=== PATIENT | female | born 1940 | race Caucasian/White ===

== ENCOUNTER → 2016-05-06 | Outpatient (CLI) | payer MEDICARE, OTHER ==
[2016-05-06 15:33] LABS: PROTHROMBIN TIME 34.8 SEC (11.4-15.4)
== END ==
LOC: OD 14:06
PROVIDERS: ATTEND Internal Medicine
DX: I48.0 Paroxysmal atrial fibrillation (principal)
CPT/HCPCS: 36415; 85610

== ENCOUNTER → 2016-05-26 | Outpatient (CLI) | payer MEDICARE, OTHER ==
[2016-05-26 15:33] LABS: PROTHROMBIN TIME 28.9 SEC (11.4-15.4)
== END ==
LOC: OD 15:02
PROVIDERS: ATTEND Internal Medicine
DX: I48.0 Paroxysmal atrial fibrillation (principal)
CPT/HCPCS: 36415; 85610

== ENCOUNTER → 2016-06-19 | Outpatient (CLI) | payer MEDICARE, OTHER ==
[2016-06-19 14:06] LABS: ABSOLUTE BASOPHILS # (AUTO) 0.2 10^3/uL (0.0-0.2); ABSOLUTE EOSINOPHILS # (AUTO) 0.1 10^3/uL (0.0-0.6); ABSOLUTE LYMPHOCYTES (AUTO) 1.5 10^3/uL (0.5-4.7); ABSOLUTE MONOCYTES (AUTO) 1.3 10^3/uL (0.1-1.4); ABSOLUTE NEUT (AUTO) 10.8 10^3/uL (1.7-8.2); BASOPHILS % (AUTO) 1.1 % (0-2); HEMATOCRIT 28.9 % (36.0-47.0); HEMOGLOBIN 9.3 g/dL (12.0-15.5); LYMPHOCYTES % (AUTO) 10.9 % (13-45); MEAN CORPUSCULAR HEMOGLOBIN 24.9 pg (27.0-33.4); MEAN CORPUSCULAR HGB CONC 32.1 g/dL (32.0-36.0); MEAN CORPUSCULAR VOLUME 78 fl (80-97); MONOCYTES % (AUTO) 9.3 % (3-13); RED BLOOD COUNT 3.72 10^6/uL (3.72-5.28); RED CELL DISTRIBUTION WIDTH 16.5 % (11.5-14.0); SEGMENTED NEUTROPHILS % (AUTO) 77.7 % (42-78); WHITE BLOOD COUNT 13.9 10^3/uL (4.0-10.5)
[2016-06-19 14:07] LABS: PROTHROMBIN TIME 19.7 SEC (11.4-15.4)
[2016-06-19 14:23] LABS: ALANINE AMINOTRANSFERASE 20 U/L (9-52); ALBUMIN 2.9 g/dL (3.5-5.0); ALKALINE PHOSPHATASE 104 U/L (38-126); ANION GAP 9 (5-19); ASPARTATE AMINO TRANSFERASE 13 U/L (14-36); BILIRUBIN,TOTAL 0.2 mg/dL (0.2-1.3); BLOOD UREA NITROGEN 35 mg/dL (7-20); CALCIUM 8.7 mg/dL (8.4-10.2); CARBON DIOXIDE 26 mmol/L (22-30); CHLORIDE 103 mmol/L (98-107); CHOLESTEROL 225.93 mg/dL (0-200); Direct HDL 49 mg/dL (>40); GLUCOSE 118 mg/dL (75-110); MAGNESIUM 1.9 mg/dL (1.6-2.3); POTASSIUM 5.1 mmol/L (3.6-5.0); SODIUM 137.7 mmol/L (137-145); TOTAL PROTEIN 6.2 g/dL (6.3-8.2); TRIGLYCERIDES 138 mg/dL (<150)
[2016-06-19 14:36] LABS: DIRECT LDL 152 mg/dL (<100)
== END ==
LOC: OD 13:12
PROVIDERS: ATTEND Internal Medicine
DX: E11.9 Type 2 diabetes mellitus without complications (principal); I48.91 Unspecified atrial fibrillation; I10 Essential (primary) hypertension; R53.83 Other fatigue
CPT/HCPCS: 36415; 80053; 80061; 83036; 83735; 84443; 85025; 85610

== ENCOUNTER 2016-07-26 06:46 | Inpatient (IN) | payer MEDICARE, OTHER ==
[2016-07-26 07:03] LABS: ABSOLUTE BASOPHILS # (AUTO) 0.1 10^3/uL (0.0-0.2); ABSOLUTE LYMPHOCYTES (AUTO) 1.9 10^3/uL (0.5-4.7); ABSOLUTE MONOCYTES (AUTO) 1.5 10^3/uL (0.1-1.4); ABSOLUTE NEUT (AUTO) 6.9 10^3/uL (1.7-8.2); BASOPHILS % (AUTO) 1.3 % (0-2); EOSINOPHILS % (AUTO) 0.2 % (0-6); HEMATOCRIT 30.5 % (36.0-47.0); HEMOGLOBIN 9.9 g/dL (12.0-15.5); HGB HCT DIFFERENCE -0.8; LYMPHOCYTES % (AUTO) 18.2 % (13-45); MEAN CORPUSCULAR HEMOGLOBIN 25.1 pg (27.0-33.4); MEAN CORPUSCULAR HGB CONC 32.6 g/dL (32.0-36.0); MEAN CORPUSCULAR VOLUME 77 fl (80-97); MONOCYTES % (AUTO) 14.5 % (3-13); RED BLOOD COUNT 3.95 10^6/uL (3.72-5.28); SEGMENTED NEUTROPHILS % (AUTO) 65.8 % (42-78); VENOUS BLOOD BASE EXCESS 0.4 mmol/L; VENOUS BLOOD HCO3 28.7 mmol/L (20-32); VENOUS BLOOD PH 7.25 (7.30-7.42); WHITE BLOOD COUNT 10.4 10^3/uL (4.0-10.5)
[2016-07-26 07:04] LABS: VENOUS BLOOD PCO2 66.3 mmHg (35-63)
--- NOTE | 2016-07-26 07:04 | ER Document Report ---
ED Respiratory Problem <PACO CLARK - Last Filed: 07/26/16 11:07> - General Time seen by provider: 06:55 Mode of Arrival: Medic Information source: Patient TRAVEL OUTSIDE OF THE [place] IN LAST 30 DAYS: No - HPI Patient complains to provider of: COPD, Cough, Short of breath Onset: Other - see HPI note Duration: Continuous Context: Hx CHF, Hx COPD, Smoker Cough: Productive Sputum color: White EMS treatments: Solumedrol Associated symptoms: Cough Similar symptoms previously: No Recently seen / treated by doctor: No <JASMYN BUCHANAN - Last Filed: 07/26/16 12:03> - General Stated Complaint: BREATHING DIFFICULTY Notes: Patient is a 75 year old female presenting to the ED for difficulty breathing. Patient states her difficulty breathing started on Wednesday and progressed. Patient put off coming in to the ED to be seen. Patient was brought in via EMS who gave 125 mg solumedral and a breathing treatment. Patient was satting in the 80s on room air with EMS. Patient has been coughing as well with white sputum. Patient was not taking any breathing treatments at home. Patient has a history of a-fib, CHF, CAD, COPD, hypertension, hypercholesterolemia, PE, and DVT. (JASMYN BUCHANAN) - Related Data Allergies/Adverse Reactions: guaifenesin [Guaifenesin] Allergy (Severe, Verified 07/26/16 10:04) itching, hard to breathe Iodinated Contrast Media - Oral and [IV Dye, Iodine Containing] Allergy (Mild, Verified 07/26/16 10:04) rash iodine [Iodine] Allergy (Mild, Verified 07/26/16 10:04) rash Sulfa (Sulfonamide Antibiotics) Allergy (Mild, Verified 07/26/16 10:04) rash dar Allergy (Severe, Uncoded 07/26/16 10:04) Anaphylaxis Past Medical History - General Information source: Patient - Social History Smoking Status: Current Every Day Smoker Frequency of alcohol use: None Drug Abuse: None Family History: None Patient has suicidal ideation: No Patient has homicidal ideation: No - Past Medical History Cardiac Medical History: Reports: Hx Atrial Fibrillation, Hx Congestive Heart Failure, Hx Coronary Artery Disease, Hx Hypercholesterolemia - X14YR, Hx Hypertension - ON MEDS, Hx Peripheral Vascular Disease, Hx Pulmonary Embolism, Hx Heart Murmur - 42 YRS AGO DIAGNOSED Pulmonary Medical History: Reports: Hx Asthma, Hx Bronchitis, Hx COPD, Hx Pneumonia, Hx Sleep Apnea Neurological Medical History: Reports: Hx Cerebrovascular Accident Endocrine Medical History: Reports: Hx Diabetes Mellitus Type 2, Hx Hypothyroidism GI Medical History: Reports: Hx Gastroesophageal Reflux Disease, Hx Hiatal Hernia Musculoskeltal Medical History: Reports Hx Arthritis Psychiatric Medical History: Reports: Hx Depression Traumatic Medical History: Infectious Medical History: Past Surgical History: Reports: Hx Appendectomy, Hx Cardiac Catheterization - stents x 2 - no [place], Hx Coronary Artery Bypass Graft, Hx Hysterectomy, Hx Open Heart Surgery - 2 stents, Hx Tonsillectomy - Immunizations Hx Diphtheria, Pertussis, Tetanus Vaccination: Yes Hx Pneumococcal Vaccination: 02/25/09 <JASMYN BUCHANAN - Last Filed: 07/26/16 12:03> Review of Systems - Review of Systems Constitutional: No symptoms reported EENT: No symptoms reported Cardiovascular: No symptoms reported Respiratory: See HPI, Cough, Short of breath, Wheezing Gastrointestinal: No symptoms reported Genitourinary: No symptoms reported Female Genitourinary: No symptoms reported Musculoskeletal: No symptoms reported Skin: No symptoms reported Hematologic/Lymphatic: No symptoms reported Neurological/Psychological: No symptoms reported -: Yes All other systems reviewed and negative <JASMYN BUCHANAN - Last Filed: 07/26/16 12:03> Physical Exam <PACO CLARK - Last Filed: 07/26/16 11:07> - Vital signs Interpretation: Tachycardic, Tachypneic - General General appearance: Appears well, Alert In distress: Mild - HEENT Head: Normocephalic, Atraumatic Eyes: Normal Pupils: PERRL Mucous membranes: Moist - Respiratory Respiratory status: Tachypnea, Other - 100% on Bi PAP; patient is speaking in short broken sentences Chest status: Nontender Breath sounds: Wheezing - diffuse inspiratory and expiratory wheezes Chest palpation: Normal - Cardiovascular Rhythm: Irregularly irregular, Tachycardia Heart sounds: Normal auscultation Murmur: No - Abdominal Inspection: Normal Distension: No distension Bowel sounds: Normal Tenderness: Nontender Organomegaly: No organomegaly - Back Back: Normal, Nontender - Extremities General upper extremity: Normal inspection, Normal ROM, Normal strength General lower extremity: Normal inspection, Normal ROM, Normal strength. No: Edema - Neurological Neuro grossly intact: Yes Cognition: Normal Orientation: AAOx4 Lisette Coma Scale Eye Opening: Spontaneous [place] Coma Scale Verbal: Oriented [place] Coma Scale Motor: Obeys Commands Wiggins Coma Scale Total: 15 Speech: Normal Sensory: Normal - Psychological Associated symptoms: Normal affect, Normal mood - Skin Skin Temperature: Warm Skin Moisture: Dry <JASMYN BUCHANAN - Last Filed: 07/26/16 12:03> - Vital signs Vitals: Temp 98.7 F 07/26/16 06:49 Course - Laboratory Result Diagrams: 07/26/16 06:50 07/26/16 06:50 - Diagnostic Test Radiology reviewed: Image reviewed, Reports reviewed - Chest x-ray shows COPD without failure or infiltrate - EKG Interpretation by Me EKG shows normal: [place], Intervals. abnormal: QRS Complexes, ST-T Waves - Report revision abnormality from LVH Rate: Tachycardia - 145 Rhythm: A.Fib Voltage: Consistant with LVH <PACO CLARK - Last Filed: 07/26/16 11:07> - Laboratory Result Diagrams: 07/26/16 06:50 07/26/16 06:50 <JASMYN BUCHANAN - Last Filed: 07/26/16 12:03> - Re-evaluation Re-evalutation: 07/26/16 11:14 The patient's breathing improved considerably on BiPAP and with breathing treatments. She did receive steroids prior to arrival by EMS. Chest x-ray does not show infiltrate or failure. EKG shows A. fib with RVR of 145. She has been relatively hypotensive, but this did improve somewhat with fluid boluses. 2 doses of Cardizem 10 mg IV been given and she is on Cardizem drip and her rate has slowed from 145 down to about 120. Her pulse ox is now in the 96% range. She does report that her breathing feels better than it did earlier. When EMS picked her up her pulse ox was 80% on room air. (PACO CLARK) - Vital Signs Vital signs: Temp Pulse Resp BP Pulse Ox 98.7 F 22 H 102/52 L 97 07/26/16 06:49 07/26/16 10:44 07/26/16 10:44 07/26/16 10:44 - Laboratory Laboratory results interpreted by me: 07/26/16 07/26/16 07/26/16 06:50 06:50 06:50 Hgb 9.9 L Hct 30.5 L MCV 77 L MCH 25.1 L RDW 18.0 H Monocytes % 14.5 H Absolute Monocytes 1.5 H PT VBG pH VBG pCO2 BUN 24 H Creatinine 1.63 H Est GFR ( Amer) 37 L Est GFR (Non-Af Amer) 31 L Glucose 193 H NT-Pro-B Natriuret Pep 3350 H Albumin 3.1 L 07/26/16 07/26/16 06:50 06:50 Hgb Hct MCV MCH RDW Monocytes % Absolute Monocytes PT 24.4 H VBG pH 7.25 L VBG pCO2 66.3 H* BUN Creatinine Est GFR ( Amer) Est GFR (Non-Af Amer) Glucose NT-Pro-B Natriuret Pep Albumin Critical Care Note - Critical Care Note Total time excluding time spent on procedures (mins): 45 <PACO CLARK - Last Filed: 07/26/16 11:07> Discharge - Discharge Admitting Provider: Hospitalist Unit Admitted: IMCU <PACO CLARK - Last Filed: 07/26/16 11:07> <JASMYN BUCHANAN - Last Filed: 07/26/16 12:03> - Discharge Clinical Impression: Acute exacerbation of chronic obstructive pulmonary disease (COPD), Atrial fibrillation with RVR, Anticoagulated on Coumadin Hypotension Qualifiers: Hypotension type: unspecified hypotension type Qualified Code(s): I95.9 - Hypotension, unspecified Scribe Documentation - Scribe Written by Scribe:: Jasmyn Buchanan 07/26/16 8:25 acting as scribe for :: Lala <JASMYN BUCHANAN - Last Filed: 07/26/16 12:03>
[2016-07-26] MEDS ORDERED: MAGNESIUM SULFATE/D5W 100 ML IV ONE (07:14)
[2016-07-26 07:22] LABS: ALANINE AMINOTRANSFERASE 26 U/L (9-52); ALBUMIN 3.1 g/dL (3.5-5.0); ALKALINE PHOSPHATASE 119 U/L (38-126); ANION GAP 11 (5-19); ASPARTATE AMINO TRANSFERASE 19 U/L (14-36); BILIRUBIN,DIRECT 0.2 mg/dL (0.0-0.4); BILIRUBIN,TOTAL 0.3 mg/dL (0.2-1.3); BLOOD UREA NITROGEN 24 mg/dL (7-20); CALCIUM 8.4 mg/dL (8.4-10.2); CARBON DIOXIDE 27 mmol/L (22-30); CHLORIDE 103 mmol/L (98-107); CREATINE KINASE 69 U/L (30-135); CREATININE RESULT 1.63 mg/dL (0.52-1.25); GLUCOSE 193 mg/dL (75-110); POTASSIUM 4.5 mmol/L (3.6-5.0); PROTHROMBIN TIME 24.4 SEC (11.4-15.4); SODIUM 141.1 mmol/L (137-145); TOTAL PROTEIN 6.5 g/dL (6.3-8.2)
[2016-07-26 07:34] LABS: CREATINE KINASE MB 0.64 ng/mL (<4.55); TROPONIN I 0.013 ng/mL
[2016-07-26] MEDS ORDERED: ALBUTEROL SULFATE 0.083% NEB 2.5 MG/3 ML AMPUL NEB ONE (07:58)
[2016-07-26] MEDS ORDERED: IPRATROPIUM/ALBUTEROL 0.5-2.5 MG/3 ML AMPUL NEB ONE (07:58)
[2016-07-26] MEDS ORDERED: NORMAL SALINE 1000 ML 300 ML IV ONE (08:00)
[2016-07-26] MEDS ORDERED: DILTIAZEM HCL INJ 25 MG/5 ML VIAL IV ONE ×2 (08:00→09:30)
[2016-07-26] MEDS ORDERED: DILTIAZEM HCL/D5W 125 MG/125 ML RTUINJ IV ONE (09:50)
[2016-07-26] MEDS ORDERED: ACETAMINOPHEN 325 MG TABLET PO PRN (11:14)
[2016-07-26] MEDS ORDERED: LEVALBUTEROL HCL NEB 1.25 MG/3 ML AMPUL NEB PRN (11:14)
[2016-07-26] MEDS ORDERED: DEXTROSE 50%-WATER 25 GM/50 ML DISP.SYRIN IV PRN ×4 (11:24→22:44)
[2016-07-26] MEDS ORDERED: GLUCAGON,HUMAN RECOMB 1 MG INJ IM PRN ×2 (11:24→22:44)
[2016-07-26] MEDS ORDERED: DEXTROSE 40% GEL 15 GM TUBE PO PRN ×4 (11:24→22:44)
[2016-07-26] MEDS ORDERED: NORMAL SALINE 1000 ML 2,000 ML IV ONE (11:54)
[2016-07-26 11:56] LABS: ARTERIAL BLOOD BASE EXCESS -3.2 mmol/L; ARTERIAL BLOOD O2 SATURATION 97.1 % (94-98)
[2016-07-26] MEDS ORDERED: VANCOMYCIN HCL 0 MG in DEXTROSE 5%-WATER 250 ML IV NR (12:00)
[2016-07-26] MEDS: INSULIN LISPRO 100 UNIT/ML 3 ML VIAL SUBCUT PRN ×2 (12:00→22:28)
[2016-07-26] MEDS: IPRATROPIUM/ALBUTEROL 0.5-2.5 MG/3 ML AMPUL NEB SCH ×3 (12:26→20:38)
[2016-07-26] MEDS: METHYLPREDNISOLONE INJ 125 MG/2 ML SDV IV SCH ×2 (12:34→16:57)
[2016-07-26] MEDS: LEVOFLOXACIN 500 MG/D5W RTU 500 MG/100 ML RTUPB IV SCH (12:39)
[2016-07-26 13:39] LABS: THYROID STIMULATING HORMONE 1.72 uIU/mL (0.47-4.68)
--- NOTE | 2016-07-26 14:25 | PDOC H&P ---
History of Present Illness Admission Date/PCP: 07/26/16 11:14 BONY MUNOZ, History of Present Illness: JOHN PUENTES is a 75 year old female with a past medical history of a-fib, CHF, CAD, COPD, hypertension, hypercholesterolemia, PE, and DVT who presents to the emergency department with increasing shortness of breath since Wednesday. Patient reports associated cough with productive white phlegm more than normal. She reports chest congestion. She reports chills but no overt fever; however , she did not take her temperature at home. Patient was found to be satting in the low 80s by EMS. She was given Solu-Medrol and 2 nebulized treatments in route. She was given a third nebulized treatment in the emergency department. Patient is found to have atrial fibrillation with rapid ventricular response as well as COPD exacerbation. She is referred to hospital service for evaluation and treatment. Past Medical History Cardiac Medical History: Reports: Atrial Fibrillation, Congestive Heart Failure , Coronary Artery Disease, Hyperlipidema - X14YR, Hypertension - ON MEDS, Peripheral Vascular Disease, Pulmonary Embolism, Heart Murmur - 42 YRS AGO DIAGNOSED Denies: Myocardial Infarction Pulmonary Medical History: Reports: Asthma, Bronchitis, Chronic Obstructive Pulmonary Disease (COPD), Pneumonia, Sleep Apnea Denies: Respiratory Failure, Tuberculosis Neurological Medical History: Denies: Seizures Endocrine Medical History: Reports: Diabetes Mellitus Type 2, Hypothyroidism Malignancy Medical History: Denies: Lung Cancer GI Medical History: Reports: Gastroesophageal Reflux Disease, Hiatal Hernia Musculoskeltal Medical History: Reports: Arthritis Psychiatric Medical History: Reports: Depression Hematology: Reports: Anemia - HX Denies: Sickle Cell Disease Past Surgical History Past Surgical History: Reports: Appendectomy, Cardiac Catheterization - stents x 2 - no [place], Coronary Artery Bypass Graft, Hysterectomy, Tonsillectomy Denies: Amputation, Mastectomy Social History Smoking Status: Current Every Day Smoker Frequency of Alcohol Use: None Hx Recreational Drug Use: No Hx Prescription Drug Abuse: No - Advance Directive Resuscitation Status: Full Code Surrogate healthcare decision maker:: Daughter, Autumn Family History Family History: Hypertension Parental Family History Reviewed: Yes Children Family History Reviewed: Yes Sibling(s) Family History Reviewed.: Yes Medication/Allergy Allergies/Adverse Reactions: guaifenesin [Guaifenesin] Allergy (Severe, Verified 07/26/16 10:04) itching, hard to breathe Iodinated Contrast Media - Oral and [IV Dye, Iodine Containing] Allergy (Mild, Verified 07/26/16 10:04) rash iodine [Iodine] Allergy (Mild, Verified 07/26/16 10:04) rash Sulfa (Sulfonamide Antibiotics) Allergy (Mild, Verified 07/26/16 10:04) rash dar Allergy (Severe, Uncoded 07/26/16 10:04) Anaphylaxis Review of Systems Constitutional: PRESENT: chills, fatigue. ABSENT: fever(s), headache(s), weight gain, weight loss Eyes: ABSENT: visual disturbances Ears: ABSENT: hearing changes Cardiovascular: ABSENT: chest pain, dyspnea on exertion, edema, orthropnea, palpitations Respiratory: PRESENT: cough, dyspnea, sputum. ABSENT: hemoptysis Gastrointestinal: PRESENT: constipation. ABSENT: abdominal pain, diarrhea, hematemesis, hematochezia, melena, nausea, vomiting Genitourinary: ABSENT: dysuria, hematuria Musculoskeletal: ABSENT: joint swelling Integumentary: ABSENT: rash, wounds Neurological: ABSENT: abnormal gait, abnormal speech, confusion, dizziness, focal weakness, syncope Psychiatric: ABSENT: anxiety, depression, homidical ideation, suicidal ideation Endocrine: ABSENT: cold intolerance, heat intolerance, polydipsia, polyuria Hematologic/Lymphatic: ABSENT: easy bleeding, easy bruising Physical Exam Vital Signs: Temp Pulse Resp BP Pulse Ox 98.0 F 125 H 24 H 110/51 L 100 07/26/16 14:04 07/26/16 14:04 07/26/16 14:04 07/26/16 14:04 07/26/16 14:04 Intake & Output 07/25/16 07/26/16 07/27/16 06:59 06:59 06:59 Weight 73.2 kg General appearance: PRESENT: well-developed, well-nourished, other - Moderate distress Head exam: PRESENT: atraumatic, normocephalic Eye exam: PRESENT: conjunctiva pink, EOMI, PERRLA. ABSENT: conjunctival injection, scleral icterus Ear exam: PRESENT: normal external ear exam Mouth exam: PRESENT: dry mucosa, tongue midline Neck exam: ABSENT: JVD, lymphadenopathy, thyromegaly, tracheal deviation Respiratory exam: PRESENT: accessory muscle use, prolonged expiratory phas, rhonchi, symmetrical, tachypnea, wheezes. ABSENT: crackles, rales, retraction, stridor, unlabored - Labor Cardiovascular exam: PRESENT: irregular rhythm, +S1, +S2, tachycardia. ABSENT: diastolic murmur, gallop, rubs, systolic murmur Pulses: PRESENT: normal dorsalis pedis pul Vascular exam: PRESENT: normal capillary refill GI/Abdominal exam: PRESENT: normal bowel sounds, soft. ABSENT: distended, firm , guarding, mass, Robbins's sign, organolmegaly, rebound, rigid, tenderness Rectal exam: PRESENT: deferred Extremities exam: PRESENT: full ROM. ABSENT: calf tenderness, clubbing, pedal edema Neurological exam: PRESENT: alert, awake, oriented to person, oriented to place , oriented to time, oriented to situation, CN II-XII grossly intact. ABSENT: motor sensory deficit Psychiatric exam: PRESENT: appropriate affect, normal mood. ABSENT: homicidal ideation, suicidal ideation Skin exam: PRESENT: dry, intact, warm. ABSENT: cyanosis, rash Results Laboratory Results: 07/26/16 11:40 Carbonic Acid 1.26 HCO3/H2CO3 Ratio 17:1 ABG pH 7.35 ABG pCO2 41.8 ABG pO2 98.0 ABG HCO3 22.3 ABG O2 Saturation 97.1 ABG Base Excess -3.2 FiO2 35% Impressions: Chest X-Ray 07/26/16 06:55 IMPRESSION: COPD. NO ACUTE RADIOGRAPHIC FINDING IN THE CHEST. Assessment & Plan - Diagnosis (1) Acute exacerbation of chronic obstructive pulmonary disease (COPD) Is this a current diagnosis for this admission?: YesPlan: Patient currently on BiPAP. Will obtain ABG. Will initiate patient on vancomycin as she has a history of MRSA, cefepime and Levaquin for structural lung disease. Solu-Medrol 125 mg IV every 8. Scheduled nebulized treatments (2) Sepsis Qualifiers: Sepsis type: sepsis due to unspecified organism Qualified Code(s): A41.9 - Sepsis, unspecified organism Is this a current diagnosis for this admission?: YesPlan: Patient meets sepsis criteria with tachycardia, tachypnea, hypoxia, and likely infectious source of COPD exacerbation/possible early pneumonia. (3) Anticoagulated on Coumadin Is this a current diagnosis for this admission?: YesPlan: We'll continue patient's Coumadin she is currently therapeutic. (4) Atrial fibrillation with RVR Is this a current diagnosis for this admission?: YesPlan: Patient currently on Cardizem drip. Feel that her current A. fib is likely secondary to underlying sepsis. (5) Hypotension Qualifiers: Hypotension type: unspecified hypotension type Qualified Code(s): I95.9 - Hypotension, unspecified Is this a current diagnosis for this admission?: YesPlan: We'll give 2 L normal saline bolus at this time and then initiate normal saline maintenance. (6) CAD (coronary artery disease) Qualifiers: Coronary Disease-Associated Artery/Lesion type: [place] artery [place] vs. transplanted heart: [place] heart Associated angina: without angina Qualified Code(s): I25.10 - Atherosclerotic heart disease of [place] coronary artery without angina pectoris Is this a current diagnosis for this admission?: YesPlan: Will continue patient home medications once reconcile appropriately. (7) CKD (chronic kidney disease) stage 3, GFR 30-59 ml/min Is this a current diagnosis for this admission?: YesPlan: Patient's baseline creatinine appears between 1.2 and 1.5. Patient mildly dehydrated. Will monitor for appropriate return to function. (8) Insulin dependent diabetes mellitus Is this a current diagnosis for this admission?: YesPlan: Patient currently on insulin for extended period of time. With CKD stage III. We'll continue patient on sliding scale insulin in addition to her home insulin. (9) Hypothyroidism Qualifiers: Hypothyroidism type: unspecified Qualified Code(s): E03.9 - Hypothyroidism, unspecified Is this a current diagnosis for this admission?: YesPlan: Patient was recently started on Synthroid. Will recheck TSH and free T4 in light of recurrent A. fib with RVR. (10) Acute hypoxemic respiratory failure Is this a current diagnosis for this admission?: YesPlan: Continue BiPAP until ABG results. After continue oxygen. (11) Anemia Qualifiers: Anemia type: unspecified type Qualified Code(s): D64.9 - Anemia, unspecified Is this a current diagnosis for this admission?: YesPlan: Will obtain iron studies. Will transfuse patient if stress below 8 - Time Time Spent: 50 to 70 Minutes Medications reviewed and adjusted accordingly: Yes - Inpatient Certification Based on my medical assessment, after consideration of the patient's comorbidities, presenting symptoms, or acuity I expect that the services needed warrant INPATIENT care.: Yes I certify that my determination is in accordance with my understanding of Medicare's requirements for reasonable and necessary INPATIENT services [42 CFR 412.3e].: Yes Medical Necessity: Need For IV Fluids, Need For Continuous Telemetry Monitoring , Need for Nebulizer Therapy and Monitoring of Response, Need for IV Antibiotics Post Hospital Care: D/C Audio Visual Production Specialist Documentation
[2016-07-26 14:28] LABS: APPEARANCE,URINE CLOUDY; BILIRUBIN,URINE NEGATIVE (NEGATIVE); GLUCOSE, URINE 150 mg/dL (NEGATIVE); KETONES,URINE NEGATIVE (NEGATIVE); LEUKOCYTE ESTERASE,URINE MODERATE (NEGATIVE); NITRITE,URINE NEGATIVE (NEGATIVE); PROTEIN,URINE >=500 mg/dL (NEGATIVE); URINE SPECIFIC GRAVITY 1.018; UROBILINOGEN,URINE NEGATIVE mg/dL (<2.0)
[2016-07-26] MEDS: CEFEPIME HCL 2 GM in DEXTROSE 5%-WATER 50 ML IV SCH (16:55)
[2016-07-26] MEDS: LANSOPRAZOLE 30 MG TAB.RAP.DR PO SCH (16:57)
[2016-07-26] MEDS: VANCOMYCIN HCL 1,000 MG in DEXTROSE 5%-WATER 250 ML IV SCH (20:00)
--- NOTE | 2016-07-26 21:11 | EKG REPORT ---
SEVERITY:- ABNORMAL ECG - ATRIAL FIBRILLATION PROBABLE LVH WITH SECONDARY REPOL ABNRM : Confirmed by: Valencia Fernandez MD 26-Jul-2016 21:09:46
[2016-07-26] MEDS ORDERED: CEFEPIME 2 GM/D5W RTU 50 ML IV SCH (22:00)
[2016-07-26] MEDS ORDERED: WARFARIN SODIUM 5 MG TABLET PO SCH (22:00)
[2016-07-26] MEDS ORDERED: DILTIAZEM HCL 60 MG TABLET PO ONE (22:48)
[2016-07-26] MEDS ORDERED: INSULIN GLARGINE,HUM.REC.ANLOG 300 UNIT/3 ML INSULN.PEN SUBCUT ONE (23:10)
[2016-07-26] MEDS ORDERED: FLUTICASONE/SALMETEROL DISKUS 250-50 MCG/DOSE IH ONE (23:11)
[2016-07-26] MEDS ORDERED: INSULIN REG, HUMAN 100 UNIT/ML 3 ML VIAL (PYX) ONE (23:30)
[2016-07-26] MEDS: INSULIN GLARGINE,HUM.REC.ANLOG 300 UNIT/3 ML INSULN.PEN SUBCUT SCH (23:33)
[2016-07-26] MEDS: FLUTICASONE/SALMETEROL DISKUS 250-50 MCG/DOSE IH SCH (23:39)
[2016-07-27] MEDS ORDERED: DIAZEPAM INJ 10 MG/2 ML DISP.SYRIN IV ONE ×2 (00:03→02:15)
[2016-07-27] MEDS ORDERED: DIAZEPAM INJ 10 MG/2 ML DISP.SYRIN ONE (00:06)
[2016-07-27] MEDS: DILTIAZEM HCL/D5W 125 ML IV PRN ×2 (03:58→16:38)
[2016-07-27 04:59] LABS: ABSOLUTE LYMPHOCYTES (AUTO) 0.5 10^3/uL (0.5-4.7); ABSOLUTE MONOCYTES (AUTO) 0.4 10^3/uL (0.1-1.4); ABSOLUTE NEUT (AUTO) 8.2 10^3/uL (1.7-8.2); BASOPHILS % (AUTO) 0.3 % (0-2); HEMATOCRIT 25.4 % (36.0-47.0); HEMOGLOBIN 8.2 g/dL (12.0-15.5); HGB HCT DIFFERENCE -0.8; LYMPHOCYTES % (AUTO) 5.8 % (13-45); MEAN CORPUSCULAR HEMOGLOBIN 24.6 pg (27.0-33.4); MEAN CORPUSCULAR HGB CONC 32.2 g/dL (32.0-36.0); MEAN CORPUSCULAR VOLUME 76 fl (80-97); MONOCYTES % (AUTO) 4.8 % (3-13); RED BLOOD COUNT 3.33 10^6/uL (3.72-5.28); RED CELL DISTRIBUTION WIDTH 18.1 % (11.5-14.0); SEGMENTED NEUTROPHILS % (AUTO) 89.1 % (42-78); WHITE BLOOD COUNT 9.3 10^3/uL (4.0-10.5)
[2016-07-27 05:10] LABS: PROTHROMBIN TIME 35.5 SEC (11.4-15.4)
[2016-07-27 05:17] LABS: ANION GAP 12 (5-19); BLOOD UREA NITROGEN 35 mg/dL (7-20); CALCIUM 8.4 mg/dL (8.4-10.2); CARBON DIOXIDE 21 mmol/L (22-30); CHLORIDE 101 mmol/L (98-107); GLUCOSE 146 mg/dL (75-110); POTASSIUM 4.9 mmol/L (3.6-5.0)
[2016-07-27] MEDS: LANSOPRAZOLE 30 MG TAB.RAP.DR PO SCH ×2 (06:17→16:38)
[2016-07-27] MEDS: IPRATROPIUM/ALBUTEROL 0.5-2.5 MG/3 ML AMPUL NEB SCH ×4 (08:18→19:57)
[2016-07-27] MEDS: INSULIN LISPRO 100 UNIT/ML 3 ML VIAL SUBCUT PRN ×4 (08:22→22:56)
[2016-07-27] MEDS: DILTIAZEM HCL 240 MG CAPSULE.CR PO SCH (10:30)
[2016-07-27] MEDS: TIOTROPIUM BROMIDE DPI 5 CAP/KIT (18 MCG/CAP) IH SCH (10:30)
[2016-07-27] MEDS: FLUTICASONE/SALMETEROL DISKUS 250-50 MCG/DOSE IH SCH ×2 (10:30→22:01)
[2016-07-27] MEDS: CYANOCOBALAMIN (VITAMIN B-12) 1,000 MCG TABLET PO SCH (10:31)
[2016-07-27] MEDS: ASPIRIN 81 MG TABLET, CHEWABLE PO SCH (10:31)
[2016-07-27] MEDS: CHOLECALCIFEROL (D3) 1,000 UNIT TABLET PO SCH (10:31)
[2016-07-27] MEDS: NORMAL SALINE 1000 ML 1,000 ML IV PRN ×3 (11:02→20:45)
[2016-07-27] MEDS ORDERED: DIGOXIN INJ 0.5 MG/2 ML AMPULE IV ONE (11:45)
[2016-07-27] MEDS: LORAZEPAM INJ 2 MG/1 ML VIAL IV PRN (12:13)
[2016-07-27] MEDS: LEVOFLOXACIN 500 MG/D5W RTU 500 MG/100 ML RTUPB IV SCH (12:14)
[2016-07-27] MEDS: CEFEPIME HCL 2 GM in DEXTROSE 5%-WATER 50 ML IV SCH (13:21)
[2016-07-27] MEDS: METHYLPREDNISOLONE INJ 40 MG/1 ML SDV IV SCH ×2 (13:42→22:02)
[2016-07-27] MEDS ORDERED: NORMAL SALINE 1000 ML 1,000 ML IV ONE (14:20)
--- NOTE | 2016-07-27 14:25 | PDOC PROGRESS REPORT ---
Subjective Progress Note for:: 07/27/16 Subjective:: Patient reports that she doesn't feel as though she is breathing much better. Patient denies abdominal pain, nausea, vomiting, fevers, chills, diarrhea, constipation, headache, new onset weakness. Patient complains of anxiety Physical Exam Vital Signs: Temp Pulse Resp BP Pulse Ox 97.3 F 102 H 25 H 137/84 H 100 07/27/16 04:41 07/27/16 06:00 07/27/16 04:41 07/27/16 07:31 07/27/16 04:41 Pulse Oximeter Continuous Start: 07/26/16 11: 14 Freq: RTQ4 Status: Active Document 07/27/16 04:20 JSM (Rec: 07/27/16 04:38 [id number] [id number]) Pulse Oximetry Assessment Oxygen Saturation (92-100) 100 Oxygen Delivery Method Bi-pap Fraction of Inspired Oxygen (FIO2) 35 Equipment Usage Equipment in Use Continuous SpO2 Machine # 7 Intake & Output 07/26/16 07/27/16 07/28/16 06:59 06:59 06:59 Intake Total 240 300 Output Total 450 0 Balance -210 300 Weight 73.5 kg Exam: General: Awake alert and oriented x3, mild respiratory distress HEENT: AT/NC, PERRL, EOMI, oropharynx is moist, pink, no scleral icterus, no conjunctival injection Neck: No JVD, trachea midline Chest: Tachypnea, right upper lobe wheezing CV: Tachycardic, irregularly irregular Abdomen: Soft, nontender to palpation, nondistended, active bowel sounds; no rebound, rigidity, or guarding Extremities: No cyanosis, clubbing or edema Neuro: Cranial nerves II through XII are grossly intact without focal deficits; awake alert and oriented x3 Psych: Anxious Results Laboratory Results: 07/27/16 03:55 07/27/16 03:55 07/26/16 07/26/16 07/27/16 11:40 13:56 03:55 WBC 9.3 RBC 3.33 L Hgb 8.2 L Hct 25.4 L MCV 76 L MCH 24.6 L MCHC 32.2 RDW 18.1 H Plt Count 208 Seg Neutrophils % 89.1 H Lymphocytes % 5.8 L Monocytes % 4.8 Eosinophils % 0.0 Basophils % 0.3 Absolute Neutrophils 8.2 Absolute Lymphocytes 0.5 Absolute Monocytes 0.4 Absolute Eosinophils 0.0 Absolute Basophils 0.0 Carbonic Acid 1.26 HCO3/H2CO3 Ratio 17:1 ABG pH 7.35 ABG pCO2 41.8 ABG pO2 98.0 ABG HCO3 22.3 ABG O2 Saturation 97.1 ABG Base Excess -3.2 FiO2 35% Sodium Potassium Chloride Carbon Dioxide Anion Gap BUN Creatinine Est GFR ( Amer) Est GFR (Non-Af Amer) Glucose Calcium Urine Color YELLOW Urine Appearance CLOUDY Urine pH 5.0 Ur Specific [place] 1.018 Urine Protein >=500 H Urine Glucose (UA) 150 H Urine Ketones NEGATIVE Urine Blood NEGATIVE Urine Nitrite NEGATIVE Ur Leukocyte Esterase MODERATE H Urine WBC (Auto) 79 Urine RBC (Auto) 26 07/27/16 03:55 WBC RBC Hgb Hct MCV MCH MCHC RDW Plt Count Seg Neutrophils % Lymphocytes % Monocytes % Eosinophils % Basophils % Absolute Neutrophils Absolute Lymphocytes Absolute Monocytes Absolute Eosinophils Absolute Basophils Carbonic Acid HCO3/H2CO3 Ratio ABG pH ABG pCO2 ABG pO2 ABG HCO3 ABG O2 Saturation ABG Base Excess FiO2 Sodium 134.0 L Potassium 4.9 Chloride 101 Carbon Dioxide 21 L Anion Gap 12 BUN 35 H Creatinine 1.80 H Est GFR ( Amer) 33 L Est GFR (Non-Af Amer) 27 L Glucose 146 H Calcium 8.4 Urine Color Urine Appearance Urine pH Ur Specific [place] Urine Protein Urine Glucose (UA) Urine Ketones Urine Blood Urine Nitrite Ur Leukocyte Esterase Urine WBC (Auto) Urine RBC (Auto) Impressions: Chest X-Ray 07/26/16 06:55 IMPRESSION: COPD. NO ACUTE RADIOGRAPHIC FINDING IN THE CHEST. Assessment & Plan - Diagnosis (1) Acute exacerbation of chronic obstructive pulmonary disease (COPD) Is this a current diagnosis for this admission?: YesPlan: Patient currently off BiPAP. Patient's ABG was well compensated. Will initiate patient on vancomycin as she has a history of MRSA, cefepime and Levaquin for structural lung disease. Solu-Medrol 40 mg IV every 8. Scheduled nebulized treatments (2) Sepsis Qualifiers: Sepsis type: sepsis due to unspecified organism Qualified Code(s): A41.9 - Sepsis, unspecified organism Is this a current diagnosis for this admission?: YesPlan: Patient meets sepsis criteria with tachycardia, tachypnea, hypoxia, and likely infectious source of COPD exacerbation/possible early pneumonia. (3) Atrial fibrillation with RVR Is this a current diagnosis for this admission?: YesPlan: Patient currently on Cardizem drip. Will give patient IV fluids as she appears to be dehydrated. We'll also give patient IV digoxin and metoprolol. Patient' s Coumadin is supratherapeutic. (4) Hypotension Qualifiers: Hypotension type: unspecified hypotension type Qualified Code(s): I95.9 - Hypotension, unspecified Is this a current diagnosis for this admission?: Yes (5) CAD (coronary artery disease) Qualifiers: Coronary Disease-Associated Artery/Lesion type: [place] artery [place] vs. transplanted heart: [place] heart Associated angina: without angina Qualified Code(s): I25.10 - Atherosclerotic heart disease of [place] coronary artery without angina pectoris Is this a current diagnosis for this admission?: YesPlan: Will continue patient home medications once reconcile appropriately. (6) Insulin dependent diabetes mellitus Is this a current diagnosis for this admission?: YesPlan: Patient currently on insulin for extended period of time. With CKD stage III. We'll continue patient on sliding scale insulin in addition to her home insulin. (7) Hypothyroidism Qualifiers: Hypothyroidism type: unspecified Qualified Code(s): E03.9 - Hypothyroidism, unspecified Is this a current diagnosis for this admission?: YesPlan: TSH is 1.72 and free T4 is 1.3 on. Continue patient's home Synthroid dosage. (8) Acute hypoxemic respiratory failure Is this a current diagnosis for this admission?: YesPlan: Continue BiPAP as needed. After continue oxygen. (9) Anemia Qualifiers: Anemia type: iron deficiency Iron deficiency anemia type: unspecified iron deficiency Qualified Code(s): D50.9 - Iron deficiency anemia, unspecified Is this a current diagnosis for this admission?: YesPlan: We'll initiate patient on oral iron replacement in addition to Colace. (10) Coagulopathy Is this a current diagnosis for this admission?: YesPlan: Secondary to Coumadin usage. Patient is supratherapeutic at this point will hold her Coumadin tonight. Recheck PT/INR in the morning. (11) CKD (chronic kidney disease) stage 3, GFR 30-59 ml/min Is this a current diagnosis for this admission?: Yes - Time Time Spent with patient: 25-34 minutes Medications reviewed and adjusted accordingly: Yes
[2016-07-27] MEDS: FERROUS SULFATE 325 MG TABLET PO SCH (16:39)
[2016-07-27] MEDS: DOCUSATE SODIUM 100 MG CAPSULE PO SCH (16:39)
[2016-07-27] MEDS: VANCOMYCIN HCL 1,000 MG in DEXTROSE 5%-WATER 250 ML IV SCH (17:22)
[2016-07-27] MEDS ORDERED: INSULIN REG, HUMAN 100 UNIT/ML 3 ML VIAL (PYX) SUBCUT ONE (22:48)
[2016-07-27] MEDS: INSULIN GLARGINE,HUM.REC.ANLOG 300 UNIT/3 ML INSULN.PEN SUBCUT SCH (22:56)
[2016-07-28] MEDS: LORAZEPAM INJ 2 MG/1 ML VIAL IV PRN ×2 (01:17→20:45)
[2016-07-28 01:55] LABS: APPEARANCE,URINE CLOUDY; BILIRUBIN,URINE NEGATIVE (NEGATIVE); GLUCOSE, URINE >=500 mg/dL (NEGATIVE); KETONES,URINE NEGATIVE (NEGATIVE); LEUKOCYTE ESTERASE,URINE LARGE (NEGATIVE); NITRITE,URINE NEGATIVE (NEGATIVE); PROTEIN,URINE >=500 mg/dL (NEGATIVE); URINE SPECIFIC GRAVITY 1.006; UROBILINOGEN,URINE NEGATIVE mg/dL (<2.0)
[2016-07-28] MEDS: DILTIAZEM HCL/D5W 125 ML IV PRN ×2 (04:23→22:58)
[2016-07-28 05:06] LABS: HEMATOCRIT 25.5 % (36.0-47.0); HEMOGLOBIN 8.2 g/dL (12.0-15.5); HGB HCT DIFFERENCE -0.9; MEAN CORPUSCULAR HEMOGLOBIN 24.4 pg (27.0-33.4); MEAN CORPUSCULAR HGB CONC 31.9 g/dL (32.0-36.0); MEAN CORPUSCULAR VOLUME 76 fl (80-97); RED BLOOD COUNT 3.35 10^6/uL (3.72-5.28); RED CELL DISTRIBUTION WIDTH 17.7 % (11.5-14.0); WHITE BLOOD COUNT 17.5 10^3/uL (4.0-10.5)
[2016-07-28 05:11] LABS: PROTHROMBIN TIME 47.8 SEC (11.4-15.4)
[2016-07-28 05:23] LABS: ANION GAP 9 (5-19); BLOOD UREA NITROGEN 37 mg/dL (7-20); CALCIUM 8.4 mg/dL (8.4-10.2); CARBON DIOXIDE 19 mmol/L (22-30); CHLORIDE 105 mmol/L (98-107); CREATININE RESULT 1.59 mg/dL (0.52-1.25); GLUCOSE 231 mg/dL (75-110); POTASSIUM 4.4 mmol/L (3.6-5.0); SODIUM 133.2 mmol/L (137-145)
[2016-07-28] MEDS: METHYLPREDNISOLONE INJ 40 MG/1 ML SDV IV SCH (05:34)
[2016-07-28] MEDS: LANSOPRAZOLE 30 MG TAB.RAP.DR PO SCH ×2 (05:34→16:49)
[2016-07-28] MEDS: NORMAL SALINE 1000 ML 1,000 ML IV PRN ×2 (05:34→12:33)
[2016-07-28 05:37] LABS: BASOPHILS % (MANUAL) 0 % (0-2); EOSINOPHILS % (MANUAL) 0 % (0-6); LYMPHOCYTES % (MANUAL) 1 % (13-45); TOTAL CELLS COUNTED 100
[2016-07-28 05:38] LABS: ANISOCYTOSIS 1+
[2016-07-28] MEDS: IPRATROPIUM/ALBUTEROL 0.5-2.5 MG/3 ML AMPUL NEB SCH ×2 (07:48→11:46)
[2016-07-28] MEDS: INSULIN LISPRO 100 UNIT/ML 3 ML VIAL SUBCUT PRN ×3 (08:22→16:51)
[2016-07-28] MEDS: FLUTICASONE/SALMETEROL DISKUS 250-50 MCG/DOSE IH SCH ×2 (09:25→21:51)
[2016-07-28] MEDS: TIOTROPIUM BROMIDE DPI 5 CAP/KIT (18 MCG/CAP) IH SCH (09:25)
[2016-07-28] MEDS: DILTIAZEM HCL 240 MG CAPSULE.CR PO SCH (09:26)
[2016-07-28] MEDS: CYANOCOBALAMIN (VITAMIN B-12) 1,000 MCG TABLET PO SCH (09:26)
[2016-07-28] MEDS: ASPIRIN 81 MG TABLET, CHEWABLE PO SCH (09:26)
[2016-07-28] MEDS: DOCUSATE SODIUM 100 MG CAPSULE PO SCH ×2 (09:26→17:54)
[2016-07-28] MEDS: FERROUS SULFATE 325 MG TABLET PO SCH ×2 (09:27→17:54)
[2016-07-28] MEDS: CHOLECALCIFEROL (D3) 1,000 UNIT TABLET PO SCH (09:27)
[2016-07-28] MEDS: LEVOFLOXACIN 500 MG/D5W RTU 500 MG/100 ML RTUPB IV SCH (12:34)
--- NOTE | 2016-07-28 14:42 | PDOC PROGRESS REPORT ---
Subjective Progress Note for:: 07/28/16 Subjective:: Shortness of breath slightly improved, still having wheezing intermittently, no chest pain, chills or fever, diarrhea, nausea or vomiting nor diaphoresis. Physical Exam Vital Signs: Temp Pulse Resp BP Pulse Ox 97.4 F 117 H 24 H 113/70 93 07/28/16 07:32 07/28/16 12:11 07/28/16 12:11 07/28/16 12:11 07/28/16 12:11 Pulse Oximeter Continuous Start: 07/26/16 11: 14 Freq: RTQ4 Status: Complete Document 07/27/16 15:56 [facility] (Rec: 07/27/16 18:20 [facility] [email or web address]) Pulse Oximetry Assessment Equipment Usage Equipment Discontinued Continuous SpO2 Machine # 7 Intake & Output 07/27/16 07/28/16 07/29/16 06:59 06:59 06:59 Intake Total 240 2994 25 Output Total 450 1025 400 Balance -210 1968 -375 Weight 73.5 kg 76.1 kg General appearance: PRESENT: no acute distress, cooperative, other - Initial cannula oxygen Head exam: PRESENT: normocephalic Eye exam: PRESENT: EOMI Mouth exam: PRESENT: moist, neck supple Neck exam: ABSENT: JVD Respiratory exam: PRESENT: rhonchi - Occasional, wheezes - Mild expiratory Cardiovascular exam: PRESENT: irregular rhythm. ABSENT: gallop GI/Abdominal exam: PRESENT: soft. ABSENT: distended, tenderness Extremities exam: PRESENT: other - Trace lower extremity edema Neurological exam: PRESENT: alert, awake, oriented to situation Skin exam: PRESENT: dry, warm. ABSENT: cyanosis Results Laboratory Results: 07/28/16 04:25 07/28/16 04:25 07/28/16 07/28/16 07/28/16 01:30 04:25 04:25 WBC 17.5 H RBC 3.35 L Hgb 8.2 L Hct 25.5 L MCV 76 L MCH 24.4 L MCHC 31.9 L RDW 17.7 H Plt Count 223 Seg Neutrophils % Not Reportable Lymphocytes % Not Reportable Monocytes % Not Reportable Eosinophils % Not Reportable Basophils % Not Reportable Absolute Neutrophils Not Reportable Absolute Lymphocytes Not Reportable Absolute Monocytes Not Reportable Absolute Eosinophils Not Reportable Absolute Basophils Not Reportable Sodium 133.2 L Potassium 4.4 Chloride 105 Carbon Dioxide 19 L Anion Gap 9 BUN 37 H Creatinine 1.59 H Est GFR ( Amer) 38 L Est GFR (Non-Af Amer) 32 L Glucose 231 H Calcium 8.4 Urine Color YELLOW Urine Appearance CLOUDY Urine pH 6.0 Ur Specific [place] 1.006 Urine Protein >=500 H Urine Glucose (UA) >=500 H Urine Ketones NEGATIVE Urine Blood MODERATE H Urine Nitrite NEGATIVE Ur Leukocyte Esterase LARGE H Urine WBC (Auto) 27 Urine RBC (Auto) 10 Impressions: Chest X-Ray 07/26/16 06:55 IMPRESSION: COPD. NO ACUTE RADIOGRAPHIC FINDING IN THE CHEST. Assessment & Plan - Diagnosis (1) Acute hypoxemic respiratory failure Is this a current diagnosis for this admission?: Yes (2) Acute exacerbation of chronic obstructive pulmonary disease (COPD) Is this a current diagnosis for this admission?: Yes (3) Anemia Qualifiers: Anemia type: iron deficiency Iron deficiency anemia type: unspecified iron deficiency Qualified Code(s): D50.9 - Iron deficiency anemia, unspecified Is this a current diagnosis for this admission?: Yes (4) Coagulopathy Is this a current diagnosis for this admission?: Yes (5) CKD (chronic kidney disease) stage 3, GFR 30-59 ml/min Is this a current diagnosis for this admission?: Yes (6) Atrial fibrillation with RVR Is this a current diagnosis for this admission?: Yes (7) Hypothyroidism Qualifiers: Hypothyroidism type: unspecified Qualified Code(s): E03.9 - Hypothyroidism, unspecified Is this a current diagnosis for this admission?: Yes (8) Insulin dependent diabetes mellitus Is this a current diagnosis for this admission?: Yes (9) CAD (coronary artery disease) Qualifiers: Coronary Disease-Associated Artery/Lesion type: [place] artery [place] vs. transplanted heart: [place] heart Associated angina: without angina Qualified Code(s): I25.10 - Atherosclerotic heart disease of [place] coronary artery without angina pectoris Is this a current diagnosis for this admission?: Yes (11) GERD (gastroesophageal reflux disease) Qualifiers: Esophagitis presence: without esophagitis Qualified Code(s): K21.9 - Gastro-esophageal reflux disease without esophagitis Is this a current diagnosis for this admission?: Yes (12) Depression Qualifiers: Depression Type: unspecified Qualified Code(s): F32.9 - Major depressive disorder, single episode, unspecified Is this a current diagnosis for this admission?: Yes (13) Hyperlipidemia Qualifiers: Hyperlipidemia type: unspecified Qualified Code(s): E78.5 - Hyperlipidemia, unspecified Is this a current diagnosis for this admission?: Yes (14) History of pulmonary embolism Is this a current diagnosis for this admission?: Yes (15) History of DVT (deep vein thrombosis) Is this a current diagnosis for this admission?: Yes - Time Time Spent with patient: 25-34 minutes - Plan Summary Plan Summary: Cont. steroids but increse the dose and continue swhtdi-cco-apwyg bronchodilators but change albuterol to Xopenex. Transition to oral Cardizem and discontinue intravenous Cardizem. Continue as needed beta teddy intravenously. Monitor PT/INR, currently above therapeutic level. We will continue to hold warfarin, monitor WBC. Continue supportive care.
[2016-07-28] MEDS ORDERED: METHYLPREDNISOLONE INJ 40 MG/1 ML SDV IV SCH (14:46)
[2016-07-28] MEDS ORDERED: METHYLPREDNISOLONE INJ 125 MG/2 ML SDV IV ONE (15:15)
[2016-07-28] MEDS: CEFEPIME HCL 2 GM in DEXTROSE 5%-WATER 50 ML IV SCH (15:18)
[2016-07-28] MEDS: IPRATROPIUM BROMIDE 0.02% NEB 0.5 MG/2.5 ML AMPUL NEB SCH ×3 (15:59→23:46)
[2016-07-28] MEDS: LEVALBUTEROL HCL NEB 1.25 MG/3 ML AMPUL NEB SCH ×3 (15:59→23:46)
[2016-07-28] MEDS: VANCOMYCIN HCL 1,000 MG in DEXTROSE 5%-WATER 250 ML IV SCH (17:54)
[2016-07-28] MEDS: METOPROLOL TARTRATE PF/INJ 5 MG/5 ML SDV IV PRN (19:04)
[2016-07-28] MEDS: METHYLPREDNISOLONE INJ 125 MG/2 ML SDV IV SCH (20:26)
[2016-07-28] MEDS ORDERED: DILTIAZEM HCL INJ 25 MG/5 ML VIAL IV ONE ×2 (21:00→22:00)
[2016-07-28] MEDS: INSULIN GLARGINE,HUM.REC.ANLOG 300 UNIT/3 ML INSULN.PEN SUBCUT SCH (21:54)
[2016-07-28] MEDS ORDERED: DILTIAZEM HCL/D5W 125 MG/125 ML RTUINJ IV ONE (22:38)
[2016-07-29] MEDS: METOPROLOL TARTRATE PF/INJ 5 MG/5 ML SDV IV PRN (01:12)
[2016-07-29] MEDS: METHYLPREDNISOLONE INJ 125 MG/2 ML SDV IV SCH ×4 (02:12→21:54)
[2016-07-29] MEDS: LORAZEPAM INJ 2 MG/1 ML VIAL IV PRN ×2 (02:16→21:52)
[2016-07-29] MEDS: IPRATROPIUM BROMIDE 0.02% NEB 0.5 MG/2.5 ML AMPUL NEB SCH ×6 (04:03→23:42)
[2016-07-29] MEDS: LEVALBUTEROL HCL NEB 1.25 MG/3 ML AMPUL NEB SCH ×6 (04:03→23:42)
[2016-07-29 05:04] LABS: HEMATOCRIT 26.2 % (36.0-47.0); HEMOGLOBIN 8.3 g/dL (12.0-15.5); HGB HCT DIFFERENCE -1.3; MEAN CORPUSCULAR HEMOGLOBIN 24.3 pg (27.0-33.4); MEAN CORPUSCULAR HGB CONC 31.8 g/dL (32.0-36.0); MEAN CORPUSCULAR VOLUME 76 fl (80-97); RED BLOOD COUNT 3.43 10^6/uL (3.72-5.28); RED CELL DISTRIBUTION WIDTH 18.3 % (11.5-14.0); WHITE BLOOD COUNT 16.9 10^3/uL (4.0-10.5)
[2016-07-29 05:27] LABS: ANION GAP 9 (5-19); BLOOD UREA NITROGEN 36 mg/dL (7-20); CALCIUM 8.5 mg/dL (8.4-10.2); CARBON DIOXIDE 20 mmol/L (22-30); CHLORIDE 109 mmol/L (98-107); CREATININE RESULT 1.66 mg/dL (0.52-1.25); GLUCOSE 194 mg/dL (75-110); POTASSIUM 4.6 mmol/L (3.6-5.0); SODIUM 138.2 mmol/L (137-145)
[2016-07-29] MEDS: LANSOPRAZOLE 30 MG TAB.RAP.DR PO SCH ×2 (06:31→18:04)
[2016-07-29] MEDS: DILTIAZEM HCL/D5W 125 ML IV PRN ×3 (06:54→21:59)
[2016-07-29] MEDS: INSULIN LISPRO 100 UNIT/ML 3 ML VIAL SUBCUT PRN ×4 (08:11→21:53)
[2016-07-29] MEDS: FERROUS SULFATE 325 MG TABLET PO SCH ×2 (08:11→18:04)
[2016-07-29 08:45] LABS: APPEARANCE,URINE CLOUDY; BILIRUBIN,URINE NEGATIVE (NEGATIVE); GLUCOSE, URINE 150 mg/dL (NEGATIVE); KETONES,URINE NEGATIVE (NEGATIVE); LEUKOCYTE ESTERASE,URINE LARGE (NEGATIVE); NITRITE,URINE NEGATIVE (NEGATIVE); PROTEIN,URINE 100 mg/dL (NEGATIVE); URINE SPECIFIC GRAVITY 1.008; UROBILINOGEN,URINE NEGATIVE mg/dL (<2.0)
[2016-07-29] MEDS ORDERED: NORMAL SALINE 1000 ML 1,000 ML IV PRN (09:44)
--- NOTE | 2016-07-29 09:48 | PDOC PROGRESS REPORT ---
Subjective Progress Note for:: 07/29/16 Subjective:: Patient overall feels improved but slowly. Patient back to Cardizem drip due to uncontrolled heart rate. No reported temperature spikes, nausea or vomiting , diarrhea. Still with some chest congestion. Physical Exam Vital Signs: Temp Pulse Resp BP Pulse Ox 97.8 F 101 H 20 143/64 H 94 07/29/16 07:49 07/29/16 07:53 07/29/16 07:53 07/29/16 07:49 07/29/16 07:53 Pulse Oximeter Continuous Start: 07/26/16 11: 14 Freq: RTQ4 Status: Complete Document 07/27/16 15:56 [facility] (Rec: 07/27/16 18:20 [facility] [email or web address]) Pulse Oximetry Assessment Equipment Usage Equipment Discontinued Continuous SpO2 Machine # 7 Intake & Output 07/28/16 07/29/16 07/30/16 06:59 06:59 06:59 Intake Total 2994 825 Output Total 1025 1000 Balance 1969 -175 Weight 76.1 kg 77.5 kg General appearance: PRESENT: mild distress Head exam: PRESENT: normocephalic Eye exam: PRESENT: EOMI Mouth exam: PRESENT: moist, neck supple Neck exam: ABSENT: JVD Respiratory exam: PRESENT: rhonchi - Scattered bilateral, wheezes - Minimal Cardiovascular exam: PRESENT: irregular rhythm. ABSENT: gallop GI/Abdominal exam: PRESENT: hypoactive bowel sounds, soft. ABSENT: diminished bowel sounds Extremities exam: ABSENT: pedal edema Neurological exam: PRESENT: alert, awake Skin exam: PRESENT: dry, warm. ABSENT: cyanosis Results Laboratory Results: 07/29/16 04:23 07/29/16 04:23 07/29/16 07/29/16 07/29/16 04:23 04:23 06:30 WBC 16.9 H RBC 3.43 L Hgb 8.3 L Hct 26.2 L MCV 76 L MCH 24.3 L MCHC 31.8 L RDW 18.3 H Plt Count 238 Sodium 138.2 Potassium 4.6 Chloride 109 H Carbon Dioxide 20 L Anion Gap 9 BUN 36 H Creatinine 1.66 H Est GFR ( Amer) 36 L Est GFR (Non-Af Amer) 30 L Glucose 194 H Calcium 8.5 Urine Color YELLOW Urine Appearance CLOUDY Urine pH 6.0 Ur Specific [place] 1.008 Urine Protein 100 H Urine Glucose (UA) 150 H Urine Ketones NEGATIVE Urine Blood MODERATE H Urine Nitrite NEGATIVE Ur Leukocyte Esterase LARGE H Urine WBC (Auto) 6 Urine RBC (Auto) 5 Impressions: Chest X-Ray 07/26/16 06:55 IMPRESSION: COPD. NO ACUTE RADIOGRAPHIC FINDING IN THE CHEST. Assessment & Plan - Diagnosis (1) Acute hypoxemic respiratory failure Is this a current diagnosis for this admission?: Yes (2) Acute exacerbation of chronic obstructive pulmonary disease (COPD) Is this a current diagnosis for this admission?: Yes (3) Anemia Qualifiers: Anemia type: iron deficiency Iron deficiency anemia type: unspecified iron deficiency Qualified Code(s): D50.9 - Iron deficiency anemia, unspecified Is this a current diagnosis for this admission?: Yes (4) Coagulopathy Is this a current diagnosis for this admission?: Yes (5) CKD (chronic kidney disease) stage 3, GFR 30-59 ml/min Is this a current diagnosis for this admission?: Yes (6) Atrial fibrillation with RVR Is this a current diagnosis for this admission?: Yes (7) Hypothyroidism Qualifiers: Hypothyroidism type: unspecified Qualified Code(s): E03.9 - Hypothyroidism, unspecified Is this a current diagnosis for this admission?: Yes (8) Insulin dependent diabetes mellitus Is this a current diagnosis for this admission?: Yes (9) CAD (coronary artery disease) Qualifiers: Coronary Disease-Associated Artery/Lesion type: [place] artery [place] vs. transplanted heart: [place] heart Associated angina: without angina Qualified Code(s): I25.10 - Atherosclerotic heart disease of [place] coronary artery without angina pectoris Is this a current diagnosis for this admission?: Yes (11) GERD (gastroesophageal reflux disease) Qualifiers: Esophagitis presence: without esophagitis Qualified Code(s): K21.9 - Gastro-esophageal reflux disease without esophagitis Is this a current diagnosis for this admission?: Yes (12) Depression Qualifiers: Depression Type: unspecified Qualified Code(s): F32.9 - Major depressive disorder, single episode, unspecified Is this a current diagnosis for this admission?: Yes (13) Hyperlipidemia Qualifiers: Hyperlipidemia type: unspecified Qualified Code(s): E78.5 - Hyperlipidemia, unspecified Is this a current diagnosis for this admission?: Yes (14) History of pulmonary embolism Is this a current diagnosis for this admission?: Yes (15) History of DVT (deep vein thrombosis) Is this a current diagnosis for this admission?: Yes - Time Time Spent with patient: 25-34 minutes - Plan Summary Plan Summary: We will obtain a chest x-ray. We will continue Cardizem drip, increase the Cardizem oral to 360 mg daily. Continue antibiotics, nebulizers, steroids and follow culture. We will recheck PT/INR in the morning and continue to hold the warfarin.
[2016-07-29] MEDS ORDERED: DILTIAZEM HCL 90 MG TABLET PO ONE (10:30)
[2016-07-29] MEDS: DOCUSATE SODIUM 100 MG CAPSULE PO SCH ×2 (11:19→18:04)
[2016-07-29] MEDS: ASPIRIN 81 MG TABLET, CHEWABLE PO SCH (11:19)
[2016-07-29] MEDS: CHOLECALCIFEROL (D3) 1,000 UNIT TABLET PO SCH (11:19)
[2016-07-29] MEDS: FLUTICASONE/SALMETEROL DISKUS 250-50 MCG/DOSE IH SCH ×2 (11:20→21:52)
[2016-07-29] MEDS: CYANOCOBALAMIN (VITAMIN B-12) 1,000 MCG TABLET PO SCH (11:20)
[2016-07-29] MEDS: TIOTROPIUM BROMIDE DPI 5 CAP/KIT (18 MCG/CAP) IH SCH (11:21)
[2016-07-29] MEDS: LEVOFLOXACIN 500 MG/D5W RTU 500 MG/100 ML RTUPB IV SCH (12:24)
[2016-07-29] MEDS: CEFEPIME HCL 2 GM in DEXTROSE 5%-WATER 50 ML IV SCH (13:54)
[2016-07-29] MEDS: DILTIAZEM HCL 90 MG TABLET PO SCH ×2 (14:50→21:55)
[2016-07-29] MEDS: VANCOMYCIN HCL 1,000 MG in DEXTROSE 5%-WATER 250 ML IV SCH (18:05)
[2016-07-29] MEDS: INSULIN GLARGINE,HUM.REC.ANLOG 300 UNIT/3 ML INSULN.PEN SUBCUT SCH (21:57)
[2016-07-30] MEDS: METHYLPREDNISOLONE INJ 125 MG/2 ML SDV IV SCH ×4 (02:41→21:15)
[2016-07-30] MEDS: DILTIAZEM HCL 90 MG TABLET PO SCH ×4 (02:41→21:14)
[2016-07-30] MEDS: IPRATROPIUM BROMIDE 0.02% NEB 0.5 MG/2.5 ML AMPUL NEB SCH ×5 (04:25→20:17)
[2016-07-30] MEDS: LEVALBUTEROL HCL NEB 1.25 MG/3 ML AMPUL NEB SCH ×5 (04:25→20:12)
[2016-07-30 05:23] LABS: PROTHROMBIN TIME 27.2 SEC (11.4-15.4)
[2016-07-30] MEDS: DILTIAZEM HCL/D5W 125 ML IV PRN ×2 (06:48→15:37)
[2016-07-30] MEDS: LANSOPRAZOLE 30 MG TAB.RAP.DR PO SCH ×2 (06:49→18:53)
[2016-07-30] MEDS: INSULIN LISPRO 100 UNIT/ML 3 ML VIAL SUBCUT PRN ×4 (08:18→21:20)
[2016-07-30] MEDS: FERROUS SULFATE 325 MG TABLET PO SCH ×2 (08:18→18:45)
[2016-07-30] MEDS: FLUTICASONE/SALMETEROL DISKUS 250-50 MCG/DOSE IH SCH ×2 (10:24→21:14)
[2016-07-30] MEDS: CHOLECALCIFEROL (D3) 1,000 UNIT TABLET PO SCH (10:24)
[2016-07-30] MEDS: DOCUSATE SODIUM 100 MG CAPSULE PO SCH ×2 (10:24→18:44)
[2016-07-30] MEDS: CYANOCOBALAMIN (VITAMIN B-12) 1,000 MCG TABLET PO SCH (10:24)
[2016-07-30] MEDS: ASPIRIN 81 MG TABLET, CHEWABLE PO SCH (10:24)
[2016-07-30] MEDS: TIOTROPIUM BROMIDE DPI 5 CAP/KIT (18 MCG/CAP) IH SCH (11:40)
[2016-07-30] MEDS: LEVOFLOXACIN 500 MG/D5W RTU 500 MG/100 ML RTUPB IV SCH (11:40)
[2016-07-30] MEDS: CEFEPIME HCL 2 GM in DEXTROSE 5%-WATER 50 ML IV SCH (13:15)
--- NOTE | 2016-07-30 15:56 | PDOC PROGRESS REPORT ---
Subjective Progress Note for:: 07/30/16 Subjective:: Continues to improve but slowly. Patient remains on Cardizem drip due to uncontrolled heart rate. Heart rate however is now controlled. No reported temperature spikes, nausea or vomiting, diarrhea. Still with some chest congestion but better. Physical Exam Vital Signs: Temp Pulse Resp BP Pulse Ox 97.6 F 85 20 120/41 L 99 07/30/16 12:15 07/30/16 14:00 07/30/16 11:32 07/30/16 14:00 07/30/16 12:15 Pulse Oximeter Continuous Start: 07/26/16 11: 14 Freq: RTQ4 Status: Complete Document 07/27/16 15:56 [facility] (Rec: 07/27/16 18:20 [facility] [email or web address]) Pulse Oximetry Assessment Equipment Usage Equipment Discontinued Continuous SpO2 Machine # 7 Intake & Output 07/29/16 07/30/16 07/31/16 06:59 06:59 06:59 Intake Total 825 1045 237 Output Total 1000 500 400 Balance -175 545 -163 Weight 77.5 kg 80.9 kg General appearance: PRESENT: no acute distress, cooperative Head exam: PRESENT: normocephalic Eye exam: PRESENT: EOMI Mouth exam: PRESENT: moist, neck supple Neck exam: ABSENT: JVD Respiratory exam: PRESENT: rhonchi - Occasional bilateral. ABSENT: wheezes Cardiovascular exam: PRESENT: irregular rhythm. ABSENT: gallop GI/Abdominal exam: PRESENT: normal bowel sounds, soft. ABSENT: distended, tenderness Extremities exam: ABSENT: other Neurological exam: PRESENT: alert, awake, oriented to situation Skin exam: PRESENT: dry, warm. ABSENT: cyanosis Results Laboratory Results: 07/29/16 04:23 07/29/16 04:23 Impressions: Chest X-Ray 07/29/16 00:00 IMPRESSION: Pulmonary vascular prominence with Shu lines from fluid overload or congestive failure Assessment & Plan - Diagnosis (1) Acute hypoxemic respiratory failure Is this a current diagnosis for this admission?: Yes (2) Acute exacerbation of chronic obstructive pulmonary disease (COPD) Is this a current diagnosis for this admission?: Yes (3) Anemia Qualifiers: Anemia type: iron deficiency Iron deficiency anemia type: unspecified iron deficiency Qualified Code(s): D50.9 - Iron deficiency anemia, unspecified Is this a current diagnosis for this admission?: Yes (4) Coagulopathy Is this a current diagnosis for this admission?: Yes (5) CKD (chronic kidney disease) stage 3, GFR 30-59 ml/min Is this a current diagnosis for this admission?: Yes (6) Atrial fibrillation with RVR Is this a current diagnosis for this admission?: Yes (7) Hypothyroidism Qualifiers: Hypothyroidism type: unspecified Qualified Code(s): E03.9 - Hypothyroidism, unspecified Is this a current diagnosis for this admission?: Yes (8) Insulin dependent diabetes mellitus Is this a current diagnosis for this admission?: Yes (9) CAD (coronary artery disease) Qualifiers: Coronary Disease-Associated Artery/Lesion type: [place] artery [place] vs. transplanted heart: [place] heart Associated angina: without angina Qualified Code(s): I25.10 - Atherosclerotic heart disease of [place] coronary artery without angina pectoris Is this a current diagnosis for this admission?: Yes (11) GERD (gastroesophageal reflux disease) Qualifiers: Esophagitis presence: without esophagitis Qualified Code(s): K21.9 - Gastro-esophageal reflux disease without esophagitis Is this a current diagnosis for this admission?: Yes (12) Depression Qualifiers: Depression Type: unspecified Qualified Code(s): F32.9 - Major depressive disorder, single episode, unspecified Is this a current diagnosis for this admission?: Yes (13) Hyperlipidemia Qualifiers: Hyperlipidemia type: unspecified Qualified Code(s): E78.5 - Hyperlipidemia, unspecified Is this a current diagnosis for this admission?: Yes (14) History of pulmonary embolism Is this a current diagnosis for this admission?: Yes (15) History of DVT (deep vein thrombosis) Is this a current diagnosis for this admission?: Yes - Time Time Spent with patient: 25-34 minutes - Plan Summary Plan Summary: Resumed warfarin and recheck PT/INR in the morning. We will discontinue Cardizem drip, continue oral Cardizem, continue when necessary beta teddy intravenously. We will try her on digoxin orally. Continue supportive care. Monitor electrolytes.
[2016-07-30] MEDS: DIGOXIN 0.125 MG TABLET PO SCH (18:44)
[2016-07-30] MEDS: VANCOMYCIN HCL 1,000 MG in DEXTROSE 5%-WATER 250 ML IV SCH (18:45)
[2016-07-30] MEDS: INSULIN GLARGINE,HUM.REC.ANLOG 300 UNIT/3 ML INSULN.PEN SUBCUT SCH (21:16)
[2016-07-30] MEDS: LORAZEPAM INJ 2 MG/1 ML VIAL IV PRN (21:40)
[2016-07-30] MEDS ORDERED: WARFARIN SODIUM 3 MG TABLET PO SCH (22:00)
[2016-07-31] MEDS: IPRATROPIUM BROMIDE 0.02% NEB 0.5 MG/2.5 ML AMPUL NEB SCH ×6 (00:22→19:45)
[2016-07-31] MEDS: LEVALBUTEROL HCL NEB 1.25 MG/3 ML AMPUL NEB SCH ×6 (00:22→19:46)
[2016-07-31] MEDS: DILTIAZEM HCL 90 MG TABLET PO SCH ×4 (03:52→22:03)
[2016-07-31] MEDS: METHYLPREDNISOLONE INJ 125 MG/2 ML SDV IV SCH ×2 (03:52→10:21)
[2016-07-31 05:08] LABS: MEAN CORPUSCULAR HEMOGLOBIN 24.2 pg (27.0-33.4); MEAN CORPUSCULAR HGB CONC 32.2 g/dL (32.0-36.0); MEAN CORPUSCULAR VOLUME 75 fl (80-97); RED BLOOD COUNT 3.32 10^6/uL (3.72-5.28); RED CELL DISTRIBUTION WIDTH 18.1 % (11.5-14.0)
[2016-07-31 05:15] LABS: PROTHROMBIN TIME 21.6 SEC (11.4-15.4)
[2016-07-31 05:29] LABS: ANION GAP 7 (5-19); BLOOD UREA NITROGEN 41 mg/dL (7-20); CALCIUM 9.4 mg/dL (8.4-10.2); CARBON DIOXIDE 24 mmol/L (22-30); CHLORIDE 107 mmol/L (98-107); GLUCOSE 170 mg/dL (75-110); POTASSIUM 4.4 mmol/L (3.6-5.0); SODIUM 137.7 mmol/L (137-145)
[2016-07-31] MEDS: LANSOPRAZOLE 30 MG TAB.RAP.DR PO SCH ×2 (05:53→18:44)
[2016-07-31] MEDS: INSULIN LISPRO 100 UNIT/ML 3 ML VIAL SUBCUT PRN ×4 (08:33→22:08)
[2016-07-31] MEDS: DOCUSATE SODIUM 100 MG CAPSULE PO SCH ×2 (09:47→18:43)
[2016-07-31] MEDS: FERROUS SULFATE 325 MG TABLET PO SCH ×2 (09:47→18:43)
[2016-07-31] MEDS: CYANOCOBALAMIN (VITAMIN B-12) 1,000 MCG TABLET PO SCH (09:47)
[2016-07-31] MEDS: CHOLECALCIFEROL (D3) 1,000 UNIT TABLET PO SCH (09:48)
[2016-07-31] MEDS: ASPIRIN 81 MG TABLET, CHEWABLE PO SCH (09:48)
[2016-07-31] MEDS: FLUTICASONE/SALMETEROL DISKUS 250-50 MCG/DOSE IH SCH ×2 (09:49→22:06)
[2016-07-31] MEDS: TIOTROPIUM BROMIDE DPI 5 CAP/KIT (18 MCG/CAP) IH SCH (09:49)
[2016-07-31] MEDS ORDERED: WARFARIN SODIUM 3 MG TABLET PO SCH (11:11)
--- NOTE | 2016-07-31 11:34 | PDOC PROGRESS REPORT ---
Subjective Progress Note for:: 07/31/16 Subjective:: Patient states she is better. Off cardizem drip, on PO cardizem and dogoxin. HR still uncontrolled at times. No N/V/diarrhea. (+) constipation. Physical Exam Vital Signs: Temp Pulse Resp BP Pulse Ox 97.7 F 126 H 20 146/83 H 97 07/31/16 02:55 07/31/16 08:07 07/31/16 08:07 07/31/16 07:34 07/31/16 07:34 Pulse Oximeter Continuous Start: 07/26/16 11: 14 Freq: RTQ4 Status: Complete Document 07/27/16 15:56 [facility] (Rec: 07/27/16 18:20 [facility] [email or web address]) Pulse Oximetry Assessment Equipment Usage Equipment Discontinued Continuous SpO2 Machine # 7 Intake & Output 07/30/16 07/31/16 08/01/16 06:59 06:59 06:59 Intake Total 1045 387 Output Total 500 1000 Balance 545 -613 Weight 80.9 kg 82.4 kg General appearance: PRESENT: mild distress Head exam: PRESENT: normocephalic Eye exam: PRESENT: EOMI Mouth exam: PRESENT: moist, neck supple Neck exam: ABSENT: JVD Respiratory exam: PRESENT: r[place] - lower lung [place], rhonchi - few B/L, wheezes - minimal Cardiovascular exam: PRESENT: irregular rhythm. ABSENT: gallop GI/Abdominal exam: PRESENT: hypoactive bowel sounds, soft. ABSENT: distended Extremities exam: ABSENT: pedal edema Neurological exam: PRESENT: alert, awake, oriented to situation Skin exam: PRESENT: dry, warm. ABSENT: cyanosis Results Laboratory Results: 07/31/16 04:36 07/31/16 04:36 07/31/16 07/31/16 04:36 04:36 WBC 8.0 RBC 3.32 L Hgb 8.0 L Hct 25.0 L MCV 75 L MCH 24.2 L MCHC 32.2 RDW 18.1 H Plt Count 247 Sodium 137.7 Potassium 4.4 Chloride 107 Carbon Dioxide 24 Anion Gap 7 BUN 41 H Creatinine 1.70 H Est GFR ( Amer) 35 L Est GFR (Non-Af Amer) 29 L Glucose 170 H Calcium 9.4 Impressions: Chest X-Ray 07/29/16 00:00 IMPRESSION: Pulmonary vascular prominence with Shu lines from fluid overload or congestive failure Assessment & Plan - Diagnosis (1) Acute hypoxemic respiratory failure Is this a current diagnosis for this admission?: Yes (2) Acute exacerbation of chronic obstructive pulmonary disease (COPD) Is this a current diagnosis for this admission?: Yes (3) Anemia Qualifiers: Anemia type: iron deficiency Iron deficiency anemia type: unspecified iron deficiency Qualified Code(s): D50.9 - Iron deficiency anemia, unspecified Is this a current diagnosis for this admission?: Yes (4) Coagulopathy Is this a current diagnosis for this admission?: Yes (5) CKD (chronic kidney disease) stage 3, GFR 30-59 ml/min Is this a current diagnosis for this admission?: Yes (6) Atrial fibrillation with RVR Is this a current diagnosis for this admission?: Yes (7) Hypothyroidism Qualifiers: Hypothyroidism type: unspecified Qualified Code(s): E03.9 - Hypothyroidism, unspecified Is this a current diagnosis for this admission?: Yes (8) Insulin dependent diabetes mellitus Is this a current diagnosis for this admission?: Yes (9) CAD (coronary artery disease) Qualifiers: Coronary Disease-Associated Artery/Lesion type: [place] artery [place] vs. transplanted heart: [place] heart Associated angina: without angina Qualified Code(s): I25.10 - Atherosclerotic heart disease of [place] coronary artery without angina pectoris Is this a current diagnosis for this admission?: Yes (11) GERD (gastroesophageal reflux disease) Qualifiers: Esophagitis presence: without esophagitis Qualified Code(s): K21.9 - Gastro-esophageal reflux disease without esophagitis Is this a current diagnosis for this admission?: Yes (12) Depression Qualifiers: Depression Type: unspecified Qualified Code(s): F32.9 - Major depressive disorder, single episode, unspecified Is this a current diagnosis for this admission?: Yes (13) Hyperlipidemia Qualifiers: Hyperlipidemia type: unspecified Qualified Code(s): E78.5 - Hyperlipidemia, unspecified Is this a current diagnosis for this admission?: Yes (14) History of pulmonary embolism Is this a current diagnosis for this admission?: Yes (15) History of DVT (deep vein thrombosis) Is this a current diagnosis for this admission?: Yes - Time Time Spent with patient: 25-34 minutes - Plan Summary Plan Summary: Cultures negative. D/C IV antibiotics/steroids. Begin augmentin and prednisone. Cont. digoxin and oral cardizem. Begin IV lasix. Consult cardiology for uncontrolled afib. Begin PT.
[2016-07-31] MEDS: AMOXICILLIN TR/POT CLAVULANATE 500-125 MG TAB PO SCH ×2 (13:28→22:05)
[2016-07-31] MEDS: POLYETHYLENE GLYCOL 3350 POWDER 17 GM/1 PACKET PO SCH (13:28)
[2016-07-31] MEDS: PREDNISONE 20 MG TABLET PO SCH (13:28)
--- NOTE | 2016-07-31 18:30 | PDOC CONSULTATION ---
Consultation Consult Date: 07/31/16 Attending physician:: CLOVIS STREETER Consult reason:: Atrial fibrillation History of Present Illness Admission Date/PCP: 07/26/16 11:14 BONY MUNOZ, Patient complains of: Shortness of breath History of Present Illness: JOHN PUENTES is a 75 year old female with a past medical history of a-fib, CHF, CAD, COPD, hypertension, hypercholesterolemia, PE, and DVT who presents to the emergency department with increasing shortness of breath since Wednesday. Patient reports associated cough with productive white phlegm more than normal. She reports chest congestion. She reports chills but no overt fever; however , she did not take her temperature at home. Patient was found to be satting in the low 80s by EMS. She was given Solu-Medrol and 2 nebulized treatments in route. She was given a third nebulized treatment in the emergency department. Patient is found to have atrial fibrillation with rapid ventricular response as well as COPD exacerbation. Patient was subsequently admitted. I been asked to evaluate her because of atrial fibrillation with rapid ventricular response. Patient on questioning denied any chest pain. Patient's son is the surrogate decision maker. Past Medical History Cardiac Medical History: Reports: Atrial Fibrillation, Congestive Heart Failure , Coronary Artery Disease, Hyperlipidema - X14YR, Hypertension - ON MEDS, Peripheral Vascular Disease, Pulmonary Embolism, Heart Murmur - 42 YRS AGO DIAGNOSED Denies: Myocardial Infarction Pulmonary Medical History: Reports: Asthma, Bronchitis, Chronic Obstructive Pulmonary Disease (COPD), Pneumonia, Sleep Apnea Denies: Respiratory Failure, Tuberculosis Neurological Medical History: Denies: Seizures Endocrine Medical History: Reports: Diabetes Mellitus Type 2, Hypothyroidism Malignancy Medical History: Denies: Lung Cancer GI Medical History: Reports: Gastroesophageal Reflux Disease, Hiatal Hernia Musculoskeltal Medical History: Reports: Arthritis Psychiatric Medical History: Reports: Depression Hematology: Reports: Anemia - HX Denies: Sickle Cell Disease Past Surgical History Past Surgical History: Reports: Appendectomy, Cardiac Catheterization - stents x 2 - no OR, Coronary Artery Bypass Graft, Hysterectomy, Tonsillectomy Denies: Amputation, Mastectomy Social History Information Source: Patient Smoking Status: Current Every Day Smoker Cigarettes Packs Per Day: 1 Number of Years Smokin Frequency of Alcohol Use: Occasional Hx Recreational Drug Use: No Drugs: None Hx Prescription Drug Abuse: No - Advance Directive Resuscitation Status: Full Code Surrogate healthcare decision maker:: Patient's son is the surrogate decision maker Family History Family History: None, Reviewed & Not Pertinent, Hypertension Parental Family History Reviewed: Yes Children Family History Reviewed: Yes Sibling(s) Family History Reviewed.: Yes - Negative for premature coronary artery disease or sudden cardiac in the family amongst first degree relatives. Medication/Allergy Home Medications: Albuterol Sulfate [Proair HFA] 1 puff IH Q4HP PRN 07/26/16 Aspirin [Aspirin 81 mg Chewable Tablet] 81 mg PO DAILY 07/26/16 Cholecalciferol (Vitamin D3) [Vitamin D3 1000 Unit Tablet] 1,000 unit PO DAILY 07/26/16 Cyanocobalamin (Vitamin B-12) [Vitamin B-12 1000 Mcg Tablet] 1,000 mcg PO DAILY 07/26/16 Diltiazem HCl [Diltiazem 24Hr Cd] 240 mg PO DAILY 07/26/16 Fluticasone/Salmeterol [Advair 250-50 Diskus 28 dose] 1 inh IH Q12 07/26/16 Insulin Glargine,Hum.rec.anlog [Lantus Insulin Inj 300 Unit/3 ml Pen] 45 unit SUBCUT QHS 07/26/16 Levothyroxine Sodium [Synthroid 0.05 mg Tablet] 0.05 mg PO DAILY 07/26/16 Tiotropium [place] [Spiriva Handihaler 18 mcg/dose (30 Dose)] 1 cap IH DAILY 06/12 Warfarin Sodium [Coumadin 5 mg Tablet] 5 mg PO MOTUWETHFR@0 07/26/16 Warfarin Sodium [Coumadin 5 mg Tablet] 5 mg PO SUSA@0 07/26/16 Allergies/Adverse Reactions: guaifenesin [Guaifenesin] Allergy (Severe, Verified 07/26/16 10:04) itching, hard to breathe Iodinated Contrast Media - Oral and [IV Dye, Iodine Containing] Allergy (Mild, Verified 07/26/16 10:04) rash iodine [Iodine] Allergy (Mild, Verified 07/26/16 10:04) rash Sulfa (Sulfonamide Antibiotics) Allergy (Mild, Verified 07/26/16 10:04) rash dar Allergy (Severe, Uncoded 07/26/16 10:04) Anaphylaxis Review of Systems Review of Systems: Please see history of present illness and past medical history as wall. Constitutional: Low-grade fever, cough and sputum production noted. Head : No recent chronic headaches, recent head injury. Eyes: No recent eye pain, diplopia, redness, discharge, acute visual changes. Ears: No recent chronic ear pain, acute hearing loss, ear discharge. Oral cavity: No recent ulcerations, bleeding, oral cavity discomfort. Neck: No recent acute neck pain reported. Hematologic: No recent easy bruising or bleeding or hematologic malignancy reported. Lymphatic: No recent lymphatic malignancy, chronic lymphadenopathy reported yet Cardiovascular system review: See history of present illness. Respiratory system review: Recent cough any sputum production but no hemoptysis , blood clots in the lungs reported. Mild Shortness of breath on exertion Gastrointestinal system review: Negative for any recent acute or chronic abdominal pain, hematemesis, melena, recent change in bowel habits. Genitourinary system review: No recent acute or chronic hematuria, flank pain, UTI etc. reported. Skin system review: Negative for any recent abnormal bruising, no rash, no pruritus reported. Neurologic: No prior history of strokes, mini strokes, seizure disorder. Psychologic: No history of major psychosis or major depression reported. Musculoskeletal: Minor aches and pains reported. No acute joint swelling reported. Endocrine: No recent polyuria, polydipsia, recent heat or cold intolerance. Physical Exam Vital Signs: Temp Pulse Resp BP Pulse Ox 97.6 F 84 16 142/40 H 90 L 07/31/16 16:14 07/31/16 16:14 07/31/16 16:14 07/31/16 16:14 07/31/16 16:14 Pulse Oximeter Continuous Start: 07/26/16 11: 14 Freq: RTQ4 Status: Complete Document 07/27/16 15:56 [facility] (Rec: 07/27/16 18:20 [facility] [email or web address]) Pulse Oximetry Assessment Equipment Usage Equipment Discontinued Continuous SpO2 Machine # 7 Intake & Output 07/30/16 07/31/16 08/01/16 06:59 06:59 06:59 Intake Total 1045 387 927 Output Total 500 1000 Balance 545 -363 927 Weight 80.9 kg 82.4 kg Exam: GENERAL: well-nourished and in no acute distress. Alert and oriented x3 HEAD: Atraumatic, normocephalic. EYES: Pupils equal round and reactive to light, extraocular movements intact, sclera anicteric, conjunctiva are normal. ENT: TMs normal, nares patent, oropharynx clear without exudates. Moist mucous membranes. No oral ulcerations or bleeding gums noted NECK: supple without lymphadenopathy. Trachea is central. No cervical or axillary lymphadenopathy noted. Carotids are 2+, JVD WNL LUNGS: Respiration seems nonlabored, no significant accessory muscle action noted. Bilateral basal crackles and wheezing noted. No dullness noted. CHEST: Palpation of the chest wall shows no significant chest wall tenderness. No other significant abnormalities noted. HEART: [place] [employer], No PSH, 2/6 ARMANDO aortic area, 1/6 iglesias systolic murmur mitral area , no rubs, no gallops. ABDOMEN: Soft, no significant tenderness appreciated, normoactive bowel sounds. No guarding, no rebound. No rigidity noted . No masses appreciated. EXTREMITIES: Pedal pulses are 1-2+, no calf tenderness noted. No clubbing or cyanosis.trace to 1+ pedal edema noted NEUROLOGICAL: Focused neurological exam showed no significant neurologic deficit. Normal speech, no focal weakness appreciated. PSYCH: Normal mood, normal affect. Judgment and insight within normal limits. SKIN: No significant ecchymosis, rash, ulcerations or signs of pruritus noted. MUSCULOSKELETAL EXAM: No significant joint swelling noted. Results Laboratory Results: 07/31/16 04:36 07/31/16 04:36 07/31/16 07/31/16 04:36 04:36 WBC 8.0 RBC 3.32 L Hgb 8.0 L Hct 25.0 L MCV 75 L MCH 24.2 L MCHC 32.2 RDW 18.1 H Plt Count 247 Sodium 137.7 Potassium 4.4 Chloride 107 Carbon Dioxide 24 Anion Gap 7 BUN 41 H Creatinine 1.70 H Est GFR ( Amer) 35 L Est GFR (Non-Af Amer) 29 L Glucose 170 H Calcium 9.4 EKG Comments: Atrial fibrillation with rapid ventricular response, increased QRS voltage suggestive of LVH with secondary ST-T wave changes versus ischemia, probable incomplete left bundle branch block pattern. Impressions: Chest X-Ray 07/29/16 00:00 IMPRESSION: Pulmonary vascular prominence with Shu lines from fluid overload or congestive failure Assessment & Plan - Diagnosis (1) Atrial fibrillation with RVR Is this a current diagnosis for this admission?: Yes (2) Acute exacerbation of chronic obstructive pulmonary disease (COPD) Is this a current diagnosis for this admission?: Yes (3) Hypertension Qualifiers: Hypertension type: essential hypertension Qualified Code(s): I10 - Essential (primary) hypertension Is this a current diagnosis for this admission?: Yes (4) Chronic kidney disease (CKD) Qualifiers: Chronic kidney disease stage: stage 3 (moderate) Qualified Code(s): N18.3 - Chronic kidney disease, stage 3 (moderate) Is this a current diagnosis for this admission?: Yes (5) Anticoagulated on Coumadin Is this a current diagnosis for this admission?: Yes (6) Hyperlipidemia Qualifiers: Hyperlipidemia type: unspecified Qualified Code(s): E78.5 - Hyperlipidemia, unspecified Is this a current diagnosis for this admission?: Yes (7) Respiratory failure Qualifiers: Chronicity: acute on chronic Respiratory failure complication: hypoxia and hypercapnia Qualified Code(s): J96.21 - Acute and chronic respiratory failure with hypoxia Is this a current diagnosis for this admission?: Yes (8) Coronary artery disease Qualifiers: Coronary Disease-Associated Artery/Lesion type: [place] artery Associated angina: angina presence unspecified Is this a current diagnosis for this admission?: YesPlan: Patient gives history of stent placement in the past. We will optimize therapy for underlying CAD. (9) Congestive heart failure Qualifiers: Congestive heart failure type: unspecified congestive heart failure type Congestive heart failure chronicity: acute on chronic Qualified Code(s ): I50.9 - Heart failure, unspecified Is this a current diagnosis for this admission?: YesPlan: Chest x-ray chest suggests presence of CHF. Will obtain a BNP level. Agree with IV Lasix. Further management plans will follow you of echocardiogram.. - Notes Notes: Atrial fibrillation with rapid ventricular response: Last EKG from 2014 show patient was in sinus rhythm. Rapid ventricular response related to COPD exacerbation. Continue with Cardizem and chronic anticoagulation with Coumadin. Could give additional Cardizem as boluses or as IV drip as needed. COPD with exacerbation: Treat with steroids, bronchodilator, choose Xopenex. Antibiotics as needed. Hypertension: Blood pressure goal in this patient is 140/90 or less. Chronic kidney disease: Avoid nephrotoxic agents. Coumadin therapy: Monitor INR closely. INR range should be between 2.0-3.0. Dyslipidemia: Continue statin therapy. Respiratory failure: Related to COPD with exacerbation. Patient has been advised to quit smoking. CHF:Chest x-ray chest suggests presence of CHF. Will obtain a BNP level. Agree with IV Lasix. Further management plans will follow you of echocardiogram.. Coronary artery disease:Patient gives history of stent placement in the past. We will optimize therapy for underlying CAD. - Time Time Spent: 30 to 50 Minutes - CODE STATUS was discussed, patient remains full code. Surrogate decision-maker ration son. Multiple medical problems were addressed.More than 50% of the time spent coordinating care, discussing management plans with involved caregivers. Management plans discussed with involved personnels. Medical decision making was of moderate to high complexity , patient's has multiple severe comorbidities. Patient tells me that she has a follow-up appointment with me in the office but just didn't make it.
[2016-07-31] MEDS: DIGOXIN 0.125 MG TABLET PO SCH (18:43)
[2016-07-31] MEDS: FUROSEMIDE INJ/PF 40 MG/4 ML SDV IV SCH (18:43)
[2016-07-31 19:43] LABS: APPEARANCE,URINE CLEAR; BILIRUBIN,URINE NEGATIVE (NEGATIVE); GLUCOSE, URINE 50 mg/dL (NEGATIVE); KETONES,URINE NEGATIVE (NEGATIVE); LEUKOCYTE ESTERASE,URINE TRACE (NEGATIVE); NITRITE,URINE NEGATIVE (NEGATIVE); PROTEIN,URINE >=500 mg/dL (NEGATIVE); URINE SPECIFIC GRAVITY 1.009; UROBILINOGEN,URINE NEGATIVE mg/dL (<2.0)
--- NOTE | 2016-07-31 20:21 | XCELERA REPORT ---
[address] [address] Transthoracic Echocardiogram Report Name: JOHN PUENTES Age: 75 yrs Gender: Female : 1940 Patient Status: Inpatient Patient Location: [id number]\S\315\S\A Study Date: 07/31/2016 02:44 PM Height: 67 in Weight: 181 lb BSA: 1.9 m2 Procedure: A complete two-dimensional transthoracic echocardiogram was performed (2D, M-mode, spectral and color flow Doppler). The study was technically difficult with many images being suboptimal in quality. Reason For Study: atrial fibrillation Ordering Physician: ABDOULAYE MARQUES Performed By: Yelena Avalos Interpretation Summary The left ventricular ejection fraction is normal. There is mild concentric left ventricular hypertrophy. The left ventricle is grossly normal size. Wall motion cannot be accurately commented on, but no definite regional wall motion abnormalities noted. The right ventricular systolic function is normal. The right ventricle is mildly dilated. The left atrium is mildly dilated. The right atrium is mildly dilated. There is a trace to mild amount of mitral regurgitation There is no mitral valve stenosis. No aortic regurgitation is present. There is mild aortic stenosis There is a peak gradient of 15-20 mm of Hg. There is a mild amount of tricuspid regurgitation Right ventricular systolic pressure is estimated to be elevated at 50- 60mmHg. There is moderate pulmonary hypertension by echo Minimal pericardial effusion. The inferior vena cava appeared normal and decreased < 50% with respiration (RAP 10-15 mmHg) MMode/2D Measurements \T\ Calculations RVDd: 2.9 cm LVIDd: 4.5 cm FS: 51.6 % Ao root diam: 2.3 cm IVSd: 1.1 cm LVIDs: 2.2 cm EDV(Teich): 92.3 ml LVPWd: 1.1 cm ESV(Teich): 15.7 ml Ao root area: 4.1 cm2 EF(Teich): 82.9 % LA dimension: 3.9 cm Doppler Measurements \T\ Calculations MV E max chelsey: MV P1/2t max chelsey: Ao V2 max: LV V1 max P.4 cm/sec 172.8 cm/sec 192.0 cm/sec 12.5 mmHg MV A max chelsey: MV P1/2t: 69.6 msec Ao max PG: LV V1 max: 87.8 cm/sec 14.7 mmHg 176.9 cm/sec MV E/A: 2.0 MVA(P1/2t): 3.2 cm2 MV dec slope: 726.5 cm/sec2 MV dec time: 0.24 sec PA V2 max: TR max chelsey: 137.7 cm/sec 376.0 cm/sec PA max PG: TR max P.5 mmHg 7.6 mmHg Left Ventricle The left ventricle is grossly normal size. There is mild concentric left ventricular hypertrophy. The left ventricular ejection fraction is normal. LV diastolic function could not be adequately assessed due to atrial fibrilation. Wall motion cannot be accurately commented on, but no definite regional wall motion abnormalities noted. Right Ventricle The right ventricle is mildly dilated. The right ventricle appears to be hypertrophied. The right ventricular systolic function is normal. Atria The right atrium is mildly dilated. The left atrium is mildly dilated. Interarterial septum not well visualized and not well dopplered. Cannot comment on ASD/PFO presence. Mitral Valve There is mild mitral leaflet calcification. There is mild mitral annular calcification. There is no mitral valve stenosis. There is a trace to mild amount of mitral regurgitation. Aortic Valve The aortic valve is mildly calcified. There is mild aortic stenosis. There is a peak gradient of 15-20 mm of Hg. No aortic regurgitation is present. Tricuspid Valve The tricuspid valve is not well visualized, but is grossly normal. There is no tricuspid stenosis. There is a mild amount of tricuspid regurgitation. Right ventricular systolic pressure is estimated to be elevated at 50- 60mmHg. There is moderate pulmonary hypertension by echo. Pulmonic Valve The pulmonic valve is not well visualized. Great Vessels The aortic root is not well visualized but is probably normal size. The inferior vena cava appeared normal and decreased < 50% with respiration (RAP 10-15 mmHg). Effusions Minimal pericardial effusion. : ABDOULAYE MARQUES > Abdoulaye Marques
[2016-07-31] MEDS: LORAZEPAM INJ 2 MG/1 ML VIAL IV PRN (22:10)
[2016-07-31] MEDS: INSULIN GLARGINE,HUM.REC.ANLOG 300 UNIT/3 ML INSULN.PEN SUBCUT SCH (22:13)
[2016-08-01] MEDS: IPRATROPIUM BROMIDE 0.02% NEB 0.5 MG/2.5 ML AMPUL NEB SCH ×6 (01:07→21:02)
[2016-08-01] MEDS: LEVALBUTEROL HCL NEB 1.25 MG/3 ML AMPUL NEB SCH ×6 (01:08→21:02)
[2016-08-01] MEDS: DILTIAZEM HCL 90 MG TABLET PO SCH ×4 (03:47→21:57)
[2016-08-01 05:50] LABS: PROTHROMBIN TIME 19.6 SEC (11.4-15.4)
--- NOTE | 2016-08-01 06:09 | EKG REPORT ---
SEVERITY:- ABNORMAL ECG - ATRIAL FIBRILLATION CONSIDER ANTEROSEPTAL INFARCT NONSPECIFIC T ABNORMALITIES, LATERAL LEADS : Confirmed by: Abdoulaye Romero 01-Aug-2016 06:09:16
[2016-08-01] MEDS: AMOXICILLIN TR/POT CLAVULANATE 500-125 MG TAB PO SCH ×3 (06:56→21:57)
[2016-08-01] MEDS: FUROSEMIDE INJ/PF 40 MG/4 ML SDV IV SCH ×2 (06:56→17:45)
[2016-08-01] MEDS: LANSOPRAZOLE 30 MG TAB.RAP.DR PO SCH ×2 (06:56→17:46)
[2016-08-01] MEDS: CYANOCOBALAMIN (VITAMIN B-12) 1,000 MCG TABLET PO SCH (09:31)
[2016-08-01] MEDS: INSULIN LISPRO 100 UNIT/ML 3 ML VIAL SUBCUT PRN ×4 (09:31→21:58)
[2016-08-01] MEDS: CHOLECALCIFEROL (D3) 1,000 UNIT TABLET PO SCH (09:31)
[2016-08-01] MEDS: FLUTICASONE/SALMETEROL DISKUS 250-50 MCG/DOSE IH SCH ×2 (09:32→21:57)
[2016-08-01] MEDS: TIOTROPIUM BROMIDE DPI 5 CAP/KIT (18 MCG/CAP) IH SCH (09:32)
[2016-08-01] MEDS: FERROUS SULFATE 325 MG TABLET PO SCH ×2 (09:32→17:46)
[2016-08-01] MEDS: DOCUSATE SODIUM 100 MG CAPSULE PO SCH ×2 (09:32→17:46)
[2016-08-01] MEDS: ASPIRIN 81 MG TABLET, CHEWABLE PO SCH (09:32)
[2016-08-01] MEDS ORDERED: WARFARIN SODIUM 3 MG TABLET PO SCH (11:00)
--- NOTE | 2016-08-01 11:04 | PDOC PROGRESS REPORT ---
Subjective Progress Note for:: 08/01/16 Subjective:: Patient is breathing better today than yesterday. Patient stated that she is about 85% close to her baseline. Patient able to get up and go to the commode. Denies any chills or fever. Denies diarrhea or chest pain. No nausea or vomiting nor abdominal pain. Physical Exam Vital Signs: Temp Pulse Resp BP Pulse Ox 97.7 F 71 18 141/70 H 95 08/01/16 07:15 08/01/16 07:56 08/01/16 07:56 08/01/16 07:15 08/01/16 07:56 Pulse Oximeter Continuous Start: 07/26/16 11: 14 Freq: RTQ4 Status: Complete Document 07/27/16 15:56 [facility] (Rec: 07/27/16 18:20 [facility] [email or web address]) Pulse Oximetry Assessment Equipment Usage Equipment Discontinued Continuous SpO2 Machine # 7 Intake & Output 07/31/16 08/01/16 08/02/16 06:59 06:59 06:59 Intake Total 387 1177 Output Total 1000 1050 Balance -613 127 Weight 82.4 kg 76.7 kg General appearance: PRESENT: no acute distress, cooperative, other - Nasal cannula oxygen Head exam: PRESENT: normocephalic Eye exam: PRESENT: EOMI Mouth exam: PRESENT: moist, neck supple Neck exam: ABSENT: JVD Respiratory exam: PRESENT: rales - Lower lung jackman posteriorly bilateral, rhonchi - Occasional bilateral. ABSENT: wheezes Cardiovascular exam: PRESENT: irregular rhythm. ABSENT: gallop GI/Abdominal exam: PRESENT: normal bowel sounds, soft. ABSENT: distended, tenderness Extremities exam: PRESENT: other - Trace lower extremity edema Neurological exam: PRESENT: alert, awake, oriented to situation Skin exam: PRESENT: dry, warm. ABSENT: cyanosis Results Laboratory Results: 07/31/16 04:36 07/31/16 04:36 07/31/16 19:20 Urine Color STRAW Urine Appearance CLEAR Urine pH 5.0 Ur Specific [place] 1.009 Urine Protein >=500 H Urine Glucose (UA) 50 H Urine Ketones NEGATIVE Urine Blood MODERATE H Urine Nitrite NEGATIVE Ur Leukocyte Esterase TRACE H Urine WBC (Auto) 4 Urine RBC (Auto) 0 07/31/16 18:50 NT-Pro-B Natriuret Pep 8800 H Impressions: Chest X-Ray 07/29/16 00:00 IMPRESSION: Pulmonary vascular prominence with Shu lines from fluid overload or congestive failure Assessment & Plan - Diagnosis (1) Acute hypoxemic respiratory failure Is this a current diagnosis for this admission?: Yes (2) Acute exacerbation of chronic obstructive pulmonary disease (COPD) Is this a current diagnosis for this admission?: Yes (3) Anemia Qualifiers: Anemia type: iron deficiency Iron deficiency anemia type: unspecified iron deficiency Qualified Code(s): D50.9 - Iron deficiency anemia, unspecified Is this a current diagnosis for this admission?: Yes (4) Coagulopathy Is this a current diagnosis for this admission?: Yes (5) CKD (chronic kidney disease) stage 3, GFR 30-59 ml/min Is this a current diagnosis for this admission?: Yes (6) Atrial fibrillation with RVR Is this a current diagnosis for this admission?: Yes (7) Hypothyroidism Qualifiers: Hypothyroidism type: unspecified Qualified Code(s): E03.9 - Hypothyroidism, unspecified Is this a current diagnosis for this admission?: Yes (8) Insulin dependent diabetes mellitus Is this a current diagnosis for this admission?: Yes (9) CAD (coronary artery disease) Qualifiers: Coronary Disease-Associated Artery/Lesion type: [place] artery [place] vs. transplanted heart: [place] heart Associated angina: without angina Qualified Code(s): I25.10 - Atherosclerotic heart disease of [place] coronary artery without angina pectoris Is this a current diagnosis for this admission?: Yes (10) Hypertension Qualifiers: Hypertension type: essential hypertension Qualified Code(s): I10 - Essential (primary) hypertension Is this a current diagnosis for this admission?: Yes (11) GERD (gastroesophageal reflux disease) Qualifiers: Esophagitis presence: without esophagitis Qualified Code(s): K21.9 - Gastro-esophageal reflux disease without esophagitis Is this a current diagnosis for this admission?: Yes (12) Depression Qualifiers: Depression Type: unspecified Qualified Code(s): F32.9 - Major depressive disorder, single episode, unspecified Is this a current diagnosis for this admission?: Yes (13) Hyperlipidemia Qualifiers: Hyperlipidemia type: unspecified Qualified Code(s): E78.5 - Hyperlipidemia, unspecified Is this a current diagnosis for this admission?: Yes (14) History of pulmonary embolism Is this a current diagnosis for this admission?: Yes (15) History of DVT (deep vein thrombosis) Is this a current diagnosis for this admission?: Yes - Time Time Spent with patient: 25-34 minutes - Plan Summary Plan Summary: Increase warfarin and recheck PT/INR in the morning. Continue Cardizem and digoxin for now. Patient improved with intravenous Lasix, heart rate is better controlled now. Continue current medication and supportive care. Physical therapy. Refused to go to subacute rehabilitation at all.
[2016-08-01] MEDS: PREDNISONE 20 MG TABLET PO SCH (12:20)
[2016-08-01] MEDS: POLYETHYLENE GLYCOL 3350 POWDER 17 GM/1 PACKET PO SCH (12:21)
[2016-08-01] MEDS ORDERED: CEFEPIME HCL 2 GM in DEXTROSE 5%-WATER 100 ML IV SCH (13:00)
[2016-08-01] MEDS ORDERED: DIGOXIN 0.125 MG TABLET PO SCH (18:00)
--- NOTE | 2016-08-01 21:39 | PROGRESS NOTE E ---
Progress Note NAME: JOHN PUENTES : 1940 AGE: 75Y DATE: 08/01/2016 ROOM: 315 SUBJECTIVE: The patient seen at 8:15 a.m. this morning. The patient states she feels slightly improved. She is able to walk to the commode, but still walking inside the room makes her short of breath. She denies any PND or chest pain, but she complains of shortness of breath with minimal activity like walking inside the room. She still is in atrial fibrillation. She still is anemic. There are no TIA or CVA symptoms. The patient is on Coumadin. OBJECTIVE: GENERAL: On examination the patient is in no major distress. She looks chronically ill. VITAL SIGNS: She is afebrile with a temperature of 97.7 degrees Fahrenheit orally, pulse is 112 beats per minute, blood pressure is 141/70, respirations are 20 per minute, O2 saturations are 98% on 3 L nasal cannula. HEENT: Head is atraumatic, normocephalic. Eyes: Pupils are equal, round, and reactive to light and accommodation. Extraocular movements are intact. Sclerae are anicteric. Conjunctivae are slightly pale. ENT is negative. NECK: Supple without lymphadenopathy. Tracheal is central. There is no cervical or axillary lymphadenopathy. Carotids are equal bilaterally with no bruits. There is no goiter. LUNGS: No accessory muscles of respiration in use. She has bilateral crackles at the bases and also she has diminished air entry and prolonged expiration and hyperresonance on percussion. There are also some rales seen with occasional wheezing. HEART: S1 and S2 is heard. There is no S3 gallop. There is no S4 gallop. S1 is variable intensity. There is a systolic ejection murmur in the aortic area and I/ pansystolic murmur in the mitral area. There are no rubs. ABDOMEN: Soft, nontender. There is no hepatosplenomegaly. Bowel sounds are normal. There is no rebound, guarding, or rigidity. No masses appreciated. EXTREMITIES: There is trace pedal edema. Pedal pulses are 1-2+. There is no calf tenderness. There is no clubbing or cyanosis. There is trace pedal edema. NEUROLOGICAL: The patient is conscious, awake, alert and oriented x3 with no focal weakness. PSYCHIATRIC: The patient's judgment and insight are intact. Her affect is normal. DIAGNOSTIC STUDIES: The patient's EKG shows atrial fibrillation with a rate of 101 beats per minute. Cannot exclude old anteroseptal RI. Nonspecific T abnormalities in the lateral leads. There is also a baseline artifact in leads V5 and V6. Yesterday the patient's hemoglobin was 8, WBC was 8000, the patient's hematocrit was 25, the patient's platelet count is 247,000. The patient's blood sugar is 222. The patient's ProTime is 19.6, INR is 1.59. IMPRESSION: 1. ATRIAL FIBRILLATION IS STILL VENTRICULAR RESPONSE IN THE FASTER SIDE. 2. ACUTE EXACERBATION OF CHRONIC OBSTRUCTIVE PULMONARY DISEASE, MUCH IMPROVED. 3. HYPERTENSION. 4. CHRONIC KIDNEY DISEASE STAGE 3, WHICH IS MODERATE. 5. 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 6. HYPERLIPIDEMIA. 7. RESPIRATORY FAILURE. THIS IS SECONDARY TO HYPOXIC AND HYPERCAPNIC ACUTE ON CHRONIC RESPIRATORY FAILURE, GETTING BETTER. 8. CORONARY ARTERY DISEASE. THE PATIENT HAS NO ANGINA. 9. CONGESTIVE HEART FAILURE. THIS IS ACUTE ON CHRONIC *------*. THIS WAS A SYSTOLIC HEART FAILURE DUE TO VOLUME OVERLOAD. THE PATIENT'S LEFT VENTRICULAR EJECTION FRACTION IS NORMAL. NO DEFINITE WALL MOTION ABNORMALITIES SEEN. 10. ANEMIA. RECOMMENDATION: Note that the patient has renal failure, hence, would change the digoxin to 0.125 mg q.48 hours. Also would continue the patient on *------* pain medication, antibiotics. The patient is on Cardizem only 90 mg p.o. q.6 hours. Continue Coumadin. Would recommend getting the blood pressure down to 130/70. In view of his chronic kidney disease would avoid nephrotoxic agents. Continue Coumadin and monitor INR closely. The patient may require Procrit for anemia. Continue Lasix 40 mg IV q.12 hours. Would recommend a Procrit injection and a nephrology consult. TIME SPENT: Thirty minutes spent on this patient with more than 50% of the time spent on direct patient care, medications reviewed and discussed with the hospitalist. DICTATING PHYSICIAN: LAWRENCE MCCOY M.D. [id number] PHY#: [id number] ID: [id number] JOB#: [id number] ACCT: [id number] cc: >
[2016-08-01] MEDS: WARFARIN SODIUM 5 MG TABLET PO SCH (21:57)
[2016-08-01] MEDS: INSULIN GLARGINE,HUM.REC.ANLOG 300 UNIT/3 ML INSULN.PEN SUBCUT SCH (21:58)
[2016-08-02] MEDS: LEVALBUTEROL HCL NEB 1.25 MG/3 ML AMPUL NEB SCH ×6 (00:20→20:07)
[2016-08-02] MEDS: IPRATROPIUM BROMIDE 0.02% NEB 0.5 MG/2.5 ML AMPUL NEB SCH ×6 (00:20→20:07)
[2016-08-02] MEDS: DILTIAZEM HCL 90 MG TABLET PO SCH ×4 (02:41→21:31)
[2016-08-02 04:39] LABS: PROTHROMBIN TIME 19.4 SEC (11.4-15.4)
[2016-08-02 05:04] LABS: ANION GAP 7 (5-19); BLOOD UREA NITROGEN 44 mg/dL (7-20); CALCIUM 8.6 mg/dL (8.4-10.2); CARBON DIOXIDE 29 mmol/L (22-30); CHLORIDE 102 mmol/L (98-107); CREATININE RESULT 1.72 mg/dL (0.52-1.25); GLUCOSE 146 mg/dL (75-110); POTASSIUM 4.1 mmol/L (3.6-5.0); SODIUM 137.7 mmol/L (137-145)
[2016-08-02] MEDS: AMOXICILLIN TR/POT CLAVULANATE 500-125 MG TAB PO SCH ×3 (06:00→21:31)
[2016-08-02] MEDS: FUROSEMIDE INJ/PF 40 MG/4 ML SDV IV SCH (06:00)
[2016-08-02] MEDS: LANSOPRAZOLE 30 MG TAB.RAP.DR PO SCH ×2 (06:00→17:37)
--- NOTE | 2016-08-02 08:39 | EKG REPORT ---
SEVERITY:- ABNORMAL ECG - A FIB CONSIDER ANTEROSEPTAL INFARCT ABNORMAL T, CONSIDER ISCHEMIA, DIFFUSE LEADS : Confirmed by: Abdoulaye Romero 02-Aug-2016 08:37:36
[2016-08-02] MEDS: FERROUS SULFATE 325 MG TABLET PO SCH ×2 (09:02→17:37)
[2016-08-02] MEDS: ASPIRIN 81 MG TABLET, CHEWABLE PO SCH (09:02)
[2016-08-02] MEDS: CHOLECALCIFEROL (D3) 1,000 UNIT TABLET PO SCH (09:02)
[2016-08-02] MEDS: TIOTROPIUM BROMIDE DPI 5 CAP/KIT (18 MCG/CAP) IH SCH (09:03)
[2016-08-02] MEDS: CYANOCOBALAMIN (VITAMIN B-12) 1,000 MCG TABLET PO SCH (09:03)
[2016-08-02] MEDS: FLUTICASONE/SALMETEROL DISKUS 250-50 MCG/DOSE IH SCH ×2 (09:03→21:35)
[2016-08-02] MEDS: DOCUSATE SODIUM 100 MG CAPSULE PO SCH ×2 (09:03→17:37)
[2016-08-02] MEDS: FUROSEMIDE 40 MG TABLET PO SCH (09:40)
[2016-08-02 10:19] LABS: MEAN CORPUSCULAR HEMOGLOBIN 24.1 pg (27.0-33.4); MEAN CORPUSCULAR VOLUME 75 fl (80-97); RED BLOOD COUNT 3.32 10^6/uL (3.72-5.28); RED CELL DISTRIBUTION WIDTH 18.5 % (11.5-14.0); WHITE BLOOD COUNT 12.3 10^3/uL (4.0-10.5)
--- NOTE | 2016-08-02 10:19 | PDOC PROGRESS REPORT ---
Subjective Progress Note for:: 08/02/16 Subjective:: Continues to feel better, no PND or orthopnea, able to ambulate more, denies any chest pain shortness of breath nausea vomiting or fever. monitoring analyst steroid uncontrolled A. fib but better. Patient has refused subacute rehabilitation. Physical Exam Vital Signs: Temp Pulse Resp BP Pulse Ox 97.8 F 105 H 16 154/47 H 96 08/02/16 07:09 08/02/16 08:07 08/02/16 08:07 08/02/16 07:09 08/02/16 08:07 Pulse Oximeter Continuous Start: 07/26/16 11: 14 Freq: RTQ4 Status: Complete Document 07/27/16 15:56 CW (Rec: 07/27/16 18:20 CW [email or web address]) Pulse Oximetry Assessment Equipment Usage Equipment Discontinued Continuous SpO2 Machine # 7 Intake & Output 08/01/16 08/02/16 08/03/16 06:59 06:59 06:59 Intake Total 1177 1559 Output Total 1050 3200 Balance 127 -1641 Weight 76.7 kg 75.7 kg General appearance: PRESENT: no acute distress Head exam: PRESENT: normocephalic Eye exam: PRESENT: EOMI Mouth exam: PRESENT: moist, neck supple Neck exam: ABSENT: JVD Respiratory exam: PRESENT: rhonchi - few B/L Cardiovascular exam: PRESENT: irregular rhythm. ABSENT: gallop GI/Abdominal exam: PRESENT: soft. ABSENT: distended, tenderness Extremities exam: ABSENT: pedal edema Neurological exam: PRESENT: alert, awake, oriented to situation Skin exam: PRESENT: dry, warm. ABSENT: cyanosis Results Laboratory Results: 07/31/16 04:36 08/02/16 04:22 08/02/16 04:22 Sodium 137.7 Potassium 4.1 Chloride 102 Carbon Dioxide 29 Anion Gap 7 BUN 44 H Creatinine 1.72 H Est GFR ( Amer) 35 L Est GFR (Non-Af Amer) 29 L Glucose 146 H Calcium 8.6 07/31/16 18:50 NT-Pro-B Natriuret Pep 8800 H Impressions: Chest X-Ray 07/29/16 00:00 IMPRESSION: Pulmonary vascular prominence with Shu lines from fluid overload or congestive failure Assessment & Plan - Diagnosis (1) Acute hypoxemic respiratory failure Is this a current diagnosis for this admission?: Yes (2) Acute exacerbation of chronic obstructive pulmonary disease (COPD) Is this a current diagnosis for this admission?: Yes (3) Anemia Qualifiers: Anemia type: iron deficiency Iron deficiency anemia type: unspecified iron deficiency Qualified Code(s): D50.9 - Iron deficiency anemia, unspecified Is this a current diagnosis for this admission?: Yes (4) Coagulopathy Is this a current diagnosis for this admission?: Yes (5) CKD (chronic kidney disease) stage 3, GFR 30-59 ml/min Is this a current diagnosis for this admission?: Yes (6) Atrial fibrillation with RVR Is this a current diagnosis for this admission?: Yes (7) Hypothyroidism Qualifiers: Hypothyroidism type: unspecified Qualified Code(s): E03.9 - Hypothyroidism, unspecified Is this a current diagnosis for this admission?: Yes (8) Insulin dependent diabetes mellitus Is this a current diagnosis for this admission?: Yes (9) CAD (coronary artery disease) Qualifiers: Coronary Disease-Associated Artery/Lesion type: [place] artery [place] vs. transplanted heart: [place] heart Associated angina: without angina Qualified Code(s): I25.10 - Atherosclerotic heart disease of [place] coronary artery without angina pectoris Is this a current diagnosis for this admission?: Yes (10) Hypertension Qualifiers: Hypertension type: essential hypertension Qualified Code(s): I10 - Essential (primary) hypertension Is this a current diagnosis for this admission?: Yes (11) GERD (gastroesophageal reflux disease) Qualifiers: Esophagitis presence: without esophagitis Qualified Code(s): K21.9 - Gastro-esophageal reflux disease without esophagitis Is this a current diagnosis for this admission?: Yes (12) Depression Qualifiers: Depression Type: unspecified Qualified Code(s): F32.9 - Major depressive disorder, single episode, unspecified Is this a current diagnosis for this admission?: Yes (13) Hyperlipidemia Qualifiers: Hyperlipidemia type: unspecified Qualified Code(s): E78.5 - Hyperlipidemia, unspecified Is this a current diagnosis for this admission?: Yes (14) History of pulmonary embolism Is this a current diagnosis for this admission?: Yes (15) History of DVT (deep vein thrombosis) Is this a current diagnosis for this admission?: Yes - Time Time Spent with patient: 15-24 minutes - Plan Summary Plan Summary: Discontinue intravenous Lasix, switch to oral Lasix. Continue physical therapy. We will check hematocrit, may need blood transfusion. In the meantime continue digoxin, oral Cardizem for rate control. Recheck PT/INR in the morning. Continue warfarin.
[2016-08-02] MEDS: POLYETHYLENE GLYCOL 3350 POWDER 17 GM/1 PACKET PO SCH (11:45)
[2016-08-02] MEDS: PREDNISONE 20 MG TABLET PO SCH (11:45)
--- NOTE | 2016-08-02 13:28 | PROGRESS NOTE E ---
Progress Note NAME: JOHN PUENTES : 1940 AGE: 75Y DATE: 08/02/2016 ROOM: 315 SUBJECTIVE: The patient seen on 08/02/2016 at 11:05 a.m. The patient states that she feels much better. She still is coughing and bringing up white *------* sputum. There is no chest pain or PND, but she seems to have some degree of orthopnea. She states she is able to ambulate more and her shortness of breath is much improved. She still is in atrial fibrillation. She still is anemic. There are no TIA or CVA symptoms. OBJECTIVE: GENERAL: On examination, the patient is afebrile with a temperature 97.7 degrees Fahrenheit orally, pulse is 89 beats per minute, blood pressure is 151/41, respirations are 20 per minute, O2 sats are 98% on 3 L nasal cannula. HEENT: Head is atraumatic, normocephalic. Eyes: Pupils are equal, round, and reactive to light and accommodation. Extraocular movements are normal. Sclerae are without icterus. Conjunctivae are slightly pale. ENT is negative. NECK: Supple without lymphadenopathy. Trachea is central. There is no cervical or axillary lymphadenopathy. There is no goiter. Carotids are equal bilaterally with no bruits. LUNGS: No accessory muscles of respiration in use. She has diminished air entry and prolonged expiration on auscultation, and hyperresonance on percussion. There are scattered rhonchi. No rales are heard today. HEART: S1 and S2 is heard. There is no S3 gallop. There is no S4 gallop. S1 is of variable intensity. There is a systolic ejection murmur in the aortic area and 1/4 pansystolic murmur in the mitral area. There are no rubs. ABDOMEN: Soft, nontender. There is no hepatosplenomegaly. Bowel sounds are well heard and normal. There is no rebound, guarding, or rigidity. No masses appreciated. EXTREMITIES: There is no pedal edema. Pedal pulses are 1+ to 2+. Femorals are slightly diminished. There is no femoral bruit. There is no clubbing or cyanosis. There is no calf tenderness. NEUROLOGICAL: The patient is conscious, awake, alert and oriented x3 with no focal weakness. PSYCHIATRIC: The patient's judgment and insight are intact. Her affect is normal. INTAKE/OUTPUT: Note that the patient's intake is 1,559; output is 3,200 mL. DIAGNOSTIC DATA: The patient's EKG shows atrial fibrillation with a rate of 131 beats per minute, but later, the heart rate came down to, when I saw her, 89 beats per minute. There is also diffuse T abnormalities, possible ischemia. Note that the patient's pro time is 19.4, INR is 1.57. The patient's sodium is 137.7, potassium 4.1, chloride 102, CO2 of 29. The patient's BUN is 44, creatinine is 1.72, and her GFR is reduced at 29 mL. The patient's white count is 12,300; hemoglobin is 8, hematocrit is 25, platelet count is 295,000. IMPRESSION: 1. ATRIAL FIBRILLATION. VENTRICULAR RESPONSE MUCH BETTER CONTROLLED. 2. ACUTE EXACERBATION OF COPD, NOW IMPROVING. 3. HYPERTENSION. BLOOD PRESSURE SLIGHTLY ON THE HIGHER SIDE. 4. CHRONIC KIDNEY DISEASE. AT PRESENT, THE GFR IS 29 AND IN STAGE 4. 5. LONG-TERM ANTICOAGULATION ON COUMADIN. 6. RESPIRATORY FAILURE. THIS IS SECONDARY TO HYPOXIC AND HYPERCAPNIC ACUTE ON CHRONIC RESPIRATORY FAILURE, GETTING BETTER. 7. CORONARY ARTERY DISEASE. THE PATIENT HAS NO ANGINAL SYMPTOMS. 8. CONGESTIVE HEART FAILURE. THIS IS ACUTE ON CHRONIC, MOST LIKELY DIASTOLIC FAILURE ALONG WITH A COMPONENT OF SYSTOLIC HEART FAILURE DUE TO VOLUME OVERLOAD DUE TO HER KIDNEY FUNCTION. 9. ANEMIA. 10. DIABETES MELLITUS TYPE 2, INSULIN DEPENDENT, WITH CHRONIC KIDNEY DISEASE. RECOMMENDATION: 1. Continue the patient on digoxin and Cardizem. 2. Continue anti-COPD medication and antibiotics. 3. Continue Coumadin. 4. Would recommend getting blood pressure down to 130/70. 5. In view of chronic kidney disease, I would avoid any nephrotoxic agents. 6. The patient may require Procrit for anemia. 7. Note that the patient is most likely being over diuresed. I would decrease the patient's Lasix to 20 mg IV q. 12 hours. TIME SPENT: Note, 25 minutes were spent on this patient with more than 50% of the time spent on direct patient care. Also, medications reviewed, medications adjusted including Lasix, and the care plan and management was discussed with the other care-giving providers. I would recommend a Nephrology consult. Will follow with you. Thanking you. DICTATING PHYSICIAN: LAWRENCE MCCOY M.D. [id number] PHY#: [id number] ID: [id number] JOB#: [id number] ACCT: [id number] cc: >
[2016-08-02] MEDS: INSULIN LISPRO 100 UNIT/ML 3 ML VIAL SUBCUT PRN ×2 (17:37→21:30)
[2016-08-02] MEDS: WARFARIN SODIUM 5 MG TABLET PO SCH (21:31)
[2016-08-02] MEDS: INSULIN GLARGINE,HUM.REC.ANLOG 300 UNIT/3 ML INSULN.PEN SUBCUT SCH (21:31)
[2016-08-03] MEDS: IPRATROPIUM BROMIDE 0.02% NEB 0.5 MG/2.5 ML AMPUL NEB SCH ×5 (00:25→15:45)
[2016-08-03] MEDS: LEVALBUTEROL HCL NEB 1.25 MG/3 ML AMPUL NEB SCH ×5 (00:25→15:45)
[2016-08-03] MEDS: DILTIAZEM HCL 90 MG TABLET PO SCH ×3 (02:34→15:58)
[2016-08-03 05:03] LABS: PROTHROMBIN TIME 25.1 SEC (11.4-15.4)
[2016-08-03 05:07] LABS: ADD ON TESTING BLD IN LAB ACKNOWLEDGE
[2016-08-03] MEDS ORDERED: DILTIAZEM HCL INJ 25 MG/5 ML VIAL ONE (05:09)
[2016-08-03] MEDS: LANSOPRAZOLE 30 MG TAB.RAP.DR PO SCH (05:14)
[2016-08-03] MEDS: AMOXICILLIN TR/POT CLAVULANATE 500-125 MG TAB PO SCH ×2 (05:14→14:07)
[2016-08-03 05:26] LABS: MAGNESIUM 1.8 mg/dL (1.6-2.3)
[2016-08-03] MEDS ORDERED: DILTIAZEM HCL INJ 25 MG/5 ML VIAL IV ONE (05:30)
[2016-08-03] MEDS: FLUTICASONE/SALMETEROL DISKUS 250-50 MCG/DOSE IH SCH (09:47)
[2016-08-03] MEDS: TIOTROPIUM BROMIDE DPI 5 CAP/KIT (18 MCG/CAP) IH SCH (09:48)
[2016-08-03] MEDS: CYANOCOBALAMIN (VITAMIN B-12) 1,000 MCG TABLET PO SCH (09:49)
[2016-08-03] MEDS: DOCUSATE SODIUM 100 MG CAPSULE PO SCH (09:49)
[2016-08-03] MEDS: FUROSEMIDE 40 MG TABLET PO SCH (09:49)
[2016-08-03] MEDS: CHOLECALCIFEROL (D3) 1,000 UNIT TABLET PO SCH (09:50)
[2016-08-03] MEDS: FERROUS SULFATE 325 MG TABLET PO SCH (09:50)
[2016-08-03] MEDS: ASPIRIN 81 MG TABLET, CHEWABLE PO SCH (09:53)
[2016-08-03] MEDS: POLYETHYLENE GLYCOL 3350 POWDER 17 GM/1 PACKET PO SCH (11:47)
[2016-08-03] MEDS: PREDNISONE 20 MG TABLET PO SCH (11:48)
[2016-08-03] MEDS: INSULIN LISPRO 100 UNIT/ML 3 ML VIAL SUBCUT PRN (11:54)
--- NOTE | 2016-08-03 15:36 | PROGRESS NOTE E ---
Progress Note NAME: JOHN PUENTES : 1940 AGE: 75Y DATE: 08/03/2016 ROOM: 315 SUBJECTIVE: Note, 25 minutes spent on this patient from 10:25 a.m. to 10:50 a.m. The patient states she feels better but she is still wheezing. She says that she still has cough and bringing up some white mucoid sputum. There is no chest pain or PND, but she seems to have some degree of orthopnea. She states she is able to ambulate a little more and her shortness of breath is back to baseline but she still appears to be wheezing and still not fully back to baseline in my view. She is still in atrial fibrillation. She is still anemic. There are no TIA or CVA symptoms. OBJECTIVE: GENERAL: On examination, the patient is well built but appears to be chronically ill. She is afebrile with a temperature of 97.8 degrees Fahrenheit. Her pulse is 99 beats per minute, irregularly irregular, blood pressure is 148/67, respirations are 20 per minute, O2 sats on 3 L is 97% on 3 L. HEENT: Head is atraumatic, normocephalic. Eyes: Pupils are equal, round, and reactive to light and accommodation. Extraocular movements are normal. Sclerae are without icterus. Conjunctivae are slightly pale. ENT is negative. Ears - tympanic membranes are intact. External auditory canals are clear. Nose - there is no deviated nasal septum. There is no inflammation of the nasal mucous membranes. Mouth: Mucous membranes of the mouth are moist. Tongue is moist. There are no ulcers. There is no bleeding from the gums. Throat: There is no redness of the oropharynx. There are no exudates. NECK: Supple without lymphadenopathy. Trachea is central. There is no cervical or axillary lymphadenopathy. There is no goiter. Carotids are equal bilaterally with no bruits. LUNGS: No accessory muscles of respiration in use. She has diminished air entry and prolonged expiration on auscultation, and hyperresonance on percussion. There are still some scattered rhonchi and a few wheezes heard. There are no rales heard today. HEART: S1 and S2 is heard. There is no S3 gallop. There is no S4 gallop. S1 is of variable intensity. There is a systolic ejection murmur in the aortic area and 1/4 pansystolic murmur in the mitral area. There are no rubs. ABDOMEN: Soft, nontender. There is no hepatosplenomegaly. Bowel sounds are well heard and normal. There is no rebound, guarding, or rigidity. No masses appreciated. EXTREMITIES: There is no pedal edema. Pedal pulses are 1+ to 2+. Femorals are slightly diminished. There is no femoral bruit. There is no clubbing or cyanosis. There is no calf tenderness. NEUROLOGICAL: The patient is conscious, awake, alert and oriented x3 with no focal deficit. PSYCHIATRIC: The patient's judgment and insight are intact. Her affect is normal. INTAKE/OUTPUT: The patient's 24-hour intake is 1,267; output is 2,200 mL. DIAGNOSTIC DATA: The patient's blood sugar is 206. Magnesium normal at 1.8. The patient's pro time is 25.1, INR is 2.17. IMPRESSION/RECOMMENDATIONS: 1. ATRIAL FIBRILLATION. VENTRICULAR RESPONSE IN THE 90S. Continue the patient on Cardizem at the present dose of 90 mg p.o. q. 6 hours and also digoxin 0.125 mg every other day. Note that the patient is on therapeutic INR on Coumadin. 2. ACUTE EXACERBATION OF COPD, IMPROVING. The patient is vehement to go home. Would continue the patient on bronchodilator therapy and also continue the patient's antibiotics orally. 3. CHRONIC KIDNEY DISEASE. GFR YESTERDAY WAS 29 AND IN STAGE 4. 4. LONG-TERM ANTICOAGULATION ON COUMADIN. Continue this. 5. RESPIRATORY FAILURE. THIS IS SECONDARY TO HYPOXIC AND HYPERCAPNIC ACUTE ON CHRONIC RESPIRATORY FAILURE, MUCH IMPROVED. 6. CORONARY ARTERY DISEASE. THE PATIENT HAS NO ANGINAL SYMPTOMS. 7. CONGESTIVE HEART FAILURE. THIS IS ACUTE ON CHRONIC, MOST LIKELY DIASTOLIC HEART FAILURE ALONG WITH A COMPONENT OF SYSTOLIC HEART FAILURE DUE TO VOLUME OVERLOAD DUE TO HER KIDNEY FUNCTION. 8. ANEMIA. Recommend Procrit injection. 9. DIABETES MELLITUS TYPE 2, INSULIN DEPENDENT, WITH CHRONIC KIDNEY DISEASE. Avoid nephrotoxins medication. Continue insulin. Would recommend converting the patient's Lasix to p.o. 10. STILL THE BLOOD PRESSURE IS SLIGHTLY UP. Would recommend getting the blood pressure down to 130/70. As mentioned earlier, continue patient on digoxin and Cardizem. DICTATING PHYSICIAN: LAWRENCE MCCOY M.D. [id number] PHY#: [id number] ID: [id number] JOB#: [id number] ACCT: [id number] cc: >
--- NOTE | 2016-08-03 16:33 | PDOC DISCHARGE SUMMARY ---
General - Admit/Disc Date/PCP Admission Date/Primary Care Provider: 07/26/16 11:14 BONY MUNOZ, Discharge Date: 08/03/16 - Discharge Diagnosis (1) Acute hypoxemic respiratory failure Is this a current diagnosis for this admission?: Yes (2) Acute exacerbation of chronic obstructive pulmonary disease (COPD) Is this a current diagnosis for this admission?: Yes (3) Congestive heart failure Is this a current diagnosis for this admission?: Yes (4) Anemia Is this a current diagnosis for this admission?: Yes (5) Coagulopathy Is this a current diagnosis for this admission?: Yes (6) CKD (chronic kidney disease) stage 3, GFR 30-59 ml/min Is this a current diagnosis for this admission?: Yes (7) Atrial fibrillation with RVR Is this a current diagnosis for this admission?: Yes (8) Hypothyroidism Is this a current diagnosis for this admission?: Yes (9) Insulin dependent diabetes mellitus Is this a current diagnosis for this admission?: Yes (10) CAD (coronary artery disease) Is this a current diagnosis for this admission?: Yes (11) Hypertension Is this a current diagnosis for this admission?: Yes (12) GERD (gastroesophageal reflux disease) Is this a current diagnosis for this admission?: Yes (13) Depression Is this a current diagnosis for this admission?: Yes (14) Hyperlipidemia Is this a current diagnosis for this admission?: Yes (15) History of pulmonary embolism Is this a current diagnosis for this admission?: Yes (16) History of DVT (deep vein thrombosis) Is this a current diagnosis for this admission?: Yes - Additional Information Resuscitation Status: Full Code Discharge Diet: Cardiac - low-fat low-salt Discharge Activity: Activity As Tolerated, Balance Activity w/Rest, Slowly Increase Activity Home Medications: Albuterol Sulfate [Proair HFA] 1 puff IH Q4HP PRN 07/26/16 Aspirin [Aspirin 81 mg Chewable Tablet] 81 mg PO DAILY 07/26/16 Cholecalciferol (Vitamin D3) [Vitamin D3 1000 Unit Tablet] 1,000 unit PO DAILY 07/26/16 Cyanocobalamin (Vitamin B-12) [Vitamin B-12 1000 mcg Tablet] 1,000 mcg PO DAILY 07/26/16 Fluticasone/Salmeterol [Advair 250-50 Diskus 28 dose] 1 inh IH Q12 07/26/16 Insulin Glargine,Hum.rec.anlog [Lantus Insulin 100 Unit/mL] 45 unit SUBCUT QHS 07/26/16 Levothyroxine Sodium [Synthroid 0.05 mg Tablet] 0.05 mg PO DAILY 07/26/16 Tiotropium [place] [Spiriva Handihaler 18 mcg/dose (30 Dose)] 1 cap IH DAILY 06/12 Warfarin Sodium [Coumadin 5 mg Tablet] 5 mg PO MOTUWETHFR@0 07/26/16 Warfarin Sodium [Coumadin 5 mg Tablet] 5 mg PO SUSA@0 07/26/16 Amox Tr/Potassium Clavulanate [Augmentin "500" Tablet] 1 tab PO Q8 #21 tablet 08/03/16 Digoxin [Lanoxin 0.125 mg Tablet] 0.125 mg PO Q2DAYS@1800 #15 tablet 08/03/16 Diltiazem HCl [Cardizem Cd] 360 mg PO DAILY #30 cap.er.24h 08/03/16 Ferrous Sulfate [Feosol 325 mg Tablet] 325 mg PO BIDPCBS #60 tablet 08/03/16 Furosemide [Lasix] 40 mg PO DAILY #30 tablet 08/03/16 Ipratropium [place] [Atrovent 0.02% Neb 0.5 mg/2.5 ml Ampul] 0.5 mg NEB RTQ4 # 120 vial.neb 08/03/16 Levalbuterol HCl [Xopenex Neb 1.25 mg/3 ml Ampul] 1.25 mg NEB RTQ4 #120 vial.neb 08/03/16 Prednisone [Sterapred Ds] 1 pkg PO ASDIR PRN 12 Days 08/03/16 Additional Information: PT/INR check in 3 days with home health and results to be related to primary physician. Return to the emergency room if symptoms worsens, or if any bleeding occurs History of Present Illness Patient complains of: Shortness of breath History of Present Illness: JOHN PUENTES is a 75 year old female, with history of COPD, atrial fibrillation , hypertension, chronic respiratory failure on home oxygen process of the Hospital of increasing shortness of breath associated cough and chills without any definite fever. Cough is productive of whitish phlegm. No reported increasing edema. The ambulance was called, found to be hypoxic in the 80s and therefore the patient was brought to the emergency room, she was placed on BiPAP and was referred for admission. For details please refer to history and physical examination performed by the admitting physician. Hospital Course Hospital Course: The patient was admitted to the [facility]. Patient was placed on antibiotics, nebulizers, and intravenous steroids. Patient was gently hydrated, chest x-ray did not reveal any acute infiltrate. Patient was in rapid atrial fibrillation and Cardizem drip. Patient was maintained on BiPAP as patient desaturates. No significant improvement was noted, a follow-up chest x-ray revealed pulmonary vascular congestion. Cardiology was consulted, patient was placed on digoxin, intravenous diuretic was started. Intravenous fluid was discontinued. Patient significantly improved since then. BiPAP was able to be discontinued. Heart rate got better controlled. She continues to have intermittent wheezing however patient reports that that is her baseline. She reports she had wheezing since he had COPD. her blood cultures are negative. Intravenous antibiotic shifted to oral. Physical therapy was instituted. On the monitor she will have episodes of tachycardia when she moves around. The patient is back to her baseline and requested to be discharged home. She is adamant about going back home. She refused subacute rehabilitation at all. She was therefore is instructed to return to the emergency room if her symptoms worsened. She reports that she is back to her baseline and usual symptoms in terms of shortness of breath and coughing and tachycardia. She is able to ambulate around to the bathroom and on the room with physical therapy. finished goods planner was therefore consulted for aid, nurse, and personal care services as needed. Physical Exam Vital Signs: Temp Pulse Resp BP Pulse Ox 98.0 F 105 H 20 150/54 H 96 08/03/16 11:13 08/03/16 15:45 08/03/16 15:45 08/03/16 11:13 08/03/16 15:45 Pulse Oximeter Continuous Start: 07/26/16 11: 14 Freq: RTQ4 Status: Complete Document 07/27/16 15:56 [facility] (Rec: 07/27/16 18:20 [facility] [email or web address]) Pulse Oximetry Assessment Equipment Usage Equipment Discontinued Continuous SpO2 Machine # 7 Intake & Output 08/02/16 08/03/16 08/04/16 06:59 06:59 06:59 Intake Total 1559 1267 522 Output Total 3200 2200 350 Balance -1641 -933 172 Weight 75.7 kg 74.6 kg General appearance: PRESENT: no acute distress, cooperative Head exam: PRESENT: normocephalic Eye exam: PRESENT: EOMI Mouth exam: PRESENT: moist, neck supple Neck exam: ABSENT: JVD Respiratory exam: PRESENT: rhonchi - Scattered bilateral, unlabored, other - Nasal cannula oxygen. ABSENT: wheezes Cardiovascular exam: PRESENT: irregular rhythm. ABSENT: gallop GI/Abdominal exam: PRESENT: soft. ABSENT: distended, tenderness Extremities exam: PRESENT: other - Trace lower extremity edema Neurological exam: PRESENT: alert, awake Skin exam: PRESENT: dry, warm. ABSENT: cyanosis Results Laboratory Results: 08/02/16 04:22 08/02/16 04:22 08/03/16 04:35 Magnesium 1.8 07/31/16 18:50 NT-Pro-B Natriuret Pep 8800 H Impressions: Chest X-Ray 07/29/16 00:00 IMPRESSION: Pulmonary vascular prominence with Shu lines from fluid overload or congestive failure Qualifiers [facility] BEING DISCHARGED WITH ANY OF THE FOLLOWING DIAGNOSIS?: Heart Failure HF Pt being discharged on ACEI for LVEF less than 40%?: No Reason(s) for not prescribing ACEI:: Not indicated - Normal ejection fraction HF Pt being discharged on ARBS for LVEF less than 40%?: No Reason(s) for not prescribing ARBS:: Not indicated - Normal ejection fraction HF Pt with Afib discharged with Warfarin?: Yes HF Pt discharged on evidence-based Beta Cecilio:: No Plan Discharge Plan: Follow-up with primary care physician in one week. Follow-up with cardiology Dr. Romero in 1-2 weeks. Time Spent: Less than 30 Minutes
[2016-08-03 16:57] VITALS: BP 135/77
== END 2016-08-03 17:19 | disposition home health service (06) | DRG 190 ==
LOC: ER 06:46 → EH 11:14 → UNDOADMIN 11:41 → EH 11:41 → 3W 13:59
PROVIDERS: ADMIT Family Medicine; ATTEND Family Medicine
PROC: 5A09557 Assistance with Respiratory Ventilation, Greater than 96 Consecutive Hours, Continuous Positive Airway Pressure (ICD-10-PCS; principal; 2016-07-26)
DX: J44.1 Chronic obstructive pulmonary disease with (acute) exacerbation (principal); J96.22 Acute and chronic respiratory failure with hypercapnia; I50.43 Acute on chronic combined systolic (congestive) and diastolic (congestive) heart failure; J96.21 Acute and chronic respiratory failure with hypoxia; I13.0 Hypertensive heart and chronic kidney disease with heart failure and stage 1 through stage 4 chronic kidney disease, or unspecified chronic kidney disease; I95.9 Hypotension, unspecified; I48.91 Unspecified atrial fibrillation; I25.10 Atherosclerotic heart disease of native coronary artery without angina pectoris; E11.51 Type 2 diabetes mellitus with diabetic peripheral angiopathy without gangrene; E11.22 Type 2 diabetes mellitus with diabetic chronic kidney disease; N18.3 Chronic kidney disease, stage 3 (moderate); I73.9 Peripheral vascular disease, unspecified; K21.9 Gastro-esophageal reflux disease without esophagitis; E78.00 Pure hypercholesterolemia, unspecified; F32.9 Major depressive disorder, single episode, unspecified; D50.9 Iron deficiency anemia, unspecified; E78.5 Hyperlipidemia, unspecified; E03.9 Hypothyroidism, unspecified; F17.210 Nicotine dependence, cigarettes, uncomplicated; Z86.711 Personal history of pulmonary embolism; Z90.49 Acquired absence of other specified parts of digestive tract; Z86.73 Personal history of transient ischemic attack (TIA), and cerebral infarction without residual deficits; Z88.2 Allergy status to sulfonamides; Z88.8 Allergy status to other drugs, medicaments and biological substances; Z79.01 Long term (current) use of anticoagulants; Z86.718 Personal history of other venous thrombosis and embolism; Z79.82 Long term (current) use of aspirin; Z79.899 Other long term (current) drug therapy; Z79.02 Long term (current) use of antithrombotics/antiplatelets; Z79.4 Long term (current) use of insulin; Z95.5 Presence of coronary angioplasty implant and graft
CPT/HCPCS: 36415; 71010; 80048; 80053; 80202; 81001; 82550; 82553; 82607; 82728; 82746; 82803; 82962; 83540; 83550; 83735; 83880; 84439; 84443; 84466; 84484; 85025; 85027; 85045; 85610; 87040; 93005; 93010; 93306; 94640; 94660; 94762; 94799; 96365; 96366; 96367; 96376; 99291; G8978-GP; G8979-GP; J0692; J1160; J1815; J1940; J1956; J2060; J2920; J2930; J3360; J3370; J3475; J3490; J7030; J7060; J7512; J7620

== ENCOUNTER → 2016-09-02 | Outpatient (CLI) | payer MEDICARE, OTHER ==
[2016-09-02 13:23] LABS: PROTHROMBIN TIME 18.5 SEC (11.4-15.4)
[2016-09-02 13:45] LABS: DIGOXIN 0.92 ng/mL (0.8-2.0)
== END ==
LOC: OD 12:13
PROVIDERS: ATTEND Family Medicine Geriatric Medicine
DX: E11.9 Type 2 diabetes mellitus without complications (principal); D64.9 Anemia, unspecified; I10 Essential (primary) hypertension; E55.9 Vitamin D deficiency, unspecified; Z79.01 Long term (current) use of anticoagulants; Z79.899 Other long term (current) drug therapy
CPT/HCPCS: 36415; 80162; 82043; 82306; 82728; 83540; 83550; 84484; 85045; 85610

== ENCOUNTER → 2016-09-30 | Outpatient (CLI) | payer MEDICARE, OTHER ==
[2016-09-30 12:02] LABS: PROTHROMBIN TIME 15.6 SEC (11.4-15.4)
== END ==
LOC: OD 11:08
PROVIDERS: ATTEND Family Medicine Geriatric Medicine
DX: I48.0 Paroxysmal atrial fibrillation (principal); Z79.01 Long term (current) use of anticoagulants; E11.9 Type 2 diabetes mellitus without complications; E55.9 Vitamin D deficiency, unspecified; I10 Essential (primary) hypertension; Z79.899 Other long term (current) drug therapy
CPT/HCPCS: 36415; 82272; 85610

== ENCOUNTER 2016-11-18 13:34 | Emergency (ER) | payer MEDICARE, OTHER ==
[2016-11-18 14:14] LABS: ABSOLUTE BASOPHILS # (AUTO) 0.1 10^3/uL (0.0-0.2); ABSOLUTE EOSINOPHILS # (AUTO) 0.2 10^3/uL (0.0-0.6); ABSOLUTE LYMPHOCYTES (AUTO) 1.6 10^3/uL (0.5-4.7); ABSOLUTE MONOCYTES (AUTO) 0.7 10^3/uL (0.1-1.4); BASOPHILS % (AUTO) 1.1 % (0-2); EOSINOPHILS % (AUTO) 1.9 % (0-6); HEMATOCRIT 31.6 % (36.0-47.0); HEMOGLOBIN 10.3 g/dL (12.0-15.5); HGB HCT DIFFERENCE -0.7; LYMPHOCYTES % (AUTO) 16.2 % (13-45); MEAN CORPUSCULAR HEMOGLOBIN 26.7 pg (27.0-33.4); MEAN CORPUSCULAR HGB CONC 32.5 g/dL (32.0-36.0); MEAN CORPUSCULAR VOLUME 82 fl (80-97); MONOCYTES % (AUTO) 7.8 % (3-13); RED BLOOD COUNT 3.85 10^6/uL (3.72-5.28); RED CELL DISTRIBUTION WIDTH 21.9 % (11.5-14.0); WHITE BLOOD COUNT 9.6 10^3/uL (4.0-10.5)
[2016-11-18 14:22] LABS: ALANINE AMINOTRANSFERASE 25 U/L (9-52); ALKALINE PHOSPHATASE 90 U/L (38-126); ANION GAP 6 (5-19); ASPARTATE AMINO TRANSFERASE 11 U/L (14-36); BILIRUBIN,DIRECT 0.3 mg/dL (0.0-0.4); BILIRUBIN,TOTAL 0.3 mg/dL (0.2-1.3); BLOOD UREA NITROGEN 26 mg/dL (7-20); CALCIUM 8.3 mg/dL (8.4-10.2); CARBON DIOXIDE 26 mmol/L (22-30); CHLORIDE 106 mmol/L (98-107); CREATINE KINASE 34 U/L (30-135); CREATININE RESULT 1.29 mg/dL (0.52-1.25); GLUCOSE 194 mg/dL (75-110); POTASSIUM 4.8 mmol/L (3.6-5.0); SODIUM 138.2 mmol/L (137-145); TOTAL PROTEIN 6.4 g/dL (6.3-8.2)
[2016-11-18 14:33] LABS: TROPONIN I < 0.012 ng/mL
[2016-11-18 14:57] LABS: PROTHROMBIN TIME 15.3 SEC (11.4-15.4)
--- NOTE | 2016-11-18 15:09 | RADIOLOGY REPORT (SQ) ---
EXAM DESCRIPTION: CHEST SINGLE VIEW COMPLETED DATE/TIME: 11/18/2016 2:53 pm REASON FOR STUDY: chest pain COMPARISON: 07/29/2016 EXAM PARAMETERS: NUMBER OF VIEWS: One view. TECHNIQUE: Single frontal radiographic view of the chest acquired. RADIATION DOSE: NA LIMITATIONS: None. FINDINGS: LUNGS AND PLEURA: No opacities, masses or pneumothorax. No pleural effusion. MEDIASTINUM AND HILAR STRUCTURES: No masses. Contour normal. HEART AND VASCULAR STRUCTURES: Heart normal in size. Normal vasculature. BONES: No acute findings. HARDWARE: None in the chest. OTHER: No other significant finding. IMPRESSION: NO ACUTE RADIOGRAPHIC FINDING IN THE CHEST. TECHNICAL DOCUMENTATION: JOB ID: [id number]
--- NOTE | 2016-11-18 15:57 | ER Document Report ---
ED General - General Chief Complaint: Chest Pain Stated Complaint: CHEST PAIN Time Seen by Provider: 11/18/16 14:16 Information source: Patient TRAVEL OUTSIDE OF THE [place] IN LAST 30 DAYS: No - HPI Onset: Yesterday Onset/Duration: Gradual Quality of pain: No pain Associated symptoms: Nonproductive cough. denies: Headache, Hurts to breath, Nausea, Vomiting, Shortness of breath Similar symptoms previously: No - Related Data Allergies/Adverse Reactions: guaifenesin [Guaifenesin] Allergy (Severe, Verified 07/26/16 10:04) itching, hard to breathe Iodinated Contrast- Oral and IV Dye [IV Dye, Iodine Containing] Allergy (Mild, Verified 07/26/16 10:04) rash iodine [Iodine] Allergy (Mild, Verified 07/26/16 10:04) rash Sulfa (Sulfonamide Antibiotics) Allergy (Mild, Verified 07/26/16 10:04) rash dar Allergy (Severe, Uncoded 07/26/16 10:04) Anaphylaxis Past Medical History - Social History Smoking Status: Never Smoker Chew tobacco use (# tins/day): No Drug Abuse: None Family History: None, Reviewed & Not Pertinent, Hypertension - Past Medical History Cardiac Medical History: Reports: Hx Atrial Fibrillation, Hx Congestive Heart Failure, Hx Coronary Artery Disease, Hx Hypercholesterolemia - X14YR, Hx Hypertension - ON MEDS, Hx Peripheral Vascular Disease, Hx Pulmonary Embolism, Hx Heart Murmur - 42 YRS AGO DIAGNOSED Denies: Hx Heart Attack Pulmonary Medical History: Reports: Hx Asthma, Hx Bronchitis, Hx COPD, Hx Pneumonia, Hx Sleep Apnea Denies: Hx Respiratory Failure, Hx Tuberculosis Neurological Medical History: Reports: Hx Cerebrovascular Accident. Denies: Hx Seizures Endocrine Medical History: Reports: Hx Diabetes Mellitus Type 2, Hx Hypothyroidism Malignancy Medical History: Denies: Hx Lung Cancer GI Medical History: Reports: Hx Gastroesophageal Reflux Disease, Hx Hiatal Hernia Musculoskeltal Medical History: Reports Hx Arthritis Psychiatric Medical History: Reports: Hx Depression Traumatic Medical History: Infectious Medical History: Past Surgical History: Reports: Hx Appendectomy, Hx Cardiac Catheterization - stents x 2 - no NE, Hx Coronary Artery Bypass Graft, Hx Hysterectomy, Hx Open Heart Surgery - 2 stents, Hx Tonsillectomy. Denies: Hx Mastectomy - Immunizations Hx Diphtheria, Pertussis, Tetanus Vaccination: Yes Hx Pneumococcal Vaccination: 02/25/09 Review of Systems - Review of Systems Constitutional: No symptoms reported Cardiovascular: Chest pain Respiratory: No symptoms reported, Cough. denies: Hurts to breathe, Hemoptysis , Short of breath, Sputum, Stridor, Wheezing Gastrointestinal: No symptoms reported Musculoskeletal: No symptoms reported Neurological/Psychological: No symptoms reported Physical Exam - Vital signs Vitals: Pulse Ox 98 11/18/16 13:45 - General General appearance: Appears well, Alert - Respiratory Respiratory status: No respiratory distress Chest status: Nontender Breath sounds: Normal Chest palpation: Normal - Cardiovascular Rhythm: Regular Heart sounds: Normal auscultation Murmur: No - Abdominal Inspection: Normal Distension: No distension Bowel sounds: Normal Tenderness: Nontender Organomegaly: No organomegaly - Extremities General upper extremity: Normal inspection, Nontender, Normal color, Normal ROM , Normal temperature General lower extremity: Normal inspection, Nontender, Normal color, Normal ROM , Normal temperature, Normal weight bearing. No: Wolf's sign - Neurological Neuro grossly intact: Yes Cognition: Normal Orientation: AAOx4 Lisette Coma Scale Eye Opening: Spontaneous Lisette Coma Scale Verbal: Oriented Lisette Coma Scale Motor: Obeys Commands Lisette Coma Scale Total: 15 Speech: Normal Motor strength normal: LUE, RUE, LLE, RLE Sensory: Normal Course - Re-evaluation Re-evalutation: 11/18/16 15:54 Presents emergency department for chief complaint of pain under her left breast that is resolved currently. She says it started yesterday it lasted seconds to minutes and was aching in nature. Not associated with shortness of breath dyspnea on exertion diaphoresis nausea. The chart here says it radiated to her shoulder she denies any radiation to her back neck and arm. She has seen Dr. Yanes in the past. She had 2 stents placed greater than 5 years ago has not had a heart cath in 5 years and does not believe she has had a stress test either. She said when she had a stress test may have to be thallium stress test. She is in A. fib has history of A. fib and is on Coumadin. She had chest pain yesterday just lasted a few minutes and then this morning she had it again where it lasted a few minutes. Her home health care nurse came in and told her to come to the emergency department. On my examination she is chest pain-free and hemodynamically stable she is in A. fib blood pressure on the chart said 92/ 48 I checked it manually at the bedside on my examination was 133/51. Negative acute EKG labs and enzymes as well as chest x-ray BNP is elevated normal chest x -ray no shortness of breath no peripheral edema or signs of acute heart failure. She is discharged to follow-up with Dr. Mccoy in 2-3 days also primary care physician and we specifically discussed reasons for ED return sooner - Vital Signs Vital signs: Temp Pulse Resp BP Pulse Ox 97.7 F 16 141/60 H 97 11/18/16 16:01 11/18/16 16:01 11/18/16 16:01 11/18/16 16:01 - Laboratory Result Diagrams: 11/18/16 13:55 11/18/16 13:55 Laboratory results interpreted by me: 11/18/16 11/18/16 11/18/16 13:55 13:55 13:55 Hgb 10.3 L Hct 31.6 L MCH 26.7 L RDW 21.9 H BUN 26 H Creatinine 1.29 H Est GFR ( Amer) 48 L Est GFR (Non-Af Amer) 40 L Glucose 194 H Calcium 8.3 L AST 11 L NT-Pro-B Natriuret Pep 3850 H Albumin 3.0 L - EKG Interpretation by Me Additional EKG results interpreted by me: 11/18/16 15:56 ekG interpreted by myself to reveal A. fib rate control at [address] segment elevations or depression Discharge - Discharge Clinical Impression: nonspecific chest pain Condition: Stable Disposition: HOME, SELF-CARE Additional Instructions: Chest Pain The exact cause of your chest pain isn't clear. Fortunately, there is no evidence of a dangerous medical condition. Further testing may be required to find the source of the pain. Most often, we find that this pain is coming from the chest wall -- the muscles or rib joints in the chest. But chest pain can come from the lung and lung lining, the esophagus, the heart valves or heart lining, and even the stomach or gallbladder. Rest. Eat lightly until the pain is gone. We may prescribe medicine for pain and inflammation. You should call the physician immediately if the pain radiates to the shoulder, jaw or arms; if you start to run a fever or develop a cough; or if you develop shortness of breath, or other new or alarming symptoms. Referrals: JOSE MARTIN SALOMON MD [Primary Care Provider] - (1-2 to days return for increasing worsening or new sent) LAWRENCE MCCOY MD [ACTIVE STAFF] - (call for an Appointment to be seen in follow-up in 3-4 days return for increasing worsening or new symptoms)
[2016-11-18 16:18] VITALS: BP 141/60
--- NOTE | 2016-11-19 17:17 | EKG REPORT ---
SEVERITY:- ABNORMAL ECG - ATRIAL FIBRILLATION, V-RATE 69-82 LVH WITH SECONDARY REPOLARIZATION ABNORMALITY : Confirmed by: Valencia Fernandez MD 19-Nov-2016 17:17:02
== END 2016-11-18 16:22 | disposition home or self-care (01) ==
LOC: ER 13:34
DX: R07.9 Chest pain, unspecified (principal); R05 Cough; J44.9 Chronic obstructive pulmonary disease, unspecified; E11.51 Type 2 diabetes mellitus with diabetic peripheral angiopathy without gangrene; I10 Essential (primary) hypertension; I25.10 Atherosclerotic heart disease of native coronary artery without angina pectoris; I48.91 Unspecified atrial fibrillation; Z79.01 Long term (current) use of anticoagulants; Z91.041 Radiographic dye allergy status; Z88.8 Allergy status to other drugs, medicaments and biological substances; Z88.2 Allergy status to sulfonamides; Z87.892 Personal history of anaphylaxis; Z91.018 Allergy to other foods; Z86.711 Personal history of pulmonary embolism; Z87.01 Personal history of pneumonia (recurrent); Z98.61 Coronary angioplasty status; Z95.1 Presence of aortocoronary bypass graft
CPT/HCPCS: 36415; 71010; 80053; 82550; 83880; 84484; 85025; 85610; 93005; 93010; 99285

== ENCOUNTER → 2017-02-09 | Outpatient (CLI) | payer MEDICARE, OTHER ==
[2017-02-09 17:15] LABS: PROTHROMBIN TIME 21.1 SEC (11.4-15.4)
== END ==
LOC: LAB 16:53
PROVIDERS: ATTEND Family Medicine Geriatric Medicine
DX: I48.91 Unspecified atrial fibrillation (principal); Z79.01 Long term (current) use of anticoagulants
CPT/HCPCS: 36415; 85610

== ENCOUNTER → 2017-05-24 | Outpatient (CLI) | payer MEDICARE, OTHER ==
[2017-05-24 14:11] LABS: ABSOLUTE BASOPHILS # (AUTO) 0.1 10^3/uL (0.0-0.2); ABSOLUTE EOSINOPHILS # (AUTO) 0.3 10^3/uL (0.0-0.6); ABSOLUTE LYMPHOCYTES (AUTO) 1.5 10^3/uL (0.5-4.7); ABSOLUTE MONOCYTES (AUTO) 0.9 10^3/uL (0.1-1.4); BASOPHILS % (AUTO) 0.8 % (0-2); EOSINOPHILS % (AUTO) 2.3 % (0-6); HEMATOCRIT 35.8 % (36.0-47.0); HEMOGLOBIN 12.3 g/dL (12.0-15.5); LYMPHOCYTES % (AUTO) 10.8 % (13-45); MEAN CORPUSCULAR HEMOGLOBIN 30.9 pg (27.0-33.4); MEAN CORPUSCULAR HGB CONC 34.3 g/dL (32.0-36.0); MEAN CORPUSCULAR VOLUME 90 fl (80-97); MONOCYTES % (AUTO) 6.6 % (3-13); PLATELET COUNT 379 10^3/uL (150-450); RED BLOOD COUNT 3.97 10^6/uL (3.72-5.28); SEGMENTED NEUTROPHILS % (AUTO) 79.5 % (42-78); TOTAL CELLS COUNTED % (AUTO) 100 %; WHITE BLOOD COUNT 13.8 10^3/uL (4.0-10.5)
[2017-05-24 14:24] LABS: ALANINE AMINOTRANSFERASE 20 U/L (9-52); ALBUMIN 3.2 g/dL (3.5-5.0); ALKALINE PHOSPHATASE 101 U/L (38-126); ANION GAP 6 (5-19); ASPARTATE AMINO TRANSFERASE 11 U/L (14-36); BILIRUBIN,DIRECT 0.3 mg/dL (0.0-0.4); BILIRUBIN,TOTAL 0.3 mg/dL (0.2-1.3); BLOOD UREA NITROGEN 30 mg/dL (7-20); CALCIUM 9.4 mg/dL (8.4-10.2); CARBON DIOXIDE 30 mmol/L (22-30); CHLORIDE 100 mmol/L (98-107); CHOLESTEROL 234.65 mg/dL (0-200); GLUCOSE 199 mg/dL (75-110); POTASSIUM 5.3 mmol/L (3.6-5.0); SODIUM 136.1 mmol/L (137-145); TOTAL PROTEIN 6.3 g/dL (6.3-8.2); TRIGLYCERIDES 142 mg/dL (<150)
[2017-05-24 14:35] LABS: DIRECT LDL 172 mg/dL (<100)
[2017-05-25 13:38] LABS: CREATININE URINE 60.8 mg/dL (Not Estab.)
[2017-05-25 13:42] LABS: MICROALBUMIN URINE 4314.5 ug/mL (Not Estab.)
== END ==
LOC: OD 12:55
PROVIDERS: ATTEND Family Medicine Geriatric Medicine
DX: E11.9 Type 2 diabetes mellitus without complications (principal); I10 Essential (primary) hypertension; E78.5 Hyperlipidemia, unspecified; J44.9 Chronic obstructive pulmonary disease, unspecified; Z79.899 Other long term (current) drug therapy
CPT/HCPCS: 36415; 80053; 80061; 82043; 82570; 83036; 84443; 85025

== ENCOUNTER → 2017-07-19 | Outpatient (CLI) | payer MEDICARE, OTHER ==
--- NOTE | 2017-07-19 15:38 | RADIOLOGY REPORT (SQ) ---
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 TECHNIQUE: Dynamic and static grayscale images acquired of the kidneys and bladder and recorded on P ACS. Additional selected color Doppler and spectral images recorded. LIMITATIONS: None. FINDINGS: RIGHT KIDNEY: Normal size. Increased cortical echogenicity. 2.4 cm cyst. No hydrone phrosis. No calcifications. LEFT KIDNEY: Normal size. Increased cortical echogenicity. No solid or suspicious masses. No h ydronephrosis. No calcifications. BLADDER: No masses. OTHER: No other significant finding. IMPRESSION: CHRONIC MEDICAL RENAL DISEASE. NO HYDRONEPHROSIS. TECHNICAL DOCUMENTATION: JOB ID: [id number] [employer]- All Rights Reserved Reading location - IP/workstation name: [email or web address]
== END ==
LOC: RAD 13:59
PROVIDERS: ATTEND Internal Medicine Nephrology
DX: N18.4 Chronic kidney disease, stage 4 (severe) (principal); R80.9 Proteinuria, unspecified
CPT/HCPCS: 76770

== ENCOUNTER → 2017-07-27 | Outpatient (CLI) | payer MEDICARE, OTHER | LOC: OD 15:31 | PROVIDERS: ATTEND Family Medicine Geriatric Medicine | DX: E87.5 Hyperkalemia (principal); Z79.899 Other long term (current) drug therapy | CPT/HCPCS: 36415; 84132 ==

== ENCOUNTER → 2017-08-03 | Outpatient (CLI) | payer MEDICARE, OTHER ==
[2017-08-03 16:17] LABS: HEMATOCRIT 39.6 % (36.0-47.0); HEMOGLOBIN 13.4 g/dL (12.0-15.5); MEAN CORPUSCULAR HEMOGLOBIN 30.5 pg (27.0-33.4); MEAN CORPUSCULAR HGB CONC 33.8 g/dL (32.0-36.0); MEAN CORPUSCULAR VOLUME 90 fl (80-97); PLATELET COUNT 275 10^3/uL (150-450); RED BLOOD COUNT 4.39 10^6/uL (3.72-5.28); RED CELL DISTRIBUTION WIDTH 14.4 % (11.5-14.0); WHITE BLOOD COUNT 9.4 10^3/uL (4.0-10.5)
[2017-08-03 16:26] LABS: APPEARANCE,URINE SLIGHTLY-CLOUDY; BILIRUBIN,URINE NEGATIVE (NEGATIVE); COLOR,URINE YELLOW; GLUCOSE, URINE 50 mg/dL (NEGATIVE); KETONES,URINE NEGATIVE (NEGATIVE); LEUKOCYTE ESTERASE,URINE SMALL (NEGATIVE); NITRITE,URINE NEGATIVE (NEGATIVE); PROTEIN,URINE >=500 mg/dL (NEGATIVE); URINE SPECIFIC GRAVITY 1.015; UROBILINOGEN,URINE NEGATIVE mg/dL (<2.0)
[2017-08-03 16:37] LABS: ALANINE AMINOTRANSFERASE 16 U/L (9-52); ALBUMIN 3.4 g/dL (3.5-5.0); ALKALINE PHOSPHATASE 96 U/L (38-126); ANION GAP 11 (5-19); ASPARTATE AMINO TRANSFERASE 12 U/L (14-36); BILIRUBIN,DIRECT 0.2 mg/dL (0.0-0.4); BILIRUBIN,TOTAL 0.2 mg/dL (0.2-1.3); BLOOD UREA NITROGEN 36 mg/dL (7-20); CALCIUM 8.8 mg/dL (8.4-10.2); CARBON DIOXIDE 28 mmol/L (22-30); CHLORIDE 102 mmol/L (98-107); GLUCOSE 186 mg/dL (75-110); PHOSPHORUS 4.8 mg/dL (2.5-4.5); POTASSIUM 4.7 mmol/L (3.6-5.0); SODIUM 140.6 mmol/L (137-145); TOTAL PROTEIN 5.9 g/dL (6.3-8.2)
[2017-08-03 16:56] LABS: URINE CREATININE 68.2 mg/dL (15-278)
[2017-08-03 17:38] LABS: UR PRO/CREAT RATIO RESULT 14.1 mg/mg (0.0-0.2); URINE PROTEIN 960.5 mg/dL (<12)
== END ==
LOC: OD 14:49
PROVIDERS: ATTEND Internal Medicine Nephrology
DX: I12.9 Hypertensive chronic kidney disease with stage 1 through stage 4 chronic kidney disease, or unspecified chronic kidney disease (principal); N18.4 Chronic kidney disease, stage 4 (severe); R80.9 Proteinuria, unspecified; E11.9 Type 2 diabetes mellitus without complications
CPT/HCPCS: 36415; 80053; 81001; 82570; 83970; 84100; 84156; 85027

== ENCOUNTER → 2017-09-17 | Outpatient (CLI) | payer MEDICARE, OTHER ==
[2017-09-17 14:10] LABS: HEMATOCRIT 37.3 % (36.0-47.0); HEMOGLOBIN 12.7 g/dL (12.0-15.5); MEAN CORPUSCULAR HEMOGLOBIN 30.7 pg (27.0-33.4); MEAN CORPUSCULAR HGB CONC 34.1 g/dL (32.0-36.0); MEAN CORPUSCULAR VOLUME 90 fl (80-97); PLATELET COUNT 306 10^3/uL (150-450); RED BLOOD COUNT 4.14 10^6/uL (3.72-5.28); RED CELL DISTRIBUTION WIDTH 14.5 % (11.5-14.0); WHITE BLOOD COUNT 10.7 10^3/uL (4.0-10.5)
[2017-09-17 14:26] LABS: APPEARANCE,URINE SLIGHTLY-CLOUDY; BILIRUBIN,URINE NEGATIVE (NEGATIVE); COLOR,URINE YELLOW; GLUCOSE, URINE 50 mg/dL (NEGATIVE); KETONES,URINE NEGATIVE (NEGATIVE); LEUKOCYTE ESTERASE,URINE TRACE (NEGATIVE); NITRITE,URINE NEGATIVE (NEGATIVE); PROTEIN,URINE >=500 mg/dL (NEGATIVE); UROBILINOGEN,URINE NEGATIVE mg/dL (<2.0)
[2017-09-17 14:38] LABS: ANION GAP 9 (5-19); BLOOD UREA NITROGEN 31 mg/dL (7-20); CALCIUM 8.9 mg/dL (8.4-10.2); CARBON DIOXIDE 28 mmol/L (22-30); CHLORIDE 104 mmol/L (98-107); GLUCOSE 107 mg/dL (75-110); PHOSPHORUS 4.4 mg/dL (2.5-4.5); POTASSIUM 5.3 mmol/L (3.6-5.0); SODIUM 140.5 mmol/L (137-145)
[2017-09-17 14:40] LABS: URINE CREATININE 41.2 mg/dL (15-278)
[2017-09-17 15:00] LABS: UR PRO/CREAT RATIO RESULT 18.9 mg/mg (0.0-0.2); URINE PROTEIN 779.1 mg/dL (<12)
== END ==
LOC: OD 13:04
PROVIDERS: ATTEND Internal Medicine Nephrology
DX: I12.9 Hypertensive chronic kidney disease with stage 1 through stage 4 chronic kidney disease, or unspecified chronic kidney disease (principal); N18.4 Chronic kidney disease, stage 4 (severe); R80.9 Proteinuria, unspecified; E87.5 Hyperkalemia
CPT/HCPCS: 36415; 80048; 81001; 82570; 83970; 84100; 84156; 85027

== ENCOUNTER → 2017-10-11 | Outpatient (CLI) | payer MEDICARE, OTHER | LOC: OD 15:19 | PROVIDERS: ATTEND Family Medicine Geriatric Medicine | DX: N39.0 Urinary tract infection, site not specified (principal) | CPT/HCPCS: 87086; 87088 ==

== ENCOUNTER → 2018-01-24 | Outpatient (CLI) | payer MEDICARE, OTHER ==
[2018-01-24 09:03] LABS: ABSOLUTE BASOPHILS # (AUTO) 0.1 10^3/uL (0.0-0.2); ABSOLUTE EOSINOPHILS # (AUTO) 0.2 10^3/uL (0.0-0.6); ABSOLUTE LYMPHOCYTES (AUTO) 0.9 10^3/uL (0.5-4.7); BASOPHILS % (AUTO) 0.9 % (0-2); HEMATOCRIT 28.3 % (36.0-47.0); HEMOGLOBIN 9.4 g/dL (12.0-15.5); LYMPHOCYTES % (AUTO) 8.2 % (13-45); MEAN CORPUSCULAR HEMOGLOBIN 28.3 pg (27.0-33.4); MEAN CORPUSCULAR HGB CONC 33.2 g/dL (32.0-36.0); MEAN CORPUSCULAR VOLUME 85 fl (80-97); MONOCYTES % (AUTO) 8.8 % (3-13); PLATELET COUNT 397 10^3/uL (150-450); RED BLOOD COUNT 3.33 10^6/uL (3.72-5.28); RED CELL DISTRIBUTION WIDTH 14.9 % (11.5-14.0); SEGMENTED NEUTROPHILS % (AUTO) 80.1 % (42-78); TOTAL CELLS COUNTED % (AUTO) 100 %; WHITE BLOOD COUNT 11.3 10^3/uL (4.0-10.5)
[2018-01-24 09:04] LABS: PROTHROMBIN TIME 19.8 SEC (11.4-15.4)
[2018-01-24 09:25] LABS: ALANINE AMINOTRANSFERASE 21 U/L (9-52); ALBUMIN 2.7 g/dL (3.5-5.0); ALKALINE PHOSPHATASE 107 U/L (38-126); ANION GAP 10 (5-19); ASPARTATE AMINO TRANSFERASE 12 U/L (14-36); BILIRUBIN,DIRECT 0.3 mg/dL (0.0-0.4); BILIRUBIN,TOTAL 0.3 mg/dL (0.2-1.3); BLOOD UREA NITROGEN 31 mg/dL (7-20); CALCIUM 8.5 mg/dL (8.4-10.2); CARBON DIOXIDE 24 mmol/L (22-30); CHLORIDE 104 mmol/L (98-107); CHOLESTEROL 199.66 mg/dL (0-200); GLUCOSE 157 mg/dL (75-110); POTASSIUM 4.4 mmol/L (3.6-5.0); SODIUM 138.1 mmol/L (137-145); TRIGLYCERIDES 161 mg/dL (<150)
[2018-01-24 09:36] LABS: DIRECT LDL 122 mg/dL (<100)
[2018-01-24 09:39] LABS: VLDL CHOLESTEROL 32.2 mg/dL (10-31)
[2018-01-25 16:39] LABS: CREATININE URINE 71.9 mg/dL (Not Estab.)
[2018-01-26 07:15] LABS: MICROALBUMIN URINE 6040.6 ug/mL (Not Estab.)
== END ==
LOC: OD 07:52
PROVIDERS: ATTEND Family Medicine Geriatric Medicine
DX: I12.9 Hypertensive chronic kidney disease with stage 1 through stage 4 chronic kidney disease, or unspecified chronic kidney disease (principal); E11.40 Type 2 diabetes mellitus with diabetic neuropathy, unspecified; N18.3 Chronic kidney disease, stage 3 (moderate); E78.5 Hyperlipidemia, unspecified; I48.91 Unspecified atrial fibrillation
CPT/HCPCS: 36415; 80053; 80061; 82043; 82306; 82570; 83036; 85025; 85610

== ENCOUNTER → 2018-03-24 | Outpatient (CLI) | payer MEDICARE, OTHER ==
[2018-03-24 12:28] LABS: ABSOLUTE BASOPHILS # (AUTO) 0.1 10^3/uL (0.0-0.2); ABSOLUTE EOSINOPHILS # (AUTO) 0.2 10^3/uL (0.0-0.6); ABSOLUTE LYMPHOCYTES (AUTO) 0.8 10^3/uL (0.5-4.7); ABSOLUTE MONOCYTES (AUTO) 0.7 10^3/uL (0.1-1.4); ABSOLUTE NEUT (AUTO) 6.5 10^3/uL (1.7-8.2); BASOPHILS % (AUTO) 1.4 % (0-2); EOSINOPHILS % (AUTO) 2.2 % (0-6); HEMATOCRIT 30.6 % (36.0-47.0); HEMOGLOBIN 10.2 g/dL (12.0-15.5); LYMPHOCYTES % (AUTO) 9.6 % (13-45); MEAN CORPUSCULAR HEMOGLOBIN 27.7 pg (27.0-33.4); MEAN CORPUSCULAR HGB CONC 33.3 g/dL (32.0-36.0); MEAN CORPUSCULAR VOLUME 83 fl (80-97); MONOCYTES % (AUTO) 8.4 % (3-13); PLATELET COUNT 247 10^3/uL (150-450); RED BLOOD COUNT 3.68 10^6/uL (3.72-5.28); RED CELL DISTRIBUTION WIDTH 18.2 % (11.5-14.0); SEGMENTED NEUTROPHILS % (AUTO) 78.4 % (42-78); TOTAL CELLS COUNTED % (AUTO) 100 %; WHITE BLOOD COUNT 8.3 10^3/uL (4.0-10.5)
[2018-03-24 12:33] LABS: INTERNATIONAL RATION (INR) 1.37; PROTHROMBIN TIME 17.6 SEC (11.4-15.4)
[2018-03-24 12:49] LABS: ANION GAP 10 (5-19); BLOOD UREA NITROGEN 34 mg/dL (7-20); CALCIUM 8.1 mg/dL (8.4-10.2); CARBON DIOXIDE 25 mmol/L (22-30); CHLORIDE 103 mmol/L (98-107); GLUCOSE 212 mg/dL (75-110); POTASSIUM 4.2 mmol/L (3.6-5.0); SODIUM 137.8 mmol/L (137-145)
[2018-03-24 13:47] LABS: APPEARANCE,URINE CLOUDY; BILIRUBIN,URINE NEGATIVE (NEGATIVE); COLOR,URINE YELLOW; GLUCOSE, URINE >=500 mg/dL (NEGATIVE); KETONES,URINE NEGATIVE (NEGATIVE); LEUKOCYTE ESTERASE,URINE TRACE (NEGATIVE); NITRITE,URINE NEGATIVE (NEGATIVE); PROTEIN,URINE >=500 mg/dL (NEGATIVE); URINE SPECIFIC GRAVITY 1.009; UROBILINOGEN,URINE NEGATIVE mg/dL (<2.0)
== END ==
LOC: OD 11:48
PROVIDERS: ATTEND Family Medicine Geriatric Medicine
DX: I48.91 Unspecified atrial fibrillation (principal); I12.9 Hypertensive chronic kidney disease with stage 1 through stage 4 chronic kidney disease, or unspecified chronic kidney disease; N18.3 Chronic kidney disease, stage 3 (moderate); E11.22 Type 2 diabetes mellitus with diabetic chronic kidney disease
CPT/HCPCS: 36415; 80048; 81001; 85025; 85610

== ENCOUNTER → 2018-05-17 | Outpatient (CLI) | payer MEDICARE, OTHER ==
[2018-05-17 15:49] LABS: APPEARANCE,URINE SLIGHTLY-CLOUDY; BILIRUBIN,URINE NEGATIVE (NEGATIVE); COLOR,URINE YELLOW; GLUCOSE, URINE 150 mg/dL (NEGATIVE); KETONES,URINE NEGATIVE (NEGATIVE); LEUKOCYTE ESTERASE,URINE NEGATIVE (NEGATIVE); NITRITE,URINE NEGATIVE (NEGATIVE); PROTEIN,URINE >=500 mg/dL (NEGATIVE); URINE SPECIFIC GRAVITY 1.016; UROBILINOGEN,URINE NEGATIVE mg/dL (<2.0)
[2018-05-17 15:57] LABS: ABSOLUTE BASOPHILS # (AUTO) 0.1 10^3/uL (0.0-0.2); ABSOLUTE EOSINOPHILS # (AUTO) 0.2 10^3/uL (0.0-0.6); ABSOLUTE LYMPHOCYTES (AUTO) 1.1 10^3/uL (0.5-4.7); ABSOLUTE MONOCYTES (AUTO) 0.8 10^3/uL (0.1-1.4); ABSOLUTE NEUT (AUTO) 8.5 10^3/uL (1.7-8.2); BASOPHILS % (AUTO) 1.1 % (0-2); EOSINOPHILS % (AUTO) 1.8 % (0-6); HEMATOCRIT 34.3 % (36.0-47.0); HEMOGLOBIN 11.6 g/dL (12.0-15.5); LYMPHOCYTES % (AUTO) 10.1 % (13-45); MEAN CORPUSCULAR HEMOGLOBIN 28.8 pg (27.0-33.4); MEAN CORPUSCULAR HGB CONC 33.8 g/dL (32.0-36.0); MEAN CORPUSCULAR VOLUME 85 fl (80-97); MONOCYTES % (AUTO) 7.9 % (3-13); PLATELET COUNT 334 10^3/uL (150-450); RED BLOOD COUNT 4.02 10^6/uL (3.72-5.28); RED CELL DISTRIBUTION WIDTH 17.3 % (11.5-14.0); SEGMENTED NEUTROPHILS % (AUTO) 79.1 % (42-78); TOTAL CELLS COUNTED % (AUTO) 100 %; WHITE BLOOD COUNT 10.7 10^3/uL (4.0-10.5)
[2018-05-17 16:01] LABS: INTERNATIONAL RATION (INR) 0.99; PROTHROMBIN TIME 13.6 SEC (11.4-15.4)
[2018-05-17 16:25] LABS: BLOOD UREA NITROGEN 36 mg/dL (7-20); CALCIUM 8.6 mg/dL (8.4-10.2); GLUCOSE 92 mg/dL (75-110); POTASSIUM 4.6 mmol/L (3.6-5.0)
[2018-05-17 16:30] LABS: CARBON DIOXIDE 27 mmol/L (22-30); CHLORIDE 105 mmol/L (98-107)
[2018-05-17 16:35] LABS: ANION GAP 3 (5-19)
== END ==
LOC: OD 14:19
PROVIDERS: ATTEND Family Medicine Geriatric Medicine
DX: I48.91 Unspecified atrial fibrillation (principal); E11.22 Type 2 diabetes mellitus with diabetic chronic kidney disease; I12.9 Hypertensive chronic kidney disease with stage 1 through stage 4 chronic kidney disease, or unspecified chronic kidney disease; N18.3 Chronic kidney disease, stage 3 (moderate)
CPT/HCPCS: 36415; 80048; 81001; 85025; 85610

== ENCOUNTER → 2018-07-15 | Outpatient (CLI) | payer MEDICARE, OTHER ==
[2018-07-15 09:40] LABS: HEMATOCRIT 36.3 % (36.0-47.0); HEMOGLOBIN 12.2 g/dL (12.0-15.5); MEAN CORPUSCULAR HEMOGLOBIN 29.3 pg (27.0-33.4); MEAN CORPUSCULAR HGB CONC 33.7 g/dL (32.0-36.0); MEAN CORPUSCULAR VOLUME 87 fl (80-97); PLATELET COUNT 306 10^3/uL (150-450); RED BLOOD COUNT 4.17 10^6/uL (3.72-5.28); RED CELL DISTRIBUTION WIDTH 16.1 % (11.5-14.0); WHITE BLOOD COUNT 8.2 10^3/uL (4.0-10.5)
[2018-07-15 09:48] LABS: INTERNATIONAL RATION (INR) 1.33; PROTHROMBIN TIME 17.1 SEC (11.4-15.4)
[2018-07-15 10:03] LABS: ANION GAP 7 (5-19); BLOOD UREA NITROGEN 37 mg/dL (7-20); CALCIUM 8.1 mg/dL (8.4-10.2); CARBON DIOXIDE 28 mmol/L (22-30); CHLORIDE 102 mmol/L (98-107); GLUCOSE 192 mg/dL (75-110); PHOSPHORUS 6.1 mg/dL (2.5-4.5); SODIUM 137.4 mmol/L (137-145)
[2018-07-15 10:11] LABS: APPEARANCE,URINE SLIGHTLY-CLOUDY; BILIRUBIN,URINE NEGATIVE (NEGATIVE); COLOR,URINE YELLOW; GLUCOSE, URINE >=500 mg/dL (NEGATIVE); KETONES,URINE NEGATIVE (NEGATIVE); LEUKOCYTE ESTERASE,URINE TRACE (NEGATIVE); NITRITE,URINE NEGATIVE (NEGATIVE); PROTEIN,URINE >=500 mg/dL (NEGATIVE); URINE SPECIFIC GRAVITY 1.015; UROBILINOGEN,URINE NEGATIVE mg/dL (<2.0)
== END ==
LOC: OD 09:06
PROVIDERS: ATTEND Family Medicine Geriatric Medicine
DX: N18.3 Chronic kidney disease, stage 3 (moderate) (principal); R80.9 Proteinuria, unspecified; D64.9 Anemia, unspecified; E87.5 Hyperkalemia; I48.91 Unspecified atrial fibrillation
CPT/HCPCS: 36415; 80048; 81001; 83970; 84100; 85027; 85610

== ENCOUNTER → 2018-08-02 | Outpatient (CLI) | payer MEDICARE, OTHER ==
[2018-08-02 08:54] LABS: ABSOLUTE BASOPHILS # (AUTO) 0.2 10^3/uL (0.0-0.2); ABSOLUTE EOSINOPHILS # (AUTO) 0.3 10^3/uL (0.0-0.6); ABSOLUTE MONOCYTES (AUTO) 0.7 10^3/uL (0.1-1.4); ABSOLUTE NEUT (AUTO) 6.2 10^3/uL (1.7-8.2); BASOPHILS % (AUTO) 1.9 % (0-2); EOSINOPHILS % (AUTO) 3.1 % (0-6); HEMATOCRIT 35.5 % (36.0-47.0); HEMOGLOBIN 11.8 g/dL (12.0-15.5); LYMPHOCYTES % (AUTO) 12.1 % (13-45); MEAN CORPUSCULAR HEMOGLOBIN 29.2 pg (27.0-33.4); MEAN CORPUSCULAR HGB CONC 33.2 g/dL (32.0-36.0); MEAN CORPUSCULAR VOLUME 88 fl (80-97); MONOCYTES % (AUTO) 8.5 % (3-13); PLATELET COUNT 343 10^3/uL (150-450); RED BLOOD COUNT 4.03 10^6/uL (3.72-5.28); RED CELL DISTRIBUTION WIDTH 16.1 % (11.5-14.0); SEGMENTED NEUTROPHILS % (AUTO) 74.4 % (42-78); TOTAL CELLS COUNTED % (AUTO) 100 %; WHITE BLOOD COUNT 8.4 10^3/uL (4.0-10.5)
[2018-08-02 09:18] LABS: ALANINE AMINOTRANSFERASE 23 U/L (9-52); ALBUMIN 2.8 g/dL (3.5-5.0); ALKALINE PHOSPHATASE 107 U/L (38-126); AMYLASE 42 U/L (30-110); ASPARTATE AMINO TRANSFERASE 14 U/L (14-36); BILIRUBIN,DIRECT 0.3 mg/dL (0.0-0.4); BILIRUBIN,TOTAL 0.3 mg/dL (0.2-1.3); BLOOD UREA NITROGEN 26 mg/dL (7-20); CALCIUM 8.9 mg/dL (8.4-10.2); CHOLESTEROL 246.87 mg/dL (0-200); GLUCOSE 113 mg/dL (75-110); LIPASE 56.2 U/L (23-300); POTASSIUM 4.8 mmol/L (3.6-5.0); TOTAL PROTEIN 5.8 g/dL (6.3-8.2); TRIGLYCERIDES 167 mg/dL (<150)
[2018-08-02 09:22] LABS: CARBON DIOXIDE 29 mmol/L (22-30); CHLORIDE 106 mmol/L (98-107); SODIUM 137.9 mmol/L (137-145)
[2018-08-02 09:28] LABS: INTERNATIONAL RATION (INR) 2.16; PROTHROMBIN TIME 25.1 SEC (11.4-15.4)
[2018-08-02 09:29] LABS: ANION GAP 3 (5-19); DIRECT LDL 132 mg/dL (<100); VLDL CHOLESTEROL 33.4 mg/dL (10-31)
== END ==
LOC: OD 08:14
PROVIDERS: ATTEND Family Medicine Geriatric Medicine
DX: R10.11 Right upper quadrant pain (principal); D64.9 Anemia, unspecified; I48.2 Chronic atrial fibrillation; J44.9 Chronic obstructive pulmonary disease, unspecified; E11.40 Type 2 diabetes mellitus with diabetic neuropathy, unspecified; K21.9 Gastro-esophageal reflux disease without esophagitis; E78.5 Hyperlipidemia, unspecified
CPT/HCPCS: 36415; 80048; 80061; 80076; 82150; 83036; 83690; 85025; 85610

== ENCOUNTER → 2018-08-05 | Outpatient (CLI) | payer MEDICARE, OTHER ==
--- NOTE | 2018-08-05 10:03 | WOMENS IMAGING REPORT ---
EXAM DESCRIPTION: U/S ABDOMEN LIMITED COMPLETED DATE/TIME: 08/05/2018 9:03 am REASON FOR STUDY: R10.11 RIGHT UPPER QUADRANT PAIN R10.11 RIGHT UPPER QUADRANT PAIN COMPARISON: None. TECHNIQUE: Dynamic and static grayscale images acquired of the abdomen and recorded on PACS. Additio helen selected color Doppler and spectral images recorded. LIMITATIONS: None. FINDINGS: PANCREAS: No masses. Visualized pancreatic duct normal caliber. LIVER: Normal size Echo texture normal. No focal masses. LIVER VASCULATURE: Normal directional flow of the main portal vein and hepatic veins. GALLBLADDER: Numerous stones without wall thickening or pericholecystic fluid. ULTRASOUND-DETECTED SOLOMON'S SIGN: Negative. INTRAHEPATIC DUCTS AND COMMON DUCT: CBD and intrahepatic ducts normal caliber. No filling defects. INFERIOR VENA CAVA: Normal flow. AORTA: No aneurysm. RIGHT KIDNEY: Normal size. Slightly echogenic appearance, possibly medical renal disease. No carole id mass. There is a parapelvic cyst measuring just over 2 cm. No hydronephrosis. No calcificatio ns. PERITONEAL AND RIGHT PLEURAL SPACE: No ascites or effusions. OTHER: No other significant findings. IMPRESSION: 1. Cholelithiasis without ultrasound evidence of acute cholecystitis. 2. Suspect medical renal disease. TECHNICAL DOCUMENTATION: JOB ID: [id number] [employer]- All Rights Reserved Reading location - IP/workstation name: [email or web address]
== END ==
LOC: WI 08:03
PROVIDERS: ATTEND Family Medicine Geriatric Medicine
DX: K80.20 Calculus of gallbladder without cholecystitis without obstruction (principal); R10.11 Right upper quadrant pain
CPT/HCPCS: 76705

== ENCOUNTER → 2018-08-17 | Outpatient (CLI) | payer MEDICARE, OTHER ==
[2018-08-17 12:59] LABS: HEMATOCRIT 29.8 % (36.0-47.0); HEMOGLOBIN 10.2 g/dL (12.0-15.5); MEAN CORPUSCULAR HEMOGLOBIN 29.7 pg (27.0-33.4); MEAN CORPUSCULAR HGB CONC 34.2 g/dL (32.0-36.0); MEAN CORPUSCULAR VOLUME 87 fl (80-97); PLATELET COUNT 311 10^3/uL (150-450); RED BLOOD COUNT 3.43 10^6/uL (3.72-5.28); RED CELL DISTRIBUTION WIDTH 15.9 % (11.5-14.0); WHITE BLOOD COUNT 8.1 10^3/uL (4.0-10.5)
[2018-08-17 13:05] LABS: INTERNATIONAL RATION (INR) 1.65; PROTHROMBIN TIME 20.3 SEC (11.4-15.4)
[2018-08-17 13:06] LABS: APPEARANCE,URINE CLOUDY; BILIRUBIN,URINE NEGATIVE (NEGATIVE); COLOR,URINE YELLOW; GLUCOSE, URINE 150 mg/dL (NEGATIVE); KETONES,URINE NEGATIVE (NEGATIVE); LEUKOCYTE ESTERASE,URINE SMALL (NEGATIVE); NITRITE,URINE NEGATIVE (NEGATIVE); PROTEIN,URINE >=500 mg/dL (NEGATIVE); URINE SPECIFIC GRAVITY 1.016; UROBILINOGEN,URINE NEGATIVE mg/dL (<2.0)
[2018-08-17 13:20] LABS: ANION GAP 5 (5-19); BLOOD UREA NITROGEN 33 mg/dL (7-20); CALCIUM 8.6 mg/dL (8.4-10.2); CARBON DIOXIDE 25 mmol/L (22-30); CHLORIDE 105 mmol/L (98-107); GLUCOSE 133 mg/dL (75-110); PHOSPHORUS 4.2 mg/dL (2.5-4.5); SODIUM 134.9 mmol/L (137-145)
[2018-08-17 14:51] LABS: UR PRO/CREAT RATIO RESULT 1.8 mg/mg (0.0-0.2); URINE CREATININE 65.5 mg/dL (15-278); URINE PROTEIN 115.4 mg/dL (<12)
== END ==
LOC: OD 12:25
PROVIDERS: ATTEND Internal Medicine Nephrology
DX: I12.9 Hypertensive chronic kidney disease with stage 1 through stage 4 chronic kidney disease, or unspecified chronic kidney disease (principal); N18.4 Chronic kidney disease, stage 4 (severe); R80.9 Proteinuria, unspecified; E11.22 Type 2 diabetes mellitus with diabetic chronic kidney disease; E87.5 Hyperkalemia; I48.91 Unspecified atrial fibrillation
CPT/HCPCS: 36415; 80048; 81001; 82570; 83735; 83970; 84100; 84156; 85027; 85610

== ENCOUNTER 2018-09-09 11:21 | Emergency (ER) | payer MEDICARE, OTHER ==
[2018-09-09 11:52] LABS: ABSOLUTE BASOPHILS # (AUTO) 0.1 10^3/uL (0.0-0.2); ABSOLUTE EOSINOPHILS # (AUTO) 0.1 10^3/uL (0.0-0.6); ABSOLUTE MONOCYTES (AUTO) 0.8 10^3/uL (0.1-1.4); ABSOLUTE NEUT (AUTO) 6.5 10^3/uL (1.7-8.2); BASOPHILS % (AUTO) 1.5 % (0-2); EOSINOPHILS % (AUTO) 1.6 % (0-6); HEMATOCRIT 31.2 % (36.0-47.0); HEMOGLOBIN 10.1 g/dL (12.0-15.5); MEAN CORPUSCULAR HEMOGLOBIN 28.6 pg (27.0-33.4); MEAN CORPUSCULAR HGB CONC 32.4 g/dL (32.0-36.0); MEAN CORPUSCULAR VOLUME 88 fl (80-97); MONOCYTES % (AUTO) 8.9 % (3-13); PLATELET COUNT 293 10^3/uL (150-450); RED BLOOD COUNT 3.54 10^6/uL (3.72-5.28); RED CELL DISTRIBUTION WIDTH 16.1 % (11.5-14.0); TOTAL CELLS COUNTED % (AUTO) 100 %; WHITE BLOOD COUNT 8.6 10^3/uL (4.0-10.5)
--- NOTE | 2018-09-09 12:17 | RADIOLOGY REPORT (SQ) ---
EXAM DESCRIPTION: CHEST SINGLE VIEW COMPLETED DATE/TIME: 09/09/2018 11:59 am REASON FOR STUDY: cp COMPARISON: 07/29/2016 EXAM PARAMETERS: NUMBER OF VIEWS: One view. TECHNIQUE: Single frontal radiographic view of the chest acquired. RADIATION DOSE: NA LIMITATIONS: None. FINDINGS: LUNGS AND PLEURA: Subtle focal opacifications are seen at the left costophrenic angle and right lung base. Mildly increased bibasilar interstitial markings may represent chronic lung disease . No focal consolidation, large pleural effusion, or pneumothorax are demonstrated. MEDIASTINUM AND HILAR STRUCTURES: No masses. Contour normal. HEART AND VASCULAR STRUCTURES: Heart normal in size. Normal vasculature. BONES: No acute findings. HARDWARE: None in the chest. OTHER: No other significant finding. IMPRESSION: Subtle bibasilar opacities are a nonspecific finding. Given the absence of secondary fi ndings of CHF exacerbation, favor developing multifocal pneumonitis. TECHNICAL DOCUMENTATION: JOB ID: [id number] [employer]- All Rights Reserved Reading location - IP/workstation name: [email or web address]
[2018-09-09 12:19] LABS: ALANINE AMINOTRANSFERASE 18 U/L (9-52); ALBUMIN 2.6 g/dL (3.5-5.0); ALKALINE PHOSPHATASE 78 U/L (38-126); ANION GAP 6 (5-19); ASPARTATE AMINO TRANSFERASE 15 U/L (14-36); BILIRUBIN,DIRECT 0.3 mg/dL (0.0-0.4); BILIRUBIN,TOTAL 0.3 mg/dL (0.2-1.3); BLOOD UREA NITROGEN 34 mg/dL (7-20); CALCIUM 8.1 mg/dL (8.4-10.2); CARBON DIOXIDE 29 mmol/L (22-30); CHLORIDE 106 mmol/L (98-107); CREATINE KINASE 54 U/L (30-135); GLUCOSE 111 mg/dL (75-110); POTASSIUM 4.6 mmol/L (3.6-5.0); SODIUM 140.6 mmol/L (137-145); TOTAL PROTEIN 5.4 g/dL (6.3-8.2)
[2018-09-09 12:30] LABS: CREATINE KINASE MB 1.14 ng/mL (<4.55); TROPONIN I 0.019 ng/mL
--- NOTE | 2018-09-09 16:23 | EKG REPORT ---
SEVERITY:- ABNORMAL ECG - ATRIAL FIBRILLATION LVH WITH SECONDARY REPOLARIZATION ABNORMALITY ANTERIOR Q WAVES, POSSIBLY DUE TO LVH BORDERLINE PROLONGED QT INTERVAL : Confirmed by: Janes Mercado MD 09-Sep-2018 16:22:09
--- NOTE | 2018-09-09 16:35 | ER Document Report ---
ED Cardiac - General Chief Complaint: Chest Pain Stated Complaint: CHEST PAIN Time Seen by Provider: 09/09/18 11:29 Primary Care Provider: LAWRENCE MCCOY MD [ACTIVE STAFF] - Follow up as needed Mode of Arrival: Ambulatory Information source: Patient Notes: Patient is a 78-year-old female presented to the emergency department with chief complaint of chest pain. She states that the pain is located on the left side of her chest and is reproducible. She denies any nausea, vomiting, diaphoresis or shortness of breath. Patient reports that she went to Dr. Fernandez's office this morning for cardiac clearance to have a procedure done next week when she mentioned to him that she has been having chest pain over the last month. Patient currently denies any chest pain. She does state that she does have a history of CHF, COPD, hypertension, hyperlipidemia. TRAVEL OUTSIDE OF THE [place] IN LAST 30 DAYS: No - Related Data Allergies/Adverse Reactions: guaifenesin [Guaifenesin] Allergy (Severe, Verified 09/09/18 11:41) itching, hard to breathe Iodinated Contrast- Oral and IV Dye [IV Dye, Iodine Containing] Allergy (Mild, Verified 09/09/18 11:41) rash iodine [Iodine] Allergy (Mild, Verified 09/09/18 11:41) rash Sulfa (Sulfonamide Antibiotics) Allergy (Mild, Verified 09/09/18 11:41) rash dar Allergy (Severe, Uncoded 09/09/18 11:41) Anaphylaxis Past Medical History - General Information source: Patient - Social History Smoking Status: Current Some Day Smoker Frequency of alcohol use: None Drug Abuse: None Family History: None, Reviewed & Not Pertinent, Hypertension Patient has suicidal ideation: No Patient has homicidal ideation: No - Past Medical History Cardiac Medical History: Reports: Hx Atrial Fibrillation, Hx Congestive Heart Failure, Hx Coronary Artery Disease, Hx Hypercholesterolemia, Hx Hypertension, Hx Peripheral Vascular Disease, Hx Pulmonary Embolism, Hx Heart Murmur - 42 YRS AGO DIAGNOSED Denies: Hx Heart Attack Pulmonary Medical History: Reports: Hx Asthma, Hx Bronchitis, Hx COPD, Hx Pneumonia, Hx Sleep Apnea Denies: Hx Respiratory Failure, Hx Tuberculosis Neurological Medical History: Reports: Hx Cerebrovascular Accident. Denies: Hx Seizures Endocrine Medical History: Reports: Hx Diabetes Mellitus Type 2, Hx Hypothyroidism Renal/ Medical History: Denies: Hx Peritoneal Dialysis Malignancy Medical History: Denies: Hx Lung Cancer GI Medical History: Reports: Hx Gastroesophageal Reflux Disease, Hx Hiatal Hernia. Denies: Hx Pancreatitis Musculoskeletal Medical History: Reports Hx Arthritis, Denies Hx Systemic Lupus Erythematosus Psychiatric Medical History: Reports: Hx Depression Traumatic Medical History: Infectious Medical History: Past Surgical History: Reports: Hx Appendectomy, Hx Cardiac Catheterization - 3 STENTS, Hx Coronary Artery Bypass Graft, Hx Hysterectomy, Hx Open Heart Surgery - 2 stents, Hx Tonsillectomy. Denies: Hx Mastectomy - Immunizations Hx Diphtheria, Pertussis, Tetanus Vaccination: Yes Hx Pneumococcal Vaccination: 02/25/09 Review of Systems - Review of Systems Constitutional: denies: Chills, Fever EENT: No symptoms reported Cardiovascular: Chest pain Respiratory: Cough Gastrointestinal: No symptoms reported Genitourinary: No symptoms reported Female Genitourinary: No symptoms reported Musculoskeletal: No symptoms reported Skin: No symptoms reported Hematologic/Lymphatic: No symptoms reported Neurological/Psychological: No symptoms reported Physical Exam - Vital signs Vitals: Resp Pulse Ox 16 91 L 09/09/18 11:31 09/09/18 11:31 - Notes Notes: PHYSICAL EXAMINATION: GENERAL: Well-appearing, well-nourished and in no acute distress. HEAD: Atraumatic, normocephalic. EYES: Pupils equal round and reactive to light, extraocular movements intact, conjunctiva are normal. ENT: Nares patent, oropharynx clear without exudates. Moist mucous membranes. NECK: Normal range of motion, supple without lymphadenopathy LUNGS: Breath sounds clear to auscultation bilaterally and equal. No wheezes rales or rhonchi. HEART: Regular rate and rhythm without murmurs ABDOMEN: Soft, nontender, nondistended abdomen. No guarding, no rebound. No masses appreciated. Female : deferred Musculoskeletal: Normal range of motion, no pitting or edema. No cyanosis. Reproducible chest pain with palpation to the left chest wall. NEUROLOGICAL: Cranial nerves grossly intact. Normal speech, normal gait. Normal sensory, motor exams PSYCH: Normal mood, normal affect. SKIN: Warm, Dry, normal turgor, no rashes or lesions noted. Course - Re-evaluation Re-evalutation: 09/09/18 16:34 Patient's work-up so far has been negative to include a repeat troponin. Chest x-ray is unremarkable. EKG was reviewed by me and shows us rate of 109, atrial fibrillation which is chronic for patient. Patient does report that she has not been fully compliant with her medications. There is no ST segment elevations or depressions to suggest ischemia. Spoke with patient's brazing machine operator helper, Dr. Mccoy he recommends changing her Cardizem to 240 mg every 12 hours. He also recommends changing her digoxin to 0.125 mg every other day. He would like her digoxin level checked prior to discharge. He would like her to follow-up in his office next week. - Vital Signs Vital signs: Temp Pulse Resp BP Pulse Ox 98.1 F 23 H 150/98 H 95 09/09/18 17:42 09/09/18 17:42 09/09/18 17:42 09/09/18 17:42 - Laboratory Result Diagrams: 09/09/18 11:30 09/09/18 11:30 Laboratory results interpreted by me: 09/09/18 09/09/18 09/09/18 11:30 11:30 11:30 RBC 3.54 L Hgb 10.1 L Hct 31.2 L RDW 16.1 H Lymphocytes % 12.0 L BUN 34 H Creatinine 2.57 H Est GFR ( Amer) 22 L Est GFR (Non-Af Amer) 18 L Glucose 111 H Calcium 8.1 L NT-Pro-B Natriuret Pep 9290 H Total Protein 5.4 L Albumin 2.6 L Digoxin 09/09/18 11:30 RBC Hgb Hct RDW Lymphocytes % BUN Creatinine Est GFR ( Amer) Est GFR (Non-Af Amer) Glucose Calcium NT-Pro-B Natriuret Pep Total Protein Albumin Digoxin < 0.40 L Discharge - Discharge Clinical Impression: Chest pain Qualifiers: Chest pain type: unspecified Qualified Code(s): R07.9 - Chest pain, unspecified Atrial fibrillation Qualifiers: Atrial fibrillation type: chronic Qualified Code(s): I48.2 - Chronic atrial fibrillation Condition: Stable Disposition: HOME, SELF-CARE Additional Instructions: Your cardiac work-up today was negative. I called and spoke with your brazing machine operator helper, Dr. Mccoy. He recommended some medication changes. I have written you new prescriptions. Please stop taking the bottles of Cardizem and digoxin that you have been please start taking the dosages that I have pre scribed. They are as follows: Cardizem 240 mg every 12 hours Digoxin 0.125 mg every other day Please follow-up with Dr. Mccoy in his office next week, call them Wednesday morning to schedule an appointment, let them know you were seen in the emergency department and Dr. Mccoy wants to see you in his office. Return to the emergency department for any new or worsening symptoms. Prescriptions: Digoxin [Lanoxin 0.125 mg Tablet] 0.125 mg PO Q48H #15 tablet Diltiazem HCl [Cardizem Cd 240 mg Capsule.cr] 1 cap.sr PO Q12H #60 tab.sr Referrals: LAWRENCE MCCOY MD [ACTIVE STAFF] - Follow up as needed
[2018-09-09 16:51] LABS: INTERNATIONAL RATION (INR) 1.05; PROTHROMBIN TIME 14.3 SEC (11.4-15.4)
[2018-09-09 17:49] VITALS: BP 150/98
--- NOTE | 2018-09-10 08:44 | EKG REPORT ---
SEVERITY:- ABNORMAL ECG - ATRIAL FIBRILLATION CONSIDER ANTEROSEPTAL INFARCT BORDERLINE PROLONGED QT INTERVAL : Confirmed by: Janes Mercado MD 10-Sep-2018 08:42:18
== END 2018-09-09 17:54 | disposition home or self-care (01) ==
LOC: ER 11:21
DX: R07.9 Chest pain, unspecified (principal); R05 Cough; I48.2 Chronic atrial fibrillation; F17.200 Nicotine dependence, unspecified, uncomplicated; I50.9 Heart failure, unspecified; I25.10 Atherosclerotic heart disease of native coronary artery without angina pectoris; E78.00 Pure hypercholesterolemia, unspecified; I11.0 Hypertensive heart disease with heart failure; J44.9 Chronic obstructive pulmonary disease, unspecified; E11.9 Type 2 diabetes mellitus without complications; Z86.73 Personal history of transient ischemic attack (TIA), and cerebral infarction without residual deficits; Z88.2 Allergy status to sulfonamides; Z95.1 Presence of aortocoronary bypass graft; Z90.710 Acquired absence of both cervix and uterus
CPT/HCPCS: 36415; 71045; 80053; 80162; 82550; 82553; 83880; 84484; 85025; 85610; 93005; 93010; 99285

== ENCOUNTER → 2018-09-16 | Outpatient (CLI) | payer MEDICARE, OTHER ==
[2018-09-16 17:12] LABS: HEMATOCRIT 28.2 % (36.0-47.0); HEMOGLOBIN 9.4 g/dL (12.0-15.5); MEAN CORPUSCULAR HGB CONC 33.3 g/dL (32.0-36.0); MEAN CORPUSCULAR VOLUME 87 fl (80-97); PLATELET COUNT 246 10^3/uL (150-450); RED BLOOD COUNT 3.24 10^6/uL (3.72-5.28); RED CELL DISTRIBUTION WIDTH 16.1 % (11.5-14.0); WHITE BLOOD COUNT 7.3 10^3/uL (4.0-10.5)
[2018-09-16 17:35] LABS: ANION GAP 7 (5-19); BLOOD UREA NITROGEN 37 mg/dL (7-20); CALCIUM 8.4 mg/dL (8.4-10.2); CARBON DIOXIDE 26 mmol/L (22-30); CHLORIDE 104 mmol/L (98-107); GLUCOSE 170 mg/dL (75-110); IRON(TIBC) 32.2 ug/dL (37-170); PHOSPHORUS 4.2 mg/dL (2.5-4.5); POTASSIUM 4.4 mmol/L (3.6-5.0); SODIUM 137.2 mmol/L (137-145)
[2018-09-16 18:13] LABS: APPEARANCE,URINE CLOUDY; BILIRUBIN,URINE NEGATIVE (NEGATIVE); COLOR,URINE YELLOW; GLUCOSE, URINE 150 mg/dL (NEGATIVE); KETONES,URINE TRACE mg/dL (NEGATIVE); LEUKOCYTE ESTERASE,URINE MODERATE (NEGATIVE); NITRITE,URINE NEGATIVE (NEGATIVE); PROTEIN,URINE >=500 mg/dL (NEGATIVE); URINE SPECIFIC GRAVITY 1.018; UROBILINOGEN,URINE NEGATIVE mg/dL (<2.0)
[2018-09-16 19:18] LABS: UR PRO/CREAT RATIO RESULT 20.3 mg/mg (0.0-0.2); URINE CREATININE 80.5 mg/dL (15-278); URINE PROTEIN 1630.6 mg/dL (<12)
== END ==
LOC: OD 16:34
PROVIDERS: ATTEND Internal Medicine Nephrology
DX: I12.9 Hypertensive chronic kidney disease with stage 1 through stage 4 chronic kidney disease, or unspecified chronic kidney disease (principal); N18.4 Chronic kidney disease, stage 4 (severe); E11.22 Type 2 diabetes mellitus with diabetic chronic kidney disease; D63.1 Anemia in chronic kidney disease; R80.9 Proteinuria, unspecified
CPT/HCPCS: 36415; 80048; 81001; 82570; 82728; 83540; 83550; 83970; 84100; 84156; 85027

== ENCOUNTER 2018-11-01 15:44 | Emergency (ER) | payer MEDICARE, OTHER ==
[2018-11-01] MEDS ORDERED: DEXTROSE 50%-WATER 25 GM/50 ML DISP.SYRIN IV ONE (16:06)
[2018-11-01] MEDS ORDERED: ACETAMINOPHEN 325 MG TABLET PO ONE (16:38)
--- NOTE | 2018-11-01 17:09 | RADIOLOGY REPORT (SQ) ---
EXAM DESCRIPTION: SHOULDER RIGHT 2 OR MORE VIEWS COMPLETED DATE/TIME: 11/01/2018 4:54 pm REASON FOR STUDY: right shoulder pain, injury COMPARISON: None. NUMBER OF VIEWS: Three views. TECHNIQUE: Internal rotation, external rotation, and Y view images acquired of the right shoulder. LIMITATIONS: Motion on the oblique view FINDINGS: MINERALIZATION: Osteoporotic BONES: No acute fracture. No worrisome bone lesions. JOINTS: No dislocation. VISUALIZED LUNGS AND RIBS: The ribs are intact. Minimal basilar airspace disease SOFT TISSUES: No radiopaque foreign body. OTHER: No other significant finding. IMPRESSION: No acute fracture or malalignment. Right basilar airspace disease. Follow-up chest film recommended TECHNICAL DOCUMENTATION: JOB ID: [id number] [employer]- All Rights Reserved Reading location - IP/workstation name: [email or web address]
[2018-11-01] MEDS ORDERED: IPRATROPIUM BROMIDE 0.02% NEB 0.5 MG/2.5 ML AMPUL NEB ONE (17:20)
--- NOTE | 2018-11-01 17:42 | ER Document Report ---
ED General - General Chief Complaint: Low Blood Sugar Stated Complaint: BLOOD SUGAR PROBLEMS Time Seen by Provider: 11/01/18 16:05 Primary Care Provider: JOSE MARTIN SALOOMN MD [Primary Care Provider] - Follow up tomorrow Notes: Patient is a 78-year-old female with diabetes mellitus, insulin-dependent that presents to the emergency department for chief complaint of hypoglycemia. Patient is insulin-dependent diabetic, that is typically noncompliant with her insulin, and for whatever reason she gave herself 20 units of Lantus earlier this morning, she states she only ate a small muffin, and later in the afternoon she started feeling lightheaded, and ended up being found by her neighbor on the ground, she was sounds on her right shoulder. She is found to be hypoglycemic by EMS, with a blood glucose of 23 initially, she was given a bag of D10 water, came up to 143, she is feeling better at this time. Complaining of some mild right shoulder pain. She does not think that she broke it. She denies head injury, she just slumped out of her chair. She feels somewhat short of breath, she is on oxygen chronically 2 to 3 L by nasal cannula, but states that she is no more short of breath than usual. She denies having any chest pain, nausea, vomiting, abdominal pain, dysuria or hematuria. Past Medical History: Diabetes mellitus, chronic kidney disease, hypertension, CAD, atrial fibrillation Past Surgical History: Remote brain surgery Social History: Former heavy smoker, only smokes on occasion now, denies alcohol or drug use. Family History: Reviewed and noncontributory for presenting illness Allergies: Reviewed, see documented allergy list. REVIEW OF SYSTEMS: Other than noted above, the 12 point review of systems was reviewed with the patient and were negative, all pertinent findings are included in the HPI. PHYSICAL EXAMINATION: Vital signs reviewed, nursing noted reviewed. GENERAL: Elderly female, no acute distress HEAD: Atraumatic, normocephalic. EYES: Eyes appear normal, extraocular movements intact, sclera anicteric, conjunctiva are normal. ENT: nares patent, oropharynx clear without exudates. Moist mucous membranes. NECK: Normal range of motion, supple without lymphadenopathy LUNGS: Expiratory wheezing noted throughout all lung jackman, no acute respiratory distress however. HEART: Heart rate mildly tachycardic, irregular rhythm, plus 2/6 systolic murmur. ABDOMEN: Soft, nontender, normoactive bowel sounds. No rebound, guarding, or rigidity. No masses appreciated. EXTREMITIES: There is anterior tenderness to the right shoulder with palpation, the patient has good range of motion otherwise, with internal and external rotation as well as flexion and extension, there is no ecchymosis or gross deformity noted, the rest of the extremity exam is nontender, and good range of motion, 1+ pitting edema to the proximal tibias bilaterally, cap refill is less than 3 seconds in all digits. NEUROLOGICAL: No focal neurological deficits. Moves all extremities spontaneous ly Motor and sensory grossly intact on exam. PSYCH: Normal mood, normal affect. SKIN: Warm, Dry, normal turgor, there is a superficial ulcer noted to the patient's left lateral ankle, no evidence of acute infection, no surrounding erythema or lymphangitis noted. TRAVEL OUTSIDE OF THE [place] IN LAST 30 DAYS: No - Related Data Allergies/Adverse Reactions: guaifenesin [Guaifenesin] Allergy (Severe, Verified 09/09/18 11:41) itching, hard to breathe Iodinated Contrast- Oral and IV Dye [IV Dye, Iodine Containing] Allergy (Mild, Verified 09/09/18 11:41) rash iodine [Iodine] Allergy (Mild, Verified 09/09/18 11:41) rash Sulfa (Sulfonamide Antibiotics) Allergy (Mild, Verified 09/09/18 11:41) rash dar Allergy (Severe, Uncoded 09/09/18 11:41) Anaphylaxis Past Medical History - Social History Smoking Status: Former Smoker Chew tobacco use (# tins/day): No Frequency of alcohol use: None Drug Abuse: None Family History: CAD, CVA, DM, Hypertension, Malignancy Patient has suicidal ideation: No Patient has homicidal ideation: No - Past Medical History Cardiac Medical History: Reports: Hx Atrial Fibrillation, Hx Congestive Heart Failure, Hx Coronary Artery Disease, Hx Hypercholesterolemia, Hx Hypertension, Hx Peripheral Vascular Disease, Hx Pulmonary Embolism, Hx Heart Murmur - 42 YRS AGO DIAGNOSED Denies: Hx Heart Attack Pulmonary Medical History: Reports: Hx Asthma, Hx Bronchitis, Hx COPD, Hx Pneumonia, Hx Respiratory Failure, Hx Sleep Apnea Denies: Hx Tuberculosis Neurological Medical History: Reports: Hx Cerebrovascular Accident. Denies: Hx Seizures Endocrine Medical History: Reports: Hx Diabetes Mellitus Type 2, Hx Hypothyroidism. Denies: Hx Diabetes Mellitus Type 1, Hx Hyperthyroidism Renal/ Medical History: Denies: Hx Peritoneal Dialysis Malignancy Medical History: Denies: Hx Lung Cancer GI Medical History: Reports: Hx Gastroesophageal Reflux Disease, Hx Hiatal Hernia. Denies: Hx Cirrhosis, Hx Hepatitis, Hx Pancreatitis Musculoskeletal Medical History: Reports Hx Arthritis, Denies Hx Gout, Denies Hx Systemic Lupus Erythematosus Skin Medical History: Denies Hx Eczema, Denies Hx Psoriasis Psychiatric Medical History: Reports: Hx Depression Traumatic Medical History: Infectious Medical History: Denies: Hx Hepatitis Past Surgical History: Reports: Hx Appendectomy, Hx Cardiac Catheterization - 3 STENTS, Hx Coronary Artery Bypass Graft, Hx Hysterectomy, Hx Open Heart Surgery - 2 stents, Hx Tonsillectomy. Denies: Hx Mastectomy - Immunizations Hx Diphtheria, Pertussis, Tetanus Vaccination: Yes Hx Pneumococcal Vaccination: 02/25/09 Physical Exam - Vital signs Vitals: Resp BP Pulse Ox 20 101/65 96 11/01/18 15:57 11/01/18 15:57 11/01/18 15:57 Course - Re-evaluation Re-evalutation: Patient seen and examined vital signs reviewed. Laboratory data and/or imaging were ordered as appropriate for the patient's presenting symptoms and complaint, with consideration of any critical or life threatening conditions that may be associated with their obtained history and exam as noted above. Patient was treated with IV dextrose, and given food, her repeat glucose did drop to 65 even after given D10 by EMS, repeat again after given amp of D50 and eating was 100, patient was also given Atrovent, for her wheezing, and her A. fib occasionally did go up to the 130s, was ranging from 95-130, therefore she was given a 2.5 mg dose of metoprolol. Patient also an x-ray of her right shoulder, due to the tenderness, this was negative for fracture, there is a question of airspace disease, however patient has not had cough, wheezing, or any worsening shortness of breath than usual, low suspicion for pneumonia, she is at her baseline pulse ox with supplemental oxygen. The patient was re-evaluated and was stable, improved, I feel the patient can be discharged now, she is advised to continue small meals throughout this evening, and to avoid Lantus, until further discussion with her primary care. Evaluation was most consistent with hypoglycemia, insulin induced, shoulder contusion Results were discussed with the patient at this point, after careful consideration I feel that that patient can be discharged from the emergency department, the patient was educated treatments and reasons to return to the emergency department based on their presumed diagnosis as noted above, they were advised to followup with a primary care physician in 2-3 days. Patient was agreeable to plan of care. *Note is created using voice recognition software and may contain spelling, syntax or grammatical errors.\ Laboratory 11/01/18 11/01/18 15:59 17:35 POC Glucose 65 L 100 Shoulder X-Ray 11/01/18 16:38 IMPRESSION: No acute fracture or malalignment. Right basilar airspace disease. Follow-up chest film recommended - Vital Signs Vital signs: Temp Pulse Resp BP Pulse Ox 20 101/65 96 11/01/18 15:57 11/01/18 15:57 11/01/18 15:57 - Laboratory Laboratory results interpreted by me: 11/01/18 15:59 POC Glucose 65 L Discharge - Discharge Clinical Impression: Hypoglycemia Shoulder contusion Qualifiers: Encounter type: initial encounter Laterality: right Qualified Code(s): S40.011A - Contusion of right shoulder, initial encounter Condition: Stable Disposition: HOME, SELF-CARE Instructions: Hypoglycemia Diet ([facility]), Hypoglycemia ([facility]) Additional Instructions: Make sure to eat several small meals, throughout the evening, and please check your blood sugar at home this evening. If you develop any worsening symptoms, develop lightheadedness, or pass out, or develop worsening shortness of breath, do not hesitate to return to the emergency department, please follow-up with your primary care physician tomorrow. Referrals: JOSE MARTIN SALOMON MD [Primary Care Provider] - Follow up tomorrow
[2018-11-01] MEDS ORDERED: METOPROLOL TARTRATE PF/INJ 5 MG/5 ML SDV IV ONE (17:43)
[2018-11-01 18:44] VITALS: BP 100/87
== END 2018-11-01 18:44 | disposition home or self-care (01) ==
LOC: ER 15:44
DX: E11.649 Type 2 diabetes mellitus with hypoglycemia without coma (principal); S40.011A Contusion of right shoulder, initial encounter; M25.511 Pain in right shoulder; Z79.4 Long term (current) use of insulin; X58.XXXA Exposure to other specified factors, initial encounter; I25.10 Atherosclerotic heart disease of native coronary artery without angina pectoris; Z87.891 Personal history of nicotine dependence; I11.0 Hypertensive heart disease with heart failure; I50.9 Heart failure, unspecified; J44.9 Chronic obstructive pulmonary disease, unspecified; E11.9 Type 2 diabetes mellitus without complications
CPT/HCPCS: 94640; 99285; 96374; 96375; 82962; 73030; A9270; J3490 ×3

== ENCOUNTER → 2018-11-02 | Outpatient (CLI) | payer MEDICARE, OTHER ==
[2018-11-02 17:27] LABS: ABSOLUTE BASOPHILS # (AUTO) 0.1 10^3/uL (0.0-0.2); ABSOLUTE EOSINOPHILS # (AUTO) 0.1 10^3/uL (0.0-0.6); ABSOLUTE LYMPHOCYTES (AUTO) 0.6 10^3/uL (0.5-4.7); ABSOLUTE MONOCYTES (AUTO) 0.5 10^3/uL (0.1-1.4); ABSOLUTE NEUT (AUTO) 3.5 10^3/uL (1.7-8.2); BASOPHILS % (AUTO) 1.4 % (0-2); EOSINOPHILS % (AUTO) 1.4 % (0-6); HEMATOCRIT 24.6 % (36.0-47.0); LYMPHOCYTES % (AUTO) 12.2 % (13-45); MEAN CORPUSCULAR HEMOGLOBIN 28.6 pg (27.0-33.4); MEAN CORPUSCULAR HGB CONC 31.8 g/dL (32.0-36.0); MEAN CORPUSCULAR VOLUME 90 fl (80-97); MONOCYTES % (AUTO) 9.7 % (3-13); PLATELET COUNT 213 10^3/uL (150-450); RED BLOOD COUNT 2.73 10^6/uL (3.72-5.28); RED CELL DISTRIBUTION WIDTH 18.3 % (11.5-14.0); SEGMENTED NEUTROPHILS % (AUTO) 75.3 % (42-78); TOTAL CELLS COUNTED % (AUTO) 100 %; WHITE BLOOD COUNT 4.7 10^3/uL (4.0-10.5)
[2018-11-02 17:32] LABS: HEMOGLOBIN 7.8 g/dL (12.0-15.5)
[2018-11-02 17:34] LABS: HEMATOCRIT 24.6 % (36.0-47.0); HEMOGLOBIN 7.8 g/dL (12.0-15.5); MEAN CORPUSCULAR HEMOGLOBIN 28.6 pg (27.0-33.4); MEAN CORPUSCULAR VOLUME 90 fl (80-97); RED BLOOD COUNT 2.73 10^6/uL (3.72-5.28); WHITE BLOOD COUNT 4.7 10^3/uL (4.0-10.5)
[2018-11-02 17:35] LABS: ABSOLUTE BASOPHILS # (AUTO) 0.1 10^3/uL (0.0-0.2); ABSOLUTE EOSINOPHILS # (AUTO) 0.1 10^3/uL (0.0-0.6); ABSOLUTE LYMPHOCYTES (AUTO) 0.6 10^3/uL (0.5-4.7); ABSOLUTE MONOCYTES (AUTO) 0.5 10^3/uL (0.1-1.4); ABSOLUTE NEUT (AUTO) 3.5 10^3/uL (1.7-8.2); BASOPHILS % (AUTO) 1.4 % (0-2); EOSINOPHILS % (AUTO) 1.4 % (0-6); LYMPHOCYTES % (AUTO) 12.2 % (13-45); MEAN CORPUSCULAR HGB CONC 31.8 g/dL (32.0-36.0); MONOCYTES % (AUTO) 9.7 % (3-13); PLATELET COUNT 213 10^3/uL (150-450); RED CELL DISTRIBUTION WIDTH 18.3 % (11.5-14.0); SEGMENTED NEUTROPHILS % (AUTO) 75.3 % (42-78); TOTAL CELLS COUNTED % (AUTO) 100 %
[2018-11-02 17:41] LABS: ANION GAP 6 (5-19); BLOOD UREA NITROGEN 48 mg/dL (7-20); CALCIUM 7.9 mg/dL (8.4-10.2); CARBON DIOXIDE 31 mmol/L (22-30); CHLORIDE 102 mmol/L (98-107); GLUCOSE 160 mg/dL (75-110); IRON(TIBC) 39.2 ug/dL (37-170); PHOSPHORUS 5.6 mg/dL (2.5-4.5); POTASSIUM 5.4 mmol/L (3.6-5.0); SODIUM 138.8 mmol/L (137-145)
[2018-11-02 17:42] LABS: ALANINE AMINOTRANSFERASE 27 U/L (9-52); ALBUMIN 3.1 g/dL (3.5-5.0); ALKALINE PHOSPHATASE 75 U/L (38-126); AMYLASE 36 U/L (30-110); ASPARTATE AMINO TRANSFERASE 24 U/L (14-36); BILIRUBIN,DIRECT 0.3 mg/dL (0.0-0.4); BILIRUBIN,TOTAL 0.3 mg/dL (0.2-1.3); LIPASE 50.1 U/L (23-300); TOTAL PROTEIN 5.5 g/dL (6.3-8.2)
[2018-11-02 18:19] LABS: ANION GAP 6 (5-19); BLOOD UREA NITROGEN 48 mg/dL (7-20); CALCIUM 7.9 mg/dL (8.4-10.2); CARBON DIOXIDE 31 mmol/L (22-30); CHLORIDE 102 mmol/L (98-107); GLUCOSE 160 mg/dL (75-110); POTASSIUM 5.4 mmol/L (3.6-5.0); SODIUM 138.8 mmol/L (137-145)
[2018-11-04 12:36] LABS: CREATININE URINE 68.2 mg/dL (Not Estab.)
[2018-11-04 13:49] LABS: MICROALBUMIN URINE 2417.1 ug/mL (Not Estab.)
== END ==
LOC: OD 16:43
PROVIDERS: ATTEND Internal Medicine Nephrology
DX: I12.9 Hypertensive chronic kidney disease with stage 1 through stage 4 chronic kidney disease, or unspecified chronic kidney disease (principal); N18.4 Chronic kidney disease, stage 4 (severe); E11.40 Type 2 diabetes mellitus with diabetic neuropathy, unspecified; D64.9 Anemia, unspecified; R10.11 Right upper quadrant pain; I48.2 Chronic atrial fibrillation; J44.9 Chronic obstructive pulmonary disease, unspecified; K21.9 Gastro-esophageal reflux disease without esophagitis; E78.5 Hyperlipidemia, unspecified
CPT/HCPCS: 36415; 80048; 80076; 82043; 82150; 82570; 82728; 83036; 83540; 83550; 83690; 83970; 84100; 85025

== ENCOUNTER 2018-11-07 11:48 | Inpatient (IN) | payer MEDICARE ==
[2018-11-07 12:37] LABS: ABSOLUTE BASOPHILS # (AUTO) 0.1 10^3/uL (0.0-0.2); ABSOLUTE LYMPHOCYTES (AUTO) 0.6 10^3/uL (0.5-4.7); ABSOLUTE MONOCYTES (AUTO) 0.4 10^3/uL (0.1-1.4); ABSOLUTE NEUT (AUTO) 6.2 10^3/uL (1.7-8.2); ARTERIAL BLOOD BASE EXCESS -4.8 mmol/L; ARTERIAL BLOOD H2CO3 2.84 mmol/L (1.05-1.35); ARTERIAL BLOOD HCO3 27.1 mmol/L (20-24); ARTERIAL BLOOD O2 SATURATION 74.3 % (94-98); ARTERIAL BLOOD PO2 55.6 mmHg (80-100); BASOPHILS % (AUTO) 0.9 % (0-2); EOSINOPHILS % (AUTO) 0.3 % (0-6); HEMATOCRIT 26.6 % (36.0-47.0); HEMOGLOBIN 8.2 g/dL (12.0-15.5); LYMPHOCYTES % (AUTO) 7.6 % (13-45); MEAN CORPUSCULAR HEMOGLOBIN 28.8 pg (27.0-33.4); MEAN CORPUSCULAR VOLUME 93 fl (80-97); MONOCYTES % (AUTO) 6.1 % (3-13); PLATELET COUNT 224 10^3/uL (150-450); RED BLOOD COUNT 2.86 10^6/uL (3.72-5.28); RED CELL DISTRIBUTION WIDTH 19.6 % (11.5-14.0); SEGMENTED NEUTROPHILS % (AUTO) 85.1 % (42-78); TOTAL CELLS COUNTED % (AUTO) 100 %; WHITE BLOOD COUNT 7.3 10^3/uL (4.0-10.5)
[2018-11-07] MEDS ORDERED: FUROSEMIDE INJ/PF 40 MG/4 ML SDV IV ONE (12:37)
[2018-11-07] MEDS ORDERED: NITROGLYCERIN/D5W 50 MG/250 ML RTUINJ IV PRN (12:37)
--- NOTE | 2018-11-07 12:38 | ER Document Report ---
ED General - General Stated Complaint: WEAKNESS Time Seen by Provider: 11/07/18 12:36 Primary Care Provider: JOSE MARTIN SALOMON MD [Primary Care Provider] - Follow up as needed Notes: Patient is a 78-year-old female with multiple medical conditions including chronic kidney disease, CAD, atrial fibrillation and COPD that presents to the emergency department by EMS in respiratory distress. According to the patient and the patient's neighbor who is been helping take care of her, she is been on the decline over the past week, had generalized weakness, and today she could not even stand up off the toilet, and had severe increased work of breathing so EMS was called. According to EMS the patient was found to be hypoxic, and having difficulty breathing, they did give her a breathing treatment, but her work of breathing increased and got worse by the time she came to the emergency department, she was started on BiPAP and has been improving, she is able to answer questions at this time. She denies having any chest pain, she is had some nausea but no vomiting. No recent fevers, chills or night sweats. She has had increased retention of fluid, her legs have been more swelling according to her neighbor. Past Medical History: Diabetes mellitus, chronic kidney disease, hypertension, CAD, atrial fibrillation Past Surgical History: Remote brain surgery Social History: Former heavy smoker, only smokes on occasion now, denies alcohol or drug use. Family History: Reviewed and noncontributory for presenting illness Allergies: Reviewed, see documented allergy list. REVIEW OF SYSTEMS: Other than noted above, the 12 point review of systems was reviewed with the patient and were negative, all pertinent findings are included in the HPI. PHYSICAL EXAMINATION: Vital signs reviewed, nursing noted reviewed. GENERAL: Elderly female, in acute respiratory distress HEAD: Atraumatic, normocephalic. EYES: Eyes appear normal, extraocular movements intact, sclera anicteric, conjunctiva are normal. ENT: nares patent, oropharynx clear without exudates. Moist mucous membranes. NECK: Normal range of motion, supple without lymphadenopathy LUNGS: Expiratory wheezing noted throughout all lung jackman, diminished lung sounds particularly at the bases bilaterally, increased work of breathing, on BiPAP HEART: Heart rate tachycardic, irregular rhythm, plus 2/6 systolic murmur. ABDOMEN: Soft, nontender, normoactive bowel sounds. No rebound, guarding, or rigidity. No masses appreciated. EXTREMITIES: 3+ pitting edema to the proximal tibias bilaterally, sluggish cap refill in the toes bilaterally, there is ecchymosis noted to the toes more prominent on the right compared to the left. No tenderness to palpation appreciated. Good range of motion of the extremities otherwise. NEUROLOGICAL: No focal neurological deficits. Moves all extremities spontaneously Motor and sensory grossly intact on exam. PSYCH: Somewhat somnolent, but answering questions appropriately. SKIN: Warm, Dry, normal turgor, there is a superficial ulcer noted to the patient's left lateral ankle, no evidence of acute infection, no surrounding erythema or lymphangitis noted. TRAVEL OUTSIDE OF THE [place] IN LAST 30 DAYS: No - Related Data Allergies/Adverse Reactions: guaifenesin [Guaifenesin] Allergy (Severe, Verified 09/09/18 11:41) itching, hard to breathe Iodinated Contrast- Oral and IV Dye [IV Dye, Iodine Containing] Allergy (Mild, Verified 09/09/18 11:41) rash iodine [Iodine] Allergy (Mild, Verified 09/09/18 11:41) rash Sulfa (Sulfonamide Antibiotics) Allergy (Mild, Verified 09/09/18 11:41) rash dar Allergy (Severe, Uncoded 09/09/18 11:41) Anaphylaxis Past Medical History - Social History Smoking Status: Former Smoker Family History: CAD, CVA, DM, Hypertension, Malignancy - Past Medical History Cardiac Medical History: Reports: Hx Atrial Fibrillation, Hx Congestive Heart Failure, Hx Coronary Artery Disease, Hx Hypercholesterolemia, Hx Hypertension, Hx Peripheral Vascular Disease, Hx Pulmonary Embolism, Hx Heart Murmur - 42 YRS AGO DIAGNOSED Denies: Hx Heart Attack Pulmonary Medical History: Reports: Hx Asthma, Hx Bronchitis, Hx COPD, Hx Pneumonia, Hx Respiratory Failure, Hx Sleep Apnea Denies: Hx Tuberculosis Neurological Medical History: Reports: Hx Cerebrovascular Accident. Denies: Hx Seizures Endocrine Medical History: Reports: Hx Diabetes Mellitus Type 2, Hx Hypothyroidism. Denies: Hx Diabetes Mellitus Type 1, Hx Hyperthyroidism Renal/ Medical History: Denies: Hx Peritoneal Dialysis Malignancy Medical History: Denies: Hx Lung Cancer GI Medical History: Reports: Hx Gastroesophageal Reflux Disease, Hx Hiatal Hernia. Denies: Hx Cirrhosis, Hx Hepatitis, Hx Pancreatitis Musculoskeletal Medical History: Reports Hx Arthritis, Denies Hx Gout, Denies Hx Systemic Lupus Erythematosus Skin Medical History: Denies Hx Eczema, Denies Hx Psoriasis Psychiatric Medical History: Reports: Hx Depression Traumatic Medical History: Infectious Medical History: Denies: Hx Hepatitis Past Surgical History: Reports: Hx Appendectomy, Hx Cardiac Catheterization - 3 STENTS, Hx Coronary Artery Bypass Graft, Hx Hysterectomy, Hx Open Heart Surgery - 2 stents, Hx Tonsillectomy. Denies: Hx Mastectomy - Immunizations Hx Diphtheria, Pertussis, Tetanus Vaccination: Yes Hx Pneumococcal Vaccination: 02/25/09 Physical Exam - Vital signs Vitals: Pulse Resp BP Pulse Ox 150 H 34 H 113/65 80 L 11/07/18 11:58 11/07/18 11:58 11/07/18 11:58 11/07/18 11:58 Course - Re-evaluation Re-evalutation: Patient seen and examined vital signs reviewed. Laboratory data and imaging were ordered as appropriate for the patient's presenting symptoms and complaint, with consideration of any critical or life threatening conditions that may be associated with their obtained history and exam as noted above. Patient was treated with IV nitroglycerin, and Lasix, and DuoNeb breathing treatments, and started on BiPAP therapy. Results were reviewed when available and demonstrated severe respiratory acidosis, was noted on ABG, initially obtained from nonrebreather, before being placed on BiPAP. Blood work demonstrated stable anemia from prior labs, renal function was near her baseline, but she was hyperkalemic with a potassium of 6.1, she was given hyperkalemia cocktail of sodium bicarbonate, calcium gluconate, Lasix, IV insulin and dextrose The patient was re-evaluated and was stable on BiPAP, seemingly improving, her heart rate was improving, and we are able to come down on the FiO2 on the BiPAP. Evaluation was most consistent with acute on chronic respiratory failure, acute respiratory acidosis, hyperkalemia, NSTEMI, suspect type II from supply demand mismatch, ASA 162mg ordered, I did discuss with the patient her CODE STATUS, she did NOT want to be intubated, and declined wanting any chest compressions or CPR if she went into cardiac arrest, I therefore filled out DNR paperwork for the patient and she was agreeable to this. Results were discussed with the patient at this point after careful consideration I feel that that patient should be admitted to the hospital. This was discussed with the patient that it is in the best interest for their care to be admitted for further evaluation and management. Patient agreed with this plan of care. A call was placed to the admitting physician, Dr. Sesay who graciously accepted the patient onto their service. *Note is created using voice recognition software and may contain spelling, syntax or grammatical errors. Laboratory 11/07/18 11/07/18 11/07/18 12:15 12:15 12:15 WBC 7.3 RBC 2.86 L Hgb 8.2 L Hct 26.6 L MCV 93 MCH 28.8 MCHC 31.0 L RDW 19.6 H Plt Count 224 Seg Neutrophils % 85.1 H Lymphocytes % 7.6 L Monocytes % 6.1 Eosinophils % 0.3 Basophils % 0.9 Absolute Neutrophils 6.2 Absolute Lymphocytes 0.6 Absolute Monocytes 0.4 Absolute Eosinophils 0.0 Absolute Basophils 0.1 Carbonic Acid HCO3/H2CO3 Ratio ABG pH ABG pCO2 ABG pO2 ABG HCO3 ABG Total CO2 ABG O2 Saturation ABG Base Excess FiO2 Sodium 138.6 Potassium 6.1 H* Chloride 102 Carbon Dioxide 28 Anion Gap 9 BUN 55 H Creatinine 3.51 H Est GFR ( Amer) 15 L Est GFR (Non-Af Amer) 13 L Glucose 225 H Lactic Acid Calcium 8.4 Total Bilirubin 0.3 Direct Bilirubin 0.3 Neonat Total Bilirubin Not Reportable Neonat Direct Bilirubin Not Reportable Neonat Indirect Bili Not Reportable AST 22 ALT 26 Alkaline Phosphatase 89 Troponin I 0.154 Total Protein 6.2 L Albumin 3.5 Urine Color Urine Appearance Urine pH Ur Specific [place] Urine Protein Urine Glucose (UA) Urine Ketones Urine Blood Urine Nitrite Urine Bilirubin Urine Urobilinogen Ur Leukocyte Esterase Urine WBC (Auto) Urine RBC (Auto) Squamous Epi Cells Auto Urine Mucus (Auto) Urine Ascorbic Acid 11/07/18 11/07/18 11/07/18 12:15 12:15 12:15 WBC RBC Hgb Hct MCV MCH MCHC RDW Plt Count Seg Neutrophils % Lymphocytes % Monocytes % Eosinophils % Basophils % Absolute Neutrophils Absolute Lymphocytes Absolute Monocytes Absolute Eosinophils Absolute Basophils Carbonic Acid 2.84 H HCO3/H2CO3 Ratio 9:1 ABG pH 7.08 L* ABG pCO2 94.2 H* ABG pO2 55.6 L ABG HCO3 27.1 H ABG Total CO2 30.0 H ABG O2 Saturation 74.3 L ABG Base Excess -4.8 FiO2 100% Sodium Potassium Chloride Carbon Dioxide Anion Gap BUN Creatinine Est GFR ( Amer) Est GFR (Non-Af Amer) Glucose Lactic Acid 1.5 Calcium Total Bilirubin Direct Bilirubin Neonat Total Bilirubin Neonat Direct Bilirubin Neonat Indirect Bili AST ALT Alkaline Phosphatase Troponin I Total Protein Albumin Urine Color YELLOW Urine Appearance SLIGHTLY-CLOUDY Urine pH 5.0 Ur Specific [place] 1.016 Urine Protein >=500 H Urine Glucose (UA) 50 H Urine Ketones NEGATIVE Urine Blood SMALL H Urine Nitrite NEGATIVE Urine Bilirubin NEGATIVE Urine Urobilinogen NEGATIVE Ur Leukocyte Esterase NEGATIVE Urine WBC (Auto) 4 Urine RBC (Auto) 10 Squamous Epi Cells Auto <1 Urine Mucus (Auto) RARE Urine Ascorbic Acid NEGATIVE Chest X-Ray 11/07/18 11:58 IMPRESSION: Increased bilateral pleural effusions, moderately large in size. Increased basilar atelectasis. - Vital Signs Vital signs: Temp Pulse Resp BP Pulse Ox 150 H 21 H 141/78 H 97 11/07/18 11:58 11/07/18 13:03 11/07/18 13:03 11/07/18 13:03 - Laboratory Result Diagrams: 11/07/18 12:15 11/07/18 12:15 Laboratory results interpreted by me: 11/07/18 11/07/18 11/07/18 12:15 12:15 12:15 RBC 2.86 L Hgb 8.2 L Hct 26.6 L MCHC 31.0 L RDW 19.6 H Seg Neutrophils % 85.1 H Lymphocytes % 7.6 L Carbonic Acid ABG pH ABG pCO2 ABG pO2 ABG HCO3 ABG Total CO2 ABG O2 Saturation Potassium 6.1 H* BUN 55 H Creatinine 3.51 H Est GFR ( Amer) 15 L Est GFR (Non-Af Amer) 13 L Glucose 225 H Total Protein 6.2 L Urine Protein >=500 H Urine Glucose (UA) 50 H Urine Blood SMALL H 11/07/18 12:15 RBC Hgb Hct MCHC RDW Seg Neutrophils % Lymphocytes % Carbonic Acid 2.84 H ABG pH 7.08 L* ABG pCO2 94.2 H* ABG pO2 55.6 L ABG HCO3 27.1 H ABG Total CO2 30.0 H ABG O2 Saturation 74.3 L Potassium BUN Creatinine Est GFR ( Amer) Est GFR (Non-Af Amer) Glucose Total Protein Urine Protein Urine Glucose (UA) Urine Blood - EKG Interpretation by Me Additional EKG results interpreted by me: EKG demonstrates atrial fibrillation with a ventricular rate of 103 bpm, normal axis, T wave inversions noted in leads I, aVL, II, V5 and V6, this is compared with the prior EKG from 09/27/2018, without significant change. Critical Care Note - Critical Care Note Total time excluding time spent on procedures (mins): 45 Comments: Critical care time 45 minutes exclusive from separate billable procedures for a patient requiring complex medical decision making, and high potential for clinical deterioration. In a patient with acute on chronic respiratory failure, acute CHF exacerbation, requiring IV nitroglycerin, BiPAP therapy, and admission to the ICU. Time spent obtaining history from patient or surrogate, discussions with consultants, development of treatment plan with patient or surrogate, evaluation of patient's response to treatment, examination of patient, ordering and performing treatments and interventions, ordering and review of laboratory studies, re-evaluation of patient's condition, ordering and review of radiographic studies and review of old charts Discharge - Discharge Clinical Impression: Acute on chronic respiratory acidosis, Hyperkalemia, NSTEMI (non-ST elevated myocardial infarction) Acute and chronic respiratory failure Qualifiers: Respiratory failure complication: hypoxia and hypercapnia Qualified Code(s): J96.21 - Acute and chronic respiratory failure with hypoxia; J96.22 - Acute and chronic respiratory failure with hypercapnia Chronic kidney disease (CKD) Qualifiers: Chronic kidney disease stage: stage 4 (severe) Qualified Code(s): N18.4 - Chronic kidney disease, stage 4 (severe) Condition: Serious Disposition: ADMITTED INPATIENT Admitting Provider: Shama (Hospitalist) Unit Admitted: ICU Referrals: JOSE MARTIN SALOMON MD [Primary Care Provider] - Follow up as needed
[2018-11-07 12:42] LABS: APPEARANCE,URINE SLIGHTLY-CLOUDY; BILIRUBIN,URINE NEGATIVE (NEGATIVE); COLOR,URINE YELLOW; GLUCOSE, URINE 50 mg/dL (NEGATIVE); KETONES,URINE NEGATIVE (NEGATIVE); LEUKOCYTE ESTERASE,URINE NEGATIVE (NEGATIVE); NITRITE,URINE NEGATIVE (NEGATIVE); PROTEIN,URINE >=500 mg/dL (NEGATIVE); URINE SPECIFIC GRAVITY 1.016; UROBILINOGEN,URINE NEGATIVE mg/dL (<2.0)
[2018-11-07 12:50] LABS: ARTERIAL BLOOD FIO2 100%
[2018-11-07 12:57] LABS: ARTERIAL BLOOD PCO2 94.2 mmHg (35-45)
[2018-11-07 12:58] LABS: ARTERIAL BLOOD PH 7.08 (7.35-7.45)
[2018-11-07 13:03] LABS: ALANINE AMINOTRANSFERASE 26 U/L (9-52); ALBUMIN 3.5 g/dL (3.5-5.0); ALKALINE PHOSPHATASE 89 U/L (38-126); ANION GAP 9 (5-19); ASPARTATE AMINO TRANSFERASE 22 U/L (14-36); BILIRUBIN,DIRECT 0.3 mg/dL (0.0-0.4); BILIRUBIN,TOTAL 0.3 mg/dL (0.2-1.3); BLOOD UREA NITROGEN 55 mg/dL (7-20); CALCIUM 8.4 mg/dL (8.4-10.2); CARBON DIOXIDE 28 mmol/L (22-30); CHLORIDE 102 mmol/L (98-107); GLUCOSE 225 mg/dL (75-110); TOTAL PROTEIN 6.2 g/dL (6.3-8.2)
[2018-11-07 13:04] LABS: POTASSIUM 6.1 mmol/L (3.6-5.0)
--- NOTE | 2018-11-07 13:07 | RADIOLOGY REPORT (SQ) ---
EXAM DESCRIPTION: CHEST SINGLE VIEW COMPLETED DATE/TIME: 11/07/2018 12:40 pm REASON FOR STUDY: difficulty breathing COMPARISON: 09/22/2018 TECHNIQUE: Single frontal radiographic view of the chest acquired. NUMBER OF VIEWS: One view. LIMITATIONS: None. FINDINGS: LUNGS AND PLEURA: No pneumothorax. Increased bilateral pleural effusions, moderately larg e in size. Increased basilar atelectasis. MEDIASTINUM AND HILAR STRUCTURES: Stable. HEART AND VASCULAR STRUCTURES: Stable. BONES: No acute findings. HARDWARE: None in the chest. OTHER: No other significant finding. IMPRESSION: Increased bilateral pleural effusions, moderately large in size. Increased basilar atele ctasis. TECHNICAL DOCUMENTATION: JOB ID: [id number] [place]-72 2010 [employer]- All Rights Reserved Reading location - IP/workstation name: [email or web address]
[2018-11-07] MEDS ORDERED: SODIUM BICARBONATE 8.4% INJ 50 MEQ/50 ML DISP.SYRIN IV ONE (13:08)
[2018-11-07] MEDS ORDERED: IPRATROPIUM/ALBUTEROL 0.5-2.5 MG/3 ML AMPUL NEB ONE (13:08)
[2018-11-07] MEDS ORDERED: CALCIUM GLUCONATE 1000 MG/10 ML INJ IV ONE (13:08)
[2018-11-07] MEDS ORDERED: DEXTROSE 50%-WATER 25 GM/50 ML DISP.SYRIN IV ONE (13:18)
[2018-11-07] MEDS ORDERED: INSULIN REG, HUMAN 100 UNIT/ML 3 ML VIAL (PYX) IV ONE (13:18)
[2018-11-07] MEDS ORDERED: ASPIRIN 81 MG TABLET, CHEWABLE PO ONE (13:19)
[2018-11-07 13:42] LABS: ARTERIAL BLOOD BASE EXCESS 0.2 mmol/L; ARTERIAL BLOOD H2CO3 2.47 mmol/L (1.05-1.35); ARTERIAL BLOOD HCO3 29.8 mmol/L (20-24); ARTERIAL BLOOD O2 SATURATION 93.5 % (94-98); ARTERIAL BLOOD PO2 86.7 mmHg (80-100); ARTERIAL BLOOD TOTAL CO2 32.3 mmol/L (21-25)
[2018-11-07 13:45] LABS: ARTERIAL BLOOD FIO2 60%
[2018-11-07 13:46] LABS: ARTERIAL BLOOD PCO2 82.2 mmHg (35-45); ARTERIAL BLOOD PH 7.18 (7.35-7.45)
--- NOTE | 2018-11-07 13:54 | PDOC H&P ---
History of Present Illness Admission Date/PCP: JOSE MARTIN SALOMON MD History of Present Illness: JOHN PUENTES is a 78 year old female patient with past medical history of atrial fibrillation, congestive heart failure, coronary 30s, hyperlipidemia, hypertension, peripheral arterial disease, history of PE, COPD, stage IV CKD, hypothyroidism, diabetes mellitus and tobacco dependence by EMS for weakness and shortness of breath. Since patient is on full mask BiPAP and somewhat sarah ilitated she is not source of history. Brief history is obtained from ER attending note and her neighbor. According to patient's neighbor who has been helping take care of her, she has been on decline over the past week, she had generalized weakness, and today she could not even stand up off the toilet and she has heavy labored breathing. According to EMS the patient was found to be hypoxic and having difficulty of breathing they did give her a breathing treatment but her work of breathing increasing" worse by the time she came to the emergency department. Her blood work shows hemoglobin of 8, BUN of 55, creatinine of 3.51, GFR of 13 and potassium of 6.1. Her chest x-ray shows bilateral pleural effusion. For hyperkalemia patient was given calcium gluconate, bicarb, dextrose and insulin. For her acute on chronic respiratory failure patient was put on BiPAP and relatively doing better. The hospitalist service consulted for admission. Further detailed history and review of systems unobtainable. Past Medical History Cardiac Medical History: Reports: Atrial Fibrillation, Congestive Heart Failure, Coronary Artery Disease, Hyperlipidema, Hypertension, Peripheral Vascular Disease, Pulmonary Embolism, Heart Murmur - 42 YRS AGO DIAGNOSED Denies: Myocardial Infarction Pulmonary Medical History: Reports: Asthma, Bronchitis, Chronic Obstructive Pulmonary Disease (COPD), Pneumonia, Respiratory Failure, Sleep Apnea Denies: Tuberculosis Neurological Medical History: Denies: Seizures Endocrine Medical History: Reports: Diabetes Mellitus Type 2, Hypothyroidism Denies: Diabetes Mellitus Type 1, Hyperthyroidism Malignancy Medical History: Denies: Lung Cancer GI Medical History: Reports: Gastroesophageal Reflux Disease, Hiatal Hernia Denies: Cirrhosis, Hepatitis Musculoskeltal Medical History: Reports: Arthritis Denies: Gout Skin Medical History: Denies: Eczema, Psoriasis Psychiatric Medical History: Reports: Depression Hematology: Reports: Anemia Denies: Sickle Cell Disease, Bleeding Tendencies Past Surgical History Past Surgical History: Reports: Appendectomy, Cardiac Catheterization - 3 STENTS, Coronary Artery Bypass Graft, Hysterectomy, Tonsillectomy Denies: Amputation, Mastectomy Social History Smoking Status: Current Every Day Smoker Frequency of Alcohol Use: None Hx Recreational Drug Use: No Drugs: None Hx Prescription Drug Abuse: No - Advance Directive Resuscitation Status: Do Not Resuscitate Family History Family History: CAD, CVA, DM, Hypertension, Malignancy Parental Family History Reviewed: Yes Children Family History Reviewed: Yes Sibling(s) Family History Reviewed.: Yes Medication/Allergy Home Medications: Calcitriol [Rocaltrol] 0.25 mcg PO DAILY 09/23/18 Calcium Acetate [Phoslo 667 mg Capsule] 667 mg PO MEALS 09/23/18 Diltiazem HCl [Cardizem Cd 180 mg Capsule] 180 mg PO DAILY 09/23/18 Ergocalciferol (Vitamin D2) [Drisdol 50,000 unit (1.25MG) Capsule] 50,000 unit PO LAMAS 09/23/18 Insulin Glargine,Hum.rec.anlog [Lantus Insulin 100 Unit/1 ml 10 ml] 20 units SQ QPM 09/23/18 Levothyroxine Sodium 50 mcg PO Q6AM 09/23/18 Warfarin Sodium [Coumadin 7.5 mg Tablet] 7.5 mg PO DAILY 09/23/18 Diltiazem HCl [Cardizem Cd 240 mg Capsule.cr] 1 cap.sr PO DAILY #30 tab.sr 09/28/18 Prednisone [Deltasone 20 mg Tablet] 40 mg PO DAILY 5 Days #10 tablet 09/28/18 Tiotropium [place] [Spiriva Handihaler 5 Cap/Kit (18 Mcg/Cap)] 1 cap IH DAILY #10 capsule 09/28/18 Allergies/Adverse Reactions: guaifenesin [Guaifenesin] Allergy (Severe, Verified 09/09/18 11:41) itching, hard to breathe Iodinated Contrast- Oral and IV Dye [IV Dye, Iodine Containing] Allergy (Mild, Verified 09/09/18 11:41) rash iodine [Iodine] Allergy (Mild, Verified 09/09/18 11:41) rash Sulfa (Sulfonamide Antibiotics) Allergy (Mild, Verified 09/09/18 11:41) rash dar Allergy (Severe, Uncoded 09/09/18 11:41) Anaphylaxis Review of Systems ROS unobtainable: Due to mental status Physical Exam Vital Signs: Temp Pulse Resp BP Pulse Ox 150 H 21 H 141/78 H 97 11/07/18 11:58 11/07/18 13:03 11/07/18 13:03 11/07/18 13:03 General appearance: PRESENT: severe distress Head exam: PRESENT: atraumatic Eye exam: PRESENT: conjunctival injection Neck exam: ABSENT: carotid bruit, JVD, lymphadenopathy, thyromegaly Respiratory exam: PRESENT: decreased breath sounds, rhonchi Cardiovascular exam: PRESENT: irregular rhythm, systolic murmur. ABSENT: diastolic murmur, rubs GI/Abdominal exam: PRESENT: normal bowel sounds, soft. ABSENT: distended, guarding, mass, organolmegaly, rebound, tenderness Neurological exam: PRESENT: alert, awake Results Laboratory Results: 11/07/18 12:15 11/07/18 12:15 11/07/18 11/07/18 11/07/18 12:15 12:15 12:15 WBC 7.3 RBC 2.86 L Hgb 8.2 L Hct 26.6 L MCV 93 MCH 28.8 MCHC 31.0 L RDW 19.6 H Plt Count 224 Seg Neutrophils % 85.1 H Lymphocytes % 7.6 L Monocytes % 6.1 Eosinophils % 0.3 Basophils % 0.9 Absolute Neutrophils 6.2 Absolute Lymphocytes 0.6 Absolute Monocytes 0.4 Absolute Eosinophils 0.0 Absolute Basophils 0.1 Carbonic Acid HCO3/H2CO3 Ratio ABG pH ABG pCO2 ABG pO2 ABG HCO3 ABG O2 Saturation ABG Base Excess FiO2 Sodium 138.6 Potassium 6.1 H* Chloride 102 Carbon Dioxide 28 Anion Gap 9 BUN 55 H Creatinine 3.51 H Est GFR ( Amer) 15 L Est GFR (Non-Af Amer) 13 L Glucose 225 H Lactic Acid 1.5 Calcium 8.4 Total Bilirubin 0.3 AST 22 ALT 26 Alkaline Phosphatase 89 Total Protein 6.2 L Albumin 3.5 Urine Color Urine Appearance Urine pH Ur Specific [place] Urine Protein Urine Glucose (UA) Urine Ketones Urine Blood Urine Nitrite Ur Leukocyte Esterase Urine WBC (Auto) Urine RBC (Auto) 11/07/18 11/07/18 12:15 12:15 WBC RBC Hgb Hct MCV MCH MCHC RDW Plt Count Seg Neutrophils % Lymphocytes % Monocytes % Eosinophils % Basophils % Absolute Neutrophils Absolute Lymphocytes Absolute Monocytes Absolute Eosinophils Absolute Basophils Carbonic Acid 2.84 H HCO3/H2CO3 Ratio 9:1 ABG pH 7.08 L* ABG pCO2 94.2 H* ABG pO2 55.6 L ABG HCO3 27.1 H ABG O2 Saturation 74.3 L ABG Base Excess -4.8 FiO2 100% Sodium Potassium Chloride Carbon Dioxide Anion Gap BUN Creatinine Est GFR ( Amer) Est GFR (Non-Af Amer) Glucose Lactic Acid Calcium Total Bilirubin AST ALT Alkaline Phosphatase Total Protein Albumin Urine Color YELLOW Urine Appearance SLIGHTLY-CLOUDY Urine pH 5.0 Ur Specific [place] 1.016 Urine Protein >=500 H Urine Glucose (UA) 50 H Urine Ketones NEGATIVE Urine Blood SMALL H Urine Nitrite NEGATIVE Ur Leukocyte Esterase NEGATIVE Urine WBC (Auto) 4 Urine RBC (Auto) 10 11/07/18 12:15 Troponin I 0.154 Impressions: Chest X-Ray 11/07/18 11:58 IMPRESSION: Increased bilateral pleural effusions, moderately large in size. Increased basilar atelectasis. Assessment and Plan - Diagnosis (1) Acute and chronic respiratory failure with hypercapnia Is this a current diagnosis for this admission?: Yes Plan: Patient has been started on BiPAP. I will start her on Zithromax, Solu-Medrol and bronchodilators. (2) COPD exacerbation Is this a current diagnosis for this admission?: Yes Plan: Plan as #1 (3) Hyperkalemia Is this a current diagnosis for this admission?: Yes Plan: Patient was given Kayexalate, dextrose, insulin, bicarb and calcium gluconate. We will check her BMP in 4 hours. We will repeat the same cocktail if still she is hyperkalemic. (4) Hypothermia Qualifiers: Encounter type: initial encounter Qualified Code(s): T68.XXXA - Hypothermia, initial encounter Is this a current diagnosis for this admission?: Yes Plan: When patient brought by EMS in ER her temperature was 93 and after she is started on bear hugger temperature is improving. (5) Atrial fibrillation Qualifiers: Atrial fibrillation type: chronic Qualified Code(s): I48.2 - Chronic atrial fibrillation Is this a current diagnosis for this admission?: Yes Plan: Rate controlled (6) Chronic kidney disease, stage IV (severe) Is this a current diagnosis for this admission?: Yes Plan: Her GFR and creatinine is at her baseline. We will hydrate her gently (7) Hypertension Qualifiers: Hypertension type: essential hypertension Qualified Code(s): I10 - Essential (primary) hypertension Is this a current diagnosis for this admission?: Yes Plan: We will continue her home medication (8) Hypothyroidism Qualifiers: Hypothyroidism type: acquired Qualified Code(s): E03.9 - Hypothyroidism, unspecified Is this a current diagnosis for this admission?: Yes Plan: Continue Synthroid (9) Hyperlipidemia Qualifiers: Hyperlipidemia type: unspecified Qualified Code(s): E78.5 - Hyperlipidemia, unspecified Is this a current diagnosis for this admission?: Yes Plan: Continue Lipitor - Inpatient Certification Medical Necessity: Need Close Monitoring Due to Risk of Patient Decompensation, Need For IV Fluids, Need For Continuous Telemetry Monitoring, Need for IV Antibiotics
[2018-11-07] MEDS ORDERED: TEMAZEPAM 7.5 MG CAPSULE PO PRN (13:56)
[2018-11-07] MEDS ORDERED: PROMETHAZINE HCL INJ 25 MG/1 ML VIAL IV PRN (13:56)
[2018-11-07] MEDS ORDERED: IPRATROPIUM/ALBUTEROL 0.5-2.5 MG/3 ML AMPUL NEB PRN (14:01)
[2018-11-07] MEDS ORDERED: DEXTROSE 50%-WATER 25 GM/50 ML DISP.SYRIN IV PRN ×2 (14:03)
[2018-11-07] MEDS ORDERED: DEXTROSE 40% GEL 15 GM TUBE PO PRN ×2 (14:03)
[2018-11-07] MEDS ORDERED: GLUCAGON,HUMAN RECOMB 1 MG INJ IM PRN (14:03)
[2018-11-07] MEDS: HEPARIN SOD (PORCINE) 5,000 UNIT/ML 1 ML VIAL SUBCUT SCH ×2 (14:52→22:38)
[2018-11-07] MEDS: METHYLPREDNISOLONE INJ 40 MG/1 ML SDV IV SCH ×2 (14:53→22:38)
[2018-11-07] MEDS ORDERED: AZITHROMYCIN INJ 500 MG VIAL IV ONE (15:02)
[2018-11-07] MEDS: IPRATROPIUM/ALBUTEROL 0.5-2.5 MG/3 ML AMPUL NEB SCH ×2 (15:20→20:59)
[2018-11-07] MEDS: INSULIN LISPRO 100 UNIT/ML 3 ML VIAL SUBCUT SCH ×2 (15:21→22:51)
[2018-11-07] MEDS: AZITHROMYCIN 500 MG in DEXTROSE 5%-WATER 250 ML IV SCH (15:21)
[2018-11-07] MEDS: NORMAL SALINE 1000 ML 1,000 ML IV PRN (15:22)
[2018-11-07] MEDS: DOCUSATE SODIUM 100 MG/10 ML UDC PO SCH (18:06)
[2018-11-07] MEDS: FAMOTIDINE 20 MG TABLET PO SCH (22:43)
[2018-11-08] MEDS: IPRATROPIUM/ALBUTEROL 0.5-2.5 MG/3 ML AMPUL NEB SCH ×6 (00:06→19:44)
[2018-11-08] MEDS: METHYLPREDNISOLONE INJ 40 MG/1 ML SDV IV SCH ×4 (02:25→21:20)
[2018-11-08] MEDS: NORMAL SALINE 1000 ML 1,000 ML IV PRN (03:38)
[2018-11-08 05:06] LABS: MEAN CORPUSCULAR HEMOGLOBIN 28.3 pg (27.0-33.4); MEAN CORPUSCULAR HGB CONC 31.6 g/dL (32.0-36.0); MEAN CORPUSCULAR VOLUME 90 fl (80-97); PLATELET COUNT 164 10^3/uL (150-450); RED BLOOD COUNT 2.67 10^6/uL (3.72-5.28); RED CELL DISTRIBUTION WIDTH 18.7 % (11.5-14.0); WHITE BLOOD COUNT 3.8 10^3/uL (4.0-10.5)
[2018-11-08 05:16] LABS: HEMOGLOBIN 7.6 g/dL (12.0-15.5)
[2018-11-08] MEDS: HEPARIN SOD (PORCINE) 5,000 UNIT/ML 1 ML VIAL SUBCUT SCH ×2 (05:17→13:42)
[2018-11-08 05:29] LABS: ANION GAP 8 (5-19); BLOOD UREA NITROGEN 59 mg/dL (7-20); CALCIUM 8.5 mg/dL (8.4-10.2); CARBON DIOXIDE 29 mmol/L (22-30); CHLORIDE 102 mmol/L (98-107); GLUCOSE 186 mg/dL (75-110); PHOSPHORUS 6.3 mg/dL (2.5-4.5)
[2018-11-08 05:36] LABS: POTASSIUM 6.1 mmol/L (3.6-5.0)
[2018-11-08 05:41] LABS: ABSOLUTE LYMPHOCYTES# (MANUAL) 0.1 10^3/uL (0.5-4.7); ANISOCYTOSIS 2+; BASOPHILS % (MANUAL) 0 % (0-2); EOSINOPHILS % (MANUAL) 0 % (0-6); HYPOCHROMASIA 1+; LYMPHOCYTES % (MANUAL) 2 % (13-45); MONOCYTES % (MANUAL) 0 % (3-13); SEGMENTED NEUTROPHILS % (MAN) 98 % (42-78); TOTAL CELLS COUNTED 100
[2018-11-08 05:42] LABS: PLATELET COMMENT ADEQUATE
[2018-11-08] MEDS ORDERED: SODIUM POLYSTYRENE SULFONATE 15 GM/60 ML PO ONE (06:15)
[2018-11-08] MEDS: INSULIN LISPRO 100 UNIT/ML 3 ML VIAL SUBCUT SCH ×4 (08:46→21:19)
[2018-11-08] MEDS: DOCUSATE SODIUM 100 MG/10 ML UDC PO SCH ×2 (09:51→17:21)
[2018-11-08] MEDS ORDERED: (PENDING PHARMACY ID) (Warfarin Sodium [Coumadin] 6 MG) PO SCH (10:00)
[2018-11-08 10:22] LABS: ARTERIAL BLOOD BASE EXCESS 5.6 mmol/L; ARTERIAL BLOOD HCO3 31.8 mmol/L (20-24); ARTERIAL BLOOD O2 SATURATION 95.9 % (94-98); ARTERIAL BLOOD PCO2 56.6 mmHg (35-45); ARTERIAL BLOOD PH 7.37 (7.35-7.45); ARTERIAL BLOOD PO2 85.1 mmHg (80-100); ARTERIAL BLOOD TOTAL CO2 33.6 mmol/L (21-25)
[2018-11-08 10:24] LABS: ARTERIAL BLOOD FIO2 50%
[2018-11-08] MEDS ORDERED: LOSARTAN POTASSIUM 25 MG TABLET PO SCH (10:30)
[2018-11-08] MEDS: DILTIAZEM HCL/D5W 125 MG/125 ML RTUINJ IV PRN ×2 (10:55→17:40)
[2018-11-08] MEDS: WARFARIN SODIUM 2 MG TABLET PO SCH (10:58)
[2018-11-08] MEDS: WARFARIN SODIUM 4 MG TABLET PO SCH (10:58)
[2018-11-08] MEDS: TIOTROPIUM BROMIDE DPI 5 CAP/KIT (18 MCG/CAP) IH SCH (10:59)
[2018-11-08] MEDS: FAMOTIDINE 20 MG TABLET PO SCH ×2 (10:59→21:20)
[2018-11-08] MEDS: DIGOXIN 0.125 MG TABLET PO SCH (10:59)
[2018-11-08] MEDS: CALCITRIOL 0.25 MCG CAPSULE PO SCH (10:59)
[2018-11-08 11:09] LABS: INTERNATIONAL RATION (INR) 1.22; PROTHROMBIN TIME 15.5 SEC (11.4-15.4)
[2018-11-08 11:30] LABS: ANION GAP 7 (5-19); BLOOD UREA NITROGEN 59 mg/dL (7-20); CALCIUM 8.4 mg/dL (8.4-10.2); CARBON DIOXIDE 31 mmol/L (22-30); CHLORIDE 103 mmol/L (98-107); GLUCOSE 187 mg/dL (75-110); POTASSIUM 5.3 mmol/L (3.6-5.0)
[2018-11-08] MEDS: NEOMY SULF/POLYMYX B SULF/HC OTIC SUSP 10 ML AD SCH ×4 (11:48→21:19)
[2018-11-08] MEDS: SODIUM POLYSTYRENE SULFONATE 15 GM/60 ML PO SCH ×2 (13:50→21:19)
--- NOTE | 2018-11-08 15:44 | PDOC PROGRESS REPORT ---
Subjective Progress Note for:: 11/08/18 Subjective:: JOHN PUENTES is a 78 year old female patient with past medical history of atrial fibrillation, congestive heart failure, coronary 30s, hyperlipidemia, hypertension, peripheral arterial disease, history of PE, COPD, stage IV CKD, hypothyroidism, diabetes mellitus and tobacco dependence by EMS for weakness and shortness of breath. Since patient is on full mask BiPAP and somewhat debilitated she is not source of history. Brief history is obtained from ER attending note and her neighbor. According to patient's neighbor who has been helping take care of her, she has been on decline over the past week, she had generalized weakness, and today she could not even stand up off the toilet and she has heavy labored breathing. According to EMS the patient was found to be hypoxic and having difficulty of breathing they did give her a breathing treatment but her work of breathing increasing" worse by the time she came to the emergency department. Her blood work shows hemoglobin of 8, BUN of 55, creatinine of 3.51, GFR of 13 and potassium of 6.1. Her chest x-ray shows bilateral pleural effusion. For hyperkalemia patient was given calcium gluconate, bicarb, dextrose and insulin. For her acute on chronic respiratory failure patient was put on BiPAP and relatively doing better. The hospitalist service consulted for admission. Further detailed history and review of systems unobtainable. 11/08/2018. No acute events overnight, still complaining of shortness of breath, has been on nitro drip, noted to be on A. fib RVR. He denies any chest pain, nausea, vomiting, diarrhea, constipation or any urinary symptoms. Reason For Visit: HYPERKALEMIA,ACUTE ON CHRONIC HYPERCAPNIC Physical Exam Vital Signs: Temp Pulse Resp BP Pulse Ox 98.1 F 115 H 22 H 131/74 H 98 11/08/18 00:17 11/08/18 14:00 11/08/18 11:44 11/08/18 13:00 11/08/18 12:05 Intake & Output 11/07/18 11/08/18 11/09/18 06:59 06:59 06:59 Intake Total 984 1109 Output Total 850 Balance 134 1109 Weight 78 kg General appearance: PRESENT: mild distress Head exam: PRESENT: atraumatic, normocephalic Neck exam: ABSENT: carotid bruit, JVD, lymphadenopathy, thyromegaly Respiratory exam: PRESENT: clear to auscultation aguilar. ABSENT: rales, rhonchi, wheezes Cardiovascular exam: PRESENT: RRR. ABSENT: diastolic murmur, rubs, systolic murmur GI/Abdominal exam: PRESENT: normal bowel sounds, soft. ABSENT: distended, guarding, mass, organolmegaly, rebound, tenderness Extremities exam: PRESENT: full ROM. ABSENT: calf tenderness, clubbing, pedal edema Neurological exam: PRESENT: alert, awake, oriented to person, oriented to place, oriented to time, oriented to situation, CN II-XII grossly intact. ABSENT: motor sensory deficit Results Laboratory Results: 11/08/18 04:35 11/08/18 10:30 11/08/18 11/08/18 11/08/18 04:35 04:35 04:35 WBC 3.8 L RBC 2.67 L Hgb 7.6 L Hct 24.0 L MCV 90 MCH 28.3 MCHC 31.6 L RDW 18.7 H Plt Count 164 Seg Neutrophils % Not Reportable Lymphocytes % Not Reportable Monocytes % Not Reportable Eosinophils % Not Reportable Basophils % Not Reportable Absolute Neutrophils Not Reportable Absolute Lymphocytes Not Reportable Absolute Monocytes Not Reportable Absolute Eosinophils Not Reportable Absolute Basophils Not Reportable Carbonic Acid HCO3/H2CO3 Ratio ABG pH ABG pCO2 ABG pO2 ABG HCO3 ABG O2 Saturation ABG Base Excess FiO2 Sodium 138.5 Potassium 6.1 H* Chloride 102 Carbon Dioxide 29 Anion Gap 8 BUN 59 H Creatinine 3.41 H Est GFR ( Amer) 16 L Est GFR (Non-Af Amer) 13 L Glucose 186 H Calcium 8.5 Phosphorus 6.3 H Magnesium 2.1 TSH 4.01 11/08/18 11/08/18 10:00 10:30 WBC RBC Hgb Hct MCV MCH MCHC RDW Plt Count Seg Neutrophils % Lymphocytes % Monocytes % Eosinophils % Basophils % Absolute Neutrophils Absolute Lymphocytes Absolute Monocytes Absolute Eosinophils Absolute Basophils Carbonic Acid 1.70 H HCO3/H2CO3 Ratio 18:1 ABG pH 7.37 ABG pCO2 56.6 H ABG pO2 85.1 ABG HCO3 31.8 H ABG O2 Saturation 95.9 ABG Base Excess 5.6 FiO2 50% Sodium 140.5 Potassium 5.3 H Chloride 103 Carbon Dioxide 31 H Anion Gap 7 BUN 59 H Creatinine 3.42 H Est GFR ( Amer) 16 L Est GFR (Non-Af Amer) 13 L Glucose 187 H Calcium 8.4 Phosphorus Magnesium TSH 11/07/18 12:15 Troponin I 0.154 Impressions: Chest X-Ray 11/07/18 11:58 IMPRESSION: Increased bilateral pleural effusions, moderately large in size. Increased basilar atelectasis. Assessment and Plan - Diagnosis (1) Acute and chronic respiratory failure with hypercapnia Is this a current diagnosis for this admission?: Yes Plan: Improving. Likely due to COPD exacerbation and A. fib RVR. 11/08/2018: SPO2 84-98% 6 L FiO2 44%. ABG: pH 7.18, PCO2 82.2, PO2 86.7, FiO2 60%. 11/07/2018: ABG: pH 7.37, PCO2 56.6, PO2 85.1, FiO2 50%. Antibiotics day 2. Azithromycin IV day 2. IV steroids day 2. IV Solu-Medrol day 2. Continue DuoNeb's, IV steroids, empiric IV antibiotics, BiPAP, supplemental oxygen, pulmonary toileting, incentive spirometry. (2) Atrial fibrillation with RVR Is this a current diagnosis for this admission?: Yes Plan: Not controlled. Anticoagulated. Continue Cardizem drip, digoxin p.o. Continue Coumadin, INR goal of 2-2.5. Monitor electrolytes, replace as needed. Digoxin level. (3) Chronic kidney disease, stage IV (severe) Is this a current diagnosis for this admission?: Yes Plan: Nonoliguric. Worsening creatinine. Not on hemodialysis. Strict in and out, renal diet, monitor electrolytes and replace as needed. We will consult nephrology if no improvement. BMP tomorrow. Avoid nephrotoxic meds. (4) COPD exacerbation Is this a current diagnosis for this admission?: Yes Plan: Plan as #1 (5) Hyperkalemia Is this a current diagnosis for this admission?: Yes Plan: Likely due to worsening CKD. Hyperkalemia protocol. Continue telemetry. BMP tomorrow. (6) Hyperlipidemia Qualifiers: Hyperlipidemia type: unspecified Qualified Code(s): E78.5 - Hyperlipidemia, unspecified Is this a current diagnosis for this admission?: Yes Plan: Continue statins. LFTs WNL. (7) Hypertension Qualifiers: Hypertension type: essential hypertension Qualified Code(s): I10 - Essential (primary) hypertension Is this a current diagnosis for this admission?: Yes Plan: Continue Cardizem. Hold ARB due to worsening kidney function. Hydralazine PRN. (8) Hypothyroidism Qualifiers: Hypothyroidism type: unspecified Qualified Code(s): E03.9 - Hypothyroidism, unspecified Is this a current diagnosis for this admission?: Yes Plan: TSH WNL. Restart home meds. (9) Anemia in CKD (chronic kidney disease) Qualifiers: Chronic kidney disease stage: stage 5, not on chronic dialysis Qualified Code(s): N18.5 - Chronic kidney disease, stage 5; D63.1 - Anemia in chronic kidney disease Is this a current diagnosis for this admission?: Yes Plan: Denies any hematemesis, easy bleeding, hemoptysis, hematochezia, melena, vaginal bleeding. Daily H&H. Transfuse if under 7, actively bleeding, or symptomatic. Patient may benefit from Procrit. We will consult nephrology.
[2018-11-08] MEDS: AZITHROMYCIN 500 MG in DEXTROSE 5%-WATER 250 ML IV SCH (17:34)
--- NOTE | 2018-11-08 18:55 | EKG REPORT ---
SEVERITY:- ABNORMAL ECG - ATRIAL FIBRILLATION, V-RATE 108-163 PROBABLE LVH WITH SECONDARY REPOL ABNRM : Confirmed by: aJnes Mercado MD 08-Nov-2018 18:55:00
--- NOTE | 2018-11-08 18:56 | EKG REPORT ---
SEVERITY:- ABNORMAL ECG - ATRIAL FIBRILLATION, V-RATE 88-124 PROBABLE LVH WITH SECONDARY REPOL ABNRM : Confirmed by: Janes Mercado MD 08-Nov-2018 18:55:31
--- NOTE | 2018-11-08 18:56 | EKG REPORT ---
SEVERITY:- ABNORMAL ECG - ATRIAL FIBRILLATION BORDERLINE RIGHT AXIS DEVIATION ABNORMAL T, CONSIDER ISCHEMIA, DIFFUSE LEADS : Confirmed by: Janes Mercado MD 08-Nov-2018 18:55:17
[2018-11-08] MEDS ORDERED: (PENDING PHARMACY ID) (Warfarin Sodium 1 MG) PO SCH (22:00)
[2018-11-08] MEDS ORDERED: WARFARIN SODIUM 1 MG TABLET PO SCH (22:00)
[2018-11-09] MEDS: IPRATROPIUM/ALBUTEROL 0.5-2.5 MG/3 ML AMPUL NEB SCH ×6 (00:32→20:17)
[2018-11-09] MEDS: DILTIAZEM HCL/D5W 125 MG/125 ML RTUINJ IV PRN ×2 (01:24→08:50)
[2018-11-09] MEDS: METHYLPREDNISOLONE INJ 40 MG/1 ML SDV IV SCH ×4 (03:54→21:28)
[2018-11-09 05:26] LABS: INTERNATIONAL RATION (INR) 1.41; PROTHROMBIN TIME 17.4 SEC (11.4-15.4)
[2018-11-09 05:29] LABS: ANION GAP 8 (5-19); BLOOD UREA NITROGEN 61 mg/dL (7-20); CALCIUM 8.4 mg/dL (8.4-10.2); CARBON DIOXIDE 30 mmol/L (22-30); CHLORIDE 100 mmol/L (98-107); GLUCOSE 164 mg/dL (75-110); POTASSIUM 4.6 mmol/L (3.6-5.0)
[2018-11-09] MEDS: INSULIN LISPRO 100 UNIT/ML 3 ML VIAL SUBCUT SCH ×4 (08:41→21:28)
[2018-11-09] MEDS: DOCUSATE SODIUM 100 MG/10 ML UDC PO SCH ×2 (10:25→17:37)
[2018-11-09] MEDS: SODIUM POLYSTYRENE SULFONATE 15 GM/60 ML PO SCH (10:29)
[2018-11-09] MEDS: WARFARIN SODIUM 2 MG TABLET PO SCH (10:30)
[2018-11-09] MEDS: FAMOTIDINE 20 MG TABLET PO SCH ×2 (10:30→21:28)
[2018-11-09] MEDS: WARFARIN SODIUM 4 MG TABLET PO SCH (10:30)
[2018-11-09] MEDS: NEOMY SULF/POLYMYX B SULF/HC OTIC SUSP 10 ML AD SCH ×4 (10:30→21:34)
[2018-11-09] MEDS: TIOTROPIUM BROMIDE DPI 5 CAP/KIT (18 MCG/CAP) IH SCH (10:30)
[2018-11-09] MEDS ORDERED: EPOETIN ALFA-EPBX 40,000 UNIT/ML VIAL (NON-ESRD) SUBCUT ONE (12:30)
[2018-11-09] MEDS: WARFARIN SODIUM 3 MG TABLET PO ONE ×2 (12:39→13:17)
[2018-11-09] MEDS: CALCIUM ACETATE 667 MG CAPSULE PO SCH ×2 (12:46→16:43)
[2018-11-09] MEDS: DILTIAZEM HCL 30 MG TABLET PO SCH ×2 (15:04→21:28)
[2018-11-09] MEDS: AZITHROMYCIN 500 MG in DEXTROSE 5%-WATER 250 ML IV SCH (16:44)
--- NOTE | 2018-11-09 17:31 | RADIOLOGY REPORT (SQ) ---
EXAM DESCRIPTION: U/S RETROPERITON LTD COMPLETED DATE/TIME: 11/09/2018 5:13 pm REASON FOR STUDY: ROSALINA/CKD COMPARISON: AP chest 11/07/2018 Abdominal ultrasound 08/05/2018 Renal ultrasound 07/19/2017 TECHNIQUE: Dynamic and static grayscale images acquired of the kidneys and bladder and recorded on P ACS. Additional selected color Doppler and spectral images recorded. LIMITATIONS: None. FINDINGS: RIGHT KIDNEY: 11 cm in length with diffuse increased cortical echogenicity, normal homar ical thickness. 3 cm cyst right mid-pole kidney No solid or suspicious masses. No hydronephrosis . No calcifications. LEFT KIDNEY: 10 cm in length with diffuse increased cortical echogenicity, normal cortical thickne ss. No solid or suspicious masses. No hydronephrosis. No calcifications. BLADDER: Bernstein catheter decompresses the bladder. OTHER FINDINGS: Moderate right pleural effusion, moderate free fluid in the pelvis IMPRESSION: No hydronephrosis Echogenic kidneys from medical renal disease Bladder decompressed by a Bernstein catheter Moderate right pleural effusion TECHNICAL DOCUMENTATION: JOB ID: [id number] [employer]- All Rights Reserved Reading location - IP/workstation name: [email or web address]
--- NOTE | 2018-11-09 17:40 | PDOC PROGRESS REPORT ---
Subjective Progress Note for:: 11/09/18 Subjective:: JOHN PUENTES is a 78 year old female patient with past medical history of atrial fibrillation, congestive heart failure, coronary 30s, hyperlipidemia, hypertension, peripheral arterial disease, history of PE, COPD, stage IV CKD, hypothyroidism, diabetes mellitus and tobacco dependence by EMS for weakness and shortness of breath. Since patient is on full mask BiPAP and somewhat debilitated she is not source of history. Brief history is obtained from ER attending note and her neighbor. According to patient's neighbor who has been helping take care of her, she has been on decline over the past week, she had generalized weakness, and today she could not even stand up off the toilet and she has heavy labored breathing. According to EMS the patient was found to be hypoxic and having difficulty of breathing they did give her a breathing treatment but her work of breathing increasing" worse by the time she came to the emergency department. Her blood work shows hemoglobin of 8, BUN of 55, creatinine of 3.51, GFR of 13 and potassium of 6.1. Her chest x-ray shows bilateral pleural effusion. For hyperkalemia patient was given calcium gluconate, bicarb, dextrose and insulin. For her acute on chronic respiratory failure patient was put on BiPAP and relatively doing better. The hospitalist service consulted for admission. Further detailed history and review of systems unobtainable. 11/08/2018. No acute events overnight, still complaining of shortness of breath, has been on nitro drip, noted to be on A. fib RVR. He denies any chest pain, nausea, vomiting, diarrhea, constipation or any urinary symptoms. 11/09/2018. No acute events overnight. Still complaining of shortness of breath, off of nitro on Cardizem drip. Heart rate is controlled. Patient in no apparent distress, requesting to be transitioned to rehab. Denies any fever, chills, nausea, vomiting, diarrhea, constipation or any urinary symptoms. SBP 140s, T-max 97.5, HR 90s, RR 20s, SPO2 9093 5 L NC FiO2 55%. Reason For Visit: HYPERKALEMIA,ACUTE ON CHRONIC HYPERCAPNIC Physical Exam Vital Signs: Temp Pulse Resp BP Pulse Ox 97.5 F 96 26 H 148/101 H 91 L 11/09/18 11:31 11/09/18 15:00 11/09/18 11:31 11/09/18 15:00 11/09/18 11:31 Intake & Output 11/08/18 11/09/18 11/10/18 06:59 06:59 06:59 Intake Total 984 1656 399 Output Total 850 250 125 Balance 134 1406 274 Weight 78 kg 79.7 kg General appearance: PRESENT: no acute distress, obese, well-developed, well- nourished Head exam: PRESENT: atraumatic, normocephalic Neck exam: ABSENT: carotid bruit, JVD, lymphadenopathy, thyromegaly Respiratory exam: PRESENT: decreased breath sounds, wheezes. ABSENT: rales, rhonchi Cardiovascular exam: PRESENT: RRR. ABSENT: diastolic murmur, rubs, systolic murmur GI/Abdominal exam: PRESENT: normal bowel sounds, soft. ABSENT: distended, guarding, mass, organolmegaly, rebound, tenderness Extremities exam: PRESENT: full ROM. ABSENT: calf tenderness, clubbing, pedal edema Neurological exam: PRESENT: alert, awake, oriented to person, oriented to place, oriented to time, oriented to situation, CN II-XII grossly intact. ABSENT: motor sensory deficit Results Laboratory Results: 11/08/18 04:35 11/09/18 04:19 11/09/18 11/09/18 04:19 11:58 Sodium 137.6 Potassium 4.6 Chloride 100 Carbon Dioxide 30 Anion Gap 8 BUN 61 H Creatinine 3.36 H Est GFR ( Amer) 16 L Est GFR (Non-Af Amer) 13 L Glucose 164 H Calcium 8.4 PTH Intact 224.8 H 11/07/18 12:15 Troponin I 0.154 Impressions: Chest X-Ray 11/07/18 11:58 IMPRESSION: Increased bilateral pleural effusions, moderately large in size. Increased basilar atelectasis. Renal Ultrasound 11/09/18 10:57 IMPRESSION: No hydronephrosis Echogenic kidneys from medical renal disease Bladder decompressed by a Bernstein catheter Moderate right pleural effusion Assessment and Plan - Diagnosis (1) Acute and chronic respiratory failure with hypercapnia Is this a current diagnosis for this admission?: Yes Plan: Improving. Likely due to COPD exacerbation and A. fib RVR. 11/09/2018: SBP 140s, T-max 97.5, HR 90s, RR 20s, SPO2 9093 5 L NC FiO2 55%. 11/08/2018: SPO2 84-98% 6 L FiO2 44%. ABG: pH 7.18, PCO2 82.2, PO2 86.7, FiO2 60%. 11/07/2018: ABG: pH 7.37, PCO2 56.6, PO2 85.1, FiO2 50%. Antibiotics day 3. Azithromycin IV day 3. IV steroids day 3. IV Solu-Medrol day 3. Continue DuoNeb's, IV steroids, empiric IV antibiotics, BiPAP, supplemental oxygen, pulmonary toileting, incentive spirometry. (2) Atrial fibrillation with RVR Is this a current diagnosis for this admission?: Yes Plan: Rate controlled. Anticoagulated. 11/08/2018 was placed on Cardizem drip. DC'd on 11/09/2018. Continue p.o. Cardizem, and digoxin. Continue Coumadin, INR goal of 2-2.5. Monitor electrolytes, replace as needed. Digoxin level. (3) Chronic kidney disease, stage IV (severe) Is this a current diagnosis for this admission?: Yes Plan: Creatinine stable. No improvement. Nonoliguric. Not on hemodialysis. 11/09/2018 renal ultrasound negative for chronic medical disease. PTH 248. Strict in and out, renal diet, monitor electrolytes and replace as needed. Nephrology on board. Pending recommendation. . BMP tomorrow. Avoid nephrotoxic meds. (4) COPD exacerbation Is this a current diagnosis for this admission?: Yes Plan: Plan as #1 (5) Hyperkalemia Is this a current diagnosis for this admission?: Yes Plan: Resolved. Likely due to worsening CKD. Hyperkalemia protocol. Continue telemetry. BMP tomorrow. (6) Hyperlipidemia Qualifiers: Hyperlipidemia type: unspecified Qualified Code(s): E78.5 - Hyperlipidemia, unspecified Is this a current diagnosis for this admission?: Yes Plan: Continue statins. LFTs WNL. (7) Hypertension Qualifiers: Hypertension type: essential hypertension Qualified Code(s): I10 - Essential (primary) hypertension Is this a current diagnosis for this admission?: Yes Plan: Continue Cardizem. Hold ARB due to worsening kidney function. Hydralazine PRN. (8) Hypothyroidism Qualifiers: Hypothyroidism type: unspecified Qualified Code(s): E03.9 - Hypothyroidism, unspecified Is this a current diagnosis for this admission?: Yes Plan: TSH WNL. Restart home meds. (9) Anemia in CKD (chronic kidney disease) Qualifiers: Chronic kidney disease stage: stage 5, not on chronic dialysis Qualified Code(s): N18.5 - Chronic kidney disease, stage 5; D63.1 - Anemia in chronic kidney disease Is this a current diagnosis for this admission?: Yes Plan: Denies any hematemesis, easy bleeding, hemoptysis, hematochezia, melena, vaginal bleeding. Daily H&H. Transfuse if under 7, actively bleeding, or symptomatic. 11/09/2018. Received 1 dose of Procrit. Nephrology on board.
--- NOTE | 2018-11-09 20:15 | PDOC CONSULTATION ---
Consultation Consult Date: 11/09/18 Provider Consulted: YODIT CANALES Consult reason:: I was asked to see the patient due to acute worsening of kidney function. History of Present Illness Admission Date/PCP: 11/07/18 14:02 JOSE MARTIN SALOMON MD History of Present Illness: JOHN PUENTES is a 78 year old female with history of chronic kidney disease stage IV followed by Dr. Ha, congestive heart failure, coronary artery disease, atrial fibrillation, hypertension, history of PE, COPD, hypothyroidism and diabetes mellitus type 2 who presented with weakness and shortness of breath brought to the emergency room via EMS. Apparently for the last past week there was a note of decline in her general clinical condition including generalized weakness to the point that she is unable to get up from her toilet per patient's neighbor. Patient was confused when she came in. Patient was found to be hypoxic by EMS and was initially placed on BiPAP. Initial diagnosis was acute hypoxic respiratory failure due to COPD exacerbation. Initial evaluation showed a BUN of 55, creatinine of 3.51 with a EGFR of 13. Her potassium was also elevated at 6.1. Today she has a BUN of 61, creatinine of 3.36 with EGFR of 13. Her potassium today is 4.6 after giving Kayexalate and other medications to lower potassium. Records shows that the patient's baseline creatinine usually ranges anywhere between 2.5-3.0 for the past 6 months and EGFR ranges anywhere between 16-20. Her hemoglobin was also low at 7.6 today from 8.2 yesterday. For the last 48 hours her urine output was recorded initially is 850 mL and then down to 250 mL. Her blood pressures are adequate. Her chest x-ray showed bilateral pleural effusion. Her urinalysis showed protein of greater than 500, small amount of blood, RBC of 10 WBC of only 4. When he saw the patient today she seems to be a lot better than how she was described yesterday on admission. She said his breathing is on and off) the nurse she is using BiPAP and nasal cannula alternatingly. She has cough with minimal sputum production. She had diarrhea from the Kayexalate being given to her for since admission. She admits to feeling weak. She says she also has leg swelling. She admits that at home she noticed decrease in urine output but denies any blood in the urine. She denies any chest pains, nausea or vomiting. She is aware that she has chronic kidney disease as she follows up with Dr. Ha. She tells me that she initially wanted to do peritoneal dialysis but she does not havein her house to put the supplies plus her grandson who is living with her right now is going to move so she is not going to have anybody with her pretty soon. She states that Dr. Ha referred her to have AV fistula placed to Dr. Gipson but she forgot her appointment. She is also supposed to be getting Procrit but she keeps forgetting her appointment for that as well. Past Medical History Cardiac Medical History: Reports: Atrial Fibrillation, Coronary Artery Disease, Heart Murmur - 42 YRS AGO DIAGNOSED, Hyperlipidemia, Peripheral Vascular Disease, Pulmonary Embolism Pulmonary Medical History: Reports: Asthma, Bronchitis, Chronic Obstructive Pulmonary Disease (COPD), Pneumonia, Respiratory Failure, Sleep Apnea Endocrine Medical History: Reports: Diabetes Mellitus Type 2, Hypothyroidism Renal/ Medical History: Reports: Chronic Kidney Disease Stage IV, Hyperphosphatemia, Secondary Hyperparathyroidism GI Medical History: Reports: Gastroesophageal Reflux Disease, Hiatal Hernia Musculoskeltal Medical History: Reports: Arthritis, Rheumatoid Arthritis Psychiatric Medical History: Reports: Depression Hematology Medical History: Reports Anemia of Chronic Kidney Disease Past Surgical History Past Surgical History: Reports: Appendectomy, Cardiac Catheterization - 3 STENTS, Coronary Artery Bypass Graft, Hysterectomy, Tonsillectomy Social History Information Source: [facility] Records Smoking Status: Current Every Day Smoker Cigarettes Packs Per Day: 0.5 Number of Years Smokin Last Time Smoked: t-1 Frequency of Alcohol Use: None Hx Recreational Drug Use: No Drugs: None Hx Prescription Drug Abuse: No - Advance Directive Resuscitation Status: Do Not Resuscitate Family History Family History: CAD, CVA, DM, Hypertension, Malignancy Parental Family History Reviewed: Yes Children Family History Reviewed: Yes Sibling(s) Family History Reviewed.: Yes Medication/Allergy Home Medications: Calcitriol [Rocaltrol] 0.25 mcg PO MOFR 09/23/18 Tiotropium [place] [Spiriva Handihaler 5 Cap/Kit (18 Mcg/Cap)] 1 cap IH DAILY #10 capsule 09/28/18 Digoxin [Lanoxin 0.125 mg Tablet] 0.125 mg PO Q2D 11/07/18 Diltiazem HCl [Cardizem Cd 240 mg Capsule.cr] 240 mg PO DAILY 11/07/18 Losartan Potassium [Cozaar 25 mg Tablet] 12.5 mg PO DAILY 11/07/18 Sodium Polystyrene Sulfonate [Kayexalate 15 Gm/60 Ml Susp 60 Ml] 15 gm PO DAILY 11/07/18 Warfarin Sodium [Coumadin 1 mg Tablet] 1 mg PO QHS 11/07/18 Warfarin Sodium [Coumadin] 6 mg PO DAILY 11/07/18 Allergies/Adverse Reactions: guaifenesin [Guaifenesin] Allergy (Severe, Verified 09/09/18 11:41) itching, hard to breathe Iodinated Contrast- Oral and IV Dye [IV Dye, Iodine Containing] Allergy (Mild, Verified 09/09/18 11:41) rash iodine [Iodine] Allergy (Mild, Verified 09/09/18 11:41) rash Sulfa (Sulfonamide Antibiotics) Allergy (Mild, Verified 09/09/18 11:41) rash adr Allergy (Severe, Uncoded 09/09/18 11:41) Anaphylaxis Review of Systems All systems: reviewed and no additional remarkable complaints except as stated Review of Systems: Constitutional: ABSENT: chills, fever(s), headache(s), weight gain, weight loss; admits generalized weakness and fatigue Eyes: ABSENT: visual disturbances Ears: ABSENT: hearing changes Cardiovascular: ABSENT: chest pain, dyspnea on exertion, orthropnea, palpitations; reports diarrhea Respiratory: ABSENT: Hemoptysis; admits dyspnea and cough Gastrointestinal: ABSENT: abdominal pain, constipation, hematemesis, hematochezia, nausea, vomiting; currently has diarrhea due to Kayexalate Genitourinary: ABSENT: dysuria, hematuria Musculoskeletal: ABSENT: joint swelling Integumentary: ABSENT: rash, wounds Neurological: ABSENT: abnormal gait, abnormal speech, confusion, dizziness, focal weakness, numbness, syncope Psychiatric: ABSENT: anxiety, depression Endocrine: ABSENT: cold intolerance, heat intolerance, polydipsia, polyuria Hematologic/Lymphatic: ABSENT: easy bleeding, easy bruising, lymphadenopathy Physical Exam Vital Signs: Temp Pulse Resp BP Pulse Ox 97.6 F 99 27 H 153/53 H 90 L 11/09/18 08:16 11/09/18 08:16 11/09/18 08:16 11/09/18 08:16 11/09/18 08:16 Intake & Output 11/08/18 11/09/18 11/10/18 06:59 06:59 06:59 Intake Total 984 1656 111 Output Total 850 250 Balance 134 1406 111 Weight 78 kg 79.7 kg Exam: General appearance: No acute distress, cooperative, well-developed, well- nourished Head exam: PRESENT: atraumatic, normocephalic Eye exam: PRESENT: Conjunctiva slightly pale, EOMI, PERRLA. ABSENT: conjunctival injection, scleral icterus Mouth exam: PRESENT: moist, neck supple, tongue midline Neck exam: PRESENT: full ROM. ABSENT: carotid bruit, JVD, lymphadenopathy, thyromegaly Respiratory exam: PRESENT: clear to auscultation bilaterally. ABSENT: rales, rhonchi, stridor, wheezes Cardiovascular exam: PRESENT: Irregularly irregular heart rhythm, +S1, +S2. Grade 2/6 systolic murmur Pulses: PRESENT: normal radial pulses, normal dorsalis pedis pulses GI/Abdominal exam: PRESENT: normal bowel sounds, soft. ABSENT: guarding, mass, tenderness Rectal exam: Deferred Extremities exam: PRESENT: full ROM. ABSENT: calf tenderness, pedal edema Musculoskeletal: PRESENT: full ROM. ABSENT: deformity Neurological exam: PRESENT: alert, Awake, Oriented to person, Oriented to place, Oriented to time, reflexes normal, CN II-XII grossly intact. ABSENT: motor sensory deficit Psychiatric exam: PRESENT: appropriate affect, normal mood. ABSENT: homicidal ideation, suicidal ideation Skin exam: PRESENT: intact, dry, warm. ABSENT: rash Results Laboratory Results: 11/08/18 04:35 11/09/18 04:19 11/08/18 11/09/18 10:30 04:19 Sodium 140.5 137.6 Potassium 5.3 H 4.6 Chloride 103 100 Carbon Dioxide 31 H 30 Anion Gap 7 8 BUN 59 H 61 H Creatinine 3.42 H 3.36 H Est GFR ( Amer) 16 L 16 L Est GFR (Non-Af Amer) 13 L 13 L Glucose 187 H 164 H Calcium 8.4 8.4 11/07/18 12:15 Troponin I 0.154 Impressions: Chest X-Ray 11/07/18 11:58 IMPRESSION: Increased bilateral pleural effusions, moderately large in size. Increased basilar atelectasis. Assessment & Plan - Diagnosis (1) Acute kidney injury superimposed on chronic kidney disease Is this a current diagnosis for this admission?: Yes Plan: There is a very minimal acute worsening of the kidney function likely secondary to prerenal factors that is currently slowly improving. Patient has baseline chronic kidney disease secondary most likely to diabetic nephropathy. Since the potassium has been corrected there is no urgent indication for renal replacement therapy. Check kidney ultrasound. Continue current management. Continue to monitor kidney function. (2) Acute hypoxemic respiratory failure Is this a current diagnosis for this admission?: Yes Plan: Due to COPD exacerbation. Improved. (3) Acute exacerbation of chronic obstructive pulmonary disease (COPD) Is this a current diagnosis for this admission?: Yes Plan: Defer management to the hospitalist service. (4) Hyperkalemia Is this a current diagnosis for this admission?: Yes Plan: Resolved. (5) Anemia in CKD (chronic kidney disease) Qualifiers: Chronic kidney disease stage: stage 5, not on chronic dialysis Qualified Code(s): N18.5 - Chronic kidney disease, stage 5; D63.1 - Anemia in chronic kidney disease Is this a current diagnosis for this admission?: Yes Plan: We will check iron panel and give the patient Procrit 40,000 units subcutaneously. (6) Chronic kidney disease, stage IV (severe) Is this a current diagnosis for this admission?: Yes Plan: Associated with proteinuria most likely secondary to diabetic nephropathy. (7) Hyperphosphatemia Is this a current diagnosis for this admission?: Yes Plan: Start PhosLo. Check PTH. (8) Atrial fibrillation Qualifiers: Atrial fibrillation type: chronic Qualified Code(s): I48.2 - Chronic atrial fibrillation Is this a current diagnosis for this admission?: Yes (9) Diabetes mellitus type 2 in nonobese Is this a current diagnosis for this admission?: Yes (10) Hypertension Qualifiers: Hypertension type: essential hypertension Qualified Code(s): I10 - Essential (primary) hypertension Is this a current diagnosis for this admission?: Yes - Notes Notes: Thank you very much for this consultation. We will follow the patient with you. - Time Time Spent: 50 to 70 Minutes
[2018-11-10] MEDS: IPRATROPIUM/ALBUTEROL 0.5-2.5 MG/3 ML AMPUL NEB SCH ×6 (00:29→19:59)
[2018-11-10] MEDS: DILTIAZEM HCL 30 MG TABLET PO SCH ×2 (02:22→19:37)
[2018-11-10] MEDS: METHYLPREDNISOLONE INJ 40 MG/1 ML SDV IV SCH ×4 (02:22→21:49)
[2018-11-10 05:42] LABS: HEMATOCRIT 22.9 % (36.0-47.0); MEAN CORPUSCULAR HEMOGLOBIN 28.4 pg (27.0-33.4); MEAN CORPUSCULAR HGB CONC 32.4 g/dL (32.0-36.0); MEAN CORPUSCULAR VOLUME 88 fl (80-97); PLATELET COUNT 162 10^3/uL (150-450); RED BLOOD COUNT 2.62 10^6/uL (3.72-5.28); RED CELL DISTRIBUTION WIDTH 18.6 % (11.5-14.0); RETICULOCYTE COUNT (AUTO) 0.76 % (0.66-2.85); WHITE BLOOD COUNT 3.7 10^3/uL (4.0-10.5)
[2018-11-10 05:46] LABS: INTERNATIONAL RATION (INR) 1.72; PROTHROMBIN TIME 20.4 SEC (11.4-15.4)
[2018-11-10 05:48] LABS: HEMOGLOBIN 7.4 g/dL (12.0-15.5)
[2018-11-10 05:57] LABS: ANION GAP 8 (5-19); BLOOD UREA NITROGEN 63 mg/dL (7-20); CALCIUM 8.6 mg/dL (8.4-10.2); CARBON DIOXIDE 30 mmol/L (22-30); CHLORIDE 98 mmol/L (98-107); GLUCOSE 183 mg/dL (75-110); IRON(TIBC) 13.8 ug/dL (37-170)
[2018-11-10 06:31] LABS: ABSOLUTE LYMPHOCYTES# (MANUAL) 0.1 10^3/uL (0.5-4.7); BASOPHILS % (MANUAL) 0 % (0-2); EOSINOPHILS % (MANUAL) 0 % (0-6); LYMPHOCYTES % (MANUAL) 4 % (13-45); MONOCYTES % (MANUAL) 1 % (3-13); SEGMENTED NEUTROPHILS % (MAN) 95 % (42-78); TOTAL CELLS COUNTED 100
[2018-11-10 06:32] LABS: ANISOCYTOSIS 2+; BURR CELLS SLIGHT; OVALOCYTES SLIGHT; PLATELET COMMENT ADEQUATE; POIKILOCYTOSIS 1+; SCHISTOCYTES SLIGHT
[2018-11-10 07:05] LABS: FOLATE 5.33 ng/mL (>2.76)
[2018-11-10] MEDS ORDERED: FERRIC CARBOXYMALTOSE INJ 750 MG/15 ML VIAL IV ONE (08:28)
[2018-11-10] MEDS: CALCIUM ACETATE 667 MG CAPSULE PO SCH ×3 (08:52→17:49)
[2018-11-10] MEDS: INSULIN LISPRO 100 UNIT/ML 3 ML VIAL SUBCUT SCH ×4 (08:52→21:51)
[2018-11-10] MEDS ORDERED: METOPROLOL TARTRATE PF/INJ 5 MG/5 ML SDV IV PRN (09:04)
[2018-11-10] MEDS ORDERED: LEVOFLOXACIN 500 MG TABLET PO SCH (10:00)
[2018-11-10] MEDS: DOCUSATE SODIUM 100 MG/10 ML UDC PO SCH ×2 (10:36→17:40)
[2018-11-10] MEDS: WARFARIN SODIUM 4 MG TABLET PO SCH (10:42)
[2018-11-10] MEDS: FAMOTIDINE 20 MG TABLET PO SCH ×2 (10:42→21:49)
[2018-11-10] MEDS: DIGOXIN 0.125 MG TABLET PO SCH (10:42)
[2018-11-10] MEDS: TIOTROPIUM BROMIDE DPI 5 CAP/KIT (18 MCG/CAP) IH SCH (10:42)
[2018-11-10] MEDS: DILTIAZEM HCL 240 MG CAPSULE.CR PO SCH (10:42)
--- NOTE | 2018-11-10 10:42 | PDOC PROGRESS REPORT ---
Subjective Progress Note for:: 11/10/18 Subjective:: JOHN PUENTES is a 78 year old female patient with past medical history of atrial fibrillation, congestive heart failure, coronary 30s, hyperlipidemia, hypertension, peripheral arterial disease, history of PE, COPD, stage IV CKD, hypothyroidism, diabetes mellitus and tobacco dependence by EMS for weakness and shortness of breath. Since patient is on full mask BiPAP and somewhat debilitated she is not source of history. Brief history is obtained from ER attending note and her neighbor. According to patient's neighbor who has been helping take care of her, she has been on decline over the past week, she had generalized weakness, and today she could not even stand up off the toilet and she has heavy labored breathing. According to EMS the patient was found to be hypoxic and having difficulty of breathing they did give her a breathing treatment but her work of breathing increasing" worse by the time she came to the emergency department. Her blood work shows hemoglobin of 8, BUN of 55, creatinine of 3.51, GFR of 13 and potassium of 6.1. Her chest x-ray shows bilateral pleural effusion. For hyperkalemia patient was given calcium gluconate, bicarb, dextrose and insulin. For her acute on chronic respiratory failure patient was put on BiPAP and relatively doing better. The hospitalist service consulted for admission. Further detailed history and review of systems unobtainable. 11/08/2018. No acute events overnight, still complaining of shortness of breath, has been on nitro drip, noted to be on A. fib RVR. He denies any chest pain, nausea, vomiting, diarrhea, constipation or any urinary symptoms. 11/09/2018. No acute events overnight. Still complaining of shortness of breath, off of nitro on Cardizem drip. Heart rate is controlled. Patient in no apparent distress, requesting to be transitioned to rehab. Denies any fever, chills, nausea, vomiting, diarrhea, constipation or any urinary symptoms. SBP 140s, T-max 97.5, HR 90s, RR 20s, SPO2 9093 5 L NC FiO2 55%. 11/10/2018. No acute events overnight, no apparent distress, on nasal cannula, use BiPAP overnight. Denies any fever, chills, nausea, vomiting, diarrhea. No bowel for the last 2 days. Patient complaining of dysuria, stating that she feels like she is developing a UTI. Patient is wearing a Bernstein which could be the reason for her abnormal sensation, UA was negative on admission. Reason For Visit: HYPERKALEMIA,ACUTE ON CHRONIC HYPERCAPNIC Physical Exam Vital Signs: Temp Pulse Resp BP Pulse Ox 97.2 F 111 H 26 H 140/85 H 93 11/10/18 03:32 11/10/18 07:00 11/10/18 04:17 11/10/18 03:32 11/10/18 04:17 Intake & Output 11/09/18 11/10/18 11/11/18 06:59 06:59 06:59 Intake Total 1656 1110 Output Total 250 600 Balance 1406 510 Weight 79.7 kg 80.4 kg General appearance: PRESENT: no acute distress, well-developed, well-nourished Head exam: PRESENT: atraumatic, normocephalic Respiratory exam: PRESENT: clear to auscultation aguilar. ABSENT: rales, rhonchi, wheezes Cardiovascular exam: PRESENT: irregular rhythm. ABSENT: diastolic murmur, rubs, systolic murmur GI/Abdominal exam: PRESENT: normal bowel sounds, soft. ABSENT: distended, guarding, mass, organolmegaly, rebound, tenderness Neurological exam: PRESENT: alert, awake, oriented to person, oriented to place, oriented to time, oriented to situation, CN II-XII grossly intact. ABSENT: motor sensory deficit Results Laboratory Results: 11/10/18 05:05 11/10/18 05:05 11/09/18 11/10/18 11/10/18 11:58 05:05 05:05 WBC 3.7 L RBC 2.62 L Hgb 7.4 L Hct 22.9 L MCV 88 MCH 28.4 MCHC 32.4 RDW 18.6 H Plt Count 162 Seg Neutrophils % Not Reportable Lymphocytes % Not Reportable Monocytes % Not Reportable Eosinophils % Not Reportable Basophils % Not Reportable Absolute Neutrophils Not Reportable Absolute Lymphocytes Not Reportable Absolute Monocytes Not Reportable Absolute Eosinophils Not Reportable Absolute Basophils Not Reportable Retic Count (auto) 0.76 Absolute Retic 0.020 L Sodium 136.4 L Potassium 4.0 Chloride 98 Carbon Dioxide 30 Anion Gap 8 BUN 63 H Creatinine 3.25 H Est GFR ( Amer) 17 L Est GFR (Non-Af Amer) 14 L Glucose 183 H Calcium 8.6 Iron 13.8 L TIBC 322 % Saturation 4 Ferritin 21.20 Vitamin B12 625.0 Folate 5.33 PTH Intact 224.8 H 11/07/18 12:15 Troponin I 0.154 Impressions: Chest X-Ray 11/07/18 11:58 IMPRESSION: Increased bilateral pleural effusions, moderately large in size. Increased basilar atelectasis. Renal Ultrasound 11/09/18 10:57 IMPRESSION: No hydronephrosis Echogenic kidneys from medical renal disease Bladder decompressed by a Bernstein catheter Moderate right pleural effusion Assessment and Plan - Diagnosis (1) Acute and chronic respiratory failure with hypercapnia Is this a current diagnosis for this admission?: Yes Plan: Improving. Likely due to COPD exacerbation and A. fib RVR. 11/10/2018. SBP 273591, T-max 97.2, pulse 90s, RR 1427, SPO2 93% 5 L NC. 11/09/2018: SBP 140s, T-max 97.5, HR 90s, RR 20s, SPO2 9093 5 L NC FiO2 55%. 11/08/2018: SPO2 84-98% 6 L FiO2 44%. ABG: pH 7.18, PCO2 82.2, PO2 86.7, FiO2 60 %. 11/07/2018: ABG: pH 7.37, PCO2 56.6, PO2 85.1, FiO2 50%. Antibiotics day 4. Received 4 days of IV azithromycin. IV steroids day 4. IV Solu-Medrol day 4. Levofloxacin 500 g p.o. day 1. Continue DuoNeb's, IV steroids, empiric IV antibiotics, BiPAP, supplemental oxygen, pulmonary toileting, incentive spirometry. Cultures remain negative. (2) Atrial fibrillation with RVR Is this a current diagnosis for this admission?: Yes Plan: Rate controlled. Anticoagulated. 11/08/2018 was placed on Cardizem drip. DC'd on 11/09/2018. Continue p.o. Cardizem, and digoxin. Continue Coumadin, INR goal of 2-2.5. Monitor electrolytes, replace as needed. Digoxin level. (3) Chronic kidney disease, stage IV (severe) Is this a current diagnosis for this admission?: Yes Plan: Creatinine stable. No improvement. Nonoliguric. Not on hemodialysis. 11/09/2018 renal ultrasound negative for chronic medical disease. PTH 248. Strict in and out, renal diet, monitor electrolytes and replace as needed. Nephrology on board. Pending recommendation. . BMP tomorrow. Avoid nephrotoxic meds. (4) COPD exacerbation Is this a current diagnosis for this admission?: Yes Plan: Plan as #1 (5) Hyperkalemia Is this a current diagnosis for this admission?: Yes Plan: Resolved. Likely due to worsening CKD. Hyperkalemia protocol. Continue telemetry. BMP tomorrow. (6) Hyperlipidemia Qualifiers: Hyperlipidemia type: unspecified Qualified Code(s): E78.5 - Hyperlipidemia, unspecified Is this a current diagnosis for this admission?: Yes Plan: Continue statins. LFTs WNL. (7) Hypertension Qualifiers: Hypertension type: essential hypertension Qualified Code(s): I10 - Essential (primary) hypertension Is this a current diagnosis for this admission?: Yes Plan: Continue Cardizem. Hold ARB due to worsening kidney function. Hydralazine PRN. (8) Hypothyroidism Qualifiers: Hypothyroidism type: unspecified Qualified Code(s): E03.9 - Hypothyroidism, unspecified Is this a current diagnosis for this admission?: Yes Plan: TSH WNL. Restart home meds. (9) Anemia in CKD (chronic kidney disease) Qualifiers: Chronic kidney disease stage: stage 5, not on chronic dialysis Qualified Code(s): N18.5 - Chronic kidney disease, stage 5; D63.1 - Anemia in chronic kidney disease Is this a current diagnosis for this admission?: Yes Plan: Denies any hematemesis, easy bleeding, hemoptysis, hematochezia, melena, vaginal bleeding. Iron 13.8, TIBC 322, percent saturation 4, ferritin 21. 01/10/2018. Guaiac negative. Denies any history of GI malignancy. Colonoscopy in 2014 showed the polyp status post polypectomy. As per patient recently had a repeat colonoscopy which was reported as normal. Daily H&H. Transfuse if under 7, actively bleeding, or symptomatic. 11/09/2018. Received 1 dose of Procrit. 11/10/2018. Received 1 dose of Injectafer. Nephrology on board. (10) Iron deficiency anemia Qualifiers: Iron deficiency anemia type: chronic blood loss Qualified Code(s): D50.0 - Iron deficiency anemia secondary to blood loss (chronic) Is this a current diagnosis for this admission?: Yes Plan: History of external hemorrhoids as per colonoscopy in 12/18/2018. Which could be the cause of chronic iron deficiency anemia. Denies any hematemesis, easy bleeding, hemoptysis, hematochezia, melena, vaginal bleeding. 11/09/2018. Iron 13.8, TIBC 322, percent saturation 4, ferritin 21. 01/10/2018. Guaiac negative. 12/18/2017. Colonoscopy: Was positive for diverticulosis and external h emorrhoids. 12/18/2018 she had a polypectomy pathology report available, as per operative report any normal looking polyps. Recomendation was for repeat colonoscopy in 3 years. As per patient she recently had a colonoscopy which was reported as negative. Daily H&H. Transfuse if under 7, actively bleeding, or symptomatic. 11/09/2018. Received 1 dose of Procrit. 11/10/2018. Received 1 dose of Injectafer.
[2018-11-10] MEDS: WARFARIN SODIUM 2 MG TABLET PO SCH (10:43)
[2018-11-10] MEDS: NEOMY SULF/POLYMYX B SULF/HC OTIC SUSP 10 ML AD SCH ×4 (10:43→21:51)
[2018-11-10] MEDS ORDERED: FERRIC CARBOXYMALTOSE 750 MG in NORMAL SALINE 250 ML IV ONE (11:00)
--- NOTE | 2018-11-10 19:13 | PDOC PROGRESS REPORT ---
Subjective Progress Note for:: 11/10/18 Subjective:: Patient is seen lying in bed comfortably. However she tells me that she really does not feel that well yet. She is being arranged to go to rehab. She made about 600 mL of urine output yesterday. She does not verbalize any other complaints. Kidney ultrasound showed right kidney at 11 cm and left kidney at 10.9 cm, bilateral echogenic kidneys without any hydronephrosis. Reason For Visit: HYPERKALEMIA,ACUTE ON CHRONIC HYPERCAPNIC Physical Exam Vital Signs: Temp Pulse Resp BP Pulse Ox 97.2 F 110 H 21 H 140/85 H 97 11/10/18 03:32 11/10/18 07:50 11/10/18 07:50 11/10/18 03:32 11/10/18 07:50 Intake & Output 11/09/18 11/10/18 11/11/18 06:59 06:59 06:59 Intake Total 1656 1110 Output Total 250 600 Balance 1406 510 Weight 79.7 kg 80.4 kg Exam: General appearance: PRESENT: no acute distress, cooperative, well-developed, well-nourished Head exam: PRESENT: atraumatic, normocephalic Eye exam: PRESENT: conjunctiva pale, PERRLA. ABSENT: scleral icterus Neck exam: ABSENT: JVD Respiratory exam: PRESENT: Diminished breath sounds. Positive wheezing ABSENT: crackles, rales, rhonchi, unlabored s Cardiovascular exam: PRESENT: Irregularly irregular rate rhythm -+S1, +S2. ABSENT: diastolic murmur, systolic murmur GI/Abdominal exam: PRESENT: normal bowel sounds, soft. ABSENT: guarding, mass, tenderness Extremities exam: ABSENT: No edema Neurological exam: PRESENT: alert, awake, oriented to person, place and time. Skin exam: PRESENT: dry, warm, Results Laboratory Results: 11/10/18 05:05 11/10/18 05:05 11/09/18 11/10/18 11/10/18 11:58 05:05 05:05 WBC 3.7 L RBC 2.62 L Hgb 7.4 L Hct 22.9 L MCV 88 MCH 28.4 MCHC 32.4 RDW 18.6 H Plt Count 162 Seg Neutrophils % Not Reportable Lymphocytes % Not Reportable Monocytes % Not Reportable Eosinophils % Not Reportable Basophils % Not Reportable Absolute Neutrophils Not Reportable Absolute Lymphocytes Not Reportable Absolute Monocytes Not Reportable Absolute Eosinophils Not Reportable Absolute Basophils Not Reportable Retic Count (auto) 0.76 Absolute Retic 0.020 L Sodium 136.4 L Potassium 4.0 Chloride 98 Carbon Dioxide 30 Anion Gap 8 BUN 63 H Creatinine 3.25 H Est GFR ( Amer) 17 L Est GFR (Non-Af Amer) 14 L Glucose 183 H Calcium 8.6 Iron 13.8 L TIBC 322 % Saturation 4 Ferritin 21.20 Vitamin B12 625.0 Folate 5.33 PTH Intact 224.8 H 11/07/18 12:15 Troponin I 0.154 Impressions: Chest X-Ray 11/07/18 11:58 IMPRESSION: Increased bilateral pleural effusions, moderately large in size. Increased basilar atelectasis. Renal Ultrasound 11/09/18 10:57 IMPRESSION: No hydronephrosis Echogenic kidneys from medical renal disease Bladder decompressed by a Bernstein catheter Moderate right pleural effusion Assessment & Plan - Diagnosis (1) Acute kidney injury superimposed on chronic kidney disease Is this a current diagnosis for this admission?: Yes Plan: Kidney function seems stable with creatinine is slightly and minimally lower than yesterday but EGFR remains to be at 14. Patient has underlying chronic kidney disease which is slowly progressively deteriorating. At this time there is no indication of initiation of renal replacement therapy but patient needs to be prepared for it soon. (2) Acute hypoxemic respiratory failure Is this a current diagnosis for this admission?: Yes (3) Acute exacerbation of chronic obstructive pulmonary disease (COPD) Is this a current diagnosis for this admission?: Yes (4) Hyperkalemia Is this a current diagnosis for this admission?: Yes Plan: Resolved. (5) Anemia in CKD (chronic kidney disease) Qualifiers: Chronic kidney disease stage: stage 5, not on chronic dialysis Qualified Code(s): N18.5 - Chronic kidney disease, stage 5; D63.1 - Anemia in chronic kidney disease Is this a current diagnosis for this admission?: Yes Plan: Patient was given hematocrit 40,000 units x 1 dose yesterday, 11/09. She also has severe iron deficiency and was given IV Injectafer today. (6) Chronic kidney disease, stage IV (severe) Is this a current diagnosis for this admission?: Yes (7) Hyperphosphatemia Is this a current diagnosis for this admission?: Yes Plan: On PhosLo. (8) Secondary hyperparathyroidism (of renal origin) Is this a current diagnosis for this admission?: Yes Plan: On calcitriol. (9) Atrial fibrillation Qualifiers: Atrial fibrillation type: chronic Qualified Code(s): I48.2 - Chronic atrial fibrillation Is this a current diagnosis for this admission?: Yes (10) Diabetes mellitus type 2 in nonobese Is this a current diagnosis for this admission?: Yes (11) Hypertension Qualifiers: Hypertension type: essential hypertension Qualified Code(s): I10 - Essential (primary) hypertension Is this a current diagnosis for this admission?: Yes - Time Time with patient: 15-25 minutes
[2018-11-11] MEDS: IPRATROPIUM/ALBUTEROL 0.5-2.5 MG/3 ML AMPUL NEB SCH ×7 (00:05→23:41)
[2018-11-11] MEDS: METHYLPREDNISOLONE INJ 40 MG/1 ML SDV IV SCH ×4 (03:37→21:13)
[2018-11-11 08:41] LABS: HEMATOCRIT 24.6 % (36.0-47.0); MEAN CORPUSCULAR HEMOGLOBIN 28.4 pg (27.0-33.4); MEAN CORPUSCULAR HGB CONC 32.3 g/dL (32.0-36.0); MEAN CORPUSCULAR VOLUME 88 fl (80-97); PLATELET COUNT 173 10^3/uL (150-450); RED CELL DISTRIBUTION WIDTH 18.7 % (11.5-14.0); WHITE BLOOD COUNT 4.3 10^3/uL (4.0-10.5)
[2018-11-11 08:45] LABS: INTERNATIONAL RATION (INR) 2.33
[2018-11-11 08:59] LABS: ALANINE AMINOTRANSFERASE 20 U/L (9-52); ALBUMIN 3.2 g/dL (3.5-5.0); ALKALINE PHOSPHATASE 61 U/L (38-126); ANION GAP 7 (5-19); ASPARTATE AMINO TRANSFERASE 23 U/L (14-36); BILIRUBIN,DIRECT 0.3 mg/dL (0.0-0.4); BILIRUBIN,TOTAL 0.4 mg/dL (0.2-1.3); BLOOD UREA NITROGEN 63 mg/dL (7-20); CALCIUM 8.9 mg/dL (8.4-10.2); CARBON DIOXIDE 32 mmol/L (22-30); CHLORIDE 98 mmol/L (98-107); GLUCOSE 184 mg/dL (75-110); POTASSIUM 3.7 mmol/L (3.6-5.0); TOTAL PROTEIN 5.5 g/dL (6.3-8.2)
[2018-11-11 09:02] LABS: ABSOLUTE LYMPHOCYTES# (MANUAL) 0.1 10^3/uL (0.5-4.7); ABSOLUTE MONOCYTES # (MANUAL) 0.2 10^3/uL (0.1-1.4); BASOPHILS % (MANUAL) 0 % (0-2); EOSINOPHILS % (MANUAL) 0 % (0-6); LYMPHOCYTES % (MANUAL) 3 % (13-45); MONOCYTES % (MANUAL) 5 % (3-13); SEGMENTED NEUTROPHILS % (MAN) 92 % (42-78); TOTAL CELLS COUNTED 100
[2018-11-11 09:03] LABS: OVALOCYTES SLIGHT; PLATELET COMMENT ADEQUATE; PLATELET LARGE PRESENT
[2018-11-11 09:04] LABS: ANISOCYTOSIS 1+
[2018-11-11 09:05] LABS: HEMOGLOBIN 7.9 g/dL (12.0-15.5)
[2018-11-11] MEDS: DOCUSATE SODIUM 100 MG/10 ML UDC PO SCH ×2 (09:46→17:38)
[2018-11-11] MEDS: FAMOTIDINE 20 MG TABLET PO SCH ×2 (09:53→21:33)
[2018-11-11] MEDS: CALCITRIOL 0.25 MCG CAPSULE PO SCH (09:53)
[2018-11-11] MEDS: CALCIUM ACETATE 667 MG CAPSULE PO SCH ×3 (09:53→17:38)
[2018-11-11] MEDS: INSULIN LISPRO 100 UNIT/ML 3 ML VIAL SUBCUT SCH ×4 (09:53→21:12)
[2018-11-11] MEDS: WARFARIN SODIUM 2 MG TABLET PO SCH (09:53)
[2018-11-11] MEDS: DILTIAZEM HCL 240 MG CAPSULE.CR PO SCH (09:53)
[2018-11-11] MEDS: TIOTROPIUM BROMIDE DPI 5 CAP/KIT (18 MCG/CAP) IH SCH (09:54)
[2018-11-11] MEDS: NEOMY SULF/POLYMYX B SULF/HC OTIC SUSP 10 ML AD SCH ×4 (09:54→21:13)
[2018-11-11] MEDS: WARFARIN SODIUM 4 MG TABLET PO SCH (10:02)
--- NOTE | 2018-11-11 10:26 | PDOC PROGRESS REPORT ---
Subjective Progress Note for:: 11/11/18 Subjective:: Patient is sitting at the edge of the bed and seems to be short of breath. She denies any other complaints though. She made about 400 mL of urine output at least that is recorded. Reason For Visit: HYPERKALEMIA,ACUTE ON CHRONIC HYPERCAPNIC Physical Exam Vital Signs: Temp Pulse Resp BP Pulse Ox 97.4 F 100 25 H 143/69 H 97 11/11/18 07:32 11/11/18 08:01 11/11/18 08:01 11/11/18 07:32 11/11/18 08:01 Intake & Output 11/10/18 11/11/18 11/12/18 06:59 06:59 06:59 Intake Total 1110 685 240 Output Total 600 400 Balance 510 285 240 Weight 80.4 kg 79.8 kg Exam: General appearance: PRESENT: Mildly dyspneic, cooperative, well-developed, well- nourished Head exam: PRESENT: atraumatic, normocephalic Eye exam: PRESENT: conjunctiva pale, PERRLA. ABSENT: scleral icterus Neck exam: ABSENT: JVD Respiratory exam: PRESENT: Diminished breath sounds. Diffuse wheezes heard. ABSENT: crackles, rales, rhonchi, unlabored Cardiovascular exam: PRESENT: Irregularly irregular rate rhythm -+S1, +S2. ABSENT: diastolic murmur, systolic murmur GI/Abdominal exam: PRESENT: normal bowel sounds, soft. ABSENT: guarding, mass, tenderness Extremities exam: ABSENT: No edema Neurological exam: PRESENT: alert, awake, oriented to person, place and time. Skin exam: PRESENT: dry, warm, Results Laboratory Results: 11/11/18 08:00 11/11/18 08:00 11/11/18 11/11/18 08:00 08:00 WBC 4.3 RBC 2.80 L Hgb 7.9 L Hct 24.6 L MCV 88 MCH 28.4 MCHC 32.3 RDW 18.7 H Plt Count 173 Seg Neutrophils % Not Reportable Lymphocytes % Not Reportable Monocytes % Not Reportable Eosinophils % Not Reportable Basophils % Not Reportable Absolute Neutrophils Not Reportable Absolute Lymphocytes Not Reportable Absolute Monocytes Not Reportable Absolute Eosinophils Not Reportable Absolute Basophils Not Reportable Sodium 137.1 Potassium 3.7 Chloride 98 Carbon Dioxide 32 H Anion Gap 7 BUN 63 H Creatinine 3.16 H Est GFR ( Amer) 17 L Est GFR (Non-Af Amer) 14 L Glucose 184 H Calcium 8.9 Total Bilirubin 0.4 AST 23 ALT 20 Alkaline Phosphatase 61 Total Protein 5.5 L Albumin 3.2 L 11/07/18 12:15 Troponin I 0.154 Impressions: Chest X-Ray 11/07/18 11:58 IMPRESSION: Increased bilateral pleural effusions, moderately large in size. Increased basilar atelectasis. Renal Ultrasound 11/09/18 10:57 IMPRESSION: No hydronephrosis Echogenic kidneys from medical renal disease Bladder decompressed by a Bernstein catheter Moderate right pleural effusion Assessment & Plan - Diagnosis (1) Acute kidney injury superimposed on chronic kidney disease Is this a current diagnosis for this admission?: Yes Plan: Kidney function seems stable with creatinine minimally decreasing daily but EGFR remains to be at 14. Patient has underlying chronic kidney disease which is slowly progressively deteriorating. At this time there is no indication of initiation of renal replacement therapy but patient needs to be prepared for it soon. (2) Acute hypoxemic respiratory failure Is this a current diagnosis for this admission?: Yes Plan: Defer to hospitalist service. (3) Acute exacerbation of chronic obstructive pulmonary disease (COPD) Is this a current diagnosis for this admission?: Yes Plan: Defer to hospitalist service. (4) Hyperkalemia Is this a current diagnosis for this admission?: Yes Plan: Resolved. (5) Anemia in CKD (chronic kidney disease) Qualifiers: Chronic kidney disease stage: stage 5, not on chronic dialysis Qualified Code(s): N18.5 - Chronic kidney disease, stage 5; D63.1 - Anemia in chronic kidney disease Is this a current diagnosis for this admission?: Yes Plan: Patient was given hematocrit 40,000 units x 1 dose, 11/09. She also has severe iron deficiency and was given IV Injectafer yesterday. (6) Chronic kidney disease, stage IV (severe) Is this a current diagnosis for this admission?: Yes (7) Hyperphosphatemia Is this a current diagnosis for this admission?: Yes Plan: On PhosLo. (8) Secondary hyperparathyroidism (of renal origin) Is this a current diagnosis for this admission?: Yes Plan: On calcitriol. (9) Atrial fibrillation Qualifiers: Atrial fibrillation type: chronic Qualified Code(s): I48.2 - Chronic atrial fibrillation Is this a current diagnosis for this admission?: Yes (10) Diabetes mellitus type 2 in nonobese Is this a current diagnosis for this admission?: Yes (11) Hypertension Qualifiers: Hypertension type: essential hypertension Qualified Code(s): I10 - Essential (primary) hypertension Is this a current diagnosis for this admission?: Yes - Time Time with patient: 15-25 minutes
--- NOTE | 2018-11-11 11:00 | PDOC PROGRESS REPORT ---
Subjective Progress Note for:: 11/11/18 Subjective:: JOHN PUENTES is a 78 year old female patient with past medical history of atrial fibrillation, congestive heart failure, coronary 30s, hyperlipidemia, hypertension, peripheral arterial disease, history of PE, COPD, stage IV CKD, hypothyroidism, diabetes mellitus and tobacco dependence by EMS for weakness and shortness of breath. Since patient is on full mask BiPAP and somewhat debilitated she is not source of history. Brief history is obtained from ER attending note and her neighbor. According to patient's neighbor who has been helping take care of her, she has been on decline over the past week, she had generalized weakness, and today she could not even stand up off the toilet and she has heavy labored breathing. According to EMS the patient was found to be hypoxic and having difficulty of breathing they did give her a breathing treatment but her work of breathing increasing" worse by the time she came to the emergency department. Her blood work shows hemoglobin of 8, BUN of 55, creatinine of 3.51, GFR of 13 and potassium of 6.1. Her chest x-ray shows bilateral pleural effusion. For hyperkalemia patient was given calcium gluconate, bicarb, dextrose and insulin. For her acute on chronic respiratory failure patient was put on BiPAP and relatively doing better. The hospitalist service consulted for admission. Further detailed history and review of systems unobtainable. 11/08/2018. No acute events overnight, still complaining of shortness of breath, has been on nitro drip, noted to be on A. fib RVR. He denies any chest pain, nausea, vomiting, diarrhea, constipation or any urinary symptoms. 11/09/2018. No acute events overnight. Still complaining of shortness of breath, off of nitro on Cardizem drip. Heart rate is controlled. Patient in no apparent distress, requesting to be transitioned to rehab. Denies any fever, chills, nausea, vomiting, diarrhea, constipation or any urinary symptoms. SBP 140s, T-max 97.5, HR 90s, RR 20s, SPO2 9093 5 L NC FiO2 55%. 11/10/2018. No acute events overnight, no apparent distress, on nasal cannula, use BiPAP overnight. Denies any fever, chills, nausea, vomiting, diarrhea. No bowel for the last 2 days. Patient complaining of dysuria, stating that she feels like she is developing a UTI. Patient is wearing a Bernstein which could be the reason for her abnormal sensation, UA was negative on admission. 11/11/2018. No acute events overnight. Patient is comfortably sitting in bed, not in apparent distress, on supplemental oxygen, denies any fever, chills, nausea, vomiting, diarrhea, constipation or any urinary symptoms. Still dependent on supplemental oxygen. Pending rehab placement. Reason For Visit: HYPERKALEMIA,ACUTE ON CHRONIC HYPERCAPNIC Physical Exam Vital Signs: Temp Pulse Resp BP Pulse Ox 97.4 F 100 25 H 143/69 H 97 11/11/18 07:32 11/11/18 08:01 11/11/18 08:01 11/11/18 07:32 11/11/18 08:01 Intake & Output 11/10/18 11/11/18 11/12/18 06:59 06:59 06:59 Intake Total 1110 685 240 Output Total 600 400 Balance 510 285 240 Weight 80.4 kg 79.8 kg General appearance: PRESENT: no acute distress, well-developed, well-nourished Head exam: PRESENT: atraumatic, normocephalic Neck exam: ABSENT: carotid bruit, JVD, lymphadenopathy, thyromegaly Respiratory exam: PRESENT: clear to auscultation aguilar. ABSENT: rales, rhonchi, wheezes Cardiovascular exam: PRESENT: RRR. ABSENT: diastolic murmur, rubs, systolic murmur GI/Abdominal exam: PRESENT: normal bowel sounds, soft. ABSENT: distended, guarding, mass, organolmegaly, rebound, tenderness Neurological exam: PRESENT: alert, awake, oriented to person, oriented to place, oriented to time, oriented to situation, CN II-XII grossly intact. ABSENT: motor sensory deficit Results Laboratory Results: 11/11/18 08:00 11/11/18 08:00 11/11/18 11/11/18 08:00 08:00 WBC 4.3 RBC 2.80 L Hgb 7.9 L Hct 24.6 L MCV 88 MCH 28.4 MCHC 32.3 RDW 18.7 H Plt Count 173 Seg Neutrophils % Not Reportable Lymphocytes % Not Reportable Monocytes % Not Reportable Eosinophils % Not Reportable Basophils % Not Reportable Absolute Neutrophils Not Reportable Absolute Lymphocytes Not Reportable Absolute Monocytes Not Reportable Absolute Eosinophils Not Reportable Absolute Basophils Not Reportable Sodium 137.1 Potassium 3.7 Chloride 98 Carbon Dioxide 32 H Anion Gap 7 BUN 63 H Creatinine 3.16 H Est GFR ( Amer) 17 L Est GFR (Non-Af Amer) 14 L Glucose 184 H Calcium 8.9 Total Bilirubin 0.4 AST 23 ALT 20 Alkaline Phosphatase 61 Total Protein 5.5 L Albumin 3.2 L 11/07/18 12:15 Troponin I 0.154 Impressions: Chest X-Ray 11/07/18 11:58 IMPRESSION: Increased bilateral pleural effusions, moderately large in size. Increased basilar atelectasis. Renal Ultrasound 11/09/18 10:57 IMPRESSION: No hydronephrosis Echogenic kidneys from medical renal disease Bladder decompressed by a Bernstein catheter Moderate right pleural effusion Assessment and Plan - Diagnosis (1) Acute and chronic respiratory failure with hypercapnia Is this a current diagnosis for this admission?: Yes Plan: Improving. SPO2 95% 5 L NC FiO2 55%. Likely due to COPD exacerbation and A. fib RVR. 11/10/2018. SBP 725336, T-max 97.2, pulse 90s, RR 1427, SPO2 93% 5 L NC. 11/09/2018: SBP 140s, T-max 97.5, HR 90s, RR 20s, SPO2 9093 5 L NC FiO2 55%. 11/08/2018: SPO2 84-98% 6 L FiO2 44%. ABG: pH 7.18, PCO2 82.2, PO2 86.7, FiO2 60%. 11/07/2018: ABG: pH 7.37, PCO2 56.6, PO2 85.1, FiO2 50%. Antibiotics day 5. Received 4 days of IV azithromycin. IV steroids day 5. IV Solu-Medrol day 5. Levofloxacin 500 g p.o. day 2. Continue DuoNeb's, IV steroids, empiric IV antibiotics, BiPAP, supplemental oxygen, pulmonary toileting, incentive spirometry. Cultures remain negative. (2) Atrial fibrillation with RVR Is this a current diagnosis for this admission?: Yes Plan: Rate controlled. Anticoagulated. 11/08/2018 was placed on Cardizem drip. DC'd on 11/09/2018. Continue p.o. Cardizem, and digoxin. Continue Coumadin, INR goal of 2-2.5. Monitor electrolytes, replace as needed. Digoxin level. (3) Chronic kidney disease, stage IV (severe) Is this a current diagnosis for this admission?: Yes Plan: Creatinine stable. No improvement. Nonoliguric. Not on hemodialysis. 11/09/2018 renal ultrasound negative for chronic medical disease. PTH 248. Strict in and out, renal diet, monitor electrolytes and replace as needed. Nephrology on board. Recommendations noted. No hemodialysis planned at this point. BMP tomorrow. Avoid nephrotoxic meds. (4) COPD exacerbation Is this a current diagnosis for this admission?: Yes Plan: Plan as #1 (5) Hyperkalemia Is this a current diagnosis for this admission?: Yes Plan: Resolved. Likely due to worsening CKD. Hyperkalemia protocol. Continue telemetry. BMP tomorrow. (6) Hyperlipidemia Qualifiers: Hyperlipidemia type: unspecified Qualified Code(s): E78.5 - Hyperlipidemia, unspecified Is this a current diagnosis for this admission?: Yes Plan: Continue statins. LFTs WNL. (7) Hypertension Qualifiers: Hypertension type: essential hypertension Qualified Code(s): I10 - Essential (primary) hypertension Is this a current diagnosis for this admission?: Yes Plan: Continue Cardizem. Hold ARB due to worsening kidney function. Hydralazine PRN. (8) Hypothyroidism Qualifiers: Hypothyroidism type: unspecified Qualified Code(s): E03.9 - Hypothyroidism, unspecified Is this a current diagnosis for this admission?: Yes Plan: TSH WNL. Restart home meds. (9) Anemia in CKD (chronic kidney disease) Qualifiers: Chronic kidney disease stage: stage 5, not on chronic dialysis Qualified Code(s): N18.5 - Chronic kidney disease, stage 5; D63.1 - Anemia in chronic kidney disease Is this a current diagnosis for this admission?: Yes Plan: Denies any hematemesis, easy bleeding, hemoptysis, hematochezia, melena, vaginal bleeding. Iron 13.8, TIBC 322, percent saturation 4, ferritin 21. 01/10/2018. Guaiac negative. Denies any history of GI malignancy. Colonoscopy in 2014 showed the polyp status post polypectomy. As per patient recently had a repeat colonoscopy which was reported as normal. Daily H&H. Transfuse if under 7, actively bleeding, or symptomatic. 11/09/2018. Received 1 dose of Procrit. 11/10/2018. Received 1 dose of Injectafer. Nephrology on board. (10) Iron deficiency anemia Qualifiers: Iron deficiency anemia type: chronic blood loss Qualified Code(s): D50.0 - Iron deficiency anemia secondary to blood loss (chronic) Is this a current diagnosis for this admission?: Yes Plan: Stable. History of external hemorrhoids as per colonoscopy in 12/18/2018. Which could be the cause of chronic iron deficiency anemia. Denies any hematemesis, easy bleeding, hemoptysis, hematochezia, melena, vaginal bleeding. 11/09/2018. Iron 13.8, TIBC 322, percent saturation 4, ferritin 21. 01/10/2018. Guaiac negative. 12/18/2017. Colonoscopy: Was positive for diverticulosis and external hemorrhoids. 12/18/2018 she had a polypectomy pathology report available, as per operative report any normal looking polyps. Recomendation was for repeat colonoscopy in 3 years. As per patient she recently had a colonoscopy which was reported as negative. Daily H&H. Transfuse if under 7, actively bleeding, or symptomatic. 11/09/2018. Received 1 dose of Procrit. 11/10/2018. Received 1 dose of Injectafer. (11) External hemorrhoid Is this a current diagnosis for this admission?: Yes Plan: This could be contributing to worsening anemia. History of external hemorrhoids. Will consult surgery for possible intervention or possible outpatient arrangement for surgery.
[2018-11-11] MEDS ORDERED: DIGOXIN INJ 0.5 MG/2 ML AMPULE ONE (18:07)
[2018-11-11 18:12] LABS: HEMATOCRIT 27.5 % (36.0-47.0); HEMOGLOBIN 8.7 g/dL (12.0-15.5); MEAN CORPUSCULAR HEMOGLOBIN 28.3 pg (27.0-33.4); MEAN CORPUSCULAR HGB CONC 31.5 g/dL (32.0-36.0); MEAN CORPUSCULAR VOLUME 90 fl (80-97); PLATELET COUNT 246 10^3/uL (150-450); RED BLOOD COUNT 3.06 10^6/uL (3.72-5.28); RED CELL DISTRIBUTION WIDTH 19.9 % (11.5-14.0); WHITE BLOOD COUNT 8.5 10^3/uL (4.0-10.5)
[2018-11-11 18:22] LABS: ABSOLUTE LYMPHOCYTES# (MANUAL) 0.1 10^3/uL (0.5-4.7); ABSOLUTE MONOCYTES # (MANUAL) 0.5 10^3/uL (0.1-1.4); BASOPHILS % (MANUAL) 0 % (0-2); EOSINOPHILS % (MANUAL) 0 % (0-6); LYMPHOCYTES % (MANUAL) 1 % (13-45); MONOCYTES % (MANUAL) 6 % (3-13); SEGMENTED NEUTROPHILS % (MAN) 93 % (42-78); TOTAL CELLS COUNTED 100
[2018-11-11 18:25] LABS: ANISOCYTOSIS 2+; BURR CELLS SLIGHT; PLATELET CLUMPS PRESENT; POIKILOCYTOSIS SLIGHT; POLYCHROMASIA 1+
[2018-11-11 18:26] LABS: ARTERIAL BLOOD BASE EXCESS 1.9 mmol/L; ARTERIAL BLOOD H2CO3 2.87 mmol/L (1.05-1.35); ARTERIAL BLOOD HCO3 32.3 mmol/L (20-24); ARTERIAL BLOOD O2 SATURATION 74.5 % (94-98); ARTERIAL BLOOD PO2 52.6 mmHg (80-100); ARTERIAL BLOOD TOTAL CO2 35.2 mmol/L (21-25)
[2018-11-11 18:27] LABS: ARTERIAL BLOOD FIO2 6L; ARTERIAL BLOOD PCO2 95.3 mmHg (35-45); ARTERIAL BLOOD PH 7.15 (7.35-7.45)
[2018-11-11] MEDS ORDERED: FUROSEMIDE INJ/PF 40 MG/4 ML SDV ONE (18:27)
[2018-11-11 18:43] LABS: ARTERIAL BLOOD BASE EXCESS 0.4 mmol/L; ARTERIAL BLOOD H2CO3 2.17 mmol/L (1.05-1.35); ARTERIAL BLOOD HCO3 28.9 mmol/L (20-24); ARTERIAL BLOOD PH 7.22 (7.35-7.45); ARTERIAL BLOOD PO2 91.3 mmHg (80-100); ARTERIAL BLOOD TOTAL CO2 31.1 mmol/L (21-25)
[2018-11-11 18:46] LABS: ARTERIAL BLOOD FIO2 100%; ARTERIAL BLOOD PCO2 72.1 mmHg (35-45)
[2018-11-11] MEDS ORDERED: FUROSEMIDE INJ/PF 40 MG/4 ML SDV IV ONE (19:00)
--- NOTE | 2018-11-11 19:17 | RADIOLOGY REPORT (SQ) ---
EXAM DESCRIPTION: CHEST SINGLE VIEW COMPLETED DATE/TIME: 11/11/2018 6:30 pm REASON FOR STUDY: change in status COMPARISON: 11/07/2018 TECHNIQUE: Single frontal radiographic view of the chest acquired. NUMBER OF VIEWS: One view. LIMITATIONS: None. FINDINGS: LUNGS AND PLEURA: No pneumothorax. Slightly increased bilateral basilar airspace disease, interstitial prominence, and moderate pleural effusions. MEDIASTINUM AND HILAR STRUCTURES: Stable. HEART AND VASCULAR STRUCTURES: Stable. BONES: No acute findings. HARDWARE: None in the chest. OTHER: No other significant finding. IMPRESSION: Slightly increased bilateral basilar airspace disease, interstitial prominence, and mode rate pleural effusions. TECHNICAL DOCUMENTATION: JOB ID: [id number] 2010 [employer]- All Rights Reserved Reading location - IP/workstation name: [email or web address]
[2018-11-11] MEDS: FUROSEMIDE INJ/PF 40 MG/4 ML SDV IV SCH (21:13)
[2018-11-12] MEDS: METHYLPREDNISOLONE INJ 40 MG/1 ML SDV IV SCH ×4 (02:44→21:56)
[2018-11-12] MEDS: IPRATROPIUM/ALBUTEROL 0.5-2.5 MG/3 ML AMPUL NEB SCH ×6 (04:05→23:49)
[2018-11-12 05:58] LABS: INTERNATIONAL RATION (INR) 3.01; PROTHROMBIN TIME 31.9 SEC (11.4-15.4)
[2018-11-12 06:14] LABS: HEMATOCRIT 24.7 % (36.0-47.0); MEAN CORPUSCULAR HEMOGLOBIN 28.3 pg (27.0-33.4); MEAN CORPUSCULAR HGB CONC 31.9 g/dL (32.0-36.0); MEAN CORPUSCULAR VOLUME 89 fl (80-97); PLATELET COUNT 167 10^3/uL (150-450); RED BLOOD COUNT 2.78 10^6/uL (3.72-5.28)
[2018-11-12 06:26] LABS: ABSOLUTE LYMPHOCYTES# (MANUAL) 0.1 10^3/uL (0.5-4.7); ABSOLUTE MONOCYTES # (MANUAL) 0.3 10^3/uL (0.1-1.4); BASOPHILS % (MANUAL) 0 % (0-2); EOSINOPHILS % (MANUAL) 0 % (0-6); LYMPHOCYTES % (MANUAL) 1 % (13-45); MONOCYTES % (MANUAL) 4 % (3-13); SEGMENTED NEUTROPHILS % (MAN) 95 % (42-78); TOTAL CELLS COUNTED 100
[2018-11-12 06:27] LABS: ANISOCYTOSIS 1+; OVALOCYTES SLIGHT; POIKILOCYTOSIS SLIGHT; TOXIC GRANULATION SLIGHT
[2018-11-12 06:28] LABS: HEMOGLOBIN 7.9 g/dL (12.0-15.5); PLATELET COMMENT ADEQUATE; POLYCHROMASIA SLIGHT; SCHISTOCYTES SLIGHT
[2018-11-12 06:46] LABS: ARTERIAL BLOOD BASE EXCESS 5.5 mmol/L; ARTERIAL BLOOD H2CO3 1.91 mmol/L (1.05-1.35); ARTERIAL BLOOD HCO3 32.5 mmol/L (20-24); ARTERIAL BLOOD PCO2 63.3 mmHg (35-45); ARTERIAL BLOOD PH 7.33 (7.35-7.45); ARTERIAL BLOOD PO2 82.3 mmHg (80-100); ARTERIAL BLOOD TOTAL CO2 34.5 mmol/L (21-25)
[2018-11-12 06:47] LABS: ARTERIAL BLOOD FIO2 90%
[2018-11-12] MEDS: INSULIN LISPRO 100 UNIT/ML 3 ML VIAL SUBCUT SCH ×4 (10:04→22:04)
[2018-11-12] MEDS: FAMOTIDINE 20 MG TABLET PO SCH ×2 (10:05→21:52)
[2018-11-12] MEDS: TIOTROPIUM BROMIDE DPI 5 CAP/KIT (18 MCG/CAP) IH SCH (10:05)
[2018-11-12] MEDS: DOCUSATE SODIUM 100 MG/10 ML UDC PO SCH ×2 (10:05→17:00)
[2018-11-12] MEDS: FUROSEMIDE INJ/PF 40 MG/4 ML SDV IV SCH ×2 (10:05→22:03)
[2018-11-12] MEDS: DILTIAZEM HCL 240 MG CAPSULE.CR PO SCH (10:05)
[2018-11-12] MEDS: CALCIUM ACETATE 667 MG CAPSULE PO SCH ×3 (10:06→16:24)
[2018-11-12] MEDS: DIGOXIN 0.125 MG TABLET PO SCH (10:06)
[2018-11-12] MEDS: NEOMY SULF/POLYMYX B SULF/HC OTIC SUSP 10 ML AD SCH ×4 (10:06→22:04)
[2018-11-12] MEDS: LEVOFLOXACIN 250 MG TABLET PO SCH (10:14)
--- NOTE | 2018-11-12 11:06 | PDOC PROGRESS REPORT ---
Subjective Progress Note for:: 11/12/18 Subjective:: JOHN PUENTES is a 78 year old female patient with past medical history of atrial fibrillation, congestive heart failure, coronary 30s, hyperlipidemia, hypertension, peripheral arterial disease, history of PE, COPD, stage IV CKD, hypothyroidism, diabetes mellitus and tobacco dependence by EMS for weakness and shortness of breath. Since patient is on full mask BiPAP and somewhat debilitated she is not source of history. Brief history is obtained from ER attending note and her neighbor. According to patient's neighbor who has been helping take care of her, she has been on decline over the past week, she had generalized weakness, and today she could not even stand up off the toilet and she has heavy labored breathing. According to EMS the patient was found to be hypoxic and having difficulty of breathing they did give her a breathing treatment but her work of breathing increasing" worse by the time she came to the emergency department. Her blood work shows hemoglobin of 8, BUN of 55, creatinine of 3.51, GFR of 13 and potassium of 6.1. Her chest x-ray shows bilateral pleural effusion. For hyperkalemia patient was given calcium gluconate, bicarb, dextrose and insulin. For her acute on chronic respiratory failure patient was put on BiPAP and relatively doing better. The hospitalist service consulted for admission. Further detailed history and review of systems unobtainable. 11/08/2018. No acute events overnight, still complaining of shortness of breath, has been on nitro drip, noted to be on A. fib RVR. He denies any chest pain, nausea, vomiting, diarrhea, constipation or any urinary symptoms. 11/09/2018. No acute events overnight. Still complaining of shortness of breath, off of nitro on Cardizem drip. Heart rate is controlled. Patient in no apparent distress, requesting to be transitioned to rehab. Denies any fever, chills, nausea, vomiting, diarrhea, constipation or any urinary symptoms. SBP 140s, T-max 97.5, HR 90s, RR 20s, SPO2 9093 5 L NC FiO2 55%. 11/10/2018. No acute events overnight, no apparent distress, on nasal cannula, use BiPAP overnight. Denies any fever, chills, nausea, vomiting, diarrhea. No bowel for the last 2 days. Patient complaining of dysuria, stating that she feels like she is developing a UTI. Patient is wearing a Bernstein which could be the reason for her abnormal sensation, UA was negative on admission. 11/11/2018. No acute events overnight. Patient is comfortably sitting in bed, not in apparent distress, on supplemental oxygen, denies any fever, chills, nausea, vomiting, diarrhea, constipation or any urinary symptoms. Still dependent on supplemental oxygen. Pending rehab placement. 11/12/2018. On 719 219 around 6 PM patient suddenly became unresponsive, very hypoxic, PO2 running in the 50s and 60s, rapid response was called, ABG was done which showed worsening hypercarbia, hypoxemia, and respiratory acidosis, chest x-ray showed worsening of bilateral pleural effusion, troponin was checked which was negative. Patient CODE STATUS was tested again with POA who stated that patient has wished several times and has been very persistent about her DNR status. They want to continue the DNR status. This morning on my encounter patient is in mild respiratory distress, on BiPAP, putting improvement of her respiratory symptoms, denies any chest pain, fever, nausea, vomiting, diarrhea, constipation or any urinary symptoms. Repeat ABG this morning shows improvement of her gases. RR 1828, SPO2 94% on BiPAP FiO2 90%. ABG: pH 7.33, PCO2 63.3, PO2 82.3, FiO2 90%. Reason For Visit: HYPERKALEMIA,ACUTE ON CHRONIC HYPERCAPNIC Physical Exam Vital Signs: Temp Pulse Resp BP Pulse Ox 97.2 F 91 22 H 113/49 L 94 11/12/18 03:25 11/12/18 07:53 11/12/18 07:53 11/12/18 03:25 11/12/18 07:53 Intake & Output 11/11/18 11/12/18 11/13/18 06:59 06:59 06:59 Intake Total 685 480 240 Output Total 400 775 Balance 285 -295 240 Weight 79.8 kg 81.4 kg Results Laboratory Results: 11/12/18 05:42 11/11/18 08:00 11/11/18 11/11/18 11/11/18 18:01 18:01 18:35 WBC 8.5 RBC 3.06 L Hgb 8.7 L Hct 27.5 L MCV 90 MCH 28.3 MCHC 31.5 L RDW 19.9 H Plt Count 246 Seg Neutrophils % Not Reportable Lymphocytes % Not Reportable Monocytes % Not Reportable Eosinophils % Not Reportable Basophils % Not Reportable Absolute Neutrophils Not Reportable Absolute Lymphocytes Not Reportable Absolute Monocytes Not Reportable Absolute Eosinophils Not Reportable Absolute Basophils Not Reportable Carbonic Acid 2.87 H 2.17 H HCO3/H2CO3 Ratio 11:1 13:1 ABG pH 7.15 L* 7.22 L ABG pCO2 95.3 H* 72.1 H* ABG pO2 52.6 L 91.3 ABG HCO3 32.3 H 28.9 H ABG O2 Saturation 74.5 L 95.0 ABG Base Excess 1.9 0.4 FiO2 6L 100% 11/12/18 11/12/18 05:42 06:35 WBC 8.0 RBC 2.78 L Hgb 7.9 L Hct 24.7 L MCV 89 MCH 28.3 MCHC 31.9 L RDW 19.0 H Plt Count 167 Seg Neutrophils % Not Reportable Lymphocytes % Not Reportable Monocytes % Not Reportable Eosinophils % Not Reportable Basophils % Not Reportable Absolute Neutrophils Not Reportable Absolute Lymphocytes Not Reportable Absolute Monocytes Not Reportable Absolute Eosinophils Not Reportable Absolute Basophils Not Reportable Carbonic Acid 1.91 H HCO3/H2CO3 Ratio 17:1 ABG pH 7.33 L ABG pCO2 63.3 H ABG pO2 82.3 ABG HCO3 32.5 H ABG O2 Saturation 95.0 ABG Base Excess 5.5 FiO2 90% 11/07/18 11/11/18 12:15 20:33 Troponin I 0.154 0.088 Impressions: Renal Ultrasound 11/09/18 10:57 IMPRESSION: No hydronephrosis Echogenic kidneys from medical renal disease Bladder decompressed by a Bernstein catheter Moderate right pleural effusion Chest X-Ray 11/11/18 00:00 IMPRESSION: Slightly increased bilateral basilar airspace disease, interstitial prominence, and moderate pleural effusions. Assessment and Plan - Diagnosis (1) Acute and chronic respiratory failure with hypercapnia Is this a current diagnosis for this admission?: Yes Plan: Worsening. Patient had acute worsening respiratory failure on 11/11/2018. ABG showed worsening hypercarbia, hypoxemia, and respiratory acidosis. Symptoms are improving since yesterday. Likely due to COPD exacerbation, A. fib RVR and bilateral pleural effusion most likely due to volume overload caused by A. fib RVR and worsening renal function. 11/12/2018. RR 1828, SPO2 94% on BiPAP FiO2 90%. ABG: pH 7.33, PCO2 63.3, PO2 82.3, FiO2 90%. 11/10/2018. SBP 769845, T-max 97.2, pulse 90s, RR 1427, SPO2 93% 5 L NC. 11/09/2018: SBP 140s, T-max 97.5, HR 90s, RR 20s, SPO2 9093 5 L NC FiO2 55%. 11/08/2018: SPO2 84-98% 6 L FiO2 44%. ABG: pH 7.18, PCO2 82.2, PO2 86.7, FiO2 60%. 11/07/2018: ABG: pH 7.37, PCO2 56.6, PO2 85.1, FiO2 50%. Antibiotics day 6. Received 4 days of IV azithromycin. IV steroids day 6. IV Solu-Medrol day 6. Levofloxacin 500 g p.o. day 3. Continue DuoNeb's, BiPAP, supplemental oxygen, pulmonary toileting, incentive spirometry and IV Lasix. Cultures remain negative. (2) Bilateral pleural effusion Is this a current diagnosis for this admission?: Yes Plan: This could likely be due to A. fib RVR and volume overload due to worsening renal function. We will continue cautious diuresis guided by volume status. If no improvement will consult IR for possible thoracentesis. (3) Atrial fibrillation with RVR Is this a current diagnosis for this admission?: Yes Plan: Rate controlled. Anticoagulated. 11/08/2018 was placed on Cardizem drip. DC'd on 11/09/2018. Continue p.o. Cardizem, and digoxin. Continue Coumadin, INR goal of 2-2.5. Monitor electrolytes, replace as needed. Digoxin level. (4) Chronic kidney disease, stage IV (severe) Is this a current diagnosis for this admission?: Yes Plan: Creatinine stable. No improvement. Nonoliguric. Not on hemodialysis. 11/09/2018 renal ultrasound negative for chronic medical disease. PTH 248. Strict in and out, renal diet, monitor electrolytes and replace as needed. Nephrology on board. Recommendations noted. No hemodialysis planned at this point. BMP tomorrow. Avoid nephrotoxic meds. (5) COPD exacerbation Is this a current diagnosis for this admission?: Yes Plan: Plan as #1 (6) Hyperkalemia Is this a current diagnosis for this admission?: Yes Plan: Resolved. Likely due to worsening CKD. Hyperkalemia protocol. Continue telemetry. BMP tomorrow. (7) Hyperlipidemia Qualifiers: Hyperlipidemia type: unspecified Qualified Code(s): E78.5 - Hyperlipidemia, unspecified Is this a current diagnosis for this admission?: Yes Plan: Continue statins. LFTs WNL. (8) Hypertension Qualifiers: Hypertension type: essential hypertension Qualified Code(s): I10 - Essential (primary) hypertension Is this a current diagnosis for this admission?: Yes Plan: Continue Cardizem. Hold ARB due to worsening kidney function. Hydralazine PRN. (9) Hypothyroidism Qualifiers: Hypothyroidism type: unspecified Qualified Code(s): E03.9 - Hypothyroidism, unspecified Is this a current diagnosis for this admission?: Yes Plan: TSH WNL. Restart home meds. (10) Anemia in CKD (chronic kidney disease) Qualifiers: Chronic kidney disease stage: stage 5, not on chronic dialysis Qualified Code(s): N18.5 - Chronic kidney disease, stage 5; D63.1 - Anemia in chronic kidney disease Is this a current diagnosis for this admission?: Yes Plan: Denies any hematemesis, easy bleeding, hemoptysis, hematochezia, melena, vaginal bleeding. Iron 13.8, TIBC 322, percent saturation 4, ferritin 21. 01/10/2018. Guaiac negative. Denies any history of GI malignancy. Colonoscopy in 2014 showed the polyp status post polypectomy. As per patient recently had a repeat colonoscopy which was reported as normal. Daily H&H. Transfuse if under 7, actively bleeding, or symptomatic. 11/09/2018. Received 1 dose of Procrit. 11/10/2018. Received 1 dose of Injectafer. Nephrology on board. (11) Iron deficiency anemia Qualifiers: Iron deficiency anemia type: chronic blood loss Qualified Code(s): D50.0 - Iron deficiency anemia secondary to blood loss (chronic) Is this a current diagnosis for this admission?: Yes Plan: Stable. History of external hemorrhoids as per colonoscopy in 12/18/2018. Which could be the cause of chronic iron deficiency anemia. Denies any hematemesis, easy bleeding, hemoptysis, hematochezia, melena, vaginal bleeding. 11/09/2018. Iron 13.8, TIBC 322, percent saturation 4, ferritin 21. 01/10/2018. Guaiac negative. 12/18/2017. Colonoscopy: Was positive for diverticulosis and external hemorrhoids. 12/18/2018 she had a polypectomy pathology report available, as per operative report any normal looking polyps. Recomendation was for repeat colonoscopy in 3 years. As per patient she recently had a colonoscopy which was reported as negative. Daily H&H. Supportive measures. Patient cannot receive PRBC because of roman catholic beliefs (Protestant.) 11/09/2018. Received 1 dose of Procrit. 11/10/2018. Received 1 dose of Injectafer. (12) External hemorrhoid Is this a current diagnosis for this admission?: Yes Plan: This could be contributing to worsening anemia. History of external hemorrhoids. Will consult surgery for possible intervention or possible outpatient arrangement for surgery.
[2018-11-12 19:32] LABS: INTERNATIONAL RATION (INR) 3.65; PROTHROMBIN TIME 37.2 SEC (11.4-15.4)
[2018-11-12 19:33] LABS: PARTIAL THROMBOPLASTIN TIME 41.7 SEC (23.5-35.8)
[2018-11-13] MEDS: METHYLPREDNISOLONE INJ 40 MG/1 ML SDV IV SCH ×4 (03:55→21:27)
[2018-11-13] MEDS: IPRATROPIUM/ALBUTEROL 0.5-2.5 MG/3 ML AMPUL NEB SCH ×5 (04:15→21:06)
[2018-11-13] MEDS: INSULIN LISPRO 100 UNIT/ML 3 ML VIAL SUBCUT SCH ×4 (07:48→21:27)
[2018-11-13] MEDS: CALCIUM ACETATE 667 MG CAPSULE PO SCH ×3 (07:48→17:18)
[2018-11-13 08:30] LABS: INTERNATIONAL RATION (INR) 2.54; PROTHROMBIN TIME 27.8 SEC (11.4-15.4)
[2018-11-13 08:52] LABS: ARTERIAL BLOOD BASE EXCESS 5.3 mmol/L; ARTERIAL BLOOD H2CO3 1.78 mmol/L (1.05-1.35); ARTERIAL BLOOD O2 SATURATION 99.4 % (94-98); ARTERIAL BLOOD PCO2 59.1 mmHg (35-45); ARTERIAL BLOOD PH 7.35 (7.35-7.45); ARTERIAL BLOOD PO2 220.5 mmHg (80-100); ARTERIAL BLOOD TOTAL CO2 33.8 mmol/L (21-25)
[2018-11-13] MEDS: DOCUSATE SODIUM 100 MG/10 ML UDC PO SCH ×2 (09:20→17:17)
[2018-11-13] MEDS: FUROSEMIDE INJ/PF 40 MG/4 ML SDV IV SCH ×2 (09:20→21:27)
[2018-11-13] MEDS: FAMOTIDINE 20 MG TABLET PO SCH ×2 (09:20→21:27)
[2018-11-13] MEDS: DILTIAZEM HCL 240 MG CAPSULE.CR PO SCH (09:20)
[2018-11-13] MEDS ORDERED: LORAZEPAM INJ 2 MG/1 ML VIAL ONE (09:29)
[2018-11-13] MEDS: NEOMY SULF/POLYMYX B SULF/HC OTIC SUSP 10 ML AD SCH ×4 (09:38→21:41)
[2018-11-13] MEDS: TIOTROPIUM BROMIDE DPI 5 CAP/KIT (18 MCG/CAP) IH SCH (09:55)
[2018-11-13] MEDS ORDERED: LORAZEPAM INJ 2 MG/1 ML VIAL IV ONE (10:00)
[2018-11-13] MEDS ORDERED: HYDRALAZINE HCL INJ/PF 20 MG/1 ML SDV ONE (12:21)
[2018-11-13] MEDS: HYDRALAZINE HCL INJ/PF 20 MG/1 ML SDV IV PRN (12:26)
--- NOTE | 2018-11-13 13:37 | PDOC PROGRESS REPORT ---
Subjective Progress Note for:: 11/13/18 Subjective:: JOHN PUENTES is a 78 year old female patient with past medical history of atrial fibrillation, congestive heart failure, coronary 30s, hyperlipidemia, hypertension, peripheral arterial disease, history of PE, COPD, stage IV CKD, hypothyroidism, diabetes mellitus and tobacco dependence by EMS for weakness and shortness of breath. Since patient is on full mask BiPAP and somewhat debilitated she is not source of history. Brief history is obtained from ER attending note and her neighbor. According to patient's neighbor who has been helping take care of her, she has been on decline over the past week, she had generalized weakness, and today she could not even stand up off the toilet and she has heavy labored breathing. According to EMS the patient was found to be hypoxic and having difficulty of breathing they did give her a breathing treatment but her work of breathing increasing" worse by the time she came to the emergency department. Her blood work shows hemoglobin of 8, BUN of 55, creatinine of 3.51, GFR of 13 and potassium of 6.1. Her chest x-ray shows bilateral pleural effusion. For hyperkalemia patient was given calcium gluconate, bicarb, dextrose and insulin. For her acute on chronic respiratory failure patient was put on BiPAP and relatively doing better. The hospitalist service consulted for admission. Further detailed history and review of systems unobtainable. 11/08/2018. No acute events overnight, still complaining of shortness of breath, has been on nitro drip, noted to be on A. fib RVR. He denies any chest pain, nausea, vomiting, diarrhea, constipation or any urinary symptoms. 11/09/2018. No acute events overnight. Still complaining of shortness of breath, off of nitro on Cardizem drip. Heart rate is controlled. Patient in no apparent distress, requesting to be transitioned to rehab. Denies any fever, chills, nausea, vomiting, diarrhea, constipation or any urinary symptoms. SBP 140s, T-max 97.5, HR 90s, RR 20s, SPO2 9093 5 L NC FiO2 55%. 11/10/2018. No acute events overnight, no apparent distress, on nasal cannula, use BiPAP overnight. Denies any fever, chills, nausea, vomiting, diarrhea. No bowel for the last 2 days. Patient complaining of dysuria, stating that she feels like she is developing a UTI. Patient is wearing a Bernstein which could be the reason for her abnormal sensation, UA was negative on admission. 11/11/2018. No acute events overnight. Patient is comfortably sitting in bed, not in apparent distress, on supplemental oxygen, denies any fever, chills, nausea, vomiting, diarrhea, constipation or any urinary symptoms. Still dependent on supplemental oxygen. Pending rehab placement. 11/12/2018. On 719 219 around 6 PM patient suddenly became unresponsive, very hypoxic, PO2 running in the 50s and 60s, rapid response was called, ABG was done which showed worsening hypercarbia, hypoxemia, and respiratory acidosis, chest x-ray showed worsening of bilateral pleural effusion, troponin was checked which was negative. Patient CODE STATUS was tested again with POA who stated that patient has wished several times and has been very persistent about her DNR status. They want to continue the DNR status. This morning on my encounter patient is in mild respiratory distress, on BiPAP, putting improvement of her respiratory symptoms, denies any chest pain, fever, nausea, vomiting, diarrhea, constipation or any urinary symptoms. Repeat ABG this morning shows improvement of her gases. RR 1828, SPO2 94% on BiPAP FiO2 90%. ABG: pH 7.33, PCO2 63.3, PO2 82.3, FiO2 90%. 11/13/2018. Mild improvement of blood gases, still dependent on BiPAP. Not very compliant with BiPAP due to anxiety, p.o. tolerant, having normal bowel bladder movement. Denies any fever, chills, nausea, vomiting pending thoracentesis. Once thoracentesis done if improvement of respiratory symptoms patient can be transitioned to rehab. Reason For Visit: HYPERKALEMIA,ACUTE ON CHRONIC HYPERCAPNIC Physical Exam Vital Signs: Temp Pulse Resp BP Pulse Ox 97.3 F 105 H 22 H 158/92 H 95 11/13/18 07:40 11/13/18 08:37 11/13/18 08:37 11/13/18 07:40 11/13/18 07:40 Intake & Output 11/12/18 11/13/18 11/14/18 06:59 06:59 06:59 Intake Total 480 980 Output Total 775 2500 Balance -295 -1520 Weight 81.4 kg 78.4 kg Results Laboratory Results: 11/12/18 05:42 11/11/18 08:00 11/12/18 11/13/18 18:13 08:29 Carbonic Acid 1.78 H HCO3/H2CO3 Ratio 17:1 ABG pH 7.35 ABG pCO2 59.1 H ABG pO2 220.5 H ABG HCO3 32.0 H ABG O2 Saturation 99.4 H ABG Base Excess 5.3 FiO2 88% Total Protein 5.2 L 11/07/18 14:10 Blood Blood Culture - Final NO GROWTH IN 5 DAYS 11/07/18 12:15 Blood Blood Culture - Final NO GROWTH IN 5 DAYS 11/07/18 11/11/18 12:15 20:33 Troponin I 0.154 0.088 Impressions: Renal Ultrasound 11/09/18 10:57 IMPRESSION: No hydronephrosis Echogenic kidneys from medical renal disease Bladder decompressed by a Bernstein catheter Moderate right pleural effusion Chest X-Ray 11/11/18 00:00 IMPRESSION: Slightly increased bilateral basilar airspace disease, interstitial prominence, and moderate pleural effusions. Assessment and Plan - Diagnosis (1) Acute and chronic respiratory failure with hypercapnia Is this a current diagnosis for this admission?: Yes Plan: Mild improvement of blood gases. Still dependent on BiPAP and supplemental oxygen. Patient is not very compliant with wearing BiPAP. Likely due to COPD exacerbation, A. fib RVR and bilateral pleural effusion most likely due to volume overload caused by A. fib RVR and worsening renal function. Pending thoracentesis by radiology. Scheduled for today however was rescheduled by radiology for tomorrow. 11/13/2018. ABG: pH 7.35, PCO2 59.1, PO2 220, FiO2 88%. 11/12/2018. RR 1828, SPO2 94% on BiPAP FiO2 90%. ABG: pH 7.33, PCO2 63.3, PO2 82.3, FiO2 90%. 11/10/2018. SBP 279525, T-max 97.2, pulse 90s, RR 1427, SPO2 93% 5 L NC. 11/09/2018: SBP 140s, T-max 97.5, HR 90s, RR 20s, SPO2 9093 5 L NC FiO2 55%. 11/08/2018: SPO2 84-98% 6 L FiO2 44%. ABG: pH 7.18, PCO2 82.2, PO2 86.7, FiO2 60%. 11/07/2018: ABG: pH 7.37, PCO2 56.6, PO2 85.1, FiO2 50%. Antibiotics day 7. Received 4 days of IV azithromycin. IV steroids day 7. IV Solu-Medrol day 7. Levofloxacin 500 g p.o. day 3. Continue DuoNeb's, BiPAP, supplemental oxygen, pulmonary toileting, incentive spirometry and IV Lasix. Cultures remain negative. Thoracentesis tomorrow. (2) Bilateral pleural effusion Is this a current diagnosis for this admission?: Yes Plan: This could likely be due to A. fib RVR and volume overload due to worsening renal function. Continue cautious diuresis guided by volume status. Thoracentesis ordered however rescheduled by radiology for tomorrow. (3) Atrial fibrillation with RVR Is this a current diagnosis for this admission?: Yes Plan: Rate controlled. Not anticoagulated. Patient very high risk for chronic anticoagulation due to underlying history of recurrent falls, severe anemia, external bleeding hemorrhoids. After discussing with patient and her daughter who is the POA about the risk of bleeding they decided to withhold Coumadin for right now. 11/08/2018 was placed on Cardizem drip. DC'd on 11/09/2018. Continue p.o. Cardizem, and digoxin. Monitor electrolytes, replace as needed. Digoxin level. (4) Chronic kidney disease, stage IV (severe) Is this a current diagnosis for this admission?: Yes Plan: Creatinine stable. No improvement. Nonoliguric. Not on hemodialysis. 11/09/2018 renal ultrasound negative for chronic medical disease. PTH 248. Strict in and out, renal diet, monitor electrolytes and replace as needed. Nephrology on board. Recommendations noted. No hemodialysis planned at this point. BMP tomorrow. Avoid nephrotoxic meds. (5) COPD exacerbation Is this a current diagnosis for this admission?: Yes Plan: Plan as #1 (6) Hyperkalemia Is this a current diagnosis for this admission?: Yes Plan: Resolved. Likely due to worsening CKD. Hyperkalemia protocol. Continue telemetry. BMP tomorrow. (7) Hyperlipidemia Qualifiers: Hyperlipidemia type: unspecified Qualified Code(s): E78.5 - Hyperlipidemia, unspecified Is this a current diagnosis for this admission?: Yes Plan: Continue statins. LFTs WNL. (8) Hypertension Qualifiers: Hypertension type: essential hypertension Qualified Code(s): I10 - Essential (primary) hypertension Is this a current diagnosis for this admission?: Yes Plan: Continue Cardizem. Hold ARB due to worsening kidney function. Hydralazine PRN. (9) Hypothyroidism Qualifiers: Hypothyroidism type: unspecified Qualified Code(s): E03.9 - Hypothyroidism, unspecified Is this a current diagnosis for this admission?: Yes Plan: TSH WNL. Restart home meds. (10) Anemia in CKD (chronic kidney disease) Qualifiers: Chronic kidney disease stage: stage 5, not on chronic dialysis Qualified Code(s): N18.5 - Chronic kidney disease, stage 5; D63.1 - Anemia in chronic kidney disease Is this a current diagnosis for this admission?: Yes Plan: Denies any hematemesis, easy bleeding, hemoptysis, hematochezia, melena, vaginal bleeding. Iron 13.8, TIBC 322, percent saturation 4, ferritin 21. 01/10/2018. Guaiac negative. Denies any history of GI malignancy. Colonoscopy in 2014 showed the polyp status post polypectomy. As per patient recently had a repeat colonoscopy which was reported as normal. Daily H&H. Transfuse if under 7, actively bleeding, or symptomatic. 11/09/2018. Received 1 dose of Procrit. 11/10/2018. Received 1 dose of Injectafer. Nephrology on board. (11) Iron deficiency anemia Qualifiers: Iron deficiency anemia type: chronic blood loss Qualified Code(s): D50.0 - Iron deficiency anemia secondary to blood loss (chronic) Is this a current diagnosis for this admission?: Yes Plan: Stable. No PRBC transfusion as patient is a Evangelical. History of external hemorrhoids as per colonoscopy in 12/18/2018. Which could be the cause of chronic iron deficiency anemia. Denies any hematemesis, easy bleeding, hemoptysis, hematochezia, melena, vaginal bleeding. 11/09/2018. Iron 13.8, TIBC 322, percent saturation 4, ferritin 21. 01/10/2018. Guaiac negative. 12/18/2017. Colonoscopy: Was positive for diverticulosis and external hemorrhoids. 12/18/2018 she had a polypectomy pathology report available, as per operative report any normal looking polyps. Recomendation was for repeat colonoscopy in 3 years. As per patient she recently had a colonoscopy which was reported as negative. Daily H&H. Supportive measures. Patient cannot receive PRBC because of druze beliefs (Evangelical.) 11/09/2018. Received 1 dose of Procrit. 11/10/2018. Received 1 dose of Injectafer. (12) External hemorrhoid Is this a current diagnosis for this admission?: Yes Plan: This could be contributing to worsening anemia. History of external hemorrhoids. Surgery consulted. No surgery planned at this point.
[2018-11-13] MEDS: LORAZEPAM 1 MG TABLET PO PRN (18:19)
--- NOTE | 2018-11-13 21:49 | PDOC CONSULTATION ---
Consultation Consult Date: 11/13/18 Provider Consulted: GONSALO SHEETS Consult reason:: hemrrhoids History of Present Illness Admission Date/PCP: 11/07/18 14:02 JOSE MARTIN SALOMON MD History of Present Illness: JOHN PUENTES is a 78 year old female admitted for anemia,COPD and shortness of breath. Had [facility] APPRENTICE on 11/11/18 and not seen then. Apparently has hemorrhoids which may be partly causing anemia. Past Medical History Cardiac Medical History: Reports: Atrial Fibrillation, Congestive Heart Failure, Coronary Artery Disease, Hyperlipidema, Hypertension, Peripheral Vascular Disease, Pulmonary Embolism, Heart Murmur - 42 YRS AGO DIAGNOSED Denies: Myocardial Infarction Pulmonary Medical History: Reports: Asthma, Bronchitis, Chronic Obstructive Pulmonary Disease (COPD), Pneumonia, Respiratory Failure, Sleep Apnea Denies: Tuberculosis Neurological Medical History: Denies: Seizures Endocrine Medical History: Reports: Diabetes Mellitus Type 2, Hypothyroidism Denies: Diabetes Mellitus Type 1, Hyperthyroidism Malignancy Medical History: Denies: Lung Cancer GI Medical History: Reports: Gastroesophageal Reflux Disease, Hiatal Hernia Denies: Cirrhosis, Hepatitis Musculoskeltal Medical History: Reports: Arthritis Denies: Gout Skin Medical History: Denies: Eczema, Psoriasis Psychiatric Medical History: Reports: Depression Hematology: Reports: Anemia Denies: Sickle Cell Disease, Bleeding Tendencies Past Surgical History Past Surgical History: Reports: Appendectomy, Cardiac Catheterization - 3 STENTS, Coronary Artery Bypass Graft, Hysterectomy, Tonsillectomy Denies: Amputation, Mastectomy Social History Smoking Status: Current Every Day Smoker Cigarettes Packs Per Day: 0.5 Number of Years Smokin Last Time Smoked: t-1 Frequency of Alcohol Use: None Hx Recreational Drug Use: No Drugs: None Hx Prescription Drug Abuse: No - Advance Directive Resuscitation Status: Do Not Resuscitate Family History Family History: CAD, CVA, DM, Hypertension, Malignancy Parental Family History Reviewed: Yes Children Family History Reviewed: No Sibling(s) Family History Reviewed.: No Medication/Allergy Home Medications: Calcitriol [Rocaltrol] 0.25 mcg PO MOFR 09/23/18 Tiotropium [place] [Spiriva Handihaler 5 Cap/Kit (18 Mcg/Cap)] 1 cap IH DAILY #10 capsule 09/28/18 Digoxin [Lanoxin 0.125 mg Tablet] 0.125 mg PO Q2D 11/07/18 Diltiazem HCl [Cardizem Cd 240 mg Capsule.cr] 240 mg PO DAILY 11/07/18 Losartan Potassium [Cozaar 25 mg Tablet] 12.5 mg PO DAILY 11/07/18 Sodium Polystyrene Sulfonate [Kayexalate 15 Gm/60 Ml Susp 60 Ml] 15 gm PO DAILY 11/07/18 Warfarin Sodium [Coumadin 1 mg Tablet] 1 mg PO QHS 11/07/18 Warfarin Sodium [Coumadin] 6 mg PO DAILY 11/07/18 Allergies/Adverse Reactions: guaifenesin [Guaifenesin] Allergy (Severe, Verified 09/09/18 11:41) itching, hard to breathe Iodinated Contrast- Oral and IV Dye [IV Dye, Iodine Containing] Allergy (Mild, Verified 09/09/18 11:41) rash iodine [Iodine] Allergy (Mild, Verified 09/09/18 11:41) rash Sulfa (Sulfonamide Antibiotics) Allergy (Mild, Verified 09/09/18 11:41) rash dar Allergy (Severe, Uncoded 09/09/18 11:41) Anaphylaxis Review of Systems Cardiovascular: PRESENT: dyspnea on exertion Respiratory: PRESENT: dyspnea Gastrointestinal: PRESENT: other - some anal discomfort Physical Exam Vital Signs: Temp Pulse Resp BP Pulse Ox 97.3 F 75 23 H 159/69 H 99 11/13/18 19:39 11/13/18 19:39 11/13/18 19:39 11/13/18 19:39 11/13/18 19:39 Intake & Output 11/12/18 11/13/18 11/14/18 06:59 06:59 06:59 Intake Total 480 980 870 Output Total 773 6266 700 Balance -295 -1520 170 Weight 81.4 kg 78.4 kg General appearance: PRESENT: mild distress Head exam: PRESENT: atraumatic Eye exam: PRESENT: conjunctiva pink Mouth exam: PRESENT: moist Neck exam: PRESENT: full ROM Respiratory exam: PRESENT: crackles, rhonchi Cardiovascular exam: PRESENT: RRR Pulses: PRESENT: normal radial pulses Vascular exam: PRESENT: normal capillary refill Rectal exam: PRESENT: decreased rectal tone, hemorrhoids - external hemorrhoids ,relatively small and no bleeding noted. Has some fecal impaction that was partially manually disimpacted. Results Laboratory Results: 11/12/18 05:42 11/11/18 08:00 11/13/18 08:29 Carbonic Acid 1.78 H HCO3/H2CO3 Ratio 17:1 ABG pH 7.35 ABG pCO2 59.1 H ABG pO2 220.5 H ABG HCO3 32.0 H ABG O2 Saturation 99.4 H ABG Base Excess 5.3 FiO2 88% 11/07/18 11/11/18 12:15 20:33 Troponin I 0.154 0.088 Impressions: Renal Ultrasound 11/09/18 10:57 IMPRESSION: No hydronephrosis Echogenic kidneys from medical renal disease Bladder decompressed by a Bernstein catheter Moderate right pleural effusion Chest X-Ray 11/11/18 00:00 IMPRESSION: Slightly increased bilateral basilar airspace disease, interstitial prominence, and moderate pleural effusions. Assessment & Plan - Diagnosis (1) fecal impaction Is this a current diagnosis for this admission?: Yes (2) External hemorrhoid Is this a current diagnosis for this admission?: Yes (3) Respiratory failure Qualifiers: Chronicity: acute on chronic Respiratory failure complication: hypoxia and hypercapnia Qualified Code(s): J96.21 - Acute and chronic respiratory failure with hypoxia Is this a current diagnosis for this admission?: Yes - Time Time Spent: 30 to 50 Minutes - Plan Summary Plan Summary: No need for hemorrhoidectomy at this time becuse they are relatively small and no evidence of bleeding. Will order suppository for fecal impaction. If no results then may order Soap suds Enemas
[2018-11-13] MEDS ORDERED: BISACODYL 10 MG SUPP.RECT PR ONE (23:00)
[2018-11-14] MEDS: METHYLPREDNISOLONE INJ 40 MG/1 ML SDV IV SCH ×2 (03:39→08:58)
[2018-11-14] MEDS: HYDRALAZINE HCL INJ/PF 20 MG/1 ML SDV IV PRN (03:58)
[2018-11-14] MEDS: IPRATROPIUM/ALBUTEROL 0.5-2.5 MG/3 ML AMPUL NEB SCH ×6 (04:24→20:30)
[2018-11-14 06:26] LABS: HEMATOCRIT 24.6 % (36.0-47.0); MEAN CORPUSCULAR HGB CONC 32.5 g/dL (32.0-36.0); MEAN CORPUSCULAR VOLUME 89 fl (80-97); PLATELET COUNT 184 10^3/uL (150-450); RED BLOOD COUNT 2.76 10^6/uL (3.72-5.28); WHITE BLOOD COUNT 6.8 10^3/uL (4.0-10.5)
[2018-11-14 06:31] LABS: PROTHROMBIN TIME 25.7 SEC (11.4-15.4)
[2018-11-14 06:46] LABS: ABSOLUTE LYMPHOCYTES# (MANUAL) 0.2 10^3/uL (0.5-4.7); ABSOLUTE MONOCYTES # (MANUAL) 0.1 10^3/uL (0.1-1.4); BAND NEUTROPHILS % (MANUAL) 1 % (3-5); BASOPHILS % (MANUAL) 0 % (0-2); EOSINOPHILS % (MANUAL) 0 % (0-6); LYMPHOCYTES % (MANUAL) 3 % (13-45); MONOCYTES % (MANUAL) 2 % (3-13); NUCLEATED RED BLOOD CELLS 1 /100 WBC (0); PLATELET COMMENT ADEQUATE; SEGMENTED NEUTROPHILS % (MAN) 94 % (42-78); TOTAL CELLS COUNTED 100
[2018-11-14 06:47] LABS: ANISOCYTOSIS 2+; HYPOCHROMASIA 1+; POLYCHROMASIA SLIGHT; SCHISTOCYTES SLIGHT; TARGET CELLS SLIGHT
[2018-11-14 06:50] LABS: ALANINE AMINOTRANSFERASE 30 U/L (9-52); ALBUMIN 2.9 g/dL (3.5-5.0); ALKALINE PHOSPHATASE 48 U/L (38-126); ANION GAP 7 (5-19); ASPARTATE AMINO TRANSFERASE 24 U/L (14-36); BILIRUBIN,DIRECT 0.3 mg/dL (0.0-0.4); BILIRUBIN,TOTAL 0.4 mg/dL (0.2-1.3); BLOOD UREA NITROGEN 75 mg/dL (7-20); CALCIUM 8.7 mg/dL (8.4-10.2); CARBON DIOXIDE 34 mmol/L (22-30); CHLORIDE 95 mmol/L (98-107); GLUCOSE 177 mg/dL (75-110); POTASSIUM 3.4 mmol/L (3.6-5.0); TOTAL PROTEIN 5.1 g/dL (6.3-8.2)
[2018-11-14] MEDS ORDERED: POTASSIUM CHLORIDE 10 MEQ CAPSULE.ER PO ONE ×2 (07:25→08:30)
[2018-11-14] MEDS: INSULIN LISPRO 100 UNIT/ML 3 ML VIAL SUBCUT SCH ×4 (08:50→23:06)
[2018-11-14] MEDS: CALCIUM ACETATE 667 MG CAPSULE PO SCH ×3 (08:58→18:25)
[2018-11-14] MEDS: DIGOXIN 0.125 MG TABLET PO SCH (10:04)
[2018-11-14] MEDS: FUROSEMIDE INJ/PF 40 MG/4 ML SDV IV SCH ×2 (10:04→23:07)
[2018-11-14] MEDS: DOCUSATE SODIUM 100 MG/10 ML UDC PO SCH ×2 (10:04→18:25)
[2018-11-14] MEDS: FAMOTIDINE 20 MG TABLET PO SCH ×2 (10:05→23:08)
[2018-11-14] MEDS: DILTIAZEM HCL 240 MG CAPSULE.CR PO SCH (10:05)
[2018-11-14] MEDS: CALCITRIOL 0.25 MCG CAPSULE PO SCH (10:05)
[2018-11-14] MEDS: TIOTROPIUM BROMIDE DPI 5 CAP/KIT (18 MCG/CAP) IH SCH (10:05)
[2018-11-14] MEDS: LEVOFLOXACIN 250 MG TABLET PO SCH (10:10)
[2018-11-14] MEDS: NEOMY SULF/POLYMYX B SULF/HC OTIC SUSP 10 ML AD SCH ×4 (10:11→23:06)
--- NOTE | 2018-11-14 11:44 | PDOC PROGRESS REPORT ---
Subjective Progress Note for:: 11/14/18 Reason For Visit: JOHN PUENTES is a 78 year old female patient with past medical history of CKD 1V with base creatinine of 2.5- 3 , COPD, atrial fibrillation, congestive heart failure, coronary 30s, hyperlipidemia, hypertension, peripheral arterial disease, history of PE, hypothyroidism, diabetes mellitus and smoker was admitted for weakness and shortness of breath.She is found to have acute exacerbation of COPD and was begun appropriate medications and treatments and currently feels better. Her daughter who is at the bedside is also happy with the progress made. She is a DNR and has opined that she does not want any more hemodialysis unlike her thoughts earlier when she saw me in the office. Her blood work on admission showed a hemoglobin of 8, BUN of 55, creatinine of 3.51, GFR of 13 and potassium of 6.1. She has received IV iron and erythropoietin. Her chest x-ray shows bilateral pleural effusion. She is planned for thoracentesis today. Today's labs shows that her creatinine is improved to 2.8 from admission. She is making decent amounts of urine. Appetite is improving. No complaints of any nausea vomiting. Bowels were constipated but she had a good bowel movement today. Physical Exam Vital Signs: Temp Pulse Resp BP Pulse Ox 97.3 F 123 H 20 177/60 H 93 11/14/18 04:00 11/14/18 08:58 11/14/18 08:58 11/14/18 03:23 11/14/18 08:58 Intake & Output 11/13/18 11/14/18 11/15/18 06:59 06:59 06:59 Intake Total 980 870 Output Total 2500 1975 Balance -1520 -1105 Weight 78.4 kg 77.2 kg General appearance: PRESENT: no acute distress Respiratory exam: PRESENT: clear to auscultation aguilar, decreased breath sounds, rhonchi, wheezes Cardiovascular exam: PRESENT: +S1, +S2, systolic murmur GI/Abdominal exam: PRESENT: normal bowel sounds, soft. ABSENT: organomegaly, tenderness Extremities exam: PRESENT: pedal edema Neurological exam: PRESENT: alert, awake, oriented to person, oriented to place, oriented to time Psychiatric exam: PRESENT: anxious Skin exam: ABSENT: erythema, mottled, rash Results Laboratory Results: 11/14/18 05:49 11/14/18 05:49 11/14/18 11/14/18 05:49 05:49 WBC 6.8 RBC 2.76 L Hgb 8.0 L Hct 24.6 L MCV 89 MCH 29.0 MCHC 32.5 RDW 19.0 H Plt Count 184 Seg Neutrophils % Not Reportable Lymphocytes % Not Reportable Monocytes % Not Reportable Eosinophils % Not Reportable Basophils % Not Reportable Absolute Neutrophils Not Reportable Absolute Lymphocytes Not Reportable Absolute Monocytes Not Reportable Absolute Eosinophils Not Reportable Absolute Basophils Not Reportable Sodium 135.7 L Potassium 3.4 L Chloride 95 L Carbon Dioxide 34 H Anion Gap 7 BUN 75 H Creatinine 2.80 H Est GFR ( Amer) 20 L Est GFR (Non-Af Amer) 16 L Glucose 177 H Calcium 8.7 Total Bilirubin 0.4 AST 24 ALT 30 Alkaline Phosphatase 48 Total Protein 5.1 L Albumin 2.9 L 11/07/18 11/11/18 12:15 20:33 Troponin I 0.154 0.088 Impressions: Renal Ultrasound 11/09/18 10:57 IMPRESSION: No hydronephrosis Echogenic kidneys from medical renal disease Bladder decompressed by a Bernstein catheter Moderate right pleural effusion Chest X-Ray 11/11/18 00:00 IMPRESSION: Slightly increased bilateral basilar airspace disease, interstitial prominence, and moderate pleural effusions. Assessment & Plan - Diagnosis (1) Acute and chronic respiratory failure with hypercapnia Is this a current diagnosis for this admission?: Yes Plan: She is currently much improved from when she came in according to both patient and her daughter. Continue current lines of management. (2) Acute kidney injury superimposed on chronic kidney disease Is this a current diagnosis for this admission?: Yes Plan: Patient is nonoliguric. She has improved from admission creatinine of 3.5 to current 2.8. After further discussion with the patient who is awake alert and oriented x3 patient has decided that she wants to be a DNR and does not want any further renal replacement therapy options now or in the future. She understands the risks and benefits of this decision including the fact that she would in case dialysis was not initiated especially when the indication was there. Her daughter was at the bedside who agrees with that decision making.Meanwhile continue on current medications and treatment guidelines. (3) Bilateral pleural effusion Is this a current diagnosis for this admission?: Yes Plan: For thoracentesis as per hospitalist. (4) Iron deficiency anemia Qualifiers: Iron deficiency anemia type: chronic blood loss Qualified Code(s): D50.0 - Iron deficiency anemia secondary to blood loss (chronic) Is this a current diagnosis for this admission?: Yes Plan: Status post iron infusion. Currently has also received erythropoietin. Monitor. (5) Secondary hyperparathyroidism (of renal origin) Is this a current diagnosis for this admission?: Yes Plan: On appropriate medications. Monitor. (6) Hyperkalemia Is this a current diagnosis for this admission?: Yes Plan: Currently stable. Monitor. (7) Hypertension Qualifiers: Hypertension type: essential hypertension Qualified Code(s): I10 - Essential (primary) hypertension Is this a current diagnosis for this admission?: Yes Plan: Relatively well controlled. Monitor.
--- NOTE | 2018-11-14 12:34 | PDOC PROGRESS REPORT ---
Subjective Progress Note for:: 11/14/18 Subjective:: JOHN PUENTES is a 78 year old female patient with past medical history of atrial fibrillation, congestive heart failure, coronary 30s, hyperlipidemia, hypertension, peripheral arterial disease, history of PE, COPD, stage IV CKD, hypothyroidism, diabetes mellitus and tobacco dependence by EMS for weakness and shortness of breath. Since patient is on full mask BiPAP and somewhat debilitated she is not source of history. Brief history is obtained from ER attending note and her neighbor. According to patient's neighbor who has been helping take care of her, she has been on decline over the past week, she had generalized weakness, and today she could not even stand up off the toilet and she has heavy labored breathing. According to EMS the patient was found to be hypoxic and having difficulty of breathing they did give her a breathing treatment but her work of breathing increasing" worse by the time she came to the emergency department. Her blood work shows hemoglobin of 8, BUN of 55, creatinine of 3.51, GFR of 13 and potassium of 6.1. Her chest x-ray shows bilateral pleural effusion. For hyperkalemia patient was given calcium gluconate, bicarb, dextrose and insulin. For her acute on chronic respiratory failure patient was put on BiPAP and relatively doing better. The hospitalist service consulted for admission. Further detailed history and review of systems unobtainable. 11/08/2018. No acute events overnight, still complaining of shortness of breath, has been on nitro drip, noted to be on A. fib RVR. He denies any chest pain, nausea, vomiting, diarrhea, constipation or any urinary symptoms. 11/09/2018. No acute events overnight. Still complaining of shortness of breath, off of nitro on Cardizem drip. Heart rate is controlled. Patient in no apparent distress, requesting to be transitioned to rehab. Denies any fever, chills, nausea, vomiting, diarrhea, constipation or any urinary symptoms. SBP 140s, T-max 97.5, HR 90s, RR 20s, SPO2 9093 5 L NC FiO2 55%. 11/10/2018. No acute events overnight, no apparent distress, on nasal cannula, use BiPAP overnight. Denies any fever, chills, nausea, vomiting, diarrhea. No bowel for the last 2 days. Patient complaining of dysuria, stating that she feels like she is developing a UTI. Patient is wearing a Bernstein which could be the reason for her abnormal sensation, UA was negative on admission. 11/11/2018. No acute events overnight. Patient is comfortably sitting in bed, not in apparent distress, on supplemental oxygen, denies any fever, chills, nausea, vomiting, diarrhea, constipation or any urinary symptoms. Still dependent on supplemental oxygen. Pending rehab placement. 11/12/2018. On 719 219 around 6 PM patient suddenly became unresponsive, very hypoxic, PO2 running in the 50s and 60s, rapid response was called, ABG was done which showed worsening hypercarbia, hypoxemia, and respiratory acidosis, chest x-ray showed worsening of bilateral pleural effusion, troponin was checked which was negative. Patient CODE STATUS was tested again with POA who stated that patient has wished several times and has been very persistent about her DNR status. They want to continue the DNR status. This morning on my encounter patient is in mild respiratory distress, on BiPAP, putting improvement of her respiratory symptoms, denies any chest pain, fever, nausea, vomiting, diarrhea, constipation or any urinary symptoms. Repeat ABG this morning shows improvement of her gases. RR 1828, SPO2 94% on BiPAP FiO2 90%. ABG: pH 7.33, PCO2 63.3, PO2 82.3, FiO2 90%. 11/13/2018. Mild improvement of blood gases, still dependent on BiPAP. Not very compliant with BiPAP due to anxiety, p.o. tolerant, having normal bowel bladder movement. Denies any fever, chills, nausea, vomiting pending thoracentesis. Once thoracentesis done if improvement of respiratory symptoms patient can be transitioned to rehab. 11/14/2018. No acute events overnight. Patient was using BiPAP overnight, in the morning transition to supplemental oxygen saturating WNL on 3 to 4 L. Alert oriented x3, cooperative with physical examination, denies any fever, chills, nausea, vomiting, diarrhea, constipation or any urinary retention. Daughter who is the POA present in the room updated patient. Paracentesis was scheduled for today however radiology postponed it for tomorrow because INR is still supratherapeutic. 11/15/2018. No acute events overnight. Overnight she has been using BiPAP on and off, on my encounter patient is on nasal cannula 4 L in no apparent distress, denies any fever, chills, nausea, vomiting, diarrhea, constipation or any urinary symptoms. Patient is still pending a thoracentesis and transition to rehab. Reason For Visit: HYPERKALEMIA,ACUTE ON CHRONIC HYPERCAPNIC Physical Exam Vital Signs: Temp Pulse Resp BP Pulse Ox 97.3 F 123 H 20 177/60 H 93 11/14/18 04:00 11/14/18 08:58 11/14/18 08:58 11/14/18 03:23 11/14/18 08:58 Intake & Output 11/13/18 11/14/18 11/15/18 06:59 06:59 06:59 Intake Total 980 870 Output Total 2500 1975 Balance -1520 -1105 Weight 78.4 kg 77.2 kg General appearance: PRESENT: obese Head exam: PRESENT: atraumatic, normocephalic Neck exam: ABSENT: carotid bruit, JVD, lymphadenopathy, thyromegaly Respiratory exam: PRESENT: decreased breath sounds - Bilateral bases.. ABSENT: rales, rhonchi, wheezes Cardiovascular exam: PRESENT: irregular rhythm. ABSENT: diastolic murmur, rubs, systolic murmur Pulses: PRESENT: normal dorsalis pedis pul GI/Abdominal exam: PRESENT: normal bowel sounds, soft. ABSENT: distended, guarding, mass, organolmegaly, rebound, tenderness Neurological exam: PRESENT: alert, awake, oriented to person, oriented to place, CN II-XII grossly intact. ABSENT: motor sensory deficit Results Laboratory Results: 11/14/18 05:49 11/14/18 05:49 11/14/18 11/14/18 05:49 05:49 WBC 6.8 RBC 2.76 L Hgb 8.0 L Hct 24.6 L MCV 89 MCH 29.0 MCHC 32.5 RDW 19.0 H Plt Count 184 Seg Neutrophils % Not Reportable Lymphocytes % Not Reportable Monocytes % Not Reportable Eosinophils % Not Reportable Basophils % Not Reportable Absolute Neutrophils Not Reportable Absolute Lymphocytes Not Reportable Absolute Monocytes Not Reportable Absolute Eosinophils Not Reportable Absolute Basophils Not Reportable Sodium 135.7 L Potassium 3.4 L Chloride 95 L Carbon Dioxide 34 H Anion Gap 7 BUN 75 H Creatinine 2.80 H Est GFR ( Amer) 20 L Est GFR (Non-Af Amer) 16 L Glucose 177 H Calcium 8.7 Total Bilirubin 0.4 AST 24 ALT 30 Alkaline Phosphatase 48 Total Protein 5.1 L Albumin 2.9 L 11/07/18 11/11/18 12:15 20:33 Troponin I 0.154 0.088 Impressions: Renal Ultrasound 11/09/18 10:57 IMPRESSION: No hydronephrosis Echogenic kidneys from medical renal disease Bladder decompressed by a Bernstein catheter Moderate right pleural effusion Chest X-Ray 11/11/18 00:00 IMPRESSION: Slightly increased bilateral basilar airspace disease, interstitial prominence, and moderate pleural effusions. Assessment and Plan - Diagnosis (1) Acute and chronic respiratory failure with hypercapnia Is this a current diagnosis for this admission?: Yes Plan: Moderate improvement. Depending on nightly BiPAP. Patient is more compliant with wearing BiPAP being started on anxiolytics. Likely due to COPD exacerbation, A. fib RVR and bilateral pleural effusion most likely due to volume overload caused by A. fib RVR and worsening renal function. Pending thoracentesis. 2018. SPO2 93% 4 L NC. RR 1820. 11/13/2018. ABG: pH 7.35, PCO2 59.1, PO2 220, FiO2 88%. 11/12/2018. RR 1828, SPO2 94% on BiPAP FiO2 90%. ABG: pH 7.33, PCO2 63.3, PO2 82.3, FiO2 90%. 11/10/2018. SBP 557956, T-max 97.2, pulse 90s, RR 1427, SPO2 93% 5 L NC. 11/09/2018: SBP 140s, T-max 97.5, HR 90s, RR 20s, SPO2 9093 5 L NC FiO2 55%. 11/08/2018: SPO2 84-98% 6 L FiO2 44%. ABG: pH 7.18, PCO2 82.2, PO2 86.7, FiO2 60%. 11/07/2018: ABG: pH 7.37, PCO2 56.6, PO2 85.1, FiO2 50%. Antibiotics day 9. Received 4 days of IV azithromycin. Received 7 days of IV steroids. Steroids DC'd on 11/14/2018. Levofloxacin 500 g p.o. day 5. Continue DuoNeb's, BiPAP, supplemental oxygen, pulmonary toileting, incentive spirometry and IV Lasix. Cultures remain negative. Thoracentesis today. If stable can be DC'd to rehab today. (2) Anemia in CKD (chronic kidney disease) Qualifiers: Chronic kidney disease stage: stage 5, not on chronic dialysis Qualified Code(s): N18.5 - Chronic kidney disease, stage 5; D63.1 - Anemia in chronic kidney disease Is this a current diagnosis for this admission?: Yes Plan: H&H stable. Denies any hematemesis, easy bleeding, hemoptysis, hematochezia, melena, vaginal bleeding. Iron 13.8, TIBC 322, percent saturation 4, ferritin 21. 01/10/2018. Guaiac negative. Denies any history of GI malignancy. Colonoscopy in 2014 showed the polyp status post polypectomy. As per patient recently had a repeat colonoscopy which was reported as normal. Daily H&H. Transfuse if under 7, actively bleeding, or symptomatic. 11/09/2018. Received 1 dose of Procrit. 11/10/2018. Received 1 dose of Injectafer. Nephrology on board. (3) Atrial fibrillation with RVR Is this a current diagnosis for this admission?: Yes Plan: Rate controlled. Not anticoagulated. Patient very high risk for chronic anticoagulation due to underlying history of recurrent falls, severe anemia, external bleeding hemorrhoids. After discussing with patient and her daughter who is the POA about the risk of bleeding they decided to withhold Coumadin for right now. 11/08/2018 was placed on Cardizem drip. DC'd on 11/09/2018. Continue p.o. Cardizem, and digoxin. Monitor electrolytes, replace as needed. Digoxin level. (4) Bilateral pleural effusion Is this a current diagnosis for this admission?: Yes Plan: Blood gases improving. Thoracentesis today. Repeat chest x-ray shows mild improvement of bilateral pleural effusion. This could likely be due to A. fib RVR and volume overload due to worsening renal function. Continue cautious diuresis guided by volume status. (5) Chronic kidney disease, stage IV (severe) Is this a current diagnosis for this admission?: Yes Plan: Significant improvement. Creatinine trending down. Electrolytes WNL. Nonoliguric. Patient has decided to not undergo any hemodialysis now or in the future as per nephrology note. 11/09/2018 renal ultrasound negative for chronic medical disease. PTH 248. Strict in and out, renal diet, monitor electrolytes and replace as needed. Nephrology on board. Recommendations noted. No hemodialysis planned at this point. BMP tomorrow. Avoid nephrotoxic meds. (6) COPD exacerbation Is this a current diagnosis for this admission?: Yes Plan: Plan as #1 (7) External hemorrhoid Is this a current diagnosis for this admission?: Yes Plan: This could be contributing to worsening anemia. History of external hemorrhoids. Surgery consulted. No intervention planned at this point. Please refer to note. (8) Hyperkalemia Is this a current diagnosis for this admission?: Yes Plan: Resolved. Likely due to worsening CKD. Hyperkalemia protocol. Continue telemetry. BMP tomorrow. (9) Hyperlipidemia Qualifiers: Hyperlipidemia type: unspecified Qualified Code(s): E78.5 - Hyperlipidemia, unspecified Is this a current diagnosis for this admission?: Yes Plan: Diet and lifestyle modification. Continue statins. (10) Hypothyroidism Qualifiers: Hypothyroidism type: unspecified Qualified Code(s): E03.9 - Hypothyroidism, unspecified Is this a current diagnosis for this admission?: Yes Plan: TSH WNL. Restart home meds. (11) Iron deficiency anemia Qualifiers: Iron deficiency anemia type: chronic blood loss Qualified Code(s): D50.0 - Iron deficiency anemia secondary to blood loss (chronic) Is this a current diagnosis for this admission?: Yes Plan: Stable. No PRBC transfusion as patient is a Gnosticism. History of external hemorrhoids as per colonoscopy in 12/18/2018. Which could be the cause of chronic iron deficiency anemia. Denies any hematemesis, easy bleeding, hemoptysis, hematochezia, melena, vaginal bleeding. 11/09/2018. Iron 13.8, TIBC 322, percent saturation 4, ferritin 21. 01/10/2018. Guaiac negative. 12/18/2017. Colonoscopy: Was positive for diverticulosis and external hemor rhoids. 12/18/2018 she had a polypectomy pathology report available, as per operative report any normal looking polyps. Recomendation was for repeat colonoscopy in 3 years. As per patient she recently had a colonoscopy which was reported as negative. Daily H&H. Supportive measures. Patient cannot receive PRBC because of taoist beliefs (Gnosticism.) 11/09/2018. Received 1 dose of Procrit. 11/10/2018. Received 1 dose of Injectafer. (12) Hypertension Qualifiers: Hypertension type: essential hypertension Qualified Code(s): I10 - Essential (primary) hypertension Is this a current diagnosis for this admission?: Yes Plan: Continue Cardizem. Hold ARB due to worsening kidney function. Hydralazine PRN. (13) Anxiety Is this a current diagnosis for this admission?: Yes Plan: Benzos as needed. Fall precautions.
--- NOTE | 2018-11-14 14:03 | RADIOLOGY REPORT (SQ) ---
EXAM DESCRIPTION: CHEST SINGLE VIEW COMPLETED DATE/TIME: 11/14/2018 1:44 pm REASON FOR STUDY: sob COMPARISON: 11/11/2018 EXAM PARAMETERS: NUMBER OF VIEWS: One view. TECHNIQUE: Single frontal radiographic view of the chest acquired. RADIATION DOSE: NA LIMITATIONS: None. FINDINGS: LUNGS AND PLEURA: Pulmonary edema. Pleural effusions. MEDIASTINUM AND HILAR STRUCTURES: No masses. Contour normal. HEART AND VASCULAR STRUCTURES: Cardiomegaly. BONES: No acute findings. HARDWARE: None in the chest. OTHER: No other significant finding. IMPRESSION: Persistent CHF. TECHNICAL DOCUMENTATION: JOB ID: [id number] [employer]- All Rights Reserved Reading location - IP/workstation name: [email or web address]
[2018-11-14] MEDS ORDERED: PHYTONADIONE 5 MG TABLET PO ONE (19:00)
[2018-11-15] MEDS: IPRATROPIUM/ALBUTEROL 0.5-2.5 MG/3 ML AMPUL NEB SCH ×6 (00:15→20:06)
[2018-11-15 06:15] LABS: INTERNATIONAL RATION (INR) 1.75; PROTHROMBIN TIME 20.7 SEC (11.4-15.4)
[2018-11-15] MEDS: CALCIUM ACETATE 667 MG CAPSULE PO SCH ×3 (08:41→16:14)
[2018-11-15] MEDS: HYDRALAZINE HCL INJ/PF 20 MG/1 ML SDV IV PRN (08:42)
[2018-11-15] MEDS: INSULIN LISPRO 100 UNIT/ML 3 ML VIAL SUBCUT SCH ×4 (08:42→21:52)
[2018-11-15] MEDS: NEOMY SULF/POLYMYX B SULF/HC OTIC SUSP 10 ML AD SCH (09:25)
[2018-11-15] MEDS: TIOTROPIUM BROMIDE DPI 5 CAP/KIT (18 MCG/CAP) IH SCH (09:25)
[2018-11-15] MEDS: DILTIAZEM HCL 240 MG CAPSULE.CR PO SCH (09:25)
[2018-11-15] MEDS: DOCUSATE SODIUM 100 MG/10 ML UDC PO SCH ×2 (09:25→17:36)
[2018-11-15] MEDS: FUROSEMIDE INJ/PF 40 MG/4 ML SDV IV SCH ×2 (09:25→21:52)
[2018-11-15] MEDS: FAMOTIDINE 20 MG TABLET PO SCH ×2 (09:25→21:53)
[2018-11-15] MEDS ORDERED: PHYTONADIONE 5 MG TABLET PO ONE (13:00)
[2018-11-15 18:48] LABS: INTERNATIONAL RATION (INR) 1.28; PROTHROMBIN TIME 16.1 SEC (11.4-15.4)
[2018-11-16] MEDS: IPRATROPIUM/ALBUTEROL 0.5-2.5 MG/3 ML AMPUL NEB SCH ×6 (00:35→20:24)
[2018-11-16 06:35] LABS: HEMATOCRIT 25.1 % (36.0-47.0); HEMOGLOBIN 8.1 g/dL (12.0-15.5); MEAN CORPUSCULAR HGB CONC 32.2 g/dL (32.0-36.0); MEAN CORPUSCULAR VOLUME 90 fl (80-97); PLATELET COUNT 212 10^3/uL (150-450); RED BLOOD COUNT 2.79 10^6/uL (3.72-5.28); RED CELL DISTRIBUTION WIDTH 18.8 % (11.5-14.0); WHITE BLOOD COUNT 11.6 10^3/uL (4.0-10.5)
[2018-11-16 06:36] LABS: PROTHROMBIN TIME 16.3 SEC (11.4-15.4)
[2018-11-16 06:55] LABS: ALANINE AMINOTRANSFERASE 26 U/L (9-52); ALBUMIN 2.6 g/dL (3.5-5.0); ALKALINE PHOSPHATASE 48 U/L (38-126); ANION GAP 5 (5-19); ASPARTATE AMINO TRANSFERASE 18 U/L (14-36); BILIRUBIN,DIRECT 0.2 mg/dL (0.0-0.4); BILIRUBIN,TOTAL 0.3 mg/dL (0.2-1.3); BLOOD UREA NITROGEN 73 mg/dL (7-20); CALCIUM 8.8 mg/dL (8.4-10.2); CARBON DIOXIDE 39 mmol/L (22-30); CHLORIDE 92 mmol/L (98-107); GLUCOSE 115 mg/dL (75-110); POTASSIUM 3.5 mmol/L (3.6-5.0); TOTAL PROTEIN 4.7 g/dL (6.3-8.2)
[2018-11-16 07:34] LABS: ABSOLUTE LYMPHOCYTES# (MANUAL) 0.2 10^3/uL (0.5-4.7); ABSOLUTE MONOCYTES # (MANUAL) 0.7 10^3/uL (0.1-1.4); BASOPHILS % (MANUAL) 0 % (0-2); EOSINOPHILS % (MANUAL) 0 % (0-6); LYMPHOCYTES % (MANUAL) 2 % (13-45); MONOCYTES % (MANUAL) 6 % (3-13); SEGMENTED NEUTROPHILS % (MAN) 92 % (42-78); TOTAL CELLS COUNTED 100
[2018-11-16 07:35] LABS: ANISOCYTOSIS 2+; OVALOCYTES 1+; PLATELET COMMENT ADEQUATE; POIKILOCYTOSIS 1+
[2018-11-16] MEDS: INSULIN LISPRO 100 UNIT/ML 3 ML VIAL SUBCUT SCH ×4 (08:09→23:24)
[2018-11-16] MEDS: CALCIUM ACETATE 667 MG CAPSULE PO SCH ×3 (08:45→23:11)
--- NOTE | 2018-11-16 10:22 | RADIOLOGY REPORT (SQ) ---
EXAM DESCRIPTION: CHEST SINGLE VIEW COMPLETED DATE/TIME: 11/16/2018 10:12 am REASON FOR STUDY: post thoracentesis COMPARISON: 11/14/2018 EXAM PARAMETERS: NUMBER OF VIEWS: One view. TECHNIQUE: Single frontal radiographic view of the chest acquired. RADIATION DOSE: NA LIMITATIONS: None. FINDINGS: LUNGS AND PLEURA: Decreased size of the right-sided pleural effusion with improved right b asilar aeration. Persistent mild right and cicg-iw-hkdeygsw left effusions. No appreciable pneumoth orax. MEDIASTINUM AND HILAR STRUCTURES: No masses. Contour normal. HEART AND VASCULAR STRUCTURES: Enlarged, stable. Aortic atherosclerosis. BONES: No acute findings. HARDWARE: None in the chest. OTHER: No other significant finding. IMPRESSION: No pneumothorax post right sided thoracentesis. Decreased size of the effusion with imp roved basilar aeration. TECHNICAL DOCUMENTATION: JOB ID: [id number] [email or web address]- All Rights Reserved Reading location - IP/workstation name: [email or web address]
--- NOTE | 2018-11-16 10:36 | RADIOLOGY REPORT (SQ) ---
EXAM DESCRIPTION: U/S THORACENTESIS WITH IMAGING COMPLETED DATE/TIME: 11/16/2018 10:20 am REASON FOR STUDY: Daniel Pleural Effusion COMPARISON: 11/14/2018 LIMITATIONS: None. PROCEDURE: Procedure, risks, benefit, and alternative explained to patient who then gave written con sent. The posterior right chest wall was marked using ultrasound guidance. A time-out was called fo r correct marking verification. Chest prepped and draped using sterile technique. Local anesthesia a chieved using 10 ml of 1% lidocaine injection. A 6fr Safe-T- Centesis set was introduced into the [facility] pleural space. Fluid was aspirated. The catheter was removed and the entry site was covered wit h sterile bandage. No immediate complications noted. Images acquired during the procedure were stored on PACS. FINDINGS: ENTRY SITE: posterior right chest. FLUID VOLUME: 800 cc FLUID ANALYSIS: Straw-colored OTHER: Fluid sent to the lab for testing. IMPRESSION: SUCCESSFUL THORACENTESIS USING ULTRASOUND GUIDANCE. COMMENT: Patient medication list reviewed: Yes- Quality ID# [id number]:Eligible professional attests to doc umenting in the medical record they obtained, updated, or reviewed the patient's current medications. TECHNICAL DOCUMENTATION: JOB ID: [id number] [employer]- All Rights Reserved Reading location - IP/workstation name: [email or web address]
[2018-11-16] MEDS: DILTIAZEM HCL 240 MG CAPSULE.CR PO SCH (10:42)
[2018-11-16] MEDS: DIGOXIN 0.125 MG TABLET PO SCH (10:42)
[2018-11-16] MEDS: FUROSEMIDE INJ/PF 40 MG/4 ML SDV IV SCH ×2 (10:43→23:24)
[2018-11-16] MEDS: LEVOFLOXACIN 250 MG TABLET PO SCH (10:44)
[2018-11-16] MEDS: FAMOTIDINE 20 MG TABLET PO SCH ×2 (10:44→23:24)
[2018-11-16] MEDS: TIOTROPIUM BROMIDE DPI 5 CAP/KIT (18 MCG/CAP) IH SCH (10:45)
[2018-11-16] MEDS: DOCUSATE SODIUM 100 MG/10 ML UDC PO SCH (10:49)
[2018-11-16] MEDS ORDERED: SENNOSIDES/DOCUSATE 8.6-50 MG 1 EACH TABLET PO ONE ×2 (12:00→15:00)
--- NOTE | 2018-11-16 12:32 | RADIOLOGY REPORT (SQ) ---
EXAM DESCRIPTION: CHEST SINGLE VIEW COMPLETED DATE/TIME: 11/16/2018 12:19 pm REASON FOR STUDY: 2 hour post thora COMPARISON: Same day radiograph EXAM PARAMETERS: NUMBER OF VIEWS: One view. TECHNIQUE: Single frontal radiographic view of the chest acquired. RADIATION DOSE: NA LIMITATIONS: None. FINDINGS: LUNGS AND PLEURA: No pneumothorax post right thoracentesis. Stable bilateral effusions an d basilar atelectasis, left greater than right. MEDIASTINUM AND HILAR STRUCTURES: Stable. HEART AND VASCULAR STRUCTURES: Enlarged cardiac silhouette, stable. Aortic atherosclerosis. BONES: No acute findings. HARDWARE: None in the chest. OTHER: No other significant finding. IMPRESSION: No pneumothorax post right thoracentesis. Stable bilateral effusions and basilar atelectasis, left greater than right. TECHNICAL DOCUMENTATION: JOB ID: [id number] [employer]- All Rights Reserved Reading location - IP/workstation name: [email or web address]
[2018-11-16 12:44] LABS: FLUID SOURCE LUNG; FLUID TYPE PLEURAL
[2018-11-16 12:45] LABS: FLUID APPEARANCE CLEAR; FLUID COLOR LIGHT YELLOW; FLUID VISCOSITY LIQUID
--- NOTE | 2018-11-16 13:43 | PDOC PROGRESS REPORT ---
Subjective Progress Note for:: 11/16/18 Subjective:: JOHN PUENTES is a 78 year old female patient with past medical history of atrial fibrillation, congestive heart failure, coronary 30s, hyperlipidemia, hypertension, peripheral arterial disease, history of PE, COPD, stage IV CKD, hypothyroidism, diabetes mellitus and tobacco dependence by EMS for weakness and shortness of breath. Since patient is on full mask BiPAP and somewhat debilitated she is not source of history. Brief history is obtained from ER attending note and her neighbor. According to patient's neighbor who has been helping take care of her, she has been on decline over the past week, she had generalized weakness, and today she could not even stand up off the toilet and she has heavy labored breathing. According to EMS the patient was found to be hypoxic and having difficulty of breathing they did give her a breathing treatment but her work of breathing increasing" worse by the time she came to the emergency department. Her blood work shows hemoglobin of 8, BUN of 55, creatinine of 3.51, GFR of 13 and potassium of 6.1. Her chest x-ray shows bilateral pleural effusion. For hyperkalemia patient was given calcium gluconate, bicarb, dextrose and insulin. For her acute on chronic respiratory failure patient was put on BiPAP and relatively doing better. The hospitalist service consulted for admission. Further detailed history and review of systems unobtainable. 11/08/2018. No acute events overnight, still complaining of shortness of breath, has been on nitro drip, noted to be on A. fib RVR. He denies any chest pain, nausea, vomiting, diarrhea, constipation or any urinary symptoms. 11/09/2018. No acute events overnight. Still complaining of shortness of breath, off of nitro on Cardizem drip. Heart rate is controlled. Patient in no apparent distress, requesting to be transitioned to rehab. Denies any fever, chills, nausea, vomiting, diarrhea, constipation or any urinary symptoms. SBP 140s, T-max 97.5, HR 90s, RR 20s, SPO2 9093 5 L NC FiO2 55%. 11/10/2018. No acute events overnight, no apparent distress, on nasal cannula, use BiPAP overnight. Denies any fever, chills, nausea, vomiting, diarrhea. No bowel for the last 2 days. Patient complaining of dysuria, stating that she feels like she is developing a UTI. Patient is wearing a Bernstein which could be the reason for her abnormal sensation, UA was negative on admission. 11/11/2018. No acute events overnight. Patient is comfortably sitting in bed, not in apparent distress, on supplemental oxygen, denies any fever, chills, nausea, vomiting, diarrhea, constipation or any urinary symptoms. Still dependent on supplemental oxygen. Pending rehab placement. 11/12/2018. On 719 219 around 6 PM patient suddenly became unresponsive, very hypoxic, PO2 running in the 50s and 60s, rapid response was called, ABG was done which showed worsening hypercarbia, hypoxemia, and respiratory acidosis, chest x-ray showed worsening of bilateral pleural effusion, troponin was checked which was negative. Patient CODE STATUS was tested again with POA who stated that patient has wished several times and has been very persistent about her DNR status. They want to continue the DNR status. This morning on my encounter patient is in mild respiratory distress, on BiPAP, putting improvement of her respiratory symptoms, denies any chest pain, fever, nausea, vomiting, diarrhea, constipation or any urinary symptoms. Repeat ABG this morning shows improvement of her gases. RR 1828, SPO2 94% on BiPAP FiO2 90%. ABG: pH 7.33, PCO2 63.3, PO2 82.3, FiO2 90%. 11/13/2018. Mild improvement of blood gases, still dependent on BiPAP. Not very compliant with BiPAP due to anxiety, p.o. tolerant, having normal bowel bladder movement. Denies any fever, chills, nausea, vomiting pending thoracentesis. Once thoracentesis done if improvement of respiratory symptoms patient can be transitioned to rehab. 11/14/2018. No acute events overnight. Patient was using BiPAP overnight, in the morning transition to supplemental oxygen saturating WNL on 3 to 4 L. Alert oriented x3, cooperative with physical examination, denies any fever, chills, nausea, vomiting, diarrhea, constipation or any urinary retention. Daughter who is the POA present in the room updated patient. Paracentesis was scheduled for today however radiology postponed it for tomorrow because INR is still supratherapeutic. 11/15/2018. No acute events overnight. Overnight she has been using BiPAP on and off, on my encounter patient is on nasal cannula 4 L in no apparent distress, denies any fever, chills, nausea, vomiting, diarrhea, constipation or any urinary symptoms. Patient is still pending a thoracentesis and transition to rehab. 11/16/2018. No acute events overnight. Status post right-sided thoracentesis 800 cc removed. Significant improvement of shortness of breath. Denies any fever, chills, nausea, vomiting, diarrhea, constipation or any urinary symptoms. Reason For Visit: HYPERKALEMIA,ACUTE ON CHRONIC HYPERCAPNIC Physical Exam Vital Signs: Temp Pulse Resp BP Pulse Ox 97.4 F 98 16 133/96 H 94 11/16/18 09:12 11/16/18 11:56 11/16/18 11:56 11/16/18 09:12 11/16/18 11:56 Intake & Output 11/15/18 11/16/18 11/17/18 06:59 06:59 06:59 Intake Total 810 1162 Output Total 1300 2425 Balance -490 -1263 Weight 80.5 kg 78.8 kg Head exam: PRESENT: atraumatic, normocephalic Respiratory exam: PRESENT: decreased breath sounds. ABSENT: rales, rhonchi, wheezes Cardiovascular exam: PRESENT: irregular rhythm. ABSENT: diastolic murmur, rubs, systolic murmur GI/Abdominal exam: PRESENT: normal bowel sounds, soft. ABSENT: distended, gua rding, mass, organolmegaly, rebound, tenderness Extremities exam: PRESENT: full ROM. ABSENT: calf tenderness, clubbing, pedal edema Neurological exam: PRESENT: alert, awake, oriented to person, oriented to place, CN II-XII grossly intact. ABSENT: motor sensory deficit Results Laboratory Results: 11/16/18 05:42 11/16/18 05:42 11/16/18 11/16/18 11/16/18 05:42 05:42 09:50 WBC 11.6 H RBC 2.79 L Hgb 8.1 L Hct 25.1 L MCV 90 MCH 29.0 MCHC 32.2 RDW 18.8 H Plt Count 212 Seg Neutrophils % Not Reportable Lymphocytes % Not Reportable Monocytes % Not Reportable Eosinophils % Not Reportable Basophils % Not Reportable Absolute Neutrophils Not Reportable Absolute Lymphocytes Not Reportable Absolute Monocytes Not Reportable Absolute Eosinophils Not Reportable Absolute Basophils Not Reportable Sodium 136.2 L Potassium 3.5 L Chloride 92 L Carbon Dioxide 39 H Anion Gap 5 BUN 73 H Creatinine 2.83 H Est GFR ( Amer) 19 L Est GFR (Non-Af Amer) 16 L Glucose 115 H Calcium 8.8 Total Bilirubin 0.3 AST 18 ALT 26 Alkaline Phosphatase 48 Total Protein 4.7 L Albumin 2.6 L Fluid Type PLEURAL Fluid Source LUNG Fluid Color LIGHT YELLOW Fluid Appearance CLEAR Fluid Viscosity LIQUID Fluid WBC 51 Fluid RBC 55 11/07/18 11/11/18 12:15 20:33 Troponin I 0.154 0.088 Impressions: Renal Ultrasound 11/09/18 10:57 IMPRESSION: No hydronephrosis Echogenic kidneys from medical renal disease Bladder decompressed by a Bernstein catheter Moderate right pleural effusion Thoracentesis Ultrasound 11/16/18 06:00 IMPRESSION: SUCCESSFUL THORACENTESIS USING ULTRASOUND GUIDANCE. Chest X-Ray 11/16/18 12:30 IMPRESSION: No pneumothorax post right thoracentesis. Stable bilateral effusions and basilar atelectasis, left greater than right. Assessment and Plan - Diagnosis (1) Acute and chronic respiratory failure with hypercapnia Is this a current diagnosis for this admission?: Yes Plan: Moderate improvement. Status post right-sided scheduled tomorrow. 800 cc removed. Depending on nightly BiPAP. Patient is more compliant with wearing BiPAP being started on anxiolytics. Likely due to COPD exacerbation, A. fib RVR and bilateral pleural effusion most likely due to volume overload caused by A. fib RVR and worsening renal function. 2018. SPO2 93% 4 L NC. RR 1820. 11/13/2018. ABG: pH 7.35, PCO2 59.1, PO2 220, FiO2 88%. 11/12/2018. RR 1828, SPO2 94% on BiPAP FiO2 90%. ABG: pH 7.33, PCO2 63.3, PO2 82.3, FiO2 90%. 11/10/2018. SBP 091630, T-max 97.2, pulse 90s, RR 1427, SPO2 93% 5 L NC. 11/09/2018: SBP 140s, T-max 97.5, HR 90s, RR 20s, SPO2 9093 5 L NC FiO2 55%. 11/08/2018: SPO2 84-98% 6 L FiO2 44%. ABG: pH 7.18, PCO2 82.2, PO2 86.7, FiO2 60%. 11/07/2018: ABG: pH 7.37, PCO2 56.6, PO2 85.1, FiO2 50%. Antibiotics day 10. Received 4 days of IV azithromycin. Received 7 days of IV steroids. Steroids DC'd on 11/14/2018. Levofloxacin 500 g p.o. day 6. Continue DuoNeb's, BiPAP, supplemental oxygen, pulmonary toileting, incentive spirometry and IV Lasix. Cultures remain negative. Left-sided thoracentesis tomorrow. (2) Anemia in CKD (chronic kidney disease) Qualifiers: Chronic kidney disease stage: stage 5, not on chronic dialysis Qualified Code(s): N18.5 - Chronic kidney disease, stage 5; D63.1 - Anemia in chronic kidney disease Is this a current diagnosis for this admission?: Yes Plan: H&H stable. Denies any hematemesis, easy bleeding, hemoptysis, hematochezia, melena, vaginal bleeding. Iron 13.8, TIBC 322, percent saturation 4, ferritin 21. 01/10/2018. Guaiac negative. Denies any history of GI malignancy. Colonoscopy in 2014 showed the polyp status post polypectomy. As per patient recently had a repeat colonoscopy which was reported as normal. Daily H&H. Transfuse if under 7, actively bleeding, or symptomatic. 11/09/2018. Received 1 dose of Procrit. 11/10/2018. Received 1 dose of Injectafer. Nephrology on board. (3) Atrial fibrillation with RVR Is this a current diagnosis for this admission?: Yes Plan: Rate controlled. Not anticoagulated. Patient very high risk for chronic anticoagulation due to underlying history of recurrent falls, severe anemia, external bleeding hemorrhoids. After discussing with patient and her daughter who is the POA about the risk of bleeding they decided to withhold Coumadin for right now. 11/08/2018 was placed on Cardizem drip. DC'd on 11/09/2018. Continue p.o. Cardizem, and digoxin. Monitor electrolytes, replace as needed. Digoxin level. (4) Bilateral pleural effusion Is this a current diagnosis for this admission?: Yes Plan: Significant improvement. Blood gases improving. 11/16/2018. Status post right-sided thoracentesis, 800 cc removed. Repeat chest x-ray shows movement of right-sided pleural effusion. Stable unchanged left-sided pleural effusion. This could likely be due to A. fib RVR and volume overload due to worsening renal function. Continue cautious diuresis guided by volume status. Left-sided thoracentesis scheduled for tomorrow. (5) Chronic kidney disease, stage IV (severe) Is this a current diagnosis for this admission?: Yes Plan: Significant improvement. Creatinine trending down. Electrolytes WNL. Nonoliguric. Patient has decided to not undergo any hemodialysis now or in the future as per nephrology note. 11/09/2018 renal ultrasound negative for chronic medical disease. PTH 248. Strict in and out, renal diet, monitor electrolytes and replace as needed. Nephrology on board. Recommendations noted. No hemodialysis planned at this point. BMP tomorrow. Avoid nephrotoxic meds. (6) COPD exacerbation Is this a current diagnosis for this admission?: Yes Plan: Plan as #1 (7) External hemorrhoid Is this a current diagnosis for this admission?: Yes Plan: This could be contributing to worsening anemia. History of external hemorrhoids. Surgery consulted. No intervention planned at this point. Please refer to note. (8) Hyperkalemia Is this a current diagnosis for this admission?: Yes Plan: Resolved. Likely due to worsening CKD. Hyperkalemia protocol. Continue telemetry. BMP tomorrow. (9) Hyperlipidemia Qualifiers: Hyperlipidemia type: unspecified Qualified Code(s): E78.5 - Hyperlipidemia, unspecified Is this a current diagnosis for this admission?: Yes Plan: Diet and lifestyle modification. Continue statins. (10) Hypothyroidism Qualifiers: Hypothyroidism type: unspecified Qualified Code(s): E03.9 - Hypothyroidism, unspecified Is this a current diagnosis for this admission?: Yes Plan: TSH WNL. Restart home meds. (11) Iron deficiency anemia Qualifiers: Iron deficiency anemia type: chronic blood loss Qualified Code(s): D50.0 - Iron deficiency anemia secondary to blood loss (chronic) Is this a current diagnosis for this admission?: Yes Plan: Stable. No PRBC transfusion as patient is a [employer]. History of external hemorrhoids as per colonoscopy in 12/18/2018. Which could be the cause of chronic iron deficiency anemia. Denies any hematemesis, easy bleeding, hemoptysis, hematochezia, melena, vaginal bleeding. 11/09/2018. Iron 13.8, TIBC 322, percent saturation 4, ferritin 21. 01/10/2018. Guaiac negative. 12/18/2017. Colonoscopy: Was positive for diverticulosis and external hemorrhoids. 12/18/2018 she had a polypectomy pathology report available, as per operative report any normal looking polyps. Recomendation was for repeat colonoscopy in 3 years. As per patient she recently had a colonoscopy which was reported as negative. Daily H&H. Supportive measures. Patient cannot receive PRBC because of taoism beliefs ([employer].) 11/09/2018. Received 1 dose of Procrit. 11/10/2018. Received 1 dose of Injectafer. (12) Hypertension Qualifiers: Hypertension type: essential hypertension Qualified Code(s): I10 - Essential (primary) hypertension Is this a current diagnosis for this admission?: Yes Plan: Continue Cardizem. Hold ARB due to worsening kidney function. Hydralazine PRN. (13) Anxiety Is this a current diagnosis for this admission?: Yes Plan: Benzos as needed. Fall precautions.
[2018-11-16 15:04] LABS: INTERNATIONAL RATION (INR) 1.23; PROTHROMBIN TIME 15.6 SEC (11.4-15.4)
[2018-11-16 15:05] LABS: PARTIAL THROMBOPLASTIN TIME 26.7 SEC (23.5-35.8)
[2018-11-16] MEDS: DOCUSATE SODIUM 100 MG CAPSULE PO SCH (18:30)
[2018-11-17] MEDS: IPRATROPIUM/ALBUTEROL 0.5-2.5 MG/3 ML AMPUL NEB SCH ×6 (00:31→20:39)
[2018-11-17 05:13] LABS: INTERNATIONAL RATION (INR) 1.18; PROTHROMBIN TIME 15.1 SEC (11.4-15.4)
[2018-11-17 05:38] LABS: ALANINE AMINOTRANSFERASE 24 U/L (9-52); ALBUMIN 2.5 g/dL (3.5-5.0); ALKALINE PHOSPHATASE 54 U/L (38-126); ASPARTATE AMINO TRANSFERASE 21 U/L (14-36); BILIRUBIN,DIRECT 0.1 mg/dL (0.0-0.4); BILIRUBIN,TOTAL 0.4 mg/dL (0.2-1.3); BLOOD UREA NITROGEN 74 mg/dL (7-20); CALCIUM 8.5 mg/dL (8.4-10.2); CHLORIDE 91 mmol/L (98-107); GLUCOSE 122 mg/dL (75-110); POTASSIUM 3.8 mmol/L (3.6-5.0); TOTAL PROTEIN 4.6 g/dL (6.3-8.2)
[2018-11-17 05:59] LABS: ANION GAP 2 (5-19)
[2018-11-17 06:01] LABS: CARBON DIOXIDE 43 mmol/L (22-30)
[2018-11-17 06:13] LABS: HEMATOCRIT 27.3 % (36.0-47.0); HEMOGLOBIN 8.8 g/dL (12.0-15.5); MEAN CORPUSCULAR HEMOGLOBIN 28.9 pg (27.0-33.4); MEAN CORPUSCULAR HGB CONC 32.1 g/dL (32.0-36.0); MEAN CORPUSCULAR VOLUME 90 fl (80-97); PLATELET COUNT 197 10^3/uL (150-450); RED BLOOD COUNT 3.03 10^6/uL (3.72-5.28); RED CELL DISTRIBUTION WIDTH 19.8 % (11.5-14.0); WHITE BLOOD COUNT 11.7 10^3/uL (4.0-10.5)
[2018-11-17 07:08] LABS: ABSOLUTE LYMPHOCYTES# (MANUAL) 0.4 10^3/uL (0.5-4.7); ABSOLUTE MONOCYTES # (MANUAL) 0.4 10^3/uL (0.1-1.4); BAND NEUTROPHILS % (MANUAL) 1 % (3-5); BASOPHILS % (MANUAL) 0 % (0-2); EOSINOPHILS % (MANUAL) 2 % (0-6); LYMPHOCYTES % (MANUAL) 3 % (13-45); MONOCYTES % (MANUAL) 3 % (3-13); SEGMENTED NEUTROPHILS % (MAN) 91 % (42-78); TOTAL CELLS COUNTED 100
[2018-11-17 07:09] LABS: ANISOCYTOSIS 2+; OVALOCYTES 1+; PLATELET COMMENT ADEQUATE; POIKILOCYTOSIS 1+
[2018-11-17] MEDS: CALCIUM ACETATE 667 MG CAPSULE PO SCH ×3 (10:25→17:26)
--- NOTE | 2018-11-17 11:24 | RADIOLOGY REPORT (SQ) ---
EXAM DESCRIPTION: CHEST SINGLE VIEW COMPLETED DATE/TIME: 11/17/2018 11:11 am REASON FOR STUDY: THORACENTESIS COMPARISON: 11/16/2018 EXAM PARAMETERS: NUMBER OF VIEWS: One view. TECHNIQUE: Single frontal radiographic view of the chest acquired. RADIATION DOSE: NA LIMITATIONS: None. FINDINGS: LUNGS AND PLEURA: Small pleural effusions. No pneumothorax. Chronic interstitial changes . There is considerable retrocardiac opacification on the left. MEDIASTINUM AND HILAR STRUCTURES: No masses. Contour normal. HEART AND VASCULAR STRUCTURES: Heart size is borderline. BONES: No acute findings. HARDWARE: None in the chest. OTHER: No other significant finding. IMPRESSION: Borderline cardiomegaly. Cannot exclude mild pulmonary edema. Pleural effusions. 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 Left lower lobe airspace disease, atelectasis versus pneumonia. TECHNICAL DOCUMENTATION: JOB ID: [id number] [employer]- All Rights Reserved Reading location - IP/workstation name: [email or web address]
[2018-11-17 12:08] LABS: FLUID COLOR LIGHT YELLOW; FLUID SOURCE LUNG; FLUID TYPE PLEURAL
[2018-11-17 12:09] LABS: FLUID APPEARANCE CLEAR; FLUID VISCOSITY LIQUID
--- NOTE | 2018-11-17 12:13 | RADIOLOGY REPORT (SQ) ---
EXAM DESCRIPTION: U/S THORACENTESIS WITH IMAGING COMPLETED DATE/TIME: 11/17/2018 11:09 am REASON FOR STUDY: pleural effusion COMPARISON: None. LIMITATIONS: None. PROCEDURE: Procedure, risks, benefit, and alternative explained to patient who then gave written con sent. The posterior left chest wall was marked using ultrasound guidance. A time-out was called for correct marking verification. Chest prepped and draped using sterile technique. Local anesthesia ac hieved using 10 ml of 1% lidocaine injection. A 6fr Safe-T- Centesis set was introduced into the lef t pleural space. Fluid was aspirated. The catheter was removed and the entry site was covered with sterile bandage. No immediate complications noted. Images acquired during the procedure were stored on PACS. FINDINGS: ENTRY SITE: posterior left chest. FLUID VOLUME: 850 mL. FLUID ANALYSIS: Straw-colored. OTHER: Fluid sent to the lab for testing. IMPRESSION: SUCCESSFUL THORACENTESIS USING ULTRASOUND GUIDANCE. COMMENT: Patient medication list reviewed: Yes- Quality ID# [id number]:Eligible professional attests to doc umenting in the medical record they obtained, updated, or reviewed the patient's current medications. TECHNICAL DOCUMENTATION: JOB ID: [id number] [employer]- All Rights Reserved Reading location - IP/workstation name: [email or web address]
[2018-11-17] MEDS: DOCUSATE SODIUM 100 MG CAPSULE PO SCH ×2 (12:41→17:25)
[2018-11-17] MEDS: FUROSEMIDE INJ/PF 40 MG/4 ML SDV IV SCH ×2 (12:42→21:43)
[2018-11-17] MEDS: FAMOTIDINE 20 MG TABLET PO SCH (12:42)
[2018-11-17] MEDS: DILTIAZEM HCL 240 MG CAPSULE.CR PO SCH (12:42)
--- NOTE | 2018-11-17 13:18 | RADIOLOGY REPORT (SQ) ---
EXAM DESCRIPTION: CHEST SINGLE VIEW COMPLETED DATE/TIME: 11/17/2018 1:10 pm REASON FOR STUDY: THORACENTESIS COMPARISON: 11/17/2018 at 1101 hours EXAM PARAMETERS: NUMBER OF VIEWS: One view. TECHNIQUE: Single frontal radiographic view of the chest acquired. RADIATION DOSE: NA LIMITATIONS: None. FINDINGS: LUNGS AND PLEURA: No pneumothorax 2 hours after thoracentesis. Bilateral airspace disease and pleural effusions unchanged. MEDIASTINUM AND HILAR STRUCTURES: No masses. Contour normal. HEART AND VASCULAR STRUCTURES: Heart normal in size. Normal vasculature. BONES: No acute findings. HARDWARE: None in the chest. OTHER: No other significant finding. IMPRESSION: NO PNEUMOTHORAX 2 HOURS AFTER THORACENTESIS. NO CHANGE IN APPEARANCE OF THE CHEST. TECHNICAL DOCUMENTATION: JOB ID: [id number] [employer]- All Rights Reserved Reading location - IP/workstation name: [email or web address]
[2018-11-17] MEDS ORDERED: PROMETHAZINE HCL INJ 25 MG/1 ML VIAL IV PRN (15:00)
[2018-11-17 16:07] LABS: ARTERIAL BLOOD BASE EXCESS 14.7 mmol/L; ARTERIAL BLOOD H2CO3 1.66 mmol/L (1.05-1.35); ARTERIAL BLOOD O2 SATURATION 84.1 % (94-98); ARTERIAL BLOOD PCO2 55.2 mmHg (35-45); ARTERIAL BLOOD PH 7.48 (7.35-7.45); ARTERIAL BLOOD PO2 46.3 mmHg (80-100); ARTERIAL BLOOD TOTAL CO2 41.7 mmol/L (21-25)
[2018-11-17 16:10] LABS: ARTERIAL BLOOD FIO2 3L
--- NOTE | 2018-11-17 16:43 | PDOC PROGRESS REPORT ---
Subjective Progress Note for:: 11/17/18 Subjective:: JOHN PUENTES is a 78 year old female patient with past medical history of atrial fibrillation, congestive heart failure, coronary 30s, hyperlipidemia, hypertension, peripheral arterial disease, history of PE, COPD, stage IV CKD, hypothyroidism, diabetes mellitus and tobacco dependence by EMS for weakness and shortness of breath. Since patient is on full mask BiPAP and somewhat debilitated she is not source of history. Brief history is obtained from ER attending note and her neighbor. According to patient's neighbor who has been helping take care of her, she has been on decline over the past week, she had generalized weakness, and today she could not even stand up off the toilet and she has heavy labored breathing. According to EMS the patient was found to be hypoxic and having difficulty of breathing they did give her a breathing treatment but her work of breathing increasing" worse by the time she came to the emergency department. Her blood work shows hemoglobin of 8, BUN of 55, creatinine of 3.51, GFR of 13 and potassium of 6.1. Her chest x-ray shows bilateral pleural effusion. For hyperkalemia patient was given calcium gluconate, bicarb, dextrose and insulin. For her acute on chronic respiratory failure patient was put on BiPAP and relatively doing better. The hospitalist service consulted for admission. Further detailed history and review of systems unobtainable. 11/08/2018. No acute events overnight, still complaining of shortness of breath, has been on nitro drip, noted to be on A. fib RVR. He denies any chest pain, nausea, vomiting, diarrhea, constipation or any urinary symptoms. 11/09/2018. No acute events overnight. Still complaining of shortness of breath, off of nitro on Cardizem drip. Heart rate is controlled. Patient in no apparent distress, requesting to be transitioned to rehab. Denies any fever, chills, nausea, vomiting, diarrhea, constipation or any urinary symptoms. SBP 140s, T-max 97.5, HR 90s, RR 20s, SPO2 9093 5 L NC FiO2 55%. 11/10/2018. No acute events overnight, no apparent distress, on nasal cannula, use BiPAP overnight. Denies any fever, chills, nausea, vomiting, diarrhea. No bowel for the last 2 days. Patient complaining of dysuria, stating that she feels like she is developing a UTI. Patient is wearing a Bernstein which could be the reason for her abnormal sensation, UA was negative on admission. 11/11/2018. No acute events overnight. Patient is comfortably sitting in bed, not in apparent distress, on supplemental oxygen, denies any fever, chills, nausea, vomiting, diarrhea, constipation or any urinary symptoms. Still dependent on supplemental oxygen. Pending rehab placement. 11/12/2018. On 719 219 around 6 PM patient suddenly became unresponsive, very hypoxic, PO2 running in the 50s and 60s, rapid response was called, ABG was done which showed worsening hypercarbia, hypoxemia, and respiratory acidosis, chest x-ray showed worsening of bilateral pleural effusion, troponin was checked which was negative. Patient CODE STATUS was tested again with POA who stated that patient has wished several times and has been very persistent about her DNR status. They want to continue the DNR status. This morning on my encounter patient is in mild respiratory distress, on BiPAP, putting improvement of her respiratory symptoms, denies any chest pain, fever, nausea, vomiting, diarrhea, constipation or any urinary symptoms. Repeat ABG this morning shows improvement of her gases. RR 1828, SPO2 94% on BiPAP FiO2 90%. ABG: pH 7.33, PCO2 63.3, PO2 82.3, FiO2 90%. 11/13/2018. Mild improvement of blood gases, still dependent on BiPAP. Not very compliant with BiPAP due to anxiety, p.o. tolerant, having normal bowel bladder movement. Denies any fever, chills, nausea, vomiting pending thoracentesis. Once thoracentesis done if improvement of respiratory symptoms patient can be transitioned to rehab. 11/14/2018. No acute events overnight. Patient was using BiPAP overnight, in the morning transition to supplemental oxygen saturating WNL on 3 to 4 L. Alert oriented x3, cooperative with physical examination, denies any fever, chills, nausea, vomiting, diarrhea, constipation or any urinary retention. Daughter who is the POA present in the room updated patient. Paracentesis was scheduled for today however radiology postponed it for tomorrow because INR is still supratherapeutic. 11/15/2018. No acute events overnight. Overnight she has been using BiPAP on and off, on my encounter patient is on nasal cannula 4 L in no apparent distress, denies any fever, chills, nausea, vomiting, diarrhea, constipation or any urinary symptoms. Patient is still pending a thoracentesis and transition to rehab. 11/16/2018. No acute events overnight. Status post right-sided thoracentesis 800 cc removed. Significant improvement of shortness of breath. Denies any fever, chills, nausea, vomiting, diarrhea, constipation or any urinary symptoms. 11/17/2018. No acute events overnight. Status post left-sided thoracentesis and 8 cc removed. Significant improvements of shortness of breath. Overnight patient use BiPAP only for short while. Alert oriented x3, denies any fever, nausea, vomiting, diarrhea, constipation or any urinary symptoms. Pending placement. Reason For Visit: HYPERKALEMIA,ACUTE ON CHRONIC HYPERCAPNIC Physical Exam Vital Signs: Temp Pulse Resp BP Pulse Ox 97.8 F 89 18 149/73 H 93 11/17/18 12:08 11/17/18 16:00 11/17/18 16:00 11/17/18 12:08 11/17/18 12:11 Intake & Output 11/16/18 11/17/18 11/18/18 06:59 06:59 06:59 Intake Total 1162 1521 Output Total 2425 2125 Balance -1263 -604 Weight 78.8 kg 75.8 kg General appearance: PRESENT: no acute distress, well-developed, well-nourished Head exam: PRESENT: atraumatic, normocephalic Respiratory exam: PRESENT: decreased breath sounds. ABSENT: rales, rhonchi, wheezes Cardiovascular exam: PRESENT: irregular rhythm. ABSENT: diastolic murmur, rubs, systolic murmur GI/Abdominal exam: PRESENT: normal bowel sounds, soft. ABSENT: distended, guarding, mass, organolmegaly, rebound, tenderness Extremities exam: PRESENT: full ROM. ABSENT: calf tenderness, clubbing, pedal edema Neurological exam: PRESENT: alert, awake, oriented to person, oriented to place, oriented to time, CN II-XII grossly intact. ABSENT: motor sensory deficit Results Laboratory Results: 11/17/18 04:49 11/17/18 04:49 11/16/18 11/16/18 11/16/18 09:50 09:50 09:50 WBC RBC Hgb Hct MCV MCH MCHC RDW Plt Count Seg Neutrophils % Lymphocytes % Monocytes % Eosinophils % Basophils % Absolute Neutrophils Absolute Lymphocytes Absolute Monocytes Absolute Eosinophils Absolute Basophils Carbonic Acid HCO3/H2CO3 Ratio ABG pH ABG pCO2 ABG pO2 ABG HCO3 ABG O2 Saturation ABG Base Excess FiO2 Sodium Potassium Chloride Carbon Dioxide Anion Gap BUN Creatinine Est GFR ( Amer) Est GFR (Non-Af Amer) Glucose Calcium Total Bilirubin AST ALT Alkaline Phosphatase Total Protein Albumin Fluid Type Fluid Source Fluid Color Fluid Appearance Fluid Viscosity Fluid WBC Fluid RBC Fluid Glucose 155 Fluid Total Protein Fluid LDH 46 Fluid Amylase 4 11/16/18 11/17/18 11/17/18 09:50 04:49 04:49 WBC 11.7 H RBC 3.03 L Hgb 8.8 L Hct 27.3 L MCV 90 MCH 28.9 MCHC 32.1 RDW 19.8 H Plt Count 197 Seg Neutrophils % Not Reportable Lymphocytes % Not Reportable Monocytes % Not Reportable Eosinophils % Not Reportable Basophils % Not Reportable Absolute Neutrophils Not Reportable Absolute Lymphocytes Not Reportable Absolute Monocytes Not Reportable Absolute Eosinophils Not Reportable Absolute Basophils Not Reportable Carbonic Acid HCO3/H2CO3 Ratio ABG pH ABG pCO2 ABG pO2 ABG HCO3 ABG O2 Saturation ABG Base Excess FiO2 Sodium 136.3 L Potassium 3.8 Chloride 91 L Carbon Dioxide 43 H* Anion Gap 2 L BUN 74 H Creatinine 2.74 H Est GFR ( Amer) 20 L Est GFR (Non-Af Amer) 17 L Glucose 122 H Calcium 8.5 Total Bilirubin 0.4 AST 21 ALT 24 Alkaline Phosphatase 54 Total Protein 4.6 L Albumin 2.5 L Fluid Type Fluid Source Fluid Color Fluid Appearance Fluid Viscosity Fluid WBC Fluid RBC Fluid Glucose Fluid Total Protein 1.0 Fluid LDH Fluid Amylase 11/17/18 11/17/18 10:40 15:50 WBC RBC Hgb Hct MCV MCH MCHC RDW Plt Count Seg Neutrophils % Lymphocytes % Monocytes % Eosinophils % Basophils % Absolute Neutrophils Absolute Lymphocytes Absolute Monocytes Absolute Eosinophils Absolute Basophils Carbonic Acid 1.66 H HCO3/H2CO3 Ratio 24:1 ABG pH 7.48 H ABG pCO2 55.2 H ABG pO2 46.3 L ABG HCO3 40.0 H ABG O2 Saturation 84.1 L ABG Base Excess 14.7 FiO2 3L Sodium Potassium Chloride Carbon Dioxide Anion Gap BUN Creatinine Est GFR ( Amer) Est GFR (Non-Af Amer) Glucose Calcium Total Bilirubin AST ALT Alkaline Phosphatase Total Protein Albumin Fluid Type PLEURAL Fluid Source LUNG Fluid Color LIGHT YELLOW Fluid Appearance CLEAR Fluid Viscosity LIQUID Fluid WBC 69 Fluid RBC 301 Fluid Glucose Fluid Total Protein Fluid LDH Fluid Amylase 11/07/18 11/11/18 12:15 20:33 Troponin I 0.154 0.088 Impressions: Renal Ultrasound 11/09/18 10:57 IMPRESSION: No hydronephrosis Echogenic kidneys from medical renal disease Bladder decompressed by a Bernstein catheter Moderate right pleural effusion Thoracentesis Ultrasound 11/17/18 06:00 IMPRESSION: SUCCESSFUL THORACENTESIS USING ULTRASOUND GUIDANCE. Chest X-Ray 11/17/18 12:50 IMPRESSION: NO PNEUMOTHORAX 2 HOURS AFTER THORACENTESIS. NO CHANGE IN APPEARANCE OF THE CHEST. Assessment and Plan - Diagnosis (1) Acute and chronic respiratory failure with hypercapnia Is this a current diagnosis for this admission?: Yes Plan: Significant improvement. Status post bilateral thoracentesis 1600 milliliters removed. Fluid analysis negative for infection. Used BiPAP only for sure. Last time. Is still dependent on 5-4 L supplemental oxygen. Likely due to COPD exacerbation, A. fib RVR and bilateral pleural effusion most likely due to volume overload caused by A. fib RVR and worsening renal function. 2018. SPO2 93% 4 L NC. RR 1820. 11/13/2018. ABG: pH 7.35, PCO2 59.1, PO2 220, FiO2 88%. 11/12/2018. RR 1828, SPO2 94% on BiPAP FiO2 90%. ABG: pH 7.33, PCO2 63.3, PO2 82.3, FiO2 90%. 11/10/2018. SBP 852088, T-max 97.2, pulse 90s, RR 1427, SPO2 93% 5 L NC. 11/09/2018: SBP 140s, T-max 97.5, HR 90s, RR 20s, SPO2 9093 5 L NC FiO2 55%. 11/08/2018: SPO2 84-98% 6 L FiO2 44%. ABG: pH 7.18, PCO2 82.2, PO2 86.7, FiO2 60%. 11/07/2018: ABG: pH 7.37, PCO2 56.6, PO2 85.1, FiO2 50%. Antibiotics day 10. Received 4 days of IV azithromycin. Received 7 days of IV steroids. Steroids DC'd on 11/14/2018. Levofloxacin 500 g p.o. day 6. Continue DuoNeb's, BiPAP, supplemental oxygen, pulmonary toileting, incentive spirometry and IV Lasix. Cultures remain negative. Transfer to rehab tomorrow. (2) Anemia in CKD (chronic kidney disease) Qualifiers: Chronic kidney disease stage: stage 5, not on chronic dialysis Qualified Code(s): N18.5 - Chronic kidney disease, stage 5; D63.1 - Anemia in chronic kidney disease Is this a current diagnosis for this admission?: Yes Plan: H&H stable. Hemoglobin improving. Denies any hematemesis, easy bleeding, hemoptysis, hematochezia, melena, vaginal bleeding. Iron 13.8, TIBC 322, percent saturation 4, ferritin 21. 01/10/2018. Guaiac negative. Denies any history of GI malignancy. Colonoscopy in 2014 showed the polyp status post polypectomy. As per patient recently had a repeat colonoscopy which was reported as normal. Daily H&H. Transfuse if under 7, actively bleeding, or symptomatic. 11/09/2018. Received 1 dose of Procrit. 11/10/2018. Received 1 dose of Injectafer. Nephrology on board. (3) Atrial fibrillation with RVR Is this a current diagnosis for this admission?: Yes Plan: Rate controlled. Not anticoagulated. Patient very high risk for chronic anticoagulation due to underlying history of recurrent falls, severe anemia, external bleeding hemorrhoids. After discussing with patient and her daughter who is the POA about the risk of bleeding they decided to withhold Coumadin for right now. 11/08/2018 was placed on Cardizem drip. DC'd on 11/09/2018. Digoxin subtherapeutic. Increase to 0.25 every 48 hours, continue p.o. Cardizem. Monitor electrolytes, replace as needed. (4) Bilateral pleural effusion Is this a current diagnosis for this admission?: Yes Plan: Significant improvement. Blood gases improving. Status post bilateral th oracentesis 1600 cc removed. 11/16/2018. Status post right-sided thoracentesis, 800 cc removed. 11/17/2018. Status post left-sided thoracentesis 800 cc removed. Repeat chest x-ray shows movement of right-sided pleural effusion. Stable unchanged left-sided pleural effusion. This could likely be due to A. fib RVR and volume overload due to worsening renal function. Continue cautious diuresis guided by volume status. (5) Chronic kidney disease, stage IV (severe) Is this a current diagnosis for this admission?: Yes Plan: Significant improvement. Creatinine trending down. Electrolytes WNL. Nonoliguric. Patient has decided to not undergo any hemodialysis now or in the future as per nephrology note. 11/09/2018 renal ultrasound negative for chronic medical disease. PTH 248. Strict in and out, renal diet, monitor electrolytes and replace as needed. Nephrology on board. Recommendations noted. No hemodialysis planned at this point. BMP tomorrow. Avoid nephrotoxic meds. (6) COPD exacerbation Is this a current diagnosis for this admission?: Yes Plan: Plan as #1 (7) External hemorrhoid Is this a current diagnosis for this admission?: Yes Plan: This could be contributing to worsening anemia. History of external hemorrhoids. Surgery consulted. No intervention planned at this point. Please refer to note. (8) Hyperkalemia Is this a current diagnosis for this admission?: Yes Plan: Resolved. Likely due to worsening CKD. Hyperkalemia protocol. Continue telemetry. BMP tomorrow. (9) Hyperlipidemia Qualifiers: Hyperlipidemia type: unspecified Qualified Code(s): E78.5 - Hyperlipidemia, unspecified Is this a current diagnosis for this admission?: Yes Plan: Diet and lifestyle modification. Continue statins. (10) Hypothyroidism Qualifiers: Hypothyroidism type: unspecified Qualified Code(s): E03.9 - Hypothyroidism, unspecified Is this a current diagnosis for this admission?: Yes Plan: TSH WNL. Restart home meds. (11) Iron deficiency anemia Qualifiers: Iron deficiency anemia type: chronic blood loss Qualified Code(s): D50.0 - Iron deficiency anemia secondary to blood loss (chronic) Is this a current diagnosis for this admission?: Yes Plan: Stable. No PRBC transfusion as patient is a [employer]. History of external hemorrhoids as per colonoscopy in 12/18/2018. Which could be the cause of chronic iron deficiency anemia. Denies any hematemesis, easy bleeding, hemoptysis, hematochezia, melena, vaginal bleeding. 11/09/2018. Iron 13.8, TIBC 322, percent saturation 4, ferritin 21. 01/10/2018. Guaiac negative. 12/18/2017. Colonoscopy: Was positive for diverticulosis and external h emorrhoids. 12/18/2018 she had a polypectomy pathology report available, as per operative report any normal looking polyps. Recomendation was for repeat colonoscopy in 3 years. As per patient she recently had a colonoscopy which was reported as negative. Daily H&H. Supportive measures. Patient cannot receive PRBC because of amish beliefs ([facility] 11/09/2018. Received 1 dose of Procrit. 11/10/2018. Received 1 dose of Injectafer. (12) Hypertension Qualifiers: Hypertension type: essential hypertension Qualified Code(s): I10 - Essential (primary) hypertension Is this a current diagnosis for this admission?: Yes Plan: Continue Cardizem. Hold ARB due to worsening kidney function. Hydralazine PRN. (13) Anxiety Is this a current diagnosis for this admission?: Yes Plan: Benzos as needed. Fall precautions.
[2018-11-17] MEDS: INSULIN LISPRO 100 UNIT/ML 3 ML VIAL SUBCUT SCH ×4 (17:24→21:41)
[2018-11-17] MEDS: TIOTROPIUM BROMIDE DPI 5 CAP/KIT (18 MCG/CAP) IH SCH (17:29)
[2018-11-18] MEDS: IPRATROPIUM/ALBUTEROL 0.5-2.5 MG/3 ML AMPUL NEB SCH ×6 (00:40→20:26)
[2018-11-18 07:13] LABS: BLOOD UREA NITROGEN 72 mg/dL (7-20); CALCIUM 8.8 mg/dL (8.4-10.2); CHLORIDE 89 mmol/L (98-107); GLUCOSE 135 mg/dL (75-110); POTASSIUM 3.5 mmol/L (3.6-5.0)
[2018-11-18 07:35] LABS: ANION GAP 5 (5-19)
[2018-11-18 07:37] LABS: CARBON DIOXIDE 43 mmol/L (22-30)
[2018-11-18 09:45] LABS: ARTERIAL BLOOD BASE EXCESS 13.3 mmol/L; ARTERIAL BLOOD H2CO3 1.83 mmol/L (1.05-1.35); ARTERIAL BLOOD HCO3 39.7 mmol/L (20-24); ARTERIAL BLOOD O2 SATURATION 93.3 % (94-98); ARTERIAL BLOOD PCO2 60.8 mmHg (35-45); ARTERIAL BLOOD PH 7.43 (7.35-7.45); ARTERIAL BLOOD PO2 67.1 mmHg (80-100); ARTERIAL BLOOD TOTAL CO2 41.6 mmol/L (21-25)
[2018-11-18 09:47] LABS: ARTERIAL BLOOD FIO2 5L
--- NOTE | 2018-11-18 10:22 | RADIOLOGY REPORT (SQ) ---
EXAM DESCRIPTION: CHEST SINGLE VIEW COMPLETED DATE/TIME: 11/18/2018 10:11 am REASON FOR STUDY: Hypoxia COMPARISON: 11/17/2018 NUMBER OF VIEWS: One view. TECHNIQUE: Single frontal radiographic image of the chest acquired. LIMITATIONS: None. FINDINGS: LUNGS AND PLEURA: There is increasing right-sided alveolar airspace disease. Left lung fi eld is grossly unchanged. Skin fold on the left simulates small left apical pneumothorax. MEDIASTINUM AND HILAR STRUCTURES: Stable heart size and mediastinal structures. HEART AND VASCULAR STRUCTURES: Stable appearance. BONES: No acute findings. HARDWARE: None in the chest. OTHER: No other significant finding. IMPRESSION: Increasing right-sided alveolar airspace disease. No other interval change. TECHNICAL DOCUMENTATION: JOB ID: [id number] [employer]- All Rights Reserved Reading location - IP/workstation name: [email or web address]
--- NOTE | 2018-11-18 17:16 | PDOC PROGRESS REPORT ---
Subjective Progress Note for:: 11/18/18 Subjective:: JOHN PUENTES is a 78 year old female patient with past medical history of atrial fibrillation, congestive heart failure, coronary 30s, hyperlipidemia, hypertension, peripheral arterial disease, history of PE, COPD, stage IV CKD, hypothyroidism, diabetes mellitus and tobacco dependence by EMS for weakness and shortness of breath. Since patient is on full mask BiPAP and somewhat debilitated she is not source of history. Brief history is obtained from ER attending note and her neighbor. According to patient's neighbor who has been helping take care of her, she has been on decline over the past week, she had generalized weakness, and today she could not even stand up off the toilet and she has heavy labored breathing. According to EMS the patient was found to be hypoxic and having difficulty of breathing they did give her a breathing treatment but her work of breathing increasing" worse by the time she came to the emergency department. Her blood work shows hemoglobin of 8, BUN of 55, creatinine of 3.51, GFR of 13 and potassium of 6.1. Her chest x-ray shows bilateral pleural effusion. For hyperkalemia patient was given calcium gluconate, bicarb, dextrose and insulin. For her acute on chronic respiratory failure patient was put on BiPAP and relatively doing better. The hospitalist service consulted for admission. Further detailed history and review of systems unobtainable. 11/08/2018. No acute events overnight, still complaining of shortness of breath, has been on nitro drip, noted to be on A. fib RVR. He denies any chest pain, nausea, vomiting, diarrhea, constipation or any urinary symptoms. 11/09/2018. No acute events overnight. Still complaining of shortness of breath, off of nitro on Cardizem drip. Heart rate is controlled. Patient in no apparent distress, requesting to be transitioned to rehab. Denies any fever, chills, nausea, vomiting, diarrhea, constipation or any urinary symptoms. SBP 140s, T-max 97.5, HR 90s, RR 20s, SPO2 9093 5 L NC FiO2 55%. 11/10/2018. No acute events overnight, no apparent distress, on nasal cannula, use BiPAP overnight. Denies any fever, chills, nausea, vomiting, diarrhea. No bowel for the last 2 days. Patient complaining of dysuria, stating that she feels like she is developing a UTI. Patient is wearing a Bernstein which could be the reason for her abnormal sensation, UA was negative on admission. 11/11/2018. No acute events overnight. Patient is comfortably sitting in bed, not in apparent distress, on supplemental oxygen, denies any fever, chills, nausea, vomiting, diarrhea, constipation or any urinary symptoms. Still dependent on supplemental oxygen. Pending rehab placement. 11/12/2018. On 719 219 around 6 PM patient suddenly became unresponsive, very hypoxic, PO2 running in the 50s and 60s, rapid response was called, ABG was done which showed worsening hypercarbia, hypoxemia, and respiratory acidosis, chest x-ray showed worsening of bilateral pleural effusion, troponin was checked which was negative. Patient CODE STATUS was tested again with POA who stated that patient has wished several times and has been very persistent about her DNR status. They want to continue the DNR status. This morning on my encounter patient is in mild respiratory distress, on BiPAP, putting improvement of her respiratory symptoms, denies any chest pain, fever, nausea, vomiting, diarrhea, constipation or any urinary symptoms. Repeat ABG this morning shows improvement of her gases. RR 1828, SPO2 94% on BiPAP FiO2 90%. ABG: pH 7.33, PCO2 63.3, PO2 82.3, FiO2 90%. 11/13/2018. Mild improvement of blood gases, still dependent on BiPAP. Not very compliant with BiPAP due to anxiety, p.o. tolerant, having normal bowel bladder movement. Denies any fever, chills, nausea, vomiting pending thoracentesis. Once thoracentesis done if improvement of respiratory symptoms patient can be transitioned to rehab. 11/14/2018. No acute events overnight. Patient was using BiPAP overnight, in the morning transition to supplemental oxygen saturating WNL on 3 to 4 L. Alert oriented x3, cooperative with physical examination, denies any fever, chills, nausea, vomiting, diarrhea, constipation or any urinary retention. Daughter who is the POA present in the room updated patient. Paracentesis was scheduled for today however radiology postponed it for tomorrow because INR is still supratherapeutic. 11/15/2018. No acute events overnight. Overnight she has been using BiPAP on and off, on my encounter patient is on nasal cannula 4 L in no apparent distress, denies any fever, chills, nausea, vomiting, diarrhea, constipation or any urinary symptoms. Patient is still pending a thoracentesis and transition to rehab. 11/16/2018. No acute events overnight. Status post right-sided thoracentesis 800 cc removed. Significant improvement of shortness of breath. Denies any fever, chills, nausea, vomiting, diarrhea, constipation or any urinary symptoms. 11/17/2018. No acute events overnight. Status post left-sided thoracentesis and 8 cc removed. Significant improvements of shortness of breath. Overnight patient use BiPAP only for short while. Alert oriented x3, denies any fever, nausea, vomiting, diarrhea, constipation or any urinary symptoms. Pending placement. 11/18/2018. Patient has been lethargic since second thoracentesis on 11/17/2018, she is easily arousable however not as active as yesterday, denies any fever, chills, nausea, vomiting, diarrhea, constipation, repeat chest x-ray today shows increasing right-sided alveolar airspace disease. ABG: pH 7.43, PCO2 60.8, PO2 67.1, FiO2 5 L. Reason For Visit: HYPERKALEMIA,ACUTE ON CHRONIC HYPERCAPNIC Physical Exam Vital Signs: Temp Pulse Resp BP Pulse Ox 97.5 F 105 H 22 H 140/67 H 91 L 11/18/18 15:14 11/18/18 15:44 11/18/18 15:44 11/18/18 15:14 11/18/18 15:44 Intake & Output 11/17/18 11/18/18 11/19/18 06:59 06:59 06:59 Intake Total 1521 360 0 Output Total 2125 800 Balance -604 -440 0 Weight 75.8 kg 72.1 kg General appearance: PRESENT: no acute distress, well-developed, well-nourished Head exam: PRESENT: atraumatic, normocephalic Neck exam: ABSENT: carotid bruit, JVD, lymphadenopathy, thyromegaly Respiratory exam: PRESENT: clear to auscultation aguilar. ABSENT: rales, rhonchi, wheezes Cardiovascular exam: PRESENT: RRR. ABSENT: diastolic murmur, rubs, systolic murmur GI/Abdominal exam: PRESENT: normal bowel sounds, soft. ABSENT: distended, guarding, mass, organolmegaly, rebound, tenderness Neurological exam: PRESENT: oriented to person, oriented to place, CN II-XII snidy ssly intact, motor sensory deficit, other - Lethargic but easily arousable. Results Laboratory Results: 11/17/18 04:49 11/18/18 05:47 11/17/18 11/17/18 11/17/18 10:40 10:40 10:40 Carbonic Acid HCO3/H2CO3 Ratio ABG pH ABG pCO2 ABG pO2 ABG HCO3 ABG O2 Saturation ABG Base Excess FiO2 Sodium Potassium Chloride Carbon Dioxide Anion Gap BUN Creatinine Est GFR ( Amer) Est GFR (Non-Af Amer) Glucose Calcium Fluid Glucose 154 Fluid Total Protein Fluid LDH 51 Fluid Amylase 6 11/17/18 11/18/18 11/18/18 10:40 05:47 09:20 Carbonic Acid 1.83 H HCO3/H2CO3 Ratio 21:1 ABG pH 7.43 ABG pCO2 60.8 H ABG pO2 67.1 L ABG HCO3 39.7 H ABG O2 Saturation 93.3 L ABG Base Excess 13.3 FiO2 5L Sodium 137.3 Potassium 3.5 L Chloride 89 L Carbon Dioxide 43 H* Anion Gap 5 BUN 72 H Creatinine 2.91 H Est GFR ( Amer) 19 L Est GFR (Non-Af Amer) 16 L Glucose 135 H Calcium 8.8 Fluid Glucose Fluid Total Protein 1.1 Fluid LDH Fluid Amylase 11/17/18 10:40 Pleural Fluid - Left Pleural Effusion AFB Smear Concentration - Final 11/17/18 10:40 Pleural Fluid - Left Pleural Effusion Acid Fast Bacilli Smear - Final 11/16/18 09:50 Pleural Fluid - Right Pleural Effusion AFB Smear Concentration - Final 11/16/18 09:50 Pleural Fluid - Right Pleural Effusion Acid Fast Bacilli Smear - Final 11/07/18 11/11/18 12:15 20:33 Troponin I 0.154 0.088 Impressions: Renal Ultrasound 11/09/18 10:57 IMPRESSION: No hydronephrosis Echogenic kidneys from medical renal disease Bladder decompressed by a Bernstein catheter Moderate right pleural effusion Thoracentesis Ultrasound 11/17/18 06:00 IMPRESSION: SUCCESSFUL THORACENTESIS USING ULTRASOUND GUIDANCE. Chest X-Ray 11/18/18 00:00 IMPRESSION: Increasing right-sided alveolar airspace disease. No other interval change. Assessment and Plan - Diagnosis (1) Acute and chronic respiratory failure with hypercapnia Is this a current diagnosis for this admission?: Yes Plan: Patient had excellent improvement of her respiratory symptoms however worsening since second thoracentesis on 11/17/2018, blood gases are showing CO2 retention, repeat chest x-ray shows increasing right-sided L4 airspace disease. Had to be placed back on BiPAP. Status post bilateral thoracentesis 1600 milliliters removed. Fluid analysis negative for infection. Likely due to COPD exacerbation, A. fib RVR and bilateral pleural effusion most likely due to volume overload caused by A. fib RVR and worsening renal function. 11/18/2018. ABG: pH 7.43, PCO2 60.8, PO2 67.1, FiO2 5 L. 11/14/2018. SPO2 93% 4 L NC. RR 1820. 11/13/2018. ABG: pH 7.35, PCO2 59.1, PO2 220, FiO2 88%. 11/12/2018. RR 1828, SPO2 94% on BiPAP FiO2 90%. ABG: pH 7.33, PCO2 63.3, PO2 82.3, FiO2 90%. 11/10/2018. SBP 479226, T-max 97.2, pulse 90s, RR 1427, SPO2 93% 5 L NC. 11/09/2018: SBP 140s, T-max 97.5, HR 90s, RR 20s, SPO2 9093 5 L NC FiO2 55%. 11/08/2018: SPO2 84-98% 6 L FiO2 44%. ABG: pH 7.18, PCO2 82.2, PO2 86.7, FiO2 60%. 11/07/2018: ABG: pH 7.37, PCO2 56.6, PO2 85.1, FiO2 50%. Antibiotics day 10. Received 4 days of IV azithromycin. Received 7 days of IV steroids. Steroids DC'd on 11/14/2018. Levofloxacin 500 g p.o. day 6. Continue DuoNeb's, BiPAP, supplemental oxygen, pulmonary toileting, incentive spirometry and IV Lasix. Cultures remain negative. Possible transfer to rehab tomorrow. (2) Anemia in CKD (chronic kidney disease) Qualifiers: Chronic kidney disease stage: stage 5, not on chronic dialysis Qualified Code(s): N18.5 - Chronic kidney disease, stage 5; D63.1 - Anemia in chronic kidney disease Is this a current diagnosis for this admission?: Yes Plan: H&H stable. Hemoglobin improving. Denies any hematemesis, easy bleeding, hemoptysis, hematochezia, melena, vaginal bleeding. Iron 13.8, TIBC 322, percent saturation 4, ferritin 21. 01/10/2018. Guaiac negative. Denies any history of GI malignancy. Colonoscopy in 2014 showed the polyp status post polypectomy. As per patient recently had a repeat colonoscopy which was reported as normal. Daily H&H. Transfuse if under 7, actively bleeding, or symptomatic. 11/09/2018. Received 1 dose of Procrit. 11/10/2018. Received 1 dose of Injectafer. Nephrology on board. (3) Atrial fibrillation with RVR Is this a current diagnosis for this admission?: Yes Plan: Rate controlled. Not anticoagulated. Patient very high risk for chronic anticoagulation due to underlying history of recurrent falls, severe anemia, external bleeding hemorrhoids. After discussing with patient and her daughter who is the POA about the risk of bleeding they decided to withhold Coumadin for right now. 11/08/2018 was placed on Cardizem drip. DC'd on 11/09/2018. Digoxin subtherapeutic. Increase to 0.25 every 48 hours, continue p.o. Cardizem. Monitor electrolytes, replace as needed. (4) Bilateral pleural effusion Is this a current diagnosis for this admission?: Yes Plan: Significant improvement. Blood gases improving. Status post bilateral thoracentesis 1600 cc removed. 11/16/2018. Status post right-sided thoracentesis, 800 cc removed. 11/17/2018. Status post left-sided thoracentesis 800 cc removed. Repeat chest x-ray shows movement of right-sided pleural effusion. Stable unchanged left-sided pleural effusion. This could likely be due to A. fib RVR and volume overload due to worsening renal function. Continue cautious diuresis guided by volume status. (5) Chronic kidney disease, stage IV (severe) Is this a current diagnosis for this admission?: Yes Plan: Significant improvement. Creatinine trending down. Electrolytes WNL. Nonolig uric. Patient has decided to not undergo any hemodialysis now or in the future as per nephrology note. 11/09/2018 renal ultrasound negative for chronic medical disease. PTH 248. Strict in and out, renal diet, monitor electrolytes and replace as needed. Nephrology on board. Recommendations noted. No hemodialysis planned at this point. BMP tomorrow. Avoid nephrotoxic meds. (6) COPD exacerbation Is this a current diagnosis for this admission?: Yes Plan: Plan as #1 (7) External hemorrhoid Is this a current diagnosis for this admission?: Yes Plan: This could be contributing to worsening anemia. History of external hemorrhoids. Surgery consulted. No intervention planned at this point. Please refer to note. (8) Hyperkalemia Is this a current diagnosis for this admission?: Yes Plan: Resolved. Likely due to worsening CKD. Hyperkalemia protocol. Continue telemetry. BMP tomorrow. (9) Hyperlipidemia Qualifiers: Hyperlipidemia type: unspecified Qualified Code(s): E78.5 - Hyperlipidemia, unspecified Is this a current diagnosis for this admission?: Yes Plan: Diet and lifestyle modification. Continue statins. (10) Hypothyroidism Qualifiers: Hypothyroidism type: unspecified Qualified Code(s): E03.9 - Hypothyroidism, unspecified Is this a current diagnosis for this admission?: Yes Plan: TSH WNL. Restart home meds. (11) Iron deficiency anemia Qualifiers: Iron deficiency anemia type: chronic blood loss Qualified Code(s): D50.0 - Iron deficiency anemia secondary to blood loss (chronic) Is this a current diagnosis for this admission?: Yes Plan: Stable. No PRBC transfusion as patient is a [employer]. History of external hemorrhoids as per colonoscopy in 12/18/2018. Which could be the cause of chronic iron deficiency anemia. Denies any hematemesis, easy bleeding, hemoptysis, hematochezia, melena, vaginal bleeding. 11/09/2018. Iron 13.8, TIBC 322, percent saturation 4, ferritin 21. 01/10/2018. Guaiac negative. 12/18/2017. Colonoscopy: Was positive for diverticulosis and external hemorrhoids. 12/18/2018 she had a polypectomy pathology report available, as per operative report any normal looking polyps. Recomendation was for repeat colonoscopy in 3 years. As per patient she recently had a colonoscopy which was reported as negative. Daily H&H. Supportive measures. Patient cannot receive PRBC because of mosque beliefs ([employer].) 11/09/2018. Received 1 dose of Procrit. 11/10/2018. Received 1 dose of Injectafer. (12) Hypertension Qualifiers: Hypertension type: essential hypertension Qualified Code(s): I10 - Essential (primary) hypertension Is this a current diagnosis for this admission?: Yes Plan: Continue Cardizem. Hold ARB due to worsening kidney function. Hydralazine PRN. (13) Anxiety Is this a current diagnosis for this admission?: Yes Plan: Benzos as needed. Fall precautions.
[2018-11-18] MEDS: INSULIN LISPRO 100 UNIT/ML 3 ML VIAL SUBCUT SCH ×4 (18:20→21:58)
[2018-11-18] MEDS: CALCIUM ACETATE 667 MG CAPSULE PO SCH ×2 (18:29→18:30)
[2018-11-18] MEDS: DOCUSATE SODIUM 100 MG CAPSULE PO SCH ×2 (18:30→18:39)
[2018-11-18] MEDS: CALCITRIOL 0.25 MCG CAPSULE PO SCH (18:33)
[2018-11-18] MEDS: FAMOTIDINE 20 MG TABLET PO SCH (18:33)
[2018-11-18] MEDS: TIOTROPIUM BROMIDE DPI 5 CAP/KIT (18 MCG/CAP) IH SCH (18:33)
[2018-11-18] MEDS: DIGOXIN 0.25 MG TABLET PO SCH (18:39)
[2018-11-18] MEDS: FUROSEMIDE 40 MG TABLET PO SCH ×2 (18:39→21:58)
[2018-11-18] MEDS: DILTIAZEM HCL 240 MG CAPSULE.CR PO SCH (18:39)
[2018-11-19] MEDS: IPRATROPIUM/ALBUTEROL 0.5-2.5 MG/3 ML AMPUL NEB SCH ×7 (00:19→23:28)
[2018-11-19] MEDS: LORAZEPAM 1 MG TABLET PO PRN ×2 (00:49→12:38)
[2018-11-19 04:41] LABS: HEMOGLOBIN 8.5 g/dL (12.0-15.5); MEAN CORPUSCULAR HEMOGLOBIN 29.8 pg (27.0-33.4); MEAN CORPUSCULAR HGB CONC 32.6 g/dL (32.0-36.0); MEAN CORPUSCULAR VOLUME 91 fl (80-97); PLATELET COUNT 155 10^3/uL (150-450); RED BLOOD COUNT 2.84 10^6/uL (3.72-5.28); RED CELL DISTRIBUTION WIDTH 21.9 % (11.5-14.0); WHITE BLOOD COUNT 12.5 10^3/uL (4.0-10.5)
[2018-11-19 05:04] LABS: ALANINE AMINOTRANSFERASE 26 U/L (9-52); ALBUMIN 2.5 g/dL (3.5-5.0); ALKALINE PHOSPHATASE 59 U/L (38-126); ANION GAP 7 (5-19); ASPARTATE AMINO TRANSFERASE 23 U/L (14-36); BILIRUBIN,DIRECT 0.3 mg/dL (0.0-0.4); BILIRUBIN,TOTAL 0.5 mg/dL (0.2-1.3); BLOOD UREA NITROGEN 75 mg/dL (7-20); CALCIUM 8.3 mg/dL (8.4-10.2); CHLORIDE 91 mmol/L (98-107); GLUCOSE 103 mg/dL (75-110); POTASSIUM 3.5 mmol/L (3.6-5.0); TOTAL PROTEIN 4.6 g/dL (6.3-8.2)
[2018-11-19 05:06] LABS: ABSOLUTE LYMPHOCYTES# (MANUAL) 0.5 10^3/uL (0.5-4.7); ABSOLUTE MONOCYTES # (MANUAL) 0.3 10^3/uL (0.1-1.4); BASOPHILS % (MANUAL) 0 % (0-2); EOSINOPHILS % (MANUAL) 0 % (0-6); LYMPHOCYTES % (MANUAL) 4 % (13-45); MONOCYTES % (MANUAL) 2 % (3-13); SEGMENTED NEUTROPHILS % (MAN) 94 % (42-78); TOTAL CELLS COUNTED 100
[2018-11-19 05:07] LABS: ANISOCYTOSIS 3+; HYPOCHROMASIA SLIGHT; OVALOCYTES SLIGHT; PLATELET COMMENT ADEQUATE; POIKILOCYTOSIS SLIGHT; POLYCHROMASIA SLIGHT; TOXIC GRANULATION SLIGHT
[2018-11-19 05:15] LABS: CARBON DIOXIDE 40 mmol/L (22-30)
[2018-11-19 06:34] LABS: ARTERIAL BLOOD BASE EXCESS 16.2 mmol/L; ARTERIAL BLOOD H2CO3 1.74 mmol/L (1.05-1.35); ARTERIAL BLOOD HCO3 41.4 mmol/L (20-24); ARTERIAL BLOOD O2 SATURATION 99.3 % (94-98); ARTERIAL BLOOD PCO2 57.7 mmHg (35-45); ARTERIAL BLOOD PH 7.47 (7.35-7.45); ARTERIAL BLOOD PO2 178.9 mmHg (80-100); ARTERIAL BLOOD TOTAL CO2 43.2 mmol/L (21-25)
[2018-11-19 06:35] LABS: ARTERIAL BLOOD FIO2 70%
[2018-11-19] MEDS: INSULIN LISPRO 100 UNIT/ML 3 ML VIAL SUBCUT SCH ×4 (09:01→21:28)
[2018-11-19] MEDS: DILTIAZEM HCL 240 MG CAPSULE.CR PO SCH (09:30)
[2018-11-19] MEDS: FUROSEMIDE 40 MG TABLET PO SCH ×2 (09:31→18:31)
[2018-11-19] MEDS: TIOTROPIUM BROMIDE DPI 5 CAP/KIT (18 MCG/CAP) IH SCH (09:31)
[2018-11-19] MEDS: DOCUSATE SODIUM 100 MG CAPSULE PO SCH ×2 (09:31→18:31)
[2018-11-19] MEDS: FAMOTIDINE 20 MG TABLET PO SCH (09:31)
[2018-11-19] MEDS: CALCIUM ACETATE 667 MG CAPSULE PO SCH ×3 (09:31→18:31)
--- NOTE | 2018-11-19 10:11 | PDOC PROGRESS REPORT ---
Subjective Progress Note for:: 11/19/18 Subjective:: No complaints this am Reason For Visit: HYPERKALEMIA,ACUTE ON CHRONIC HYPERCAPNIC Physical Exam Vital Signs: Temp Pulse Resp BP Pulse Ox 98.2 F 90 22 H 140/46 H 100 11/19/18 07:36 11/19/18 07:36 11/19/18 07:36 11/19/18 07:36 11/19/18 07:36 Intake & Output 11/18/18 11/19/18 11/20/18 06:59 06:59 06:59 Intake Total 360 0 Output Total 800 Balance -440 0 Weight 72.1 kg 70.9 kg General appearance: PRESENT: no acute distress, well-developed, well-nourished Neck exam: ABSENT: carotid bruit, JVD, lymphadenopathy, thyromegaly Respiratory exam: PRESENT: decreased breath sounds, rhonchi, tachypnea Cardiovascular exam: PRESENT: RRR. ABSENT: diastolic murmur, rubs, systolic murmur Pulses: PRESENT: +1 pedal pulses bilateral GI/Abdominal exam: PRESENT: normal bowel sounds, soft. ABSENT: distended, guarding, mass, organolmegaly, rebound, tenderness Extremities exam: PRESENT: full ROM. ABSENT: calf tenderness, clubbing, pedal edema Neurological exam: PRESENT: alert, awake Psychiatric exam: PRESENT: appropriate affect Skin exam: PRESENT: dry, intact, warm. ABSENT: cyanosis, rash Results Laboratory Results: 11/19/18 04:25 11/19/18 04:25 11/17/18 11/17/18 11/17/18 10:40 10:40 10:40 WBC RBC Hgb Hct MCV MCH MCHC RDW Plt Count Seg Neutrophils % Lymphocytes % Monocytes % Eosinophils % Basophils % Absolute Neutrophils Absolute Lymphocytes Absolute Monocytes Absolute Eosinophils Absolute Basophils Carbonic Acid HCO3/H2CO3 Ratio ABG pH ABG pCO2 ABG pO2 ABG HCO3 ABG O2 Saturation ABG Base Excess FiO2 Sodium Potassium Chloride Carbon Dioxide Anion Gap BUN Creatinine Est GFR ( Amer) Est GFR (Non-Af Amer) Glucose Calcium Magnesium Total Bilirubin AST ALT Alkaline Phosphatase Total Protein Albumin Fluid Glucose 154 Fluid Total Protein Fluid LDH 51 Fluid Amylase 6 11/17/18 11/19/18 11/19/18 10:40 04:25 04:25 WBC 12.5 H RBC 2.84 L Hgb 8.5 L Hct 26.0 L MCV 91 MCH 29.8 MCHC 32.6 RDW 21.9 H Plt Count 155 Seg Neutrophils % Not Reportable Lymphocytes % Not Reportable Monocytes % Not Reportable Eosinophils % Not Reportable Basophils % Not Reportable Absolute Neutrophils Not Reportable Absolute Lymphocytes Not Reportable Absolute Monocytes Not Reportable Absolute Eosinophils Not Reportable Absolute Basophils Not Reportable Carbonic Acid HCO3/H2CO3 Ratio ABG pH ABG pCO2 ABG pO2 ABG HCO3 ABG O2 Saturation ABG Base Excess FiO2 Sodium 137.8 Potassium 3.5 L Chloride 91 L Carbon Dioxide 40 H* Anion Gap 7 BUN 75 H Creatinine 2.85 H Est GFR ( Amer) 19 L Est GFR (Non-Af Amer) 16 L Glucose 103 Calcium 8.3 L Magnesium 1.6 Total Bilirubin 0.5 AST 23 ALT 26 Alkaline Phosphatase 59 Total Protein 4.6 L Albumin 2.5 L Fluid Glucose Fluid Total Protein 1.1 Fluid LDH Fluid Amylase 11/19/18 06:12 WBC RBC Hgb Hct MCV MCH MCHC RDW Plt Count Seg Neutrophils % Lymphocytes % Monocytes % Eosinophils % Basophils % Absolute Neutrophils Absolute Lymphocytes Absolute Monocytes Absolute Eosinophils Absolute Basophils Carbonic Acid 1.74 H HCO3/H2CO3 Ratio 23:1 ABG pH 7.47 H ABG pCO2 57.7 H ABG pO2 178.9 H ABG HCO3 41.4 H ABG O2 Saturation 99.3 H ABG Base Excess 16.2 FiO2 70% Sodium Potassium Chloride Carbon Dioxide Anion Gap BUN Creatinine Est GFR ( Amer) Est GFR (Non-Af Amer) Glucose Calcium Magnesium Total Bilirubin AST ALT Alkaline Phosphatase Total Protein Albumin Fluid Glucose Fluid Total Protein Fluid LDH Fluid Amylase 11/17/18 10:40 Pleural Fluid - Left Pleural Effusion AFB Smear Concentration - Final 11/17/18 10:40 Pleural Fluid - Left Pleural Effusion Acid Fast Bacilli Smear - Final 11/16/18 09:50 Pleural Fluid - Right Pleural Effusion AFB Smear Concentration - Final 11/16/18 09:50 Pleural Fluid - Right Pleural Effusion Acid Fast Bacilli Smear - Final 11/07/18 11/11/18 12:15 20:33 Troponin I 0.154 0.088 Impressions: Renal Ultrasound 11/09/18 10:57 IMPRESSION: No hydronephrosis Echogenic kidneys from medical renal disease Bladder decompressed by a Bernstein catheter Moderate right pleural effusion Thoracentesis Ultrasound 11/17/18 06:00 IMPRESSION: SUCCESSFUL THORACENTESIS USING ULTRASOUND GUIDANCE. Chest X-Ray 11/18/18 00:00 IMPRESSION: Increasing right-sided alveolar airspace disease. No other interval change. Assessment and Plan - Diagnosis (1) Acute and chronic respiratory failure with hypercapnia Is this a current diagnosis for this admission?: Yes Plan: Patient had excellent improvement of her respiratory symptoms however worsening since second thoracentesis on 11/17/2018, blood gases are showing CO2 retention, repeat chest x-ray shows increasing right-sided L4 airspace disease. Had to be placed back on BiPAP. Status post bilateral thoracentesis 1600 milliliters removed. Fluid analysis negative for infection. Likely due to COPD exacerbation, A. fib RVR and bilateral pleural effusion most likely due to volume overload caused by A. fib RVR and worsening renal function. 11/18/2018. ABG: pH 7.43, PCO2 60.8, PO2 67.1, FiO2 5 L. 11/14/2018. SPO2 93% 4 L NC. RR 1820. 11/13/2018. ABG: pH 7.35, PCO2 59.1, PO2 220, FiO2 88%. 11/12/2018. RR 1828, SPO2 94% on BiPAP FiO2 90%. ABG: pH 7.33, PCO2 63.3, PO2 82.3, FiO2 90%. 11/10/2018. SBP 887222, T-max 97.2, pulse 90s, RR 1427, SPO2 93% 5 L NC. 11/09/2018: SBP 140s, T-max 97.5, HR 90s, RR 20s, SPO2 9093 5 L NC FiO2 55%. 11/08/2018: SPO2 84-98% 6 L FiO2 44%. ABG: pH 7.18, PCO2 82.2, PO2 86.7, FiO2 60%. 11/07/2018: ABG: pH 7.37, PCO2 56.6, PO2 85.1, FiO2 50%. Antibiotics day 10. Received 4 days of IV azithromycin. Received 7 days of IV steroids. Steroids DC'd on 11/14/2018. Levofloxacin 500 g p.o. day 6. Continue DuoNeb's, BiPAP, supplemental oxygen, pulmonary toileting, incentive spirometry and IV Lasix. Cultures remain negative. Possible transfer to rehab tomorrow. 11/19/2018-ABG shows a PO2 of 178. Patient on a 70% O2 via BiPAP. Discussed this with respiratory therapist were able to increase and wean to keep sats above 91%. Patient has a metabolic alkalosis with compensated rotatory acidosis. Patient shows anxiety on BiPAP. Patient does have Ativan ordered for anxiety as told nurses give this to her throughout the day. Carbon dioxide this morning 54. This is probably most likely where patient lives. (2) Bilateral pleural effusion Is this a current diagnosis for this admission?: Yes Plan: Significant improvement. Blood gases improving. Status post bilateral thoracentesis 1600 cc removed. 11/16/2018. Status post right-sided thoracentesis, 800 cc removed. 11/17/2018. Status post left-sided thoracentesis 800 cc removed. Repeat chest x-ray shows movement of right-sided pleural effusion. Stable unchanged left-sided pleural effusion. This could likely be due to A. fib RVR and volume overload due to worsening renal function. Continue cautious diuresis guided by volume status. 11/19/2018-patient had thoracentesis on 11/17/2018 with 800 cc removed. Patient continues with current therapy will follow. (3) Anemia in CKD (chronic kidney disease) Qualifiers: Chronic kidney disease stage: stage 5, not on chronic dialysis Qualified Code(s): N18.5 - Chronic kidney disease, stage 5; D63.1 - Anemia in chronic kidney disease Is this a current diagnosis for this admission?: Yes Plan: H&H stable. Hemoglobin improving. Denies any hematemesis, easy bleeding, hemoptysis, hematochezia, melena, vaginal bleeding. Iron 13.8, TIBC 322, percent saturation 4, ferritin 21. 01/10/2018. Guaiac negative. Denies any history of GI malignancy. Colonoscopy in 2014 showed the polyp status post polypectomy. As per patient recently had a repeat colonoscopy which was reported as normal. Daily H&H. Transfuse if under 7, actively bleeding, or symptomatic. 11/09/2018. Received 1 dose of Procrit. 11/10/2018. Received 1 dose of Injectafer. Nephrology on board. 11/19/2018-hemoglobin stable at this time. Will continue to follow with daily CBCs. (4) Chronic kidney disease, stage IV (severe) Is this a current diagnosis for this admission?: Yes Plan: Significant improvement. Creatinine trending down. Electrolytes WNL. Nonoliguric. Patient has decided to not undergo any hemodialysis now or in the future as per nephrology note. 11/09/2018 renal ultrasound negative for chronic medical disease. PTH 248. Strict in and out, renal diet, monitor electrolytes and replace as needed. Nephrology on board. Recommendations noted. No hemodialysis planned at this point. BMP tomorrow. Avoid nephrotoxic meds. 11/19/2018-creatinine 2.85 this morning. This is stable for patient. We will continue to avoid nephrotoxic medications no hemodialysis planned at this point. Strict I&O's and continue to follow. (5) Atrial fibrillation Qualifiers: Atrial fibrillation type: chronic Qualified Code(s): I48.2 - Chronic atrial fibrillation Is this a current diagnosis for this admission?: Yes Plan: Rate controlled 11/19/2018-rate controlled at this time. Patient's family discussed with previous provider anticoagulation. At this time we will hold off on anticoagulation as patient is high risk for falls when she leaves hospital. I have placed patient on heparin subcu for DVT prophylaxis patient is immobile for the most part at this time. We will continue to follow - Time Time Spent with patient: 15-24 minutes - Inpatient Certification Based on my medical assessment, after consideration of the patient's comorbidities, presenting symptoms, or acuity I expect that the services needed warrant INPATIENT care.: Yes I certify that my determination is in accordance with my understanding of Medicare's requirements for reasonable and necessary INPATIENT services [42 CFR 412.3e].: Yes Medical Necessity: Other - continuous monitoring, BIPAP, frequent thoracentesis
[2018-11-19] MEDS: HEPARIN SOD (PORCINE) 5,000 UNIT/ML 1 ML VIAL SUBCUT SCH ×2 (14:33→21:25)
[2018-11-19] MEDS: HYDRALAZINE HCL INJ/PF 20 MG/1 ML SDV IV PRN (23:55)
[2018-11-20] MEDS: IPRATROPIUM/ALBUTEROL 0.5-2.5 MG/3 ML AMPUL NEB SCH ×5 (03:39→20:23)
[2018-11-20] MEDS: HEPARIN SOD (PORCINE) 5,000 UNIT/ML 1 ML VIAL SUBCUT SCH ×3 (05:31→22:16)
[2018-11-20 07:02] LABS: ARTERIAL BLOOD PH 7.51 (7.35-7.45); ARTERIAL BLOOD PO2 55.9 mmHg (80-100); ARTERIAL BLOOD TOTAL CO2 42.6 mmol/L (21-25)
[2018-11-20 07:03] LABS: ARTERIAL BLOOD FIO2 30%
[2018-11-20] MEDS: INSULIN LISPRO 100 UNIT/ML 3 ML VIAL SUBCUT SCH ×4 (08:19→22:16)
[2018-11-20] MEDS: DOCUSATE SODIUM 100 MG CAPSULE PO SCH ×2 (09:01→17:23)
[2018-11-20] MEDS: FAMOTIDINE 20 MG TABLET PO SCH (09:06)
[2018-11-20] MEDS: DILTIAZEM HCL 240 MG CAPSULE.CR PO SCH (09:06)
[2018-11-20] MEDS: DIGOXIN 0.25 MG TABLET PO SCH (09:06)
[2018-11-20] MEDS: CALCIUM ACETATE 667 MG CAPSULE PO SCH ×3 (09:06→17:23)
[2018-11-20] MEDS: TIOTROPIUM BROMIDE DPI 5 CAP/KIT (18 MCG/CAP) IH SCH (09:06)
[2018-11-20] MEDS: FUROSEMIDE 40 MG TABLET PO SCH ×2 (09:06→17:23)
--- NOTE | 2018-11-20 10:09 | PDOC PROGRESS REPORT ---
Subjective Progress Note for:: 11/20/18 Subjective:: No complaints this am 11/20/2018-no complaints this a.m. patient continues on BiPAP. Reason For Visit: HYPERKALEMIA,ACUTE ON CHRONIC HYPERCAPNIC Physical Exam Vital Signs: Temp Pulse Resp BP Pulse Ox 97.9 F 76 18 114/57 L 95 11/20/18 07:42 11/20/18 07:42 11/20/18 07:42 11/20/18 07:42 11/20/18 07:42 Intake & Output 11/19/18 11/20/18 11/21/18 06:59 06:59 06:59 Intake Total 0 676 Output Total 550 Balance 0 126 Weight 70.9 kg 76.9 kg General appearance: PRESENT: no acute distress, well-developed, well-nourished Neck exam: ABSENT: carotid bruit, JVD, lymphadenopathy, thyromegaly Respiratory exam: PRESENT: accessory muscle use, decreased breath sounds - ED, tachypnea Cardiovascular exam: PRESENT: irregular rhythm. ABSENT: diastolic murmur, rubs, systolic murmur Pulses: PRESENT: +1 pedal pulses bilateral Vascular exam: PRESENT: normal capillary refill GI/Abdominal exam: PRESENT: normal bowel sounds, soft. ABSENT: distended, guarding, mass, organolmegaly, rebound, tenderness Extremities exam: PRESENT: full ROM. ABSENT: calf tenderness, clubbing, pedal edema Neurological exam: PRESENT: awake Results Laboratory Results: 11/19/18 04:25 11/19/18 04:25 11/20/18 06:42 Carbonic Acid 1.60 H HCO3/H2CO3 Ratio 25:1 ABG pH 7.51 H ABG pCO2 53.0 H ABG pO2 55.9 L ABG HCO3 41.0 H ABG O2 Saturation 91.0 L ABG Base Excess 16.0 FiO2 30% 11/07/18 11/11/18 12:15 20:33 Troponin I 0.154 0.088 Impressions: Renal Ultrasound 11/09/18 10:57 IMPRESSION: No hydronephrosis Echogenic kidneys from medical renal disease Bladder decompressed by a Bernstein catheter Moderate right pleural effusion Thoracentesis Ultrasound 11/17/18 06:00 IMPRESSION: SUCCESSFUL THORACENTESIS USING ULTRASOUND GUIDANCE. Chest X-Ray 11/18/18 00:00 IMPRESSION: Increasing right-sided alveolar airspace disease. No other interval change. Assessment and Plan - Diagnosis (1) Acute and chronic respiratory failure with hypercapnia Is this a current diagnosis for this admission?: Yes Plan: Patient had excellent improvement of her respiratory symptoms however worsening since second thoracentesis on 11/17/2018, blood gases are showing CO2 retention, repeat chest x-ray shows increasing right-sided L4 airspace disease. Had to be placed back on BiPAP. Status post bilateral thoracentesis 1600 milliliters removed. Fluid analysis negative for infection. Likely due to COPD exacerbation, A. fib RVR and bilateral pleural effusion most likely due to volume overload caused by A. fib RVR and worsening renal function. 11/18/2018. ABG: pH 7.43, PCO2 60.8, PO2 67.1, FiO2 5 L. 11/14/2018. SPO2 93% 4 L NC. RR 1820. 11/13/2018. ABG: pH 7.35, PCO2 59.1, PO2 220, FiO2 88%. 11/12/2018. RR 1828, SPO2 94% on BiPAP FiO2 90%. ABG: pH 7.33, PCO2 63.3, PO2 82.3, FiO2 90%. 11/10/2018. SBP 185665, T-max 97.2, pulse 90s, RR 1427, SPO2 93% 5 L NC. 11/09/2018: SBP 140s, T-max 97.5, HR 90s, RR 20s, SPO2 9093 5 L NC FiO2 55%. 11/08/2018: SPO2 84-98% 6 L FiO2 44%. ABG: pH 7.18, PCO2 82.2, PO2 86.7, FiO2 60%. 11/07/2018: ABG: pH 7.37, PCO2 56.6, PO2 85.1, FiO2 50%. Antibiotics day 10. Received 4 days of IV azithromycin. Received 7 days of IV steroids. Steroids DC'd on 11/14/2018. Levofloxacin 500 g p.o. day 6. Continue DuoNeb's, BiPAP, supplemental oxygen, pulmonary toileting, incentive spirometry and IV Lasix. Cultures remain negative. Possible transfer to rehab tomorrow. 11/19/2018-ABG shows a PO2 of 178. Patient on a 70% O2 via BiPAP. Discussed this with respiratory therapist were able to increase and wean to keep sats above 91%. Patient has a metabolic alkalosis with compensated rotatory acidos is. Patient shows anxiety on BiPAP. Patient does have Ativan ordered for anxiety as told nurses give this to her throughout the day. Carbon dioxide this morning 54. This is probably most likely where patient lives. 11/12/2018-ABG shows patient is hyperventilating. Patient is getting as needed A tivan. reports erythema soft on palpation we will decrease her rate on a BiPAP. Otherwise patient is stable. Awaiting placement. (2) Bilateral pleural effusion Is this a current diagnosis for this admission?: Yes Plan: Significant improvement. Blood gases improving. Status post bilateral thoracentesis 1600 cc removed. 11/16/2018. Status post right-sided thoracentesis, 800 cc removed. 11/17/2018. Status post left-sided thoracentesis 800 cc removed. Repeat chest x-ray shows movement of right-sided pleural effusion. Stable unchanged left-sided pleural effusion. This could likely be due to A. fib RVR and volume overload due to worsening renal function. Continue cautious diuresis guided by volume status. 11/19/2018-patient had thoracentesis on 11/17/2018 with 800 cc removed. Patient continues with current therapy will follow. 11/20/2018-stable. No further plans for thoracentesis at this time. (3) Anemia in CKD (chronic kidney disease) Qualifiers: Chronic kidney disease stage: stage 5, not on chronic dialysis Qualified Code(s): N18.5 - Chronic kidney disease, stage 5; D63.1 - Anemia in chronic kidney disease Is this a current diagnosis for this admission?: Yes Plan: H&H stable. Hemoglobin improving. Denies any hematemesis, easy bleeding, hemoptysis, hematochezia, melena, vaginal bleeding. Iron 13.8, TIBC 322, percent saturation 4, ferritin 21. 01/10/2018. Guaiac negative. Denies any history of GI malignancy. Colonoscopy in 2014 showed the polyp status post polypectomy. As per patient recently had a repeat colonoscopy which was reported as normal. Daily H&H. Transfuse if under 7, actively bleeding, or symptomatic. 11/09/2018. Received 1 dose of Procrit. 11/10/2018. Received 1 dose of Injectafer. Nephrology on board. 11/19/2018-hemoglobin stable at this time. Will continue to follow with daily CBCs. 11/20/2018-stable. Daily CBCs (4) Chronic kidney disease, stage IV (severe) Is this a current diagnosis for this admission?: Yes Plan: Significant improvement. Creatinine trending down. Electrolytes WNL. Nonoliguric. Patient has decided to not undergo any hemodialysis now or in the future as per nephrology note. 11/09/2018 renal ultrasound negative for chronic medical disease. PTH 248. Strict in and out, renal diet, monitor electrolytes and replace as needed. Nephrology on board. Recommendations noted. No hemodialysis planned at this point. BMP tomorrow. Avoid nephrotoxic meds. 11/19/2018-creatinine 2.85 this morning. This is stable for patient. We will continue to avoid nephrotoxic medications no hemodialysis planned at this point. Strict I&O's and continue to follow. 11/20/2018-awaiting a.m. labs. Continue to avoid nephrotoxic medications. Strict I's and O's and follow (5) Atrial fibrillation Qualifiers: Atrial fibrillation type: chronic Qualified Code(s): I48.2 - Chronic atrial fibrillation Is this a current diagnosis for this admission?: Yes Plan: Rate controlled 11/19/2018-rate controlled at this time. Patient's family discussed with previous provider anticoagulation. At this time we will hold off on anticoa gulation as patient is high risk for falls when she leaves hospital. I have placed patient on heparin subcu for DVT prophylaxis patient is immobile for the most part at this time. We will continue to follow 11/20/2018-rate control. No anticoagulation. Awaiting placement. - Time Time Spent with patient: 15-24 minutes - Inpatient Certification Based on my medical assessment, after consideration of the patient's comorbidities, presenting symptoms, or acuity I expect that the services needed warrant INPATIENT care.: Yes I certify that my determination is in accordance with my understanding of Medicare's requirements for reasonable and necessary INPATIENT services [42 CFR 412.3e].: Yes Medical Necessity: Other - BiPAP and continuous monitoring.
[2018-11-20 10:37] LABS: HEMATOCRIT 23.6 % (36.0-47.0); MEAN CORPUSCULAR HEMOGLOBIN 29.7 pg (27.0-33.4); MEAN CORPUSCULAR HGB CONC 32.3 g/dL (32.0-36.0); MEAN CORPUSCULAR VOLUME 92 fl (80-97); PLATELET COUNT 144 10^3/uL (150-450); RED BLOOD COUNT 2.57 10^6/uL (3.72-5.28); WHITE BLOOD COUNT 11.2 10^3/uL (4.0-10.5)
[2018-11-20 10:54] LABS: BLOOD UREA NITROGEN 75 mg/dL (7-20); CHLORIDE 91 mmol/L (98-107); GLUCOSE 146 mg/dL (75-110); POTASSIUM 3.4 mmol/L (3.6-5.0)
[2018-11-20 11:00] LABS: HEMOGLOBIN 7.6 g/dL (12.0-15.5)
[2018-11-20 11:08] LABS: ANION GAP 4 (5-19)
[2018-11-20 11:09] LABS: CARBON DIOXIDE 43 mmol/L (22-30)
[2018-11-21] MEDS: IPRATROPIUM/ALBUTEROL 0.5-2.5 MG/3 ML AMPUL NEB SCH ×6 (00:29→20:39)
[2018-11-21] MEDS: HEPARIN SOD (PORCINE) 5,000 UNIT/ML 1 ML VIAL SUBCUT SCH ×3 (05:24→22:10)
[2018-11-21] MEDS: INSULIN LISPRO 100 UNIT/ML 3 ML VIAL SUBCUT SCH ×4 (08:30→22:10)
[2018-11-21 09:28] LABS: HEMOGLOBIN 8.4 g/dL (12.0-15.5); MEAN CORPUSCULAR HEMOGLOBIN 29.7 pg (27.0-33.4); MEAN CORPUSCULAR HGB CONC 32.2 g/dL (32.0-36.0); MEAN CORPUSCULAR VOLUME 92 fl (80-97); PLATELET COUNT 146 10^3/uL (150-450); RED BLOOD COUNT 2.81 10^6/uL (3.72-5.28); RED CELL DISTRIBUTION WIDTH 21.6 % (11.5-14.0); WHITE BLOOD COUNT 10.1 10^3/uL (4.0-10.5)
[2018-11-21 10:02] LABS: BLOOD UREA NITROGEN 65 mg/dL (7-20); CALCIUM 8.3 mg/dL (8.4-10.2); CHLORIDE 90 mmol/L (98-107); GLUCOSE 130 mg/dL (75-110)
[2018-11-21] MEDS: DILTIAZEM HCL 240 MG CAPSULE.CR PO SCH (10:03)
[2018-11-21] MEDS: CALCIUM ACETATE 667 MG CAPSULE PO SCH ×3 (10:03→17:58)
[2018-11-21] MEDS: CALCITRIOL 0.25 MCG CAPSULE PO SCH (10:03)
[2018-11-21] MEDS: FUROSEMIDE 40 MG TABLET PO SCH ×2 (10:03→17:57)
[2018-11-21] MEDS: FAMOTIDINE 20 MG TABLET PO SCH (10:03)
[2018-11-21] MEDS: TIOTROPIUM BROMIDE DPI 5 CAP/KIT (18 MCG/CAP) IH SCH (10:04)
[2018-11-21] MEDS: DOCUSATE SODIUM 100 MG CAPSULE PO SCH ×2 (10:04→17:58)
[2018-11-21 10:07] LABS: POTASSIUM 3.6 mmol/L (3.6-5.0)
[2018-11-21 10:18] LABS: ANION GAP 8 (5-19)
[2018-11-21 10:19] LABS: CARBON DIOXIDE 41 mmol/L (22-30)
--- NOTE | 2018-11-21 12:26 | PDOC PROGRESS REPORT ---
Subjective Progress Note for:: 11/21/18 Subjective:: No complaints this am 11/20/2018-no complaints this a.m. patient continues on BiPAP. 11/21/2017-no complaints this a.m. continues on BiPAP at night as needed Reason For Visit: HYPERKALEMIA,ACUTE ON CHRONIC HYPERCAPNIC Physical Exam Vital Signs: Temp Pulse Resp BP Pulse Ox 97.7 F 93 24 H 143/56 H 92 11/21/18 08:04 11/21/18 11:58 11/21/18 11:58 11/21/18 08:04 11/21/18 11:58 Intake & Output 11/20/18 11/21/18 11/22/18 06:59 06:59 06:59 Intake Total 676 1029 Output Total 550 900 Balance 126 129 Weight 76.9 kg 76.5 kg General appearance: PRESENT: no acute distress, thin Neck exam: ABSENT: carotid bruit, JVD, lymphadenopathy, thyromegaly Respiratory exam: PRESENT: clear to auscultation aguilar. ABSENT: rales, rhonchi, wheezes Cardiovascular exam: PRESENT: irregular rhythm. ABSENT: diastolic murmur, rubs, systolic murmur Pulses: PRESENT: +1 pedal pulses bilateral Extremities exam: PRESENT: pedal edema Neurological exam: PRESENT: awake Psychiatric exam: PRESENT: appropriate affect Results Laboratory Results: 11/21/18 08:54 11/21/18 08:54 11/21/18 11/21/18 08:54 08:54 WBC 10.1 RBC 2.81 L Hgb 8.4 L Hct 26.0 L MCV 92 MCH 29.7 MCHC 32.2 RDW 21.6 H Plt Count 146 L Sodium 138.8 Potassium 3.6 Chloride 90 L Carbon Dioxide 41 H* Anion Gap 8 BUN 65 H Creatinine 2.78 H Est GFR ( Amer) 20 L Est GFR (Non-Af Amer) 16 L Glucose 130 H Calcium 8.3 L 11/17/18 10:40 Pleural Fluid - Left Pleural Effusion Gram Stain - Final 11/17/18 10:40 Pleural Fluid - Left Pleural Effusion Body Fluid Culture - Final NO AEROBIC OR ANAEROBIC ORGANISMS RECOVERED 11/07/18 11/11/18 12:15 20:33 Troponin I 0.154 0.088 Impressions: Renal Ultrasound 11/09/18 10:57 IMPRESSION: No hydronephrosis Echogenic kidneys from medical renal disease Bladder decompressed by a Bernstein catheter Moderate right pleural effusion Thoracentesis Ultrasound 11/17/18 06:00 IMPRESSION: SUCCESSFUL THORACENTESIS USING ULTRASOUND GUIDANCE. Chest X-Ray 11/18/18 00:00 IMPRESSION: Increasing right-sided alveolar airspace disease. No other interval change. Assessment and Plan - Diagnosis (1) Acute and chronic respiratory failure with hypercapnia Is this a current diagnosis for this admission?: Yes Plan: Patient had excellent improvement of her respiratory symptoms however worsening since second thoracentesis on 11/17/2018, blood gases are showing CO2 retention, repeat chest x-ray shows increasing right-sided L4 airspace disease. Had to be placed back on BiPAP. Status post bilateral thoracentesis 1600 milliliters removed. Fluid analysis negative for infection. Likely due to COPD exacerbation, A. fib RVR and bilateral pleural effusion most likely due to volume overload caused by A. fib RVR and worsening renal function. 11/18/2018. ABG: pH 7.43, PCO2 60.8, PO2 67.1, FiO2 5 L. 11/14/2018. SPO2 93% 4 L NC. RR 1820. 11/13/2018. ABG: pH 7.35, PCO2 59.1, PO2 220, FiO2 88%. 11/12/2018. RR 1828, SPO2 94% on BiPAP FiO2 90%. ABG: pH 7.33, PCO2 63.3, PO2 82.3, FiO2 90%. 11/10/2018. SBP 286169, T-max 97.2, pulse 90s, RR 1427, SPO2 93% 5 L NC. 11/09/2018: SBP 140s, T-max 97.5, HR 90s, RR 20s, SPO2 9093 5 L NC FiO2 55%. 11/08/2018: SPO2 84-98% 6 L FiO2 44%. ABG: pH 7.18, PCO2 82.2, PO2 86.7, FiO2 60%. 11/07/2018: ABG: pH 7.37, PCO2 56.6, PO2 85.1, FiO2 50%. Antibiotics day 10. Received 4 days of IV azithromycin. Received 7 days of IV steroids. Steroids DC'd on 11/14/2018. Levofloxacin 500 g p.o. day 6. Continue DuoNeb's, BiPAP, supplemental oxygen, pulmonary toileting, incentive spirometry and IV Lasix. Cultures remain negative. Possible transfer to rehab tomorrow. 11/19/2018-ABG shows a PO2 of 178. Patient on a 70% O2 via BiPAP. Discussed this with respiratory therapist were able to increase and wean to keep sats above 91%. Patient has a metabolic alkalosis with compensated rotatory acidosis. Patient shows anxiety on BiPAP. Patient does have Ativan ordered for anxiety as told nurses give this to her throughout the day. Carbon dioxide this morning 54. This is probably most likely where patient lives. 11/20/2018-ABG shows patient is hyperventilating. Patient is getting as needed Ativan. reports erythema soft on palpation we will decrease her rate on a BiPAP. Otherwise patient is stable. Awaiting placement. 11/21/2017-patient remains on BiPAP at night. Been off BiPAP for over 12 hours at this time. Oxygen saturations in the low 90s on 5 L nasal cannula. Continue BiPAP at night (2) Bilateral pleural effusion Is this a current diagnosis for this admission?: Yes Plan: Significant improvement. Blood gases improving. Status post bilateral thoracentesis 1600 cc removed. 11/16/2018. Status post right-sided thoracentesis, 800 cc removed. 11/17/2018. Status post left-sided thoracentesis 800 cc removed. Repeat chest x-ray shows movement of right-sided pleural effusion. Stable unchanged left-sided pleural effusion. This could likely be due to A. fib RVR and volume overload due to worsening renal function. Continue cautious diuresis guided by volume status. 11/19/2018-patient had thoracentesis on 11/17/2018 with 800 cc removed. Patient continues with current therapy will follow. 11/20/2018-stable. No further plans for thoracentesis at this time. 11/21/2017-no further plans for thoracentesis this time patient be transferred to [place] once patient has obtained a bed (3) Anemia in CKD (chronic kidney disease) Qualifiers: Chronic kidney disease stage: stage 5, not on chronic dialysis Qualified Code(s): N18.5 - Chronic kidney disease, stage 5; D63.1 - Anemia in chronic kidney disease Is this a current diagnosis for this admission?: Yes Plan: H&H stable. Hemoglobin improving. Denies any hematemesis, easy bleeding, hemoptysis, hematochezia, melena, vaginal bleeding. Iron 13.8, TIBC 322, percent saturation 4, ferritin 21. 01/10/2018. Guaiac negative. Denies any history of GI malignancy. Colonoscopy in 2014 showed the polyp status post polypectomy. As per patient recently had a repeat colonoscopy which was reported as normal. Daily H&H. Transfuse if under 7, actively bleeding, or symptomatic. 11/09/2018. Received 1 dose of Procrit. 11/10/2018. Received 1 dose of Injectafer. Nephrology on board. 11/19/2018-hemoglobin stable at this time. Will continue to follow with daily CBCs. 11/20/2018-stable. Daily CBCs 11/21/2017-chronic stable Daily CBCs (4) Chronic kidney disease, stage IV (severe) Is this a current diagnosis for this admission?: Yes Plan: Significant improvement. Creatinine trending down. Electrolytes WNL. Nonoliguric. Patient has decided to not undergo any hemodialysis now or in the future as per nephrology note. 11/09/2018 renal ultrasound negative for chronic medical disease. PTH 248. Strict in and out, renal diet, monitor electrolytes and replace as needed. Nephrology on board. Recommendations noted. No hemodialysis planned at this point. BMP tomorrow. Avoid nephrotoxic meds. 11/19/2018-creatinine 2.85 this morning. This is stable for patient. We will continue to avoid nephrotoxic medications no hemodialysis planned at this point. Strict I&O's and continue to follow. 11/20/2018-awaiting a.m. labs. Continue to avoid nephrotoxic medications. Strict I's and O's and follow 11/21/2018-chronic stable (5) Atrial fibrillation Qualifiers: Atrial fibrillation type: chronic Qualified Code(s): I48.2 - Chronic atrial fibrillation Is this a current diagnosis for this admission?: Yes Plan: Rate controlled 11/19/2018-rate controlled at this time. Patient's family discussed with previous provider anticoagulation. At this time we will hold off on anticoagulation as patient is high risk for falls when she leaves hospital. I have placed patient on heparin subcu for DVT prophylaxis patient is immobile for the most part at this time. We will continue to follow 11/20/2018-rate control. No anticoagulation. Awaiting placement. 11/21/2018-rate controlled. No anticoagulation. Awaiting placement - Time Time Spent with patient: Less than 15 minutes - Inpatient Certification Based on my medical assessment, after consideration of the patient's c omorbidities, presenting symptoms, or acuity I expect that the services needed warrant INPATIENT care.: Yes I certify that my determination is in accordance with my understanding of Medicare's requirements for reasonable and necessary INPATIENT services [42 CFR 412.3e].: Yes Medical Necessity: Other - Continuous monitoring, BiPAP, awaiting placement
[2018-11-21] MEDS ORDERED: POLYMYXIN B SULFATE/TMP OPH SOLN (10 ML/ER DISP) OU PRN (16:06)
[2018-11-21] MEDS ORDERED: LORAZEPAM 1 MG TABLET PO PRN (16:22)
[2018-11-21] MEDS: POLYMYXIN B SULFATE/TMP OPH SOLN 10 ML OU SCH ×3 (17:55→22:10)
[2018-11-22] MEDS: IPRATROPIUM/ALBUTEROL 0.5-2.5 MG/3 ML AMPUL NEB SCH ×6 (00:44→20:43)
[2018-11-22] MEDS: POLYMYXIN B SULFATE/TMP OPH SOLN 10 ML OU SCH ×6 (06:30→21:00)
[2018-11-22] MEDS: HEPARIN SOD (PORCINE) 5,000 UNIT/ML 1 ML VIAL SUBCUT SCH ×3 (06:30→21:01)
[2018-11-22] MEDS: CALCIUM ACETATE 667 MG CAPSULE PO SCH ×3 (08:21→18:37)
[2018-11-22] MEDS: INSULIN LISPRO 100 UNIT/ML 3 ML VIAL SUBCUT SCH ×4 (08:26→21:49)
[2018-11-22] MEDS: DILTIAZEM HCL 240 MG CAPSULE.CR PO SCH (09:43)
[2018-11-22] MEDS: DOCUSATE SODIUM 100 MG CAPSULE PO SCH ×2 (09:43→18:36)
[2018-11-22] MEDS: FUROSEMIDE 40 MG TABLET PO SCH ×2 (09:44→18:36)
[2018-11-22] MEDS: FAMOTIDINE 20 MG TABLET PO SCH (09:44)
[2018-11-22] MEDS: TIOTROPIUM BROMIDE DPI 5 CAP/KIT (18 MCG/CAP) IH SCH (09:53)
[2018-11-22] MEDS: DIGOXIN 0.25 MG TABLET PO SCH (09:54)
[2018-11-22 10:23] LABS: HEMATOCRIT 26.3 % (36.0-47.0); HEMOGLOBIN 8.5 g/dL (12.0-15.5); MEAN CORPUSCULAR HEMOGLOBIN 29.8 pg (27.0-33.4); MEAN CORPUSCULAR HGB CONC 32.3 g/dL (32.0-36.0); MEAN CORPUSCULAR VOLUME 92 fl (80-97); PLATELET COUNT 142 10^3/uL (150-450); RED BLOOD COUNT 2.85 10^6/uL (3.72-5.28); RED CELL DISTRIBUTION WIDTH 21.2 % (11.5-14.0); WHITE BLOOD COUNT 8.7 10^3/uL (4.0-10.5)
[2018-11-22 11:37] LABS: BLOOD UREA NITROGEN 67 mg/dL (7-20); CALCIUM 8.9 mg/dL (8.4-10.2); CHLORIDE 91 mmol/L (98-107); GLUCOSE 135 mg/dL (75-110); POTASSIUM 3.7 mmol/L (3.6-5.0)
[2018-11-22 12:03] LABS: ANION GAP 9 (5-19); CARBON DIOXIDE 39 mmol/L (22-30)
--- NOTE | 2018-11-22 15:12 | PDOC TRANSFER SUMMARY ---
General - Admit/Disc Date/PCP Admission Date/Primary Care Provider: 11/07/18 14:02 JOSE MARTIN SALOMON MD Discharge Date: 11/22/18 - Discharge Diagnosis (1) Acute and chronic respiratory failure with hypercapnia Is this a current diagnosis for this admission?: Yes (3) Hypothyroidism Is this a current diagnosis for this admission?: Yes (5) Hyperlipidemia Is this a current diagnosis for this admission?: Yes (7) Chronic kidney disease, stage IV (severe) Is this a current diagnosis for this admission?: Yes (8) Bilateral pleural effusion Is this a current diagnosis for this admission?: Yes (9) Atrial fibrillation Is this a current diagnosis for this admission?: Yes (10) Anemia in CKD (chronic kidney disease) Is this a current diagnosis for this admission?: Yes - Additional Information Resuscitation Status: Do Not Resuscitate Discharge Diet: Cardiac, Diabetic Discharge Activity: Activity As Tolerated, Balance Activity w/Rest, Supervised Activity Prescriptions: Calcium Acetate [Phoslo 667 mg Capsule] 1,334 mg PO MEALS #90 capsule Digoxin [Lanoxin 0.25 mg Tablet] 0.25 mg PO Q2DAYS #15 tablet Famotidine [Pepcid 20 mg Tablet] 20 mg PO DAILY #60 tablet Furosemide [Lasix 40 mg Tablet] 40 mg PO BID #60 tablet Lorazepam [Ativan 1 mg Tablet] 1 mg PO Q8HP PRN #9 tablet PRN Reason: Tiotropium [place] [Spiriva Handihaler 5 Cap/Kit (18 Mcg/Cap)] 1 cap IH DAILY #30 kit Home Medications: Calcitriol [Rocaltrol] 0.25 mcg PO MOFR 09/23/18 Tiotropium [place] [Spiriva Handihaler 5 Cap/Kit (18 Mcg/Cap)] 1 cap IH DAILY #10 capsule 09/28/18 Diltiazem HCl [Cardizem Cd 240 mg Capsule.cr] 240 mg PO DAILY 11/07/18 Calcium Acetate [Phoslo 667 mg Capsule] 1,334 mg PO MEALS #90 capsule 11/22/18 Digoxin [Lanoxin 0.25 mg Tablet] 0.25 mg PO Q2DAYS #15 tablet 11/22/18 Docusate Sodium [Colace 100 mg Capsule] 100 mg PO BID capsule 11/22/18 Famotidine [Pepcid 20 mg Tablet] 20 mg PO DAILY #60 tablet 11/22/18 Furosemide [Lasix 40 mg Tablet] 40 mg PO BID #60 tablet 11/22/18 Lorazepam [Ativan 1 mg Tablet] 1 mg PO Q8HP PRN #9 tablet 11/22/18 Polymyxin B Sulfate/Tmp [Polytrim Oph Soln 10 ml] 1 drop OU Q3HWA bottle 11/22/18 Tiotropium [place] [Spiriva Handihaler 5 Cap/Kit (18 Mcg/Cap)] 1 cap IH DAILY #30 kit 11/22/18 History of Present Illness Admission Date/PCP: 11/07/18 14:02 JOSE MARTIN SALOMON MD History of Present Illness: Per H&P by Dr. Sesay: JOHN PUENTES is a 78 year old female patient with past medical history of atrial fibrillation, congestive heart failure, coronary 30s, hyperlipidemia, hypertension, peripheral arterial disease, history of PE, COPD, stage IV CKD, hypothyroidism, diabetes mellitus and tobacco dependence by EMS for weakness and shortness of breath. Since patient is on full mask BiPAP and somewhat debilitated she is not source of history. Brief history is obtained from ER attending note and her neighbor. According to patient's neighbor who has been helping take care of her, she has been on decline over the past week, she had generalized weakness, and today she could not even stand up off the toilet and she has heavy labored breathing. According to EMS the patient was found to be hypoxic and having difficulty of breathing they did give her a breathing treatment but her work of breathing increasing" worse by the time she came to the emergency department. Her blood work shows hemoglobin of 8, BUN of 55, creatinine of 3.51, GFR of 13 and potassium of 6.1. Her chest x-ray shows bilateral pleural effusion. For hyperkalemia patient was given calcium gluconate, bicarb, dextrose and insulin. For her acute on chronic respiratory failure patient was put on BiPAP and relatively doing better. The hospitalist service consulted for admission. Further detailed history and review of systems unobtainable. Hospital Course Hospital Course: Patient was admitted to [facility] on continuous cardiac telemetry for acute on chronic respiratory failure with hypoxia and hypercapnia secondary to CHF exacerbation/fluid volume overload with underlying COPD. The patient was treated with IV antibiotics for acute bronchitis, IV steroids, nebulizer treatments, pulmonary toilet, supplemental oxygen, and BiPAP. She was diuresed using IV Lasix. Patient was found to have bilateral pleural effusions and underwent bilateral thoracentesis with removal of 800 mL's drainage of fluid from each side. Her chronic anemia was monitored closely; no evidence of active bleeding. She did receive 1 dose of Procrit and 1 dose of Injectafer per nephrology. The patient's acute on chronic kidney disease has improved with optimization of her cardiac and respiratory function. Creatinine improved from 3.51-> 2.61; currently at baseline. Patient confirmed that she has no intentions of undergoing dialysis in the future if required. Patient remains rate controlled, in atrial fibrillation. Previous provider discussed with the patient's family members the risks and benefits of continued chronic anticoagulation. They have determined to discontinue chronic anticoagulation at this time due to high risk for falls. The patient's other chronic medical conditions (hypertension, hyperlipidemia, IDDM, GERD) remained stable throughout her admission. The patient's respiratory status has improved, although, she does continue to require supplemental oxygen via nasal cannula to maintain saturations between 89 and 94%. She is currently requiring 4 to 5 L/min. She does continue to require BiPAP nightly for management of her chronic respiratory failure with hypercapnia. At time of discharge, patient is in stable condition, alert and oriented x4, reports that she is asymptomatic, and agreeable to discharge to SNF. Arrangements are being made for the patient to continue to receive BiPAP nightly at SNF. Recommend the patient follow-up with her primary care provider within 1 week. Continue medications as prescribed. Eat a consistent carb/cardiac diet. Weigh herself daily and report any weight change of greater than 2 pounds overni ght to a provider. She is advised to return to the emergency department for concerning symptoms. As the patient has determined that she would not pursue short or long-term dialysis, it may be advisable to consider outpatient palliative care referral. Physical Exam Vital Signs: Temp Pulse Resp BP Pulse Ox 97.3 F 74 20 154/61 H 94 11/22/18 08:18 11/22/18 12:14 11/22/18 12:14 11/22/18 08:18 11/22/18 12:14 Intake & Output 11/21/18 11/22/18 11/23/18 06:59 06:59 06:59 Intake Total 1029 840 360 Output Total 900 450 Balance 129 390 360 Weight 76.5 kg 75.9 kg General appearance: PRESENT: no acute distress, cooperative, hard of hearing, well-developed, well-nourished Head exam: PRESENT: atraumatic, normocephalic Eye exam: PRESENT: conjunctival injection - With drainage to right eye, conjunctiva pink, EOMI, PERRLA. ABSENT: scleral icterus Mouth exam: PRESENT: moist, tongue midline Teeth exam: PRESENT: poor dentation Neck exam: ABSENT: carotid bruit, JVD, lymphadenopathy, thyromegaly Respiratory exam: PRESENT: clear to auscultation aguilar, symmetrical, unlabored - Supplemental oxygen via nasal cannula; BiPAP at night. ABSENT: rales, rhonchi, wheezes Cardiovascular exam: PRESENT: irregular rhythm, +S1, +S2. ABSENT: diastolic murmur, rubs, systolic murmur Pulses: PRESENT: normal dorsalis pedis pul Vascular exam: PRESENT: normal capillary refill GI/Abdominal exam: PRESENT: normal bowel sounds, soft. ABSENT: distended, guarding, mass, organolmegaly, rebound, tenderness Rectal exam: PRESENT: deferred Extremities exam: PRESENT: full ROM. ABSENT: calf tenderness, clubbing, pedal edema Neurological exam: PRESENT: alert, awake, oriented to person, oriented to place, oriented to time, oriented to situation, CN II-XII grossly intact. ABSENT: motor sensory deficit Psychiatric exam: PRESENT: appropriate affect, normal mood. ABSENT: homicidal ideation, suicidal ideation Skin exam: PRESENT: dry, intact, warm. ABSENT: cyanosis, rash Results Laboratory Results: 11/22/18 10:04 11/22/18 10:04 11/22/18 11/22/18 10:04 10:04 WBC 8.7 RBC 2.85 L Hgb 8.5 L Hct 26.3 L MCV 92 MCH 29.8 MCHC 32.3 RDW 21.2 H Plt Count 142 L Sodium 139.0 Potassium 3.7 Chloride 91 L Carbon Dioxide 39 H Anion Gap 9 BUN 67 H Creatinine 2.61 H Est GFR ( Amer) 21 L Est GFR (Non-Af Amer) 18 L Glucose 135 H Calcium 8.9 11/07/18 11/11/18 12:15 20:33 Troponin I 0.154 0.088 Impressions: Renal Ultrasound 11/09/18 10:57 IMPRESSION: No hydronephrosis Echogenic kidneys from medical renal disease Bladder decompressed by a Bernstein catheter Moderate right pleural effusion Thoracentesis Ultrasound 11/17/18 06:00 IMPRESSION: SUCCESSFUL THORACENTESIS USING ULTRASOUND GUIDANCE. Chest X-Ray 11/18/18 00:00 IMPRESSION: Increasing right-sided alveolar airspace disease. No other interval change. Transfer Plan - Disposition Transfer Plan: Discharge to [facility] [place]. - Time Spent with Patient Time spent with patient: Less than 30 Minutes Qualifiers - * PATIENT BEING DISCHARGED WITH ANY OF THE FOLLOWING DIAGNOSIS: No Acute Heart Failure - Is this a Heart Failure Patient?: Yes Documentation of LVEF assessment?: Planned for after discharge LVEF < 40%?: No- if no continue to question #3 3. Anticoagulant therapy for permanect/persistent/paraoxysmal Afib or Aflutter: No, document contraindications Reason(s) not discharged on anticoagulant therapy for permanect/persistent/paraoxysmal Afib or Aflutter: Risk for bleeding, Repeated falls/unsteady gait Plan Discharge Plan: Discharge to [facility] [place]. Time Spent: Greater than 30 Minutes
[2018-11-22 16:50] LABS: ARTERIAL BLOOD BASE EXCESS 15.9 mmol/L; ARTERIAL BLOOD H2CO3 1.83 mmol/L (1.05-1.35); ARTERIAL BLOOD HCO3 41.8 mmol/L (20-24); ARTERIAL BLOOD O2 SATURATION 88.2 % (94-98); ARTERIAL BLOOD PCO2 60.7 mmHg (35-45); ARTERIAL BLOOD PH 7.46 (7.35-7.45); ARTERIAL BLOOD PO2 53.4 mmHg (80-100); ARTERIAL BLOOD TOTAL CO2 43.7 mmol/L (21-25)
[2018-11-22 16:51] LABS: ARTERIAL BLOOD FIO2 40
--- NOTE | 2018-11-22 16:59 | RADIOLOGY REPORT (SQ) ---
EXAM DESCRIPTION: CHEST SINGLE VIEW COMPLETED DATE/TIME: 11/22/2018 4:48 pm REASON FOR STUDY: hypoxia COMPARISON: 11/18/2018 EXAM PARAMETERS: NUMBER OF VIEWS: One view. TECHNIQUE: Single frontal radiographic view of the chest acquired. RADIATION DOSE: NA LIMITATIONS: None. FINDINGS: LUNGS AND PLEURA: Persistent bilateral basilar predominant interstitial alveolar opacities with likely small veiling bilateral pleural effusions. No pneumothorax. MEDIASTINUM AND HILAR STRUCTURES: No masses. Contour normal. HEART AND VASCULAR STRUCTURES: Enlarged, stable. Atherosclerotic aorta. BONES: No acute findings. HARDWARE: None in the chest. OTHER: No other significant finding. IMPRESSION: Persistent bilateral basilar predominant alveolar opacities with small bilateral effusio ns, not significantly changed from prior. TECHNICAL DOCUMENTATION: JOB ID: [id number] [email or web address] All Rights Reserved Reading location - IP/workstation name: [email or web address]
[2018-11-23] MEDS: IPRATROPIUM/ALBUTEROL 0.5-2.5 MG/3 ML AMPUL NEB SCH ×6 (00:47→20:53)
[2018-11-23] MEDS: HEPARIN SOD (PORCINE) 5,000 UNIT/ML 1 ML VIAL SUBCUT SCH ×3 (05:14→22:53)
[2018-11-23] MEDS: POLYMYXIN B SULFATE/TMP OPH SOLN 10 ML OU SCH ×6 (05:18→22:53)
[2018-11-23] MEDS: FAMOTIDINE 20 MG TABLET PO SCH (09:53)
[2018-11-23] MEDS: FUROSEMIDE 40 MG TABLET PO SCH ×2 (09:53→18:17)
[2018-11-23] MEDS: DOCUSATE SODIUM 100 MG CAPSULE PO SCH ×2 (09:53→18:17)
[2018-11-23] MEDS: CALCIUM ACETATE 667 MG CAPSULE PO SCH ×3 (09:53→16:32)
[2018-11-23] MEDS: DILTIAZEM HCL 240 MG CAPSULE.CR PO SCH (09:53)
[2018-11-23] MEDS: TIOTROPIUM BROMIDE DPI 5 CAP/KIT (18 MCG/CAP) IH SCH (09:55)
[2018-11-23] MEDS: INSULIN LISPRO 100 UNIT/ML 3 ML VIAL SUBCUT SCH ×4 (09:59→22:53)
--- NOTE | 2018-11-23 18:45 | PDOC PROGRESS REPORT ---
Subjective Progress Note for:: 11/23/18 Subjective:: Patient is a 78-year-old female with past medical history of atrial fibrillation, CHF, CAD, hyperlipidemia, hypertension, PAD, history of PE, COPD, stage IV CKD, hypothyroidism, diabetes mellitus and tobacco dependence who was admitted 11/07/2018 for Acute on chronic respiratory failure with hypercapnia secondary to COPD. Patient was seen on afternoon rounds. She was found resting in bed comfortably on BiPAP. Per nursing the patient has been able to tolerate coming off BiPAP for meals. Nursing is asked to again begin weaning attempts so that the patient may spend longer periods of time on her baseline oxygen requirement of 5 L/min via nasal cannula. The patient is arousable, oriented x4, tells me that she is tired but otherwise feeling well today. She has no new questions or concerns. She denies fever, chills, chest pain, palpitations, cough, abdominal pain, nausea vomiting or diarrhea. No other specific questions or concerns per nursing. Reason For Visit: HYPERKALEMIA,ACUTE ON CHRONIC HYPERCAPNIC Physical Exam Vital Signs: Temp Pulse Resp BP Pulse Ox 97.7 F 68 28 H 139/63 H 91 L 11/23/18 11:21 11/23/18 14:00 11/23/18 12:43 11/23/18 11:21 11/23/18 12:39 Intake & Output 11/22/18 11/23/18 11/24/18 06:59 06:59 06:59 Intake Total 840 360 840 Output Total 450 300 500 Balance 390 60 340 Weight 75.9 kg 74.3 kg General appearance: PRESENT: no acute distress, cooperative, hard of hearing, thin, well-developed, well-nourished, other - Chronically ill-appearing Head exam: PRESENT: atraumatic, normocephalic Eye exam: PRESENT: conjunctiva pink, EOMI, PERRLA. ABSENT: scleral icterus Ear exam: PRESENT: normal external ear exam Mouth exam: PRESENT: moist, tongue midline Neck exam: ABSENT: carotid bruit, JVD, lymphadenopathy, thyromegaly Respiratory exam: PRESENT: clear to auscultation aguilar, decreased breath sounds - Throughout, prolonged expiratory phas, symmetrical, unlabored, other - Currently on BiPAP. ABSENT: rales, rhonchi, wheezes Cardiovascular exam: PRESENT: irregular rhythm, +S1, +S2. ABSENT: diastolic murmur, rubs, systolic murmur Pulses: PRESENT: normal dorsalis pedis pul Vascular exam: PRESENT: normal capillary refill GI/Abdominal exam: PRESENT: normal bowel sounds, soft. ABSENT: distended, guarding, mass, organolmegaly, rebound, tenderness Rectal exam: PRESENT: deferred Extremities exam: PRESENT: full ROM. ABSENT: calf tenderness, clubbing, pedal edema Neurological exam: PRESENT: alert, awake, oriented to person, oriented to place, oriented to time, oriented to situation, CN II-XII grossly intact, other - Fatigued; arousable. ABSENT: motor sensory deficit Psychiatric exam: PRESENT: appropriate affect, normal mood. ABSENT: homicidal ideation, suicidal ideation Skin exam: PRESENT: dry, intact, warm. ABSENT: cyanosis, rash Results Laboratory Results: 11/22/18 10:04 11/22/18 10:04 11/07/18 11/11/18 12:15 20:33 Troponin I 0.154 0.088 Impressions: Renal Ultrasound 11/09/18 10:57 IMPRESSION: No hydronephrosis Echogenic kidneys from medical renal disease Bladder decompressed by a Bernstein catheter Moderate right pleural effusion Thoracentesis Ultrasound 11/17/18 06:00 IMPRESSION: SUCCESSFUL THORACENTESIS USING ULTRASOUND GUIDANCE. Chest X-Ray 11/22/18 00:00 IMPRESSION: Persistent bilateral basilar predominant alveolar opacities with small bilateral effusions, not significantly changed from prior. Assessment and Plan - Diagnosis (1) Acute and chronic respiratory failure with hypercapnia Is this a current diagnosis for this admission?: Yes Plan: Improved; however, the patient remains dependent on 5 L via nasal cannula with frequent desaturation events requiring PRN BiPAP. Unfortunately, the patient's SNF (primary) cannot manage PRN BiPAP and therefore she is unsafe to discharge to this facility. Patient's family members have expressed interest in discussing hospice services, however, the patient remains alert and oriented x4 and clearly has told me that while she is a DNR/DNI, she is not yet ready for hospice services. Ultimately this will require a change in her disposition. Have discussed with discharge planning who are reaching out to SNF facilities that can manage PRN BiPAP use. We will continue scheduled and as needed nebulizer treatments Continue scheduled Spiriva. Start nightly Singulair. Start Daliresp Start low-dose prednisone; 20 mg daily (likely for long-term/chronic use; wean gradually) (2) Insulin dependent diabetes mellitus Is this a current diagnosis for this admission?: Yes Plan: Continue consistent carb diet. Accu-Cheks before meals and at bedtime with Sliding scale insulin. Hypoglycemia protocol in place. (3) Hypertension Qualifiers: Hypertension type: essential hypertension Qualified Code(s): I10 - Essential (primary) hypertension Is this a current diagnosis for this admission?: Yes Plan: Blood pressures are acceptable. Continue consistent carb/cardiac diet. Continue digoxin 0.25 mg every other day. Continue diltiazem 240 mg p.o. daily. IV hydralazine as needed for blood pressure control. (4) Hyperlipidemia Qualifiers: Hyperlipidemia type: unspecified Qualified Code(s): E78.5 - Hyperlipidemia, unspecified Is this a current diagnosis for this admission?: Yes Plan: Diet and lifestyle modification. (5) COPD (chronic obstructive pulmonary disease) Qualifiers: COPD type: emphysema Emphysema type: unspecified Qualified Code(s): J43.9 - Emphysema, unspecified Is this a current diagnosis for this admission?: Yes Plan: End-stage COPD. Continue daily Spiriva. Continue scheduled and as needed nebulizer treatments. Start Daliresp. Start Singulair. Start low-dose prednisone; wean slowly as tolerated; may require chronic prednisone therapy. Consider pulmonary consultation when again available. Discharge planning consulted. (6) Chronic kidney disease, stage IV (severe) Is this a current diagnosis for this admission?: Yes Plan: Significant improvement. Creatinine trending down. Electrolytes WNL. Nonoliguric. Patient has decided to not undergo any hemodialysis now or in the future as per nephrology note. Renal ultrasound negative for chronic disease. PTH 248. Nephrology was consulted; have signed off. (7) Bilateral pleural effusion Is this a current diagnosis for this admission?: Yes Plan: Improved; now status post bilateral thoracentesis. Follow-up CXR on 10/3018 demonstrated persistent small bilateral pleural effusions. (8) Atrial fibrillation Qualifiers: Atrial fibrillation type: chronic Qualified Code(s): I48.2 - Chronic atrial fibrillation Is this a current diagnosis for this admission?: Yes Plan: Rate controlled Continue diltiazem as above. Patient is not a candidate for chronic anticoagulation secondary to age, frailty, fall risk. (9) Anemia in CKD (chronic kidney disease) Qualifiers: Chronic kidney disease stage: stage 5, not on chronic dialysis Qualified Code(s): N18.5 - Chronic kidney disease, stage 5; D63.1 - Anemia in chronic kidney disease Is this a current diagnosis for this admission?: Yes Plan: H&H stable. Hemoglobin 8.5. Iron 13.8, TIBC 322, percent saturation 4, ferritin 21. Received 1 dose of Procrit. Received 1 dose of Injectafer. No evidence of active bleeding/blood loss. (10) Hypothyroidism Qualifiers: Hypothyroidism type: unspecified Qualified Code(s): E03.9 - Hypothyroidism, unspecified Is this a current diagnosis for this admission?: Yes Plan: Ruled out; TSH WNL. Not on levothyroxine. - Time Time Spent with patient: 15-24 minutes Medications reviewed and adjusted accordingly: Yes Anticipated discharge: SNF - +/- Hospice services; will discuss with patient and family
[2018-11-23] MEDS: MONTELUKAST SODIUM 10 MG TABLET PO SCH (22:53)
[2018-11-24] MEDS: IPRATROPIUM/ALBUTEROL 0.5-2.5 MG/3 ML AMPUL NEB SCH ×6 (00:33→20:21)
[2018-11-24 04:54] LABS: HEMATOCRIT 23.6 % (36.0-47.0); MEAN CORPUSCULAR HEMOGLOBIN 29.8 pg (27.0-33.4); MEAN CORPUSCULAR HGB CONC 32.4 g/dL (32.0-36.0); MEAN CORPUSCULAR VOLUME 92 fl (80-97); PLATELET COUNT 130 10^3/uL (150-450); RED BLOOD COUNT 2.56 10^6/uL (3.72-5.28); RED CELL DISTRIBUTION WIDTH 21.8 % (11.5-14.0); WHITE BLOOD COUNT 6.7 10^3/uL (4.0-10.5)
[2018-11-24 04:56] LABS: HEMOGLOBIN 7.6 g/dL (12.0-15.5)
[2018-11-24 05:07] LABS: BLOOD UREA NITROGEN 67 mg/dL (7-20); CALCIUM 8.8 mg/dL (8.4-10.2); CHLORIDE 89 mmol/L (98-107); GLUCOSE 106 mg/dL (75-110); POTASSIUM 3.9 mmol/L (3.6-5.0)
[2018-11-24 05:18] LABS: ANION GAP 4 (5-19)
[2018-11-24 05:20] LABS: CARBON DIOXIDE 45 mmol/L (22-30)
[2018-11-24] MEDS: HEPARIN SOD (PORCINE) 5,000 UNIT/ML 1 ML VIAL SUBCUT SCH ×3 (06:11→21:01)
[2018-11-24] MEDS: POLYMYXIN B SULFATE/TMP OPH SOLN 10 ML OU SCH ×6 (06:13→21:02)
--- NOTE | 2018-11-24 08:08 | EKG REPORT ---
SEVERITY:- ABNORMAL ECG - ATRIAL FIBRILLATION PROBABLE LVH WITH SECONDARY REPOL ABNRM : Confirmed by: Valencia Fernandez MD 23-Nov-2018 21:27:46
[2018-11-24] MEDS: INSULIN LISPRO 100 UNIT/ML 3 ML VIAL SUBCUT SCH ×4 (09:04→21:05)
[2018-11-24] MEDS: ROFLUMILAST 500 MCG TABLET PO SCH (09:35)
[2018-11-24] MEDS: DOCUSATE SODIUM 100 MG CAPSULE PO SCH ×2 (09:35→17:36)
[2018-11-24] MEDS: PREDNISONE 20 MG TABLET PO SCH (09:36)
[2018-11-24] MEDS: FUROSEMIDE 40 MG TABLET PO SCH (09:36)
[2018-11-24] MEDS: DIGOXIN 0.25 MG TABLET PO SCH (09:36)
[2018-11-24] MEDS: FAMOTIDINE 20 MG TABLET PO SCH (09:36)
[2018-11-24] MEDS: DILTIAZEM HCL 240 MG CAPSULE.CR PO SCH (09:36)
[2018-11-24] MEDS: CALCIUM ACETATE 667 MG CAPSULE PO SCH ×3 (09:36→17:36)
[2018-11-24] MEDS ORDERED: IRON SUCROSE COMPLEX 100 MG in NORMAL SALINE 100 ML IV ONE (12:00)
[2018-11-24] MEDS: TIOTROPIUM BROMIDE DPI 5 CAP/KIT (18 MCG/CAP) IH SCH (12:45)
[2018-11-24] MEDS: FERROUS SULFATE 325 MG TABLET PO SCH (17:36)
[2018-11-24] MEDS: MONTELUKAST SODIUM 10 MG TABLET PO SCH (21:02)
[2018-11-25] MEDS: IPRATROPIUM/ALBUTEROL 0.5-2.5 MG/3 ML AMPUL NEB SCH ×5 (00:21→15:49)
[2018-11-25] MEDS: HEPARIN SOD (PORCINE) 5,000 UNIT/ML 1 ML VIAL SUBCUT SCH ×2 (05:43→13:29)
[2018-11-25] MEDS: POLYMYXIN B SULFATE/TMP OPH SOLN 10 ML OU SCH ×4 (05:44→15:30)
[2018-11-25] MEDS: INSULIN LISPRO 100 UNIT/ML 3 ML VIAL SUBCUT SCH ×3 (08:49→16:08)
[2018-11-25] MEDS: DILTIAZEM HCL 240 MG CAPSULE.CR PO SCH (09:10)
[2018-11-25] MEDS: ROFLUMILAST 500 MCG TABLET PO SCH (09:11)
[2018-11-25] MEDS: FAMOTIDINE 20 MG TABLET PO SCH (09:11)
[2018-11-25] MEDS: CALCIUM ACETATE 667 MG CAPSULE PO SCH ×2 (09:11→13:53)
[2018-11-25] MEDS: CALCITRIOL 0.25 MCG CAPSULE PO SCH (09:11)
[2018-11-25] MEDS: PREDNISONE 20 MG TABLET PO SCH (09:11)
[2018-11-25] MEDS: DOCUSATE SODIUM 100 MG CAPSULE PO SCH (09:12)
[2018-11-25] MEDS: FERROUS SULFATE 325 MG TABLET PO SCH (09:12)
[2018-11-25] MEDS: TIOTROPIUM BROMIDE DPI 5 CAP/KIT (18 MCG/CAP) IH SCH (09:12)
[2018-11-25] MEDS ORDERED: MULTIVITAMIN TABLET PO SCH (10:00)
[2018-11-25] MEDS ORDERED: FUROSEMIDE 20 MG TABLET PO SCH (10:00)
[2018-11-25 15:58] VITALS: BP 194/50
[2018-11-25] MEDS: HYDRALAZINE HCL INJ/PF 20 MG/1 ML SDV IV PRN (16:08)
== END 2018-11-25 16:31 | disposition short-term general hospital (02) | DRG 189 ==
LOC: ER 11:48 → EH 14:02 → 3W 20:30
PROVIDERS: ADMIT Internal Medicine; ATTEND Internal Medicine
PROC: 5A09557 Assistance with Respiratory Ventilation, Greater than 96 Consecutive Hours, Continuous Positive Airway Pressure (ICD-10-PCS; principal; 2018-11-07)
PROC: 0W993ZX Drainage of Right Pleural Cavity, Percutaneous Approach, Diagnostic (ICD-10-PCS; 2018-11-16)
PROC: 0W9B3ZX Drainage of Left Pleural Cavity, Percutaneous Approach, Diagnostic (ICD-10-PCS; 2018-11-17)
DX: J96.22 Acute and chronic respiratory failure with hypercapnia (principal); J91.8 Pleural effusion in other conditions classified elsewhere; N17.9 Acute kidney failure, unspecified; N25.81 Secondary hyperparathyroidism of renal origin; I12.0 Hypertensive chronic kidney disease with stage 5 chronic kidney disease or end stage renal disease; N18.5 Chronic kidney disease, stage 5; J43.9 Emphysema, unspecified; E03.9 Hypothyroidism, unspecified; E78.5 Hyperlipidemia, unspecified; D63.1 Anemia in chronic kidney disease; E11.22 Type 2 diabetes mellitus with diabetic chronic kidney disease; E11.51 Type 2 diabetes mellitus with diabetic peripheral angiopathy without gangrene; E87.5 Hyperkalemia; I25.10 Atherosclerotic heart disease of native coronary artery without angina pectoris; K21.9 Gastro-esophageal reflux disease without esophagitis; J96.21 Acute and chronic respiratory failure with hypoxia; F32.9 Major depressive disorder, single episode, unspecified; K64.4 Residual hemorrhoidal skin tags; Z66 Do not resuscitate; M06.9 Rheumatoid arthritis, unspecified; F17.210 Nicotine dependence, cigarettes, uncomplicated; I48.2 Chronic atrial fibrillation; E11.21 Type 2 diabetes mellitus with diabetic nephropathy; E83.39 Other disorders of phosphorus metabolism; T68.XXXA Hypothermia, initial encounter; E78.00 Pure hypercholesterolemia, unspecified; D50.0 Iron deficiency anemia secondary to blood loss (chronic); Z53.1 Procedure and treatment not carried out because of patient's decision for reasons of belief and group pressure; Z79.899 Other long term (current) drug therapy; Z86.711 Personal history of pulmonary embolism; Z95.1 Presence of aortocoronary bypass graft; Z95.5 Presence of coronary angioplasty implant and graft; Z91.041 Radiographic dye allergy status; Z88.2 Allergy status to sulfonamides; Z88.8 Allergy status to other drugs, medicaments and biological substances; Z91.018 Allergy to other foods; Z83.3 Family history of diabetes mellitus; Z82.49 Family history of ischemic heart disease and other diseases of the circulatory system; Z79.4 Long term (current) use of insulin; Z79.01 Long term (current) use of anticoagulants; Z91.19 Patient's noncompliance with other medical treatment and regimen; Z86.010 Personal history of colon polyps
CPT/HCPCS: 32555; 36415; 36600; 71045; 76775; 80048; 80053; 80162; 81001; 82150; 82607; 82728; 82746; 82803; 82945; 82962; 83036; 83540; 83550; 83605; 83615; 83735; 83970; 84100; 84155; 84157; 84443; 84484; 85025; 85027; 85045; 85610; 85730; 87015; 87040; 87070; 87075; 87116; 87205; 87206; 89050; 93005; 93010; 94640; 94660; 99291; J0360; J0456; J0610; J1160; J1439; J1644; J1756; J1815; J1940; J2060; J2920; J3490; J7030; J7050; J7060; J7512; J7620; Q5106